=== PATIENT | male | born 1955 | race Caucasian/White ===

== ENCOUNTER 2017-08-03 08:05 | Day surgery (SDC) | payer OTHER, SELFPAY ==
[2017-08-03 08:28] VITALS: BP 101/71; PULSE 91; RESP 14; TEMP 36.2; O2SAT 99; BMI 26.4
--- NOTE | 2017-08-03 09:18 | H&P.OPEN ---
Past Medical/Surgical History - Planned Operation Planned Operative Procedure/s: COLONOSCOPY/OPEN ACCESS Date of Operative Procedure: 08/03/17 Permit Signed: No S.O.S: No Is This Patient Having a Total Joint: No - Previous Hospitalizations/Surgeries HX Hospitalizations: No HX of Surgeries: APPENDECTOMY. BACK INJECTIONS 2010. RIGHT KNEE SCOPE. 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 Any Problems With Anesthesia: No You/Your Family Experience Fever (Hyperthermia) With Anes: No Cholinesterase deficiency: No - Cardiovascular Hx Chest Pain within Last 2 months: No Hx of Irregular Heartbeat and/or Afib: No Hx Heart Attack: No Hx Congestive Heart Failure: No Hx Rheumatic Fever: No Hx Hypertension: Yes - CONTROLLED WITH MED Hx Internal Defibrillator: No Hx Pacemaker: No Hx Cardiac Catheterization: No Hx Cardiac Surgery/Stents/Etc.: No Hx Stress Test: No HX Edema: No Hx Pain in Legs when Walking/Leg Cramps: Yes - IN THE PAST - Respiratory Chronic Cough: No HX of Shortness of Breath: No Hoarseness: No Hx Chronic Obstructive Pulmonary Disease (COPD): No Hx Asthma: No Hx Emphysema: No Hx Sleep Apnea: No Hx Oxygen Use at Home: No Hx Respiratory Tract Infection/Cold (presently): No Do You Snore Loudly (louder than talking or can be heard): No Do You Often Feel Tired/ Fatigued/ Sleepy Dring Daytime?: No Has Anyone Observed You Stop Breathing During Sleep?: No Result (for STOP score): Negative Hx Smoking: Yes - QUIT 15 YRS AGO Smoking Status: Former smoker - Gastrointestinal Hx Gastroesophageal Reflux: No Hx Gastrointestinal Disorders: No Hx Gastrointestinal Bleed: No Hx Ulcer: No Hx Hiatal Hernia: No Difficulty Chewing/Swallowing: No Recent Onset of Swallowing Problems: No Special diet followed at home: No Hx Unplanned Weight Loss of 20#: No HX Unplanned Weight Gain of 20#: No - Neurological Hx Seizures: No HX Syncope/Blackout Spells/Unconsciousness: No Hx CVA/Stroke: No Hx Transient Ischemic Attacks (TIA): No Hx Multiple Sclerosis: No Hx Parkinson's Disease: No Hx Head/Neck Injury: No Hx Headaches: No Hx Back Injury/Pain: Yes - LOWER BACK PAIN AT TIMES/HERNIATED DISC Recent Onset of Speech Difficulty: No Restless Legs: No Does patient have nerve stimulator: No Patient instructed to have device shut off: No Rep notified?: No - Blood Disorder Hx Leukemia: No Bleeding Tendencies: No Hx Deep Vein Thrombosis: No Hx High Cholesterol: No Blood Transmitted Disease: No Hx Hepatitis: No Hx Cirrhosis: No Hx Anemia: No Hx Blood Disorders: No - Genitourinary Hx Renal Disease: No - Musculoskeletal Hx Arthritis: No Hx Rheumatoid Arthritis: No Hx Gout: No Recent Onset of an Orthopedic Problem: No - Endocrine Hx Diabetes: No Thyroid Disease: No Hx Steroid Therapy: No - Psycho/Social Hx Substance Use: No Hx Alcohol Use: Yes - 6 PACK PER WEEK Hx Anxiety: No Hx Depression: No Mental Illness: No Hx Dementia: No - Miscellaneous Hx Cancer: No Recent Exposure to Contagious Disease: No Active MRSA: No Hx of C-Diff: No Any Loose Teeth: No Allergies erythromycin base [Erythromycin Base] Allergy (Verified 08/01/17 09:34) Rash Home Medications Medication Instructions Recorded Lisinopril [Lisinopril] 20 mg PO DAILY 10/24/13 - Discharge Is Pt Admitted From a Half-Way, or a Fpc: No Who Could Help: FAMILY After D/C, Where Do you Plan to Go: Return Home - From the PAT History Number of Risk Factors: 2 - Physical Exam General: Alert, Oriented x3, Cooperative HEENT: Atraumatic Lungs: Normal air movement Cardiovascular: Regular rate, Regular Rhythm Abdomen: Soft, Non Tender, Non-Distended Vital Signs Temp Pulse Resp BP Pulse Ox 97.2 F L 91 14 101/71 99 08/03/17 08:28 08/03/17 08:28 08/03/17 08:28 08/03/17 08:28 08/03/17 08:28 Oxygen Delivery Method Room Air Weight: 189 lb 6.033 oz Body Mass Index (BMI) 26.4 Assessment/Plan 62-year-old male for screening colonoscopy after positive Cologuard 1. The patient had a recent Cologuard test which was positive. The patient reports no blood in his stool. He has no abdominal pain. He has no family history of colon cancer. 2. I explained endoscopy in detail to the patient. I explained the risks including but not limited to stroke or heart attack with anesthesia, perforation of the GI tract, bleeding, infection. I explained that any of these could necessitate further emergency surgery. The patient understands and all questions were answered sufficiently. The patient wishes to proceed with procedure. Riccardo Cross MD Pager: [facility] [address], [address] [place] [address] Office: Surgery Risks - Colonoscopy Risks Include but are not Limited To: Risks include but are not limited to: Bleeding, perforation requiring further surgery, inability to complete colonoscopy requiring barium enema.
--- NOTE | 2017-08-03 09:57 | COLBX_PTH ---
PATIENT: DESI FATIMA LOC: EN U#:[id number] AGE/SX: 62/M ROOM: RE08/03/[address]: Dr. Riccardo Cross MD : [id number] BED: DIS: 08/03/2017 SPEC #: [id number] RECD: 08/03/17 12:19 STATUS: MOSES AYM #: [id number] GABINO: 08/03/17 09:[address]: Riccardo Cross DEPT: SURGICAL PATHOLOGY RECD BY: Jose Guerra ENTERED: 08/03/17 12:33 SP TYPE: COLON BX OTHR DR: Dr. Alvaro Auguste MD Tissues: A - Sigmoid colon biopsy B - Sigmoid colon biopsy C - Rectum, NOS Procedures: Surgery Specimen Level IV HEADER OPERATION: Colonoscopy PRE-OP DIAGNOSIS: Screening TISSUE SUBMITTED: A. Sigmoid polyp at 30 cm, proximal, B. Distal sigmoid polyp biopsy, C. Rectal polyp MICROSCOPIC DIAGNOSIS A. Sigmoid polyp at 30 cm, proximal, biopsy: Hyperplastic polyp. B. Distal sigmoid polyp, biopsy: Hyperplastic polyp. C. Rectal polyp, biopsy: Fragments of hyperplastic polyp. LIBBY:kelly 08/06/17 MICROSCOPIC DESCRIPTION Slides are reviewed. GROSS DESCRIPTION A - Received in fixative is one container labeled with the patient's name and designated sigmoid polyp at 30 cm. The specimen consists of a pink-red polyp measuring 1 x 0.6 x 0.4 cm. The apparent base is inked. The specimen is bisected and submitted entirely in one cassette. B - Received in fixative is one container labeled with the patient's name and designated distal sigmoid polyp biopsy. The specimen consists of one irregular fragment of light pompa soft tissue that measures 0.3 x 0.1 x 0.1 cm. The specimen is totally submitted in one cassette. C - Received in fixative is one container labeled with the patient's name and designated rectal polyp. The specimen consists of multiple irregular fragments of light pompa soft tissue that in aggregate measure 0.5 x 0.1 x 0.1 cm. The specimen is totally submitted in one cassette. / LIBBY:kelly 08/03/17 TC:1 CPT: 85517 x3
[2017-08-03 10:08] VITALS: BP 101/71; BP 75/59; PULSE 71; RESP 16; TEMP 36.8; O2SAT 97
--- NOTE | 2017-08-03 10:08 | PCM.OPRPT ---
Problem List (1) Screen for colon cancer Status: Acute Report of Operation Date of Procedure: 08/03/17 Pre-Operative Diagnosis: Screening colonoscopy Post-Operative Diagnosis: 1. Diverticulosis. 2. Mid sigmoid polyp. 3. Distal sigmoid polyp. 4. Rectal polyp Surgery/Procedure Performed:: Colonoscopy with snare polypectomy Specimen's removed: 1. Mid sigmoid polyp. 2. Distal sigmoid polyp. 3. Rectal polyp Description of Procedure: The major risks and benefits associated with the procedure were explained to the patient in detail. The patient verbalized understanding and agreement with the same. The patient was brought to the endoscopy suite. After adequate sedation was achieved, the patient was placed in the left lateral decubitus position and a digital rectal exam was performed. This examination was within normal limits. A well-lubricated colonoscope was then inserted into the rectum and advanced under direct visualization to the level of the cecum. The bowel prep was good. The cecum was identified by both visual and anatomic landmarks. A photograph was taken of the end of the cecum. The scope was then fully withdrawn while examining the color, texture, anatomy and integrity of the mucosa from the cecum to the anal canal. The findings were consistent with normal colonic mucosa. The patient had a pedunculated polyp in the mid sigmoid. This was removed with cautery snare. The patient also had a small polyp in the distal sigmoid which was fully removed with cold forceps. The patient had a small polyp in the rectum which was removed with cautery snare. The patient also had diverticulosis of the sigmoid colon. Over 6 minutes were taken to examine the colonic mucosa. Upon reaching the rectum the scope was retroflexed to examine the distal rectal vault. The scope was then straightened and was completely retrieved upon exiting the anal canal and the procedure was terminated. The patient was then transferred to the recovery room in stable condition. Recommendations for follow up: Dependent on pathology
[2017-08-03 10:15] VITALS: BP 101/71; BP 90/60; PULSE 66; RESP 18; O2SAT 97
[2017-08-03 10:20] VITALS: BP 101/71; BP 88/59; PULSE 61; RESP 18; O2SAT 99
[2017-08-03 10:25] VITALS: BP 101/71; BP 95/63; PULSE 63; RESP 18; TEMP 36.7; O2SAT 100
[2017-08-03 10:50] VITALS: BP 101/71
== END 2017-08-03 10:58 | disposition home or self-care (01) ==
LOC: EN 08:10 → AC 08:11
PROVIDERS: Family Provider Family Medicine Geriatric Medicine; PCP Family Medicine Geriatric Medicine; Visit Provider Surgery
PROC: 0DJD8ZZ Inspection of Lower Intestinal Tract, Via Natural or Artificial Opening Endoscopic (ICD-10-PCS; CPT 45378; principal; 2017-08-03 08:55)
DX: Z12.11 Encounter for screening for malignant neoplasm of colon (principal); K63.5 Polyp of colon; K62.1 Rectal polyp; K57.30 Diverticulosis of large intestine without perforation or abscess without bleeding; I10 Essential (primary) hypertension; Z87.891 Personal history of nicotine dependence
CPT/HCPCS: 45380; 45385; 88305; J7120

== ENCOUNTER → 2017-09-03 13:45 | Outpatient (CLI) | payer OTHER, SELFPAY ==
[2017-09-03 18:05] LABS: Absolute Lymphocyte Count 1.84 X10^3/ul (0.83-4.51); Absolute Neutrophil Count 3.8 X10^3/uL (2.0-7.7); Basophil# 0.04 X10^3/uL; Basophil% 0.6 % (0-1); Eosinophil# 0.32 X10^3/uL; Eosinophils% 4.7 % (0-5); Hematocrit 49.9 % (40-54); Hemoglobin 17.4 g/dl (13.0-16.5); Lymphocyte # 1.84 X10^3/ul (4.0); Lymphocyte % 27.1 % (19-41); Mean Corp Hgb Conc 34.9 g/gl (32-36); Mean Corpuscular Hgb 33.1 pg (27.0-32.0); Mean Corpuscular Volume 94.9 fL (80-94); Mean Platelet Vol. 12.1 fl (6.2-12.0); Monocyte# 0.75 X10^3/uL; Monocyte% 11.1 % (0-10); Neutrophil % 56.1 % (47-70); Platelet Count 211 K/mm3 (150-450); RBC Distribution Width CV 13.7 % (11.6-14.6); Red Blood Count 5.26 M/mm3 (4.6-6.2); White Blood Count 6.8 K/mm3 (4.4-11.0)
[2017-09-03 18:07] LABS: ALB/GLOB Ratio 1.1 RATIO (0.9-2.4); AST(SGOT) 19 U/L (15-37); Alanine Aminotransfer ALT/SGPT 26 U/L (16-61); Albumin, Serum 4.1 g/dL (3.2-5.0); Alkaline Phosphatase 67 U/L (45-117); Anion Gap 8 (5-15); BUN 16 mg/dL (7-18); BUN/Creat Ratio 12.5 RATIO (10-20); Chloride 107 mmol/L (98-107); Creatinine, Serum 1.28 mg/dL (0.70-1.30); EST Glomerular Filtration Rate 60 mL/min (>60); Est Glom Filt Rate - Afr Amer 73 mL/min (>60); Globulin 3.7 g/dL (2.2-4.2); Glucose 99 mg/dL (74-106); Potassium 3.7 mmol/L (3.5-5.1); Protein, Total 7.8 g/dL (6.4-8.2); Sodium Level 140 mmol/L (136-145); Thyroid Stim Hormone (TSH) 0.74 uIU/mL (0.358-3.74)
[2017-09-03 18:17] LABS: POSITIVE COUNT NO; POSITIVE DIFFERENTIAL NO; POSITIVE MORPHOLOGY NO
== END ==
PROVIDERS: Family Provider Family Medicine Geriatric Medicine; PCP Family Medicine Geriatric Medicine; Visit Provider Obstetrics & Gynecology
DX: E55.9 Vitamin D deficiency, unspecified (principal); I10 Essential (primary) hypertension; M10.9 Gout, unspecified
CPT/HCPCS: 36415; 80053; 84443; 84550; 85025

== ENCOUNTER → 2017-10-15 16:05 | Outpatient (CLI) | payer OTHER, SELFPAY ==
--- NOTE | 2017-10-15 16:05 | DT_ITS ---
This patient was seen during an EMR downtime October 08, 2017 - October 15, 2017. This patient may have a combination of paper and electronic documentation or all paper documentation. All documentation is viewable within the e-chart portion of [employer] for each patient visit.
[2017-10-15 17:36] LABS: Absolute Lymphocyte Count 1.24 X10^3/ul (0.83-4.51); Absolute Neutrophil Count 14.5 X10^3/uL (2.0-7.7); Basophil# 0.02 X10^3/uL; Basophil% 0.1 % (0-1); Eosinophil# 0.06 X10^3/uL; Eosinophils% 0.3 % (0-5); Hematocrit 48.7 % (40-54); Hemoglobin 16.9 g/dl (13.0-16.5); Lymphocyte # 1.24 X10^3/ul (4.0); Lymphocyte % 7.2 % (19-41); Mean Corp Hgb Conc 34.7 g/gl (32-36); Mean Corpuscular Hgb 32.9 pg (27.0-32.0); Mean Corpuscular Volume 94.7 fL (80-94); Mean Platelet Vol. 11.8 fl (6.2-12.0); Monocyte# 1.31 X10^3/uL; Monocyte% 7.6 % (0-10); Neutrophil # 14.52 X10^3/uL (2.7-7.7); Neutrophil % 84.6 % (47-70); Platelet Count 189 K/mm3 (150-450); RBC Distribution Width CV 13.7 % (11.6-14.6); RBC Distribution Width SD 46.4 fl (35.1-43.9); Red Blood Count 5.14 M/mm3 (4.6-6.2); White Blood Count 17.2 K/mm3 (4.4-11.0)
[2017-10-15 17:42] LABS: POSITIVE COUNT NO; POSITIVE DIFFERENTIAL NO; POSITIVE MORPHOLOGY NO
[2017-10-15 17:46] LABS: Anion Gap 10 (5-15); BUN 23 mg/dL (7-18); BUN/Creat Ratio 17.2 RATIO (10-20); Calcium,Total 9.2 mg/dL (8.5-10.1); Chloride 103 mmol/L (98-107); Creatinine, Serum 1.34 mg/dL (0.70-1.30); EST Glomerular Filtration Rate 57 mL/min (>60); Est Glom Filt Rate - Afr Amer 69 mL/min (>60); Glucose 121 mg/dL (74-106); Potassium 4.1 mmol/L (3.5-5.1); Sodium Level 139 mmol/L (136-145); Uric Acid 8.9 mg/dL (3.5-7.2)
[2017-10-15 17:51] LABS: Erythrocyte Sedimentation Rate 10 mm/hr (0-20)
== END ==
PROVIDERS: Family Provider Family Medicine Geriatric Medicine; PCP Family Medicine Geriatric Medicine; Visit Provider Family Medicine Geriatric Medicine
DX: M10.9 Gout, unspecified (principal); M25.50 Pain in unspecified joint; R50.9 Fever, unspecified
CPT/HCPCS: 36415; 80048; 84550; 85025; 85652; 86140; 87040

== ENCOUNTER 2017-11-05 14:23 | Emergency (ER) | payer OTHER, SELFPAY ==
[2017-11-05 14:24] VITALS: BP 133/82; PULSE 78; RESP 16; TEMP 36.6; BMI 25.6
--- NOTE | 2017-11-05 15:38 | RAD_ITS ---
STUDY: X-RAY - LEFT KNEE REASON FOR EXAM: Male, 62 years old. Left knee pain and swelling TECHNIQUE: 4 view(s) of the knee. COMPARISON: None. FINDINGS: Normal visualized distal femur. Normal visualized proximal tibia and fibula. Normal proximal tibiofibular articulation. Normal medial femorotibial compartment. Normal lateral femorotibial compartment. Normal patellofemoral articulation. Prepatellar soft tissue swelling RAD/Knee 4 or More Views IMPRESSION: Prepatellar soft tissue swelling suggesting small bursitis. Electronically Signed: Raymundo Mendosa DO at 16:49 EDT Tel , Service support ,
--- NOTE | 2017-11-05 15:41 | ED.VISSUMM ---
- ER Visit Summary Date of Service: 11/05/17 Chief Complaint: Left knee redness History of Present Illness: The patient is a 62 M with left knee redness since October 13. He states he began having redness and swelling in his knee on October 13. He does not does recall a specific injury. He states he was kneeling on his knees before this started but had no direct trauma to his knee. He was seen by his primary care physician Dr. Auguste on October 15. He attempted to aspirate his knee but was unable to obtain fluid. He gave him IV antibiotics for 4 days and then put him on oral antibiotics. Patient does not recall which antibiotics he was taking. He states the redness has improved but has not completely resolved. He was advised to see Dr. Bañuelos today. The orthopedic office called and advised him to come to the ED instead. Physical Examination: Vitals are stable. Patient is afebrile. Alert no acute distress. HEENT exam is unremarkable. Neck is supple. Lungs are clear and equal bilaterally. Heart is regular rate and rhythm. Abdomen is soft nontender nondistended. Extremities erythema to anterior let knee. Full active range of motion of left knee with no pain. Neurovascularly intact distally. Normal distal pulses. Skin is warm and dry. No focal neurologic deficit. Remainder of exam is unremarkable. Emergency Department Course and Treatment: CBC, chemistries unremarkable. Sed rate is 2. Left knee x-ray shows prepatellar soft tissue swelling suggesting small bursitis. Patient has full active range of motion without any pain. I do not feel this is a septic joint. Discussed with Dr. Correa. Patient will follow-up with Dr. Bañuelos. I do not feel he needs further antibiotics at this time. He is advised to rest, ice, elevate. He is advised return to ED for any worsening complaints. Disposition: Discharge home Impression: Left knee bursitis This note was generated with bluebird bio dictation software. It may contain incorrect words, spelling, and punctuation that were not noted in review of the chart prior to signing ED Disposition - Plan for ED Patient: Chief Complaint: Wound Referrals: Alvaro Auguste Chi, MD [Primary Care Provider] -
[2017-11-05 16:12] LABS: Absolute Lymphocyte Count 2.05 X10^3/ul (0.83-4.51); Absolute Neutrophil Count 6.6 X10^3/uL (2.0-7.7); Basophil# 0.03 X10^3/uL; Basophil% 0.3 % (0-1); Eosinophil# 0.29 X10^3/uL; Hematocrit 47.4 % (40-54); Hemoglobin 16.3 g/dl (13.0-16.5); Lymphocyte # 2.05 X10^3/ul (4.0); Lymphocyte % 21.3 % (19-41); Mean Corp Hgb Conc 34.4 g/gl (32-36); Mean Corpuscular Hgb 32.6 pg (27.0-32.0); Mean Corpuscular Volume 94.8 fL (80-94); Mean Platelet Vol. 11.1 fl (6.2-12.0); Monocyte# 0.67 X10^3/uL; Neutrophil # 6.58 X10^3/uL (2.7-7.7); Neutrophil % 68.3 % (47-70); Platelet Count 206 K/mm3 (150-450); RBC Distribution Width CV 13.7 % (11.6-14.6); RBC Distribution Width SD 46.9 fl (35.1-43.9); White Blood Count 9.6 K/mm3 (4.4-11.0)
[2017-11-05 16:13] LABS: POSITIVE COUNT NO; POSITIVE DIFFERENTIAL NO; POSITIVE MORPHOLOGY NO
[2017-11-05 16:28] LABS: Anion Gap 5 (5-15); BUN 20 mg/dL (7-18); BUN/Creat Ratio 17.1 RATIO (10-20); Calcium,Total 9.3 mg/dL (8.5-10.1); Chloride 106 mmol/L (98-107); Creatinine, Serum 1.17 mg/dL (0.70-1.30); EST Glomerular Filtration Rate 67 mL/min (>60); Est Glom Filt Rate - Afr Amer 81 mL/min (>60); Estimated Creatinine Clearance 67.93 ml/min; Glucose 89 mg/dL (74-106); Potassium 4.2 mmol/L (3.5-5.1); Sodium Level 140 mmol/L (136-145)
[2017-11-05 16:41] LABS: Erythrocyte Sedimentation Rate 2 mm/hr (0-20)
[2017-11-05 17:07] VITALS: BP 132/80; PULSE 80; RESP 16; O2SAT 98
--- NOTE | 2017-11-05 17:31 | ED.DEP ---
ED Disposition - Plan for ED Patient: Chief Complaint: Wound Instructions: ED Bursitis Referrals: Alvaro Auguste Chi, MD [Primary Care Provider] - Cesario Bañuelos MD [STAFF PHYSICIAN] -
== END 2017-11-05 17:36 | disposition home or self-care (01) ==
PROVIDERS: Emergency Provider Emergency Medicine; Family Provider Family Medicine Geriatric Medicine; PCP Family Medicine Geriatric Medicine
DX: M70.52 Other bursitis of knee, left knee (principal); I10 Essential (primary) hypertension
CPT/HCPCS: 73564; 80048; 85025; 85652; 99283; A4216

== ENCOUNTER → 2018-03-27 09:12 | Outpatient (CLI) | payer MEDICARE, SELFPAY ==
[2018-03-27 13:06] LABS: Absolute Lymphocyte Count 1.39 X10^3/ul (0.83-4.51); Absolute Neutrophil Count 4.2 X10^3/uL (2.0-7.7); Basophil# 0.05 X10^3/uL; Basophil% 0.7 % (0-1); Eosinophil# 0.33 X10^3/uL; Eosinophils% 4.8 % (0-5); Hematocrit 49.7 % (40-54); Hemoglobin 16.7 g/dl (13.0-16.5); Lymphocyte # 1.39 X10^3/ul (4.0); Lymphocyte % 20.4 % (19-41); Mean Corp Hgb Conc 33.6 g/gl (32-36); Mean Corpuscular Hgb 33.3 pg (27.0-32.0); Mean Platelet Vol. 12.3 fl (6.2-12.0); Monocyte# 0.81 X10^3/uL; Monocyte% 11.9 % (0-10); Neutrophil # 4.24 X10^3/uL (2.7-7.7); Neutrophil % 62.2 % (47-70); Platelet Count 189 K/mm3 (150-450); RBC Distribution Width SD 50.1 fl (35.1-43.9); Red Blood Count 5.02 M/mm3 (4.6-6.2); White Blood Count 6.8 K/mm3 (4.4-11.0)
[2018-03-27 13:22] LABS: ALB/GLOB Ratio 1.1 RATIO (0.9-2.4); AST(SGOT) 18 U/L (15-37); Alanine Aminotransfer ALT/SGPT 26 U/L (16-61); Alkaline Phosphatase 75 U/L (45-117); Anion Gap 8 (5-15); BUN 18 mg/dL (7-18); BUN/Creat Ratio 13.8 RATIO (10-20); Chloride 107 mmol/L (98-107); EST Glomerular Filtration Rate 59 mL/min (>60); Est Glom Filt Rate - Afr Amer 71 mL/min (>60); Globulin 3.8 g/dL (2.2-4.2); Glucose 96 mg/dL (74-106); PSA,Total - Annual Screen 0.64 ng/mL (0.00-4.00); Potassium 3.6 mmol/L (3.5-5.1); Protein, Total 7.8 g/dL (6.4-8.2); Sodium Level 141 mmol/L (136-145); Thyroid Stim Hormone (TSH) 0.93 uIU/mL (0.358-3.74); Uric Acid 4.8 mg/dL (3.5-7.2)
[2018-03-27 14:09] LABS: POSITIVE COUNT NO; POSITIVE DIFFERENTIAL NO; POSITIVE MORPHOLOGY NO
== END ==
PROVIDERS: Family Provider Family Medicine Geriatric Medicine; PCP Family Medicine Geriatric Medicine; Visit Provider Family Medicine Geriatric Medicine
DX: E23.6 Other disorders of pituitary gland (principal); I10 Essential (primary) hypertension; M10.9 Gout, unspecified; Z12.5 Encounter for screening for malignant neoplasm of prostate
CPT/HCPCS: 36415; 80053; 84153; 84403; 84443; 84550; 85025; G0103

== ENCOUNTER → 2018-04-09 08:41 | Outpatient (CLI) | payer MEDICARE, OTHER, SELFPAY ==
--- NOTE | 2018-04-09 08:45 | US_ITS ---
PROCEDURES: ULTRASOUND AORTA REASON FOR EXAM: Male, 63 years old. Screening for abdominal aortic aneurysm. TECHNIQUE: Ultrasound evaluation of the aorta was performed with real-time and static beckett-scale imaging. COMPARISON: None. FINDINGS: There is atherosclerotic plaque formation of the abdominal aorta. Aorta measures: Proximal 1.9 cm. Middle 1.7 cm. Distal 1.7 cm. Aorta measure transversely: Proximal 2.5 cm. Middle 2.5 cm. Distal 1.6 cm. Right iliac artery measures: 1.1 cm. Right iliac artery measure transversely: 1.2 cm. Left iliac artery measures: 1.2 cm. Left iliac artery measure transversely: 1.2 cm. There is no demonstrated aneurysm.. US/Aorta IMPRESSION: Atherosclerotic plaque formation of the infrarenal abdominal aorta. No aneurysm is seen. Electronically Signed: Bill Collazo MD at 15:43 EST Tel [phone], Service support ,
== END ==
PROVIDERS: Family Provider Family Medicine Geriatric Medicine; PCP Family Medicine Geriatric Medicine; Referring Provider Family Medicine Geriatric Medicine; Visit Provider Family Medicine Geriatric Medicine
DX: I71.4 Abdominal aortic aneurysm, without rupture (principal)
CPT/HCPCS: 76775

== ENCOUNTER → 2018-09-26 09:27 | Outpatient (CLI) | payer MEDICARE, OTHER, SELFPAY ==
[2018-09-26 12:39] LABS: Absolute Lymphocyte Count 1.39 X10^3/ul (0.83-4.51); Absolute Neutrophil Count 4.9 X10^3/uL (2.0-7.7); Basophil# 0.04 X10^3/uL; Basophil% 0.5 % (0-1); Eosinophil# 0.28 X10^3/uL; Eosinophils% 3.8 % (0-5); Hematocrit 49.5 % (40-54); Hemoglobin 16.8 g/dl (13.0-16.5); Lymphocyte # 1.39 X10^3/ul (4.0); Lymphocyte % 18.9 % (19-41); Mean Corp Hgb Conc 33.9 g/gl (32-36); Mean Corpuscular Hgb 31.6 pg (27.0-32.0); Mean Platelet Vol. 11.7 fl (6.2-12.0); Monocyte# 0.76 X10^3/uL; Monocyte% 10.3 % (0-10); Neutrophil # 4.88 X10^3/uL (2.7-7.7); Neutrophil % 66.2 % (47-70); Platelet Count 213 K/mm3 (150-450); RBC Distribution Width CV 13.5 % (11.6-14.6); RBC Distribution Width SD 44.6 fl (35.1-43.9); Red Blood Count 5.32 M/mm3 (4.6-6.2); White Blood Count 7.4 K/mm3 (4.4-11.0)
[2018-09-26 12:44] LABS: POSITIVE COUNT NO; POSITIVE DIFFERENTIAL NO; POSITIVE MORPHOLOGY NO
[2018-09-26 13:06] LABS: Vitamin D,25 Hydroxy 21.5 ng/mL (29.95-100.01)
[2018-09-26 13:40] LABS: ALB/GLOB Ratio 1.1 RATIO (0.9-2.4); AST(SGOT) 20 U/L (15-37); Alanine Aminotransfer ALT/SGPT 25 U/L (16-61); Albumin, Serum 3.8 g/dL (3.2-5.0); Alkaline Phosphatase 87 U/L (45-117); Anion Gap 6 (5-15); BUN 15 mg/dL (7-18); BUN/Creat Ratio 11.5 RATIO (10-20); Calcium,Total 9.3 mg/dL (8.5-10.1); Chloride 109 mmol/L (98-107); Creatinine, Serum 1.31 mg/dL (0.70-1.30); EST Glomerular Filtration Rate 58 mL/min (>60); Est Glom Filt Rate - Afr Amer 71 mL/min (>60); Globulin 3.6 g/dL (2.2-4.2); Glucose 111 mg/dL (74-106); Potassium 3.8 mmol/L (3.5-5.1); Protein, Total 7.4 g/dL (6.4-8.2); Sodium Level 140 mmol/L (136-145); Thyroid Stim Hormone (TSH) 0.76 uIU/mL (0.358-3.74); Uric Acid 8.1 mg/dL (3.5-7.2)
== END ==
PROVIDERS: Family Provider Family Medicine Geriatric Medicine; PCP Family Medicine Geriatric Medicine; Visit Provider Family Medicine Geriatric Medicine
DX: E55.9 Vitamin D deficiency, unspecified (principal); I10 Essential (primary) hypertension; M10.9 Gout, unspecified
CPT/HCPCS: 36415; 80053; 82306; 84443; 84550; 85025

== ENCOUNTER → 2018-12-20 08:55 | Outpatient (CLI) | payer MEDICARE, OTHER, SELFPAY ==
[2018-12-20 08:52] VITALS: BMI 25.6
--- NOTE | 2018-12-20 08:57 | RAD_ITS ---
STUDY: X-RAY - LEFT HAND, ATTENTION FIFTH FINGER REASON FOR EXAM: Injury. TECHNIQUE: 3 view(s) of the finger were obtained. COMPARISON: None. FINDINGS: Normal metacarpal. Normal metacarpophalangeal joint. Normal proximal phalanx. There is a bone island in the base of the proximal phalanx. Normal middle phalanx. Normal distal phalanx. Normal proximal interphalangeal joint. Normal distal interphalangeal joint. There is soft tissue swelling. RAD/Finger(s) Min 2 Views IMPRESSION: Soft tissue swelling. No demonstrated fracture. Electronically Signed: Samy Warren MD at 9:29 EDT Tel , Service support ,
--- NOTE | 2018-12-20 08:57 | RAD_ITS ---
STUDY: X-RAY - RIGHT SHOULDER REASON FOR EXAM: Pain. TECHNIQUE: 3 view(s) of the shoulder. COMPARISON: None. FINDINGS: Normal glenohumeral articulation. There is mild acromioclavicular arthrosis. Normal acromion. There is mild enthesopathy of the greater tuberosity. The soft tissue structures are unremarkable. Normal visualized pulmonary apex. RAD/Shoulder min 2 Views IMPRESSION: Mild acromioclavicular arthrosis. Electronically Signed: Samy Warren MD at 9:39 EDT Tel , Service support ,
== END ==
PROVIDERS: Family Provider Family Medicine Geriatric Medicine; PCP Family Medicine Geriatric Medicine; Referring Provider Orthopaedic Surgery; Visit Provider Orthopaedic Surgery
DX: S69.92XA Unspecified injury of left wrist, hand and finger(s), initial encounter (principal); M19.011 Primary osteoarthritis, right shoulder
CPT/HCPCS: 73030; 73140

== ENCOUNTER → 2019-03-28 09:17 | Outpatient (CLI) | payer MEDICARE, OTHER, SELFPAY ==
[2019-03-10 09:21] VITALS: BMI 25.6
[2019-03-28 12:28] LABS: Absolute Lymphocyte Count 1.16 X10^3/uL (0.83-4.51); Absolute Neutrophil Count 4.8 X10^3/uL (2.0-7.7); Basophil# 0.04 X10^3/uL; Basophil% 0.6 % (0-1); Eosinophil# 0.21 X10^3/uL; Eosinophils% 3.1 % (0-5); Hematocrit 48.2 % (40-54); Hemoglobin 15.9 g/dL (13.0-16.5); Lymphocyte # 1.16 X10^3/ul (4.0); Mean Corpuscular Hgb 32.4 pg (27.0-32.0); Mean Corpuscular Volume 98.4 fL (80-94); Mean Platelet Vol. 11.8 fl (6.2-12.0); Monocyte# 0.65 X10^3/uL; Monocyte% 9.5 % (0-10); NRBC Flagged by Analyzer 0 % (0-5); Neutrophil # 4.76 X10^3/uL (2.7-7.7); Neutrophil % 69.5 % (47-70); Platelet Count 173 K/mm3 (150-450); RBC Distribution Width CV 13.7 % (11.6-14.6); RBC Distribution Width SD 50.1 fl (35.1-43.9); White Blood Count 6.8 K/mm3 (4.4-11.0)
[2019-03-28 12:53] LABS: ALB/GLOB Ratio 1.1 RATIO (0.9-2.4); AST(SGOT) 14 U/L (15-37); Alanine Aminotransfer ALT/SGPT 20 U/L (16-61); Albumin, Serum 3.8 g/dL (3.2-5.0); Alkaline Phosphatase 69 U/L (45-117); Anion Gap 8 (5-15); BUN 21 mg/dL (7-18); BUN/Creat Ratio 17.4 RATIO (10-20); Calcium,Total 9.1 mg/dL (8.5-10.1); Chloride 109 mmol/L (98-107); Creatinine, Serum 1.21 mg/dL (0.70-1.30); EST Glomerular Filtration Rate 64 mL/min (>60); Est Glom Filt Rate - Afr Amer 77 mL/min (>60); Globulin 3.4 g/dL (2.2-4.2); Glucose 100 mg/dL (74-106); Potassium 3.7 mmol/L (3.5-5.1); Protein, Total 7.2 g/dL (6.4-8.2); Sodium Level 142 mmol/L (136-145); Thyroid Stim Hormone (TSH) 0.93 uIU/mL (0.358-3.74); Uric Acid 6.5 mg/dL (3.5-7.2)
[2019-03-28 12:54] LABS: PSA,Total - Annual Screen 0.52 ng/mL (0.00-4.00)
== END ==
PROVIDERS: Family Provider Family Medicine Geriatric Medicine; PCP Family Medicine Geriatric Medicine; Visit Provider Family Medicine Geriatric Medicine
DX: E23.6 Other disorders of pituitary gland (principal); E55.9 Vitamin D deficiency, unspecified; I10 Essential (primary) hypertension; M10.9 Gout, unspecified; Z12.5 Encounter for screening for malignant neoplasm of prostate
CPT/HCPCS: 36415; 80053; 82306; 84153; 84403; 84443; 84550; 85025; G0103

== ENCOUNTER 2019-04-11 15:00 | Outpatient (RCR) | payer MEDICARE, OTHER, SELFPAY ==
[2019-03-10 09:21] VITALS: BMI 25.6
--- NOTE | 2019-03-13 10:27 | HP.PTEVAL_ITS ---
Patient's Visit Information DESI FATIMA is a 63 year old M referred to Physical Therapy by DORA Guzman with a diagnosis of R biceps tenditis. Date of Evaluation: 03/13/19 Physical Therapist: Antoine Rodriguez, ALMAT, OCS, CSCS - Visit Plan Frequency: 1x/Week Duration: 4-6 Weeks Plan: weekly to start for activitiy modification adn progression of strengthening, phase 3 next session. May increase to 3x/week for US and closer management if not helpful OR return to doctor for possible MRI. 4-6 weeks total. - Subjective Findings: R shoulder tore bicep a couple yrs ago adn it never grew back. Was told it would grow back but it did not. Adjusted activitiy as he has been weak. Working hard taking care of mom and now helping sisters adn mother in law and is very busy. In January it really started flaring up in R shoulder. Had limited activitiy since then as he feels weaker and painful. X rays and clinical shows RC is OK. Says he has good motion but weight gives him pain. Comfortable at rest. Hurts to lift. Did ot hurt to move for the last couple years. No rest, spends his days working on houses and david for family and himself. These things hurt and are limited. 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 Swinging a hammer hurts. Hurt it striking at anvil a numer of weeks ago and has been worse since. Sleep is not great, uncomfy. Tried steroids adn anti inflammatories. Helped for day and a half then may have hurt himself moving. Has wood heat and needs to move wood at home. - Pain R shoulder Pain Intensity (Out of 10): 0 Pain Intensity Range: 0, 10 - Objective Walks and transfers normal, some obvious shoulder pain with putting on adn off coat but I. Cervical and scapular ROM WNL and painfree. L UE aROM WFL and normal. R elbow and wrist noisy with crepitus bu normal ROM without pain. R shoulder AROM is full but painful arc adn at end range of flexiona dn abduction. External rotation is 45 B without pain and IR is L% B without pain. Tender to aplapation over biceps tendon in R shoulder adn supra insertion. bi and tri reflex 2/3. strength L UE 5/5. R elbow and wrist 5/5. R IR 4+, ext rot 3+ and painful. flexion 3+ with tumb down and 4 with thumb up in abd and flexion. + HK and + neer. - ext rotation lag test, + painful arc R. - Goals Goal 1:: Sleep without waking due to pain Goal Time Frame: 4-6 Weeks Goal 2:: Patient move through full ROM R shoulder without increased pain Goal Time Frame: 4-6 Weeks Goal 3:: Patient feel 75% improved without any pain greater tahn 2/10 Goal Time Frame: 4-6 Weeks Goal 4:: Pt I in appropriate ex to minimzie future problems Goal Time Frame: 4-6 Weeks - Rehabilitation Potential Physical Therapy Diagnosis: R shoulder pain, biceps tendonitis adn supra tendonitis. Rehabilitation Potential: Questionable - Anticipated Interventions Patient/Client Instruction: Educate patient on: Condition, Plan of Care For the Purpose of:: To decrease pain, To improve nutrient delivery to tissue, To improve muscle performance and motor function, To increase tolerance to activity/condition/position Therapeutic Exercise to Include: Strength training, Flexibilty training, Scapular Strength/Stabilization For the Purpose of:: To decrease pain, To improve muscle performance and motor function, To increase tolerance to activity/condition/position, To improve ability of physical actions for home/community/work/leisure Ultrasound (thermal/non thermal): Yes - non thermal R shoulder For the Purpose of:: To decrease pain, To decrease swelling/inflammation Thank you for the opportunity to evaluate your patient. For Medicare and Medicare HMO plans, please review the plan of care and approve it. It will need to be FAXED BACK to us at [phone] for Medicare purposes. For Medicare only, by signing this I certify the plan of care. Please let me know if there are questions or concerns regarding this plan of care. Physician Signature: Date:
--- NOTE | 2019-04-11 15:19 | HP.PTDCSUM ---
HP - PT D/C Summary It has been my pleasure to treat DESI FATIMA under orders from DORA Guzman, for the diagnosis of R biceps tenditis for a total of 4 visit(s). Discharge Date: Please see the following information for a summary of their discharge status. - Subjective Subjective: got Shinglesshortly after lst visit. Been slacking on workouts and got about 3x/week in. Exercises seem to make him tight. Feeling good otherwise. Fetches wood but has not split it yet. Hammered last Sunday and it went great. On the right track, feeling good and started pushups and cobras. No f/u with doctor. - Pain R shoulder Pain Intensity (Out of 10): 0 - Overall Improvement % Improvement: 80 - Objective Objective/Function: Full aROM without pain today, across body adduction feels tight but able. strength is 4+ in int rot, 4- ext rot, 4+ flexiona dn abd and 5/5 in bi and tri. Moving very well. Happy and confident he can continue on his own with HEP - Goals Goal 1:: Sleep without waking due to pain Goal Progress: Goal Met Goal 2:: Patient move through full ROM R shoulder without increased pain Goal Progress: Goal Met Goal 3:: Patient feel 75% improved without any pain greater tahn 2/10 Goal Progress: Goal Met Goal 4:: Pt I in appropriate ex to minimzie future problems Goal Progress: Goal Met - Plan Plan: d/c - D/C Information If there are questions or concerns regarding this patient's physical therapy, please feel free to call me at [phone]. Thank you for the referral of this patient. Sincerely, Antoine Rodriguez, DPT, OCS, CSCS
--- NOTE | 2019-04-11 15:20 | HP.PTDCSUM ---
HP - PT D/C Summary It has been my pleasure to treat DESI FATIMA under orders from DORA Guzman, for the diagnosis of R biceps tenditis for a total of 4 visit(s). Discharge Date: 04/11/19 Please see the following information for a summary of their discharge status. - Subjective Subjective: got Shinglesshortly after lst visit. Been slacking on workouts and got about 3x/week in. Exercises seem to make him tight. Feeling good otherwise. Fetches wood but has not split it yet. Hammered last Sunday and it went great. On the right track, feeling good and started pushups and cobras. No f/u with doctor. - Pain R shoulder Pain Intensity (Out of 10): 0 - Overall Improvement % Improvement: 80 - Objective Objective/Function: Full aROM without pain today, across body adduction feels tight but able. strength is 4+ in int rot, 4- ext rot, 4+ flexiona dn abd and 5/5 in bi and tri. Moving very well. Happy and confident he can continue on his own with HEP - Goals Goal 1:: Sleep without waking due to pain Goal Progress: Goal Met Goal 2:: Patient move through full ROM R shoulder without increased pain Goal Progress: Goal Met Goal 3:: Patient feel 75% improved without any pain greater tahn 2/10 Goal Progress: Goal Met Goal 4:: Pt I in appropriate ex to minimzie future problems Goal Progress: Goal Met - Plan Plan: d/c - D/C Information Discharge Comments: Will continue wt HEP and contact doctor if pain worsens again. If there are questions or concerns regarding this patient's physical therapy, please feel free to call me at [phone]. Thank you for the referral of this patient. Sincerely, Antoine Rodriguez, DPT, OCS, CSCS
== END 2019-04-11 19:00 | disposition home or self-care (01) ==
LOC: PT 15:00
PROVIDERS: Family Provider Family Medicine Geriatric Medicine; PCP Family Medicine Geriatric Medicine; Referring Provider Physician Assistant; Visit Provider Physician Assistant
DX: M75.21 Bicipital tendinitis, right shoulder (principal)
CPT/HCPCS: 97110; 97162; 97530

== ENCOUNTER → 2019-04-18 12:27 | Outpatient (CLI) | payer MEDICARE, OTHER, SELFPAY ==
[2019-03-10 09:21] VITALS: BMI 25.6
== END ==
PROVIDERS: Family Provider Family Medicine Geriatric Medicine; PCP Family Medicine Geriatric Medicine; Referring Provider Family Medicine Geriatric Medicine; Visit Provider Family Medicine Geriatric Medicine
DX: R68.83 Chills (without fever) (principal)
CPT/HCPCS: 87633

== ENCOUNTER → 2019-09-25 15:12 | Outpatient (CLI) | payer MEDICARE, OTHER, SELFPAY ==
[2019-03-10 09:21] VITALS: BMI 25.6
[2019-09-25 16:57] LABS: Absolute Lymphocyte Count 1.58 X10^3/uL (0.83-4.51); Absolute Neutrophil Count 5.1 X10^3/uL (2.0-7.7); Basophil# 0.05 X10^3/uL; Basophil% 0.6 % (0-1); Eosinophil# 0.17 X10^3/uL; Eosinophils% 2.2 % (0-5); Hematocrit 49.7 % (40-54); Hemoglobin 16.7 g/dL (13.0-16.5); Lymphocyte # 1.58 X10^3/ul (4.0); Lymphocyte % 20.4 % (19-41); Mean Corp Hgb Conc 33.6 g/dL (32-36); Mean Corpuscular Hgb 32.4 pg (27.0-32.0); Mean Corpuscular Volume 96.5 fL (80-94); Mean Platelet Vol. 11.7 fl (6.2-12.0); Monocyte# 0.79 X10^3/uL; Monocyte% 10.2 % (0-10); NRBC Flagged by Analyzer 0 % (0-5); Neutrophil # 5.13 X10^3/uL (2.7-7.7); Neutrophil % 66.1 % (47-70); Platelet Count 217 K/mm3 (150-450); RBC Distribution Width CV 13.3 % (11.6-14.6); RBC Distribution Width SD 47.3 fl (35.1-43.9); Red Blood Count 5.15 M/mm3 (4.6-6.2); White Blood Count 7.8 K/mm3 (4.4-11.0)
[2019-09-25 17:25] LABS: ALB/GLOB Ratio 1.1 RATIO (0.9-2.4); AST(SGOT) 25 U/L (15-37); Alanine Aminotransfer ALT/SGPT 28 U/L (16-61); Albumin, Serum 3.8 g/dL (3.2-5.0); Alkaline Phosphatase 81 U/L (45-117); Anion Gap 6 (5-15); BUN 14 mg/dL (7-18); BUN/Creat Ratio 11.8 RATIO (10-20); Calcium,Total 9.2 mg/dL (8.5-10.1); Chloride 105 mmol/L (98-107); Creatinine, Serum 1.19 mg/dL (0.70-1.30); EST Glomerular Filtration Rate 65 mL/min (>60); Est Glom Filt Rate - Afr Amer 79 mL/min (>60); Globulin 3.6 g/dL (2.2-4.2); Glucose 89 mg/dL (74-106); Potassium 3.6 mmol/L (3.5-5.1); Protein, Total 7.4 g/dL (6.4-8.2); Sodium Level 140 mmol/L (136-145); Thyroid Stim Hormone (TSH) 0.79 uIU/mL (0.358-3.74); Uric Acid 7.3 mg/dL (3.5-7.2)
== END ==
PROVIDERS: PCP Family Medicine Geriatric Medicine; Visit Provider Family Medicine Geriatric Medicine
DX: E23.6 Other disorders of pituitary gland (principal); I10 Essential (primary) hypertension; E85.9 Amyloidosis, unspecified; M10.9 Gout, unspecified; E55.9 Vitamin D deficiency, unspecified
CPT/HCPCS: 36415; 80053; 82306; 84403; 84443; 84550; 85025

== ENCOUNTER → 2020-03-29 13:36 | Outpatient (CLI) | payer MEDICARE, OTHER, SELFPAY ==
[2019-03-10 09:21] VITALS: BMI 25.6
--- NOTE | 2020-03-29 15:10 | RAD_ITS ---
STUDY: X-RAY - LEFT HAND, ATTENTION THUMB REASON FOR EXAM: Left thumb pain, deformity and limited range of motion after hyperextension injury from a fall 6 weeks ago. TECHNIQUE: 3 view(s) of the finger were obtained. COMPARISON: Radiographs of the left hand 01/02/2011. FINDINGS: Normal carpometacarpal articulation. Normal metacarpal. There is mild ulnar subluxation of the first metacarpophalangeal joint. Normal proximal phalanx. Normal distal phalanx. Normal interphalangeal joint. RAD/Finger(s) Min 2 Views IMPRESSION: Mild ulnar subluxation of the first metacarpophalangeal joint. Electronically Signed: Samy Warren MD at 10:04 EST Tel , Service support ,
[2020-03-29 15:11] LABS: Absolute Lymphocyte Count 1.58 X10^3/uL (0.83-4.51); Absolute Neutrophil Count 5.7 X10^3/uL (2.0-7.7); Basophil# 0.06 X10^3/uL; Basophil% 0.7 % (0-1); Eosinophil# 0.19 X10^3/uL; Eosinophils% 2.3 % (0-5); Hemoglobin 17.4 g/dL (13.0-16.5); Lymphocyte # 1.58 X10^3/ul (4.0); Lymphocyte % 19.2 % (19-41); Mean Corp Hgb Conc 34.1 g/dL (32-36); Mean Corpuscular Hgb 33.2 pg (27.0-32.0); Mean Corpuscular Volume 97.3 fL (80-94); Mean Platelet Vol. 11.7 fl (6.2-12.0); Monocyte# 0.69 X10^3/uL; Monocyte% 8.4 % (0-10); NRBC Flagged by Analyzer 0 % (0-5); Neutrophil # 5.67 X10^3/uL (2.7-7.7); Neutrophil % 69.2 % (47-70); Platelet Count 214 K/mm3 (150-450); RBC Distribution Width CV 13.4 % (11.6-14.6); RBC Distribution Width SD 47.9 fl (35.1-43.9); Red Blood Count 5.24 M/mm3 (4.6-6.2); White Blood Count 8.2 K/mm3 (4.4-11.0)
[2020-03-29 16:03] LABS: ALB/GLOB Ratio 1.1 RATIO (0.9-2.4); AST(SGOT) 23 U/L (15-37); Alanine Aminotransfer ALT/SGPT 30 U/L (16-61); Albumin, Serum 4.2 g/dL (3.2-5.0); Alkaline Phosphatase 74 U/L (45-117); Anion Gap 6 (5-15); BUN 21 mg/dL (7-18); BUN/Creat Ratio 16.8 RATIO (10-20); Calcium,Total 9.7 mg/dL (8.5-10.1); Chloride 105 mmol/L (98-107); Creatinine, Serum 1.25 mg/dL (0.70-1.30); EST Glomerular Filtration Rate 61 mL/min (>60); Est Glom Filt Rate - Afr Amer 74 mL/min (>60); Globulin 3.8 g/dL (2.2-4.2); Glucose 90 mg/dL (74-106); PSA,Total - Annual Screen 0.56 ng/mL (0.00-4.00); Potassium 4.1 mmol/L (3.5-5.1); Sodium Level 139 mmol/L (136-145); Thyroid Stim Hormone (TSH) 0.74 uIU/mL (0.358-3.74); Uric Acid 8.4 mg/dL (3.5-7.2)
[2020-03-29 18:36] LABS: Vitamin D,25 Hydroxy 22.2 ng/mL
== END ==
LOC: POLAB3 13:37 → RAD 15:09
PROVIDERS: PCP Family Medicine Geriatric Medicine; Referring Provider Family Medicine Geriatric Medicine; Visit Provider Family Medicine Geriatric Medicine
DX: E23.6 Other disorders of pituitary gland (principal); E55.9 Vitamin D deficiency, unspecified; I10 Essential (primary) hypertension; M10.9 Gout, unspecified; Z12.5 Encounter for screening for malignant neoplasm of prostate
CPT/HCPCS: 36415; 73140; 80053; 82306; 84153; 84403; 84443; 84550; 85025; G0103

== ENCOUNTER → 2020-09-27 14:50 | Outpatient (CLI) | payer MEDICARE, SELFPAY ==
[2019-03-10 09:21] VITALS: BMI 25.6
[2020-09-27 17:23] LABS: Absolute Lymphocyte Count 1.74 X10^3/uL (0.83-4.51); Absolute Neutrophil Count 5.7 X10^3/uL (2.0-7.7); Basophil# 0.07 X10^3/uL; Basophil% 0.8 % (0-1); Eosinophil# 0.28 X10^3/uL; Eosinophils% 3.2 % (0-5); Hematocrit 51.5 % (40-54); Hemoglobin 17.2 g/dL (13.0-16.5); Lymphocyte # 1.74 X10^3/ul (0.83-4.51); Lymphocyte % 20.1 % (19-41); Mean Corp Hgb Conc 33.4 g/dL (32-36); Mean Corpuscular Hgb 32.8 pg (27.0-32.0); Mean Corpuscular Volume 98.3 fL (80-94); Mean Platelet Vol. 11.9 fl (6.2-12.0); Monocyte# 0.79 X10^3/uL; Monocyte% 9.1 % (0-10); NRBC Flagged by Analyzer 0 % (0-5); Neutrophil # 5.74 X10^3/uL (2.7-7.7); Neutrophil % 66.6 % (47-70); Platelet Count 237 K/mm3 (150-450); RBC Distribution Width CV 13.2 % (11.6-14.6); RBC Distribution Width SD 48.5 fl (35.1-43.9); Red Blood Count 5.24 M/mm3 (4.6-6.2); White Blood Count 8.6 K/mm3 (4.4-11.0)
[2020-09-27 17:48] LABS: AST(SGOT) 24 U/L (15-37); Alanine Aminotransfer ALT/SGPT 28 U/L (16-61); Albumin, Serum 3.8 g/dL (3.2-5.0); Alkaline Phosphatase 77 U/L (45-117); Anion Gap 7 (5-15); BUN 15 mg/dL (7-18); Calcium,Total 9.2 mg/dL (8.5-10.1); Chloride 107 mmol/L (98-107); Creatinine, Serum 1.36 mg/dL (0.70-1.30); EST Glomerular Filtration Rate 56 mL/min (>60); Est Glom Filt Rate - Afr Amer 67 mL/min (>60); Globulin 3.8 g/dL (2.2-4.2); Glucose 97 mg/dL (74-106); Potassium 4.1 mmol/L (3.5-5.1); Protein, Total 7.6 g/dL (6.4-8.2); Sodium Level 138 mmol/L (136-145); Thyroid Stim Hormone (TSH) 0.53 uIU/mL (0.358-3.74)
[2020-09-30 12:53] LABS: Vitamin D,25 Hydroxy 20.3 ng/mL
== END ==
PROVIDERS: PCP Family Medicine Geriatric Medicine; Visit Provider Family Medicine Geriatric Medicine
DX: E23.6 Other disorders of pituitary gland (principal); E55.9 Vitamin D deficiency, unspecified; I10 Essential (primary) hypertension
CPT/HCPCS: 36415; 80053; 82306; 84403; 84443; 85025; 86617

== ENCOUNTER → 2020-10-01 10:36 | Outpatient (CLI) | payer MEDICARE, SELFPAY ==
[2019-03-10 09:21] VITALS: BMI 25.6
[2020-10-07 03:07] LABS: Lyme IgG P18 Ab Absent (.); Lyme IgG P23 Ab Absent (.); Lyme IgG P28 Ab Absent (.); Lyme IgG P30 Ab Absent (.); Lyme IgG P39 Ab Absent (.); Lyme IgG P41 Ab Present (.); Lyme IgG P45 Ab Absent (.); Lyme IgG P58 Ab Present (.); Lyme IgG P66 Ab Absent (.); Lyme IgG P93 Ab Absent (.); Lyme IgM P23 Ab Present (.); Lyme IgM P39 Ab Absent (.); Lyme IgM P41 Ab Absent (.)
[2020-10-07 09:06] LABS: Lyme IgG WB Interpretation Negative (.); Lyme IgM WB Interpretation Negative (.)
== END ==
PROVIDERS: PCP Family Medicine Geriatric Medicine; Visit Provider Family Medicine Geriatric Medicine
DX: T07.XXXA Unspecified multiple injuries, initial encounter (principal)
CPT/HCPCS: 86617

== ENCOUNTER → 2021-04-05 13:59 | Outpatient (CLI) | payer MEDICARE, SELFPAY ==
[2021-04-05 15:30] LABS: Absolute Lymphocyte Count 1.28 X10^3/uL (0.83-4.51); Basophil# 0.06 X10^3/uL; Basophil% 0.8 % (0-1); Eosinophil# 0.32 X10^3/uL; Eosinophils% 4.2 % (0-5); Hematocrit 51.1 % (40-54); Hemoglobin 17.5 g/dL (13.0-16.5); Lymphocyte # 1.28 X10^3/ul (0.83-4.51); Lymphocyte % 16.8 % (19-41); Mean Corp Hgb Conc 34.2 g/dL (32-36); Mean Corpuscular Hgb 33.3 pg (27.0-32.0); Mean Corpuscular Volume 97.1 fL (80-94); Mean Platelet Vol. 11.3 fl (6.2-12.0); Monocyte# 0.92 X10^3/uL; Monocyte% 12.1 % (0-10); NRBC Flagged by Analyzer 0 % (0-5); Neutrophil % 65.6 % (47-70); Platelet Count 218 K/mm3 (150-450); RBC Distribution Width CV 12.9 % (11.6-14.6); RBC Distribution Width SD 46.2 fl (35.1-43.9); Red Blood Count 5.26 M/mm3 (4.6-6.2); White Blood Count 7.6 K/mm3 (4.4-11.0)
[2021-04-05 16:08] LABS: Vitamin D,25 Hydroxy 23.6 ng/mL
[2021-04-05 16:34] LABS: AST(SGOT) 22 U/L (15-37); Alanine Aminotransfer ALT/SGPT 26 U/L (16-61); Albumin, Serum 4.1 g/dL (3.2-5.0); Alkaline Phosphatase 71 U/L (45-117); Anion Gap 7 (5-15); BUN 20 mg/dL (7-18); BUN/Creat Ratio 16.7 RATIO (10-20); Calcium,Total 9.4 mg/dL (8.5-10.1); Chloride 105 mmol/L (98-107); EST Glomerular Filtration Rate 64 mL/min (>60); Est Glom Filt Rate - Afr Amer 77 mL/min (>60); Glucose 93 mg/dL (74-106); PSA,Total - Annual Screen 0.81 ng/mL (0.00-4.00); Potassium 4.1 mmol/L (3.5-5.1); Protein, Total 8.1 g/dL (6.4-8.2); Sodium Level 141 mmol/L (136-145); Thyroid Stim Hormone (TSH) 0.75 uIU/mL (0.358-3.74)
== END ==
PROVIDERS: PCP Family Medicine Geriatric Medicine; Referring Provider Family Medicine Geriatric Medicine; Visit Provider Family Medicine Geriatric Medicine
DX: E23.6 Other disorders of pituitary gland (principal); E55.9 Vitamin D deficiency, unspecified; I10 Essential (primary) hypertension; Z12.5 Encounter for screening for malignant neoplasm of prostate
CPT/HCPCS: 36415; 80053; 82306; 84153; 84403; 84443; 85025; G0103

== ENCOUNTER → 2021-04-19 16:37 | Outpatient (CLI) | payer MEDICARE, SELFPAY ==
--- NOTE | 2021-04-19 16:41 | CT_ITS ---
STUDY: CT Abdomen And Pelvis W/O Contrast Injection 04/19/2021 5:09 PM REASON FOR EXAM: Male, 66 years old. Technologist Notes LEFT SIDED POSSIBLE HERNIA pain PAIN Individualized dose optimization techniques were used for this CT. COMPARISON: None. TECHNIQUE: CT Abdomen And Pelvis W/O Contrast Injection FINDINGS: The visualized lung bases are unremarkable. The visualized portions of the heart are within normal limits. Normal liver. Normal gallbladder and extrahepatic biliary system. Normal spleen. Normal pancreas. Normal bilateral adrenal glands. No acute findings of the right kidney. No acute findings of the left kidney. Normal visualized stomach. Normal small intestine. There are multiple colonic diverticula consistent with diverticulosis. The appendix is visualized and appears normal. There are calcifications of the abdominal aorta. This is consistent for atherosclerotic disease. There is no abdominal aortic aneurysm. Normal inferior vena cava. Subcentimeter mesenteric lymph nodes. Normal urinary bladder. There are bilateral inguinal hernias containing fat. There is no bowel involvement. There is no incarceration. There is no findings suggesting that this is causing a bowel obstruction. There is an umbilical hernia containing fat. There are diffuse degenerative changes of the visualized lumbar spine. Sacralization of L5. IMPRESSION: (NOT LISTED IN ORDER OF SIGNIFICANCE) There are bilateral inguinal hernias containing fat. There is no bowel involvement. There is no incarceration. There is no findings suggesting that this is causing a bowel obstruction. There are multiple colonic diverticula consistent with diverticulosis. Other findings as above. Electronically Signed: Chalo Gates MD at 17:12 EST , Service support , CT/Abdomen/Pelvis without Cont
== END ==
LOC: CT 16:38
PROVIDERS: PCP Family Medicine Geriatric Medicine; Visit Provider Surgery
DX: R10.32 Left lower quadrant pain (principal)
CPT/HCPCS: 74176

== ENCOUNTER 2021-05-12 09:31 | Outpatient (CLI) | payer MEDICARE, SELFPAY ==
[2021-05-12 11:40] LABS: Absolute Lymphocyte Count 2.09 X10^3/uL (0.83-4.51); Absolute Neutrophil Count 4.3 X10^3/uL (2.0-7.7); Basophil# 0.05 X10^3/uL; Basophil% 0.7 % (0-1); Eosinophil# 0.51 X10^3/uL; Eosinophils% 6.6 % (0-5); Hematocrit 48.9 % (40-54); Hemoglobin 16.6 g/dL (13.0-16.5); Lymphocyte # 2.09 X10^3/ul (0.83-4.51); Lymphocyte % 27.2 % (19-41); Mean Corp Hgb Conc 33.9 g/dL (32-36); Mean Corpuscular Hgb 32.2 pg (27.0-32.0); Mean Platelet Vol. 11.8 fl (6.2-12.0); Monocyte# 0.72 X10^3/uL; Monocyte% 9.4 % (0-10); NRBC Flagged by Analyzer 0 % (0-5); Neutrophil # 4.29 X10^3/uL (2.7-7.7); Neutrophil % 55.7 % (47-70); Platelet Count 208 K/mm3 (150-450); RBC Distribution Width CV 12.2 % (11.6-14.6); RBC Distribution Width SD 42.8 fl (35.1-43.9); Red Blood Count 5.15 M/mm3 (4.6-6.2); White Blood Count 7.7 K/mm3 (4.4-11.0)
== END 2021-05-12 23:59 | disposition short-term general hospital (02) ==
LOC: POLAB3 09:32
PROVIDERS: PCP Family Medicine Geriatric Medicine; Visit Provider Family Medicine Geriatric Medicine
DX: I10 Essential (primary) hypertension (principal); R68.89 Other general symptoms and signs
CPT/HCPCS: 36415; 85025

== ENCOUNTER 2021-06-13 10:09 | Outpatient (CLI) | payer MEDICARE, SELFPAY ==
[2021-06-13 11:07] LABS: Absolute Lymphocyte Count 1.52 X10^3/uL (0.83-4.51); Absolute Neutrophil Count 4.2 X10^3/uL (2.0-7.7); Basophil# 0.04 X10^3/uL; Basophil% 0.6 % (0-1); Eosinophil# 0.26 X10^3/uL; Eosinophils% 3.9 % (0-5); Hematocrit 45.4 % (40-54); Lymphocyte # 1.52 X10^3/ul (0.83-4.51); Lymphocyte % 22.9 % (19-41); Mean Corp Hgb Conc 35.2 g/dL (32-36); Mean Corpuscular Volume 93.6 fL (80-94); Mean Platelet Vol. 11.4 fl (6.2-12.0); Monocyte# 0.62 X10^3/uL; Monocyte% 9.3 % (0-10); NRBC Flagged by Analyzer 0 % (0-5); Neutrophil # 4.17 X10^3/uL (2.7-7.7); Neutrophil % 62.7 % (47-70); Platelet Count 211 K/mm3 (150-450); RBC Distribution Width CV 12.6 % (11.6-14.6); RBC Distribution Width SD 43.8 fl (35.1-43.9); Red Blood Count 4.85 M/mm3 (4.6-6.2); White Blood Count 6.7 K/mm3 (4.4-11.0)
== END 2021-06-13 23:59 | disposition home or self-care (01) ==
LOC: POLAB3 10:10
PROVIDERS: PCP Family Medicine Geriatric Medicine; Visit Provider Family Medicine Geriatric Medicine
DX: D45 Polycythemia vera (principal)
CPT/HCPCS: 36415; 85025

== ENCOUNTER 2021-08-11 09:12 | Outpatient (CLI) | payer MEDICARE, SELFPAY ==
[2021-08-11 11:52] LABS: Absolute Lymphocyte Count 1.53 X10^3/uL (0.83-4.51); Basophil# 0.08 X10^3/uL; Eosinophil# 0.56 X10^3/uL; Eosinophils% 7.1 % (0-5); Hematocrit 45.7 % (40-54); Hemoglobin 15.5 g/dL (13.0-16.5); Lymphocyte # 1.53 X10^3/ul (0.83-4.51); Lymphocyte % 19.5 % (19-41); Mean Corp Hgb Conc 33.9 g/dL (32-36); Mean Corpuscular Hgb 32.5 pg (27.0-32.0); Mean Corpuscular Volume 95.8 fL (80-94); Monocyte# 0.69 X10^3/uL; Monocyte% 8.8 % (0-10); NRBC Flagged by Analyzer 0 % (0-5); Neutrophil # 4.96 X10^3/uL (2.7-7.7); Neutrophil % 63.2 % (47-70); Platelet Count 199 K/mm3 (150-450); RBC Distribution Width CV 12.5 % (11.6-14.6); RBC Distribution Width SD 44.6 fl (35.1-43.9); Red Blood Count 4.77 M/mm3 (4.6-6.2); White Blood Count 7.9 K/mm3 (4.4-11.0)
== END 2021-08-11 23:59 | disposition home or self-care (01) ==
LOC: POLAB3 09:13
PROVIDERS: PCP Family Medicine Geriatric Medicine; Visit Provider Family Medicine Geriatric Medicine
DX: E29.1 Testicular hypofunction (principal)
CPT/HCPCS: 36415; 85025

== ENCOUNTER → 2021-09-29 | Outpatient (CLI) | payer MEDICARE, SELFPAY ==
[2021-09-29 12:09] LABS: Absolute Lymphocyte Count 1.23 X10^3/uL (0.83-4.51); Absolute Neutrophil Count 7.8 X10^3/uL (2.0-7.7); Basophil# 0.06 X10^3/uL; Basophil% 0.6 % (0-1); Eosinophil# 0.25 X10^3/uL; Eosinophils% 2.5 % (0-5); Hematocrit 44.3 % (40-54); Hemoglobin 15.1 g/dL (13.0-16.5); Lymphocyte # 1.23 X10^3/ul (0.83-4.51); Lymphocyte % 12.1 % (19-41); Mean Corp Hgb Conc 34.1 g/dL (32-36); Mean Corpuscular Hgb 32.9 pg (27.0-32.0); Mean Corpuscular Volume 96.5 fL (80-94); Mean Platelet Vol. 11.2 fl (6.2-12.0); Monocyte# 0.79 X10^3/uL; Monocyte% 7.8 % (0-10); NRBC Flagged by Analyzer 0 % (0-5); Neutrophil # 7.82 X10^3/uL (2.7-7.7); Neutrophil % 76.6 % (47-70); Platelet Count 242 K/mm3 (150-450); RBC Distribution Width CV 13.1 % (11.6-14.6); RBC Distribution Width SD 46.6 fl (35.1-43.9); Red Blood Count 4.59 M/mm3 (4.6-6.2); White Blood Count 10.2 K/mm3 (4.4-11.0)
[2021-09-29 12:46] LABS: ALB/GLOB Ratio 0.9 RATIO (0.9-2.4); AST(SGOT) 19 U/L (15-37); Alanine Aminotransfer ALT/SGPT 20 U/L (16-61); Albumin, Serum 3.5 g/dL (3.2-5.0); Alkaline Phosphatase 90 U/L (45-117); Anion Gap 10 (5-15); BUN 21 mg/dL (7-18); BUN/Creat Ratio 16.9 RATIO (10-20); Calcium,Total 8.9 mg/dL (8.5-10.1); Chloride 108 mmol/L (98-107); Creatinine, Serum 1.24 mg/dL (0.70-1.30); EST Glomerular Filtration Rate 62 mL/min (>60); Est Glom Filt Rate - Afr Amer 74 mL/min (>60); Glucose 143 mg/dL (74-106); Potassium 3.9 mmol/L (3.5-5.1); Protein, Total 7.5 g/dL (6.4-8.2); Sodium Level 140 mmol/L (136-145); Thyroid Stim Hormone (TSH) 0.87 uIU/mL (0.358-3.74); Uric Acid 7.7 mg/dL (3.5-7.2)
[2021-09-29 13:25] LABS: Vitamin D,25 Hydroxy 27.8 ng/mL
== END | disposition home or self-care (01) ==
LOC: POLAB3 08:43
PROVIDERS: PCP Family Medicine Geriatric Medicine; Visit Provider Family Medicine Geriatric Medicine
DX: E23.6 Other disorders of pituitary gland (principal); E55.9 Vitamin D deficiency, unspecified; I10 Essential (primary) hypertension; M10.9 Gout, unspecified
CPT/HCPCS: 36415; 80053; 82306; 84403; 84443; 84550; 85025

== ENCOUNTER → 2021-10-14 | Outpatient (CLI) | payer MEDICARE, SELFPAY ==
[2021-11-02 00:07] LABS: Lyme IgG P18 Ab Absent (.); Lyme IgG P23 Ab Absent (.); Lyme IgG P28 Ab Absent (.); Lyme IgG P30 Ab Absent (.); Lyme IgG P39 Ab Absent (.); Lyme IgG P41 Ab Present (.); Lyme IgG P45 Ab Absent (.); Lyme IgG P58 Ab Absent (.); Lyme IgG P66 Ab Absent (.); Lyme IgG P93 Ab Absent (.); Lyme IgM P23 Ab Present (.); Lyme IgM P39 Ab Absent (.); Lyme IgM P41 Ab Absent (.)
[2021-11-03 16:42] LABS: Lyme IgG WB Interpretation Negative (.); Lyme IgM WB Interpretation Negative (.)
== END | disposition home or self-care (01) ==
LOC: POLAB3 09:59
PROVIDERS: PCP Family Medicine Geriatric Medicine; Visit Provider Family Medicine Geriatric Medicine
DX: A69.20 Lyme disease, unspecified (principal)
CPT/HCPCS: 36415; 86617

== ENCOUNTER → 2021-12-21 | Outpatient (CLI) | payer MEDICARE, SELFPAY ==
--- NOTE | 2021-12-21 10:44 | RAD_ITS ---
INDICATION: PAIN EXAMINATION/TECHNIQUE: X-RAY - LEFT XR Knee 3 Views 3 VIEWS COMPARISON: 11/05/2017. FINDINGS: SOFT TISSUES: No soft tissue swelling or gas. No radiopaque foreign body. BONES/JOINTS: Moderate narrowing of the medial joint space, mild narrowing of the lateral and patellofemoral joint spaces. Degenerative bone changes are seen. No acute fracture or subluxation.. Normal alignment. Preservation of the joint space.. No sclerotic or destructive changes observed. RAD/Knee 3 Views IMPRESSION: Degenerative changes, no evidence of acute osseous abnormality is seen. Electronically Signed: Derrick Herrera MD at 15:25 EDT ,
--- NOTE | 2021-12-21 10:45 | RAD_ITS ---
INDICATION: PAIN EXAMINATION/TECHNIQUE: X-RAY - RIGHT XR Knee 3 Views 3 VIEWS COMPARISON: 11/05/2017, left knee x-ray. FINDINGS: SOFT TISSUES: No soft tissue swelling or gas. No radiopaque foreign body. BONES/JOINTS: Mild narrowing of the joint spaces. Degenerative changes with subtle osteophyte formation is seen. No acute fracture or subluxation.. Normal alignment. Preservation of the joint space.. No sclerotic or destructive changes observed. RAD/Knee 3 Views IMPRESSION: Degenerative changes, no evidence of acute osseous abnormality. Electronically Signed: Derrick Herrera MD at 15:24 EDT ,
--- NOTE | 2021-12-21 10:45 | RAD_ITS ---
INDICATION: PAIN EXAMINATION/TECHNIQUE: X-RAY - BILATERAL XR Hips Bilateral with Pelvis when performed; 2 Views COMPARISON: None. FINDINGS: PELVIC BONES: No displaced fracture, destructive or sclerotic lesions. Note that overlapping bowel shadows may however obscure fine detail. Degenerative changes. Sacroiliac joints demonstrate symmetrical degenerative changes. No widening of the pubic symphysis. HIPS: The articular structures are unremarkable. No displaced fracture seen in this frontal view. Degenerative changes. SOFT TISSUES: No soft tissue swelling or gas. RAD/Hips B/L min 2 views w/ Pelvis IMPRESSION: No evidence of displaced pelvic or hip fracture. Electronically Signed: Derrick Herrera MD at 15:22 EDT ,
== END | disposition home or self-care (01) ==
LOC: RAD 10:36
PROVIDERS: PCP Family Medicine Geriatric Medicine; Referring Provider Family Medicine Geriatric Medicine; Visit Provider Family Medicine Geriatric Medicine
DX: M25.559 Pain in unspecified hip (principal); M25.569 Pain in unspecified knee
CPT/HCPCS: 73521; 73562

== ENCOUNTER → 2022-01-16 | Outpatient (CLI) | payer MEDICARE, SELFPAY ==
--- NOTE | 2022-01-16 13:28 | VDUE_ITS ---
Reason For Study: Edema Right Proximal Left Proximal Right jugular vein is spontaneous, widely Left subclavian vein is spontaneous, widely patent, phasic, with no intraluminal patent, phasic, with no intraluminal echogenicity noted. echogenicity noted. Right subclavian vein is spontaneous, widely patent, phasic, with no intraluminal echogenicity noted. Right Lower Arm Right radial vein is compressible. Right ulnar vein is compressible. Right Arm Right axillary vein is spontaneous, patent, phasic, competent, compressible and demonstrates augmentation. Right brachial vein is compressible. Right cephalic vein is compressible. Right basilic vein is compressible. VL/Venous Duplex US, Unilateral Interpretation Summary Deep and superficial veins of the right upper extremity are patent and compress ible segmentally. There is no evidence of deep or superficial vein thrombosis. Ordering Physician: Alvaro Auguste Chi Referring Physician: Alvaro Auguste Chi Performed By: Mariela Aguilar, DADA, RVT ???
--- NOTE | 2022-01-16 13:30 | RAD_ITS ---
STUDY: XR Hand Min 3 Views REASON FOR EXAM: Male, 66 years old. HAND PAIN TECHNIQUE: XR Hand Min 3 Views RIGHT COMPARISON: None. FINDINGS: There is joint space narrowing of the radiocarpal articulation consistent with degenerative arthrosis. Normal distal radioulnar joint. Normal visualized carpal bones. Normal carpal articulations Normal carpometacarpal articulation of the thumb. Normal second through fifth carpometacarpal joints. Normal metacarpi. Normal metacarpophalangeal joint of the thumb. Normal interphalangeal joint of the thumb. Normal proximal and distal phalanges of the thumb. Normal metacarpophalangeal joints of the second through fifth fingers. Normal proximal and distal interphalangeal joints of the second through fifth fingers. Normal phalanges of the second through fifth fingers. The soft tissue structures are unremarkable. RAD/Hand Min 3 Views IMPRESSION: There is joint space narrowing of the radiocarpal articulation consistent with degenerative arthrosis. Electronically Signed: Chalo Gates MD at 18:01 EDT ,
== END | disposition home or self-care (01) ==
LOC: CVS 13:26
PROVIDERS: PCP Family Medicine Geriatric Medicine; Referring Provider Family Medicine Geriatric Medicine; Visit Provider Family Medicine Geriatric Medicine
DX: M79.641 Pain in right hand (principal); M10.9 Gout, unspecified; R60.0 Localized edema
CPT/HCPCS: 36415; 73130; 80048; 84550; 85025; 85652; 86140; 93971

== ENCOUNTER → 2022-01-16 | Outpatient (CLI) | payer MEDICARE, SELFPAY ==
[2022-01-16 12:05] LABS: Erythrocyte Sedimentation Rate 29 mm/hr (0-20)
[2022-01-16 12:07] LABS: Absolute Lymphocyte Count 1.22 X10^3/uL (0.83-4.51); Basophil# 0.06 X10^3/uL; Basophil% 0.5 % (0-1); Eosinophil# 0.17 X10^3/uL; Eosinophils% 1.5 % (0-5); Hemoglobin 16.6 g/dL (13.0-16.5); Lymphocyte # 1.22 X10^3/ul (0.83-4.51); Lymphocyte % 10.9 % (19-41); Mean Corp Hgb Conc 33.9 g/dL (32-36); Mean Corpuscular Hgb 32.6 pg (27.0-32.0); Mean Corpuscular Volume 96.3 fL (80-94); Mean Platelet Vol. 10.7 fl (6.2-12.0); Monocyte# 0.64 X10^3/uL; Monocyte% 5.7 % (0-10); NRBC Flagged by Analyzer 0 % (0-5); Neutrophil # 8.96 X10^3/uL (2.7-7.7); Neutrophil % 80.1 % (47-70); Platelet Count 261 K/mm3 (150-450); RBC Distribution Width CV 14.8 % (11.6-14.6); RBC Distribution Width SD 53.4 fl (35.1-43.9); Red Blood Count 5.09 M/mm3 (4.6-6.2); White Blood Count 11.2 K/mm3 (4.4-11.0)
[2022-01-16 12:25] LABS: Anion Gap 5 (5-15); BUN 12 mg/dL (7-18); BUN/Creat Ratio 12.6 RATIO (10-20); Calcium,Total 9.7 mg/dL (8.5-10.1); Chloride 110 mmol/L (98-107); Creatinine, Serum 0.95 mg/dL (0.70-1.30); EST Glomerular Filtration Rate 83 mL/min (>60); Est Glom Filt Rate - Afr Amer 101 mL/min (>60); Glucose 112 mg/dL (74-106); Potassium 4.3 mmol/L (3.5-5.1); Sodium Level 141 mmol/L (136-145); Uric Acid 6.4 mg/dL (3.5-7.2)
== END | disposition home or self-care (01) ==
LOC: POLAB3 10:29
PROVIDERS: PCP Family Medicine Geriatric Medicine; Visit Provider Family Medicine Geriatric Medicine
DX: M10.9 Gout, unspecified (principal)
CPT/HCPCS: 36415; 80048; 84550; 85025; 85652; 86140

== ENCOUNTER → 2022-02-01 | Outpatient (CLI) | payer MEDICARE, SELFPAY ==
[2022-02-01 17:48] LABS: ALB/GLOB Ratio 0.9 RATIO (0.9-2.4); AST(SGOT) 12 U/L (15-37); Alanine Aminotransfer ALT/SGPT 23 U/L (16-61); Albumin, Serum 3.5 g/dL (3.2-5.0); Alkaline Phosphatase 67 U/L (45-117); Anion Gap 9 (5-15); BUN 13 mg/dL (7-18); BUN/Creat Ratio 15.2 RATIO (10-20); Calcium,Total 9.1 mg/dL (8.5-10.1); Chloride 109 mmol/L (98-107); Creatinine, Serum 0.85 mg/dL (0.70-1.30); EST Glomerular Filtration Rate 95 mL/min (>60); Est Glom Filt Rate - Afr Amer 115 mL/min (>60); Globulin 3.7 g/dL (2.2-4.2); Glucose 87 mg/dL (74-106); Potassium 3.7 mmol/L (3.5-5.1); Protein, Total 7.2 g/dL (6.4-8.2); Rheumatoid Factor < 10.0 IU/mL (<15); Sodium Level 142 mmol/L (136-145)
[2022-02-01 17:50] LABS: Absolute Lymphocyte Count 0.86 X10^3/uL (0.83-4.51); Absolute Neutrophil Count 14.1 X10^3/uL (2.0-7.7); Basophil# 0.04 X10^3/uL; Basophil% 0.2 % (0-1); Eosinophil# 0.06 X10^3/uL; Eosinophils% 0.4 % (0-5); Hematocrit 50.6 % (40-54); Hemoglobin 16.6 g/dL (13.0-16.5); Lymphocyte # 0.86 X10^3/ul (0.83-4.51); Lymphocyte % 5.4 % (19-41); Mean Corp Hgb Conc 32.8 g/dL (32-36); Mean Corpuscular Hgb 32.5 pg (27.0-32.0); Mean Corpuscular Volume 99.2 fL (80-94); Mean Platelet Vol. 11.8 fl (6.2-12.0); Monocyte% 5.6 % (0-10); NRBC Flagged by Analyzer 0 % (0-5); Neutrophil # 14.08 X10^3/uL (2.7-7.7); Neutrophil % 87.8 % (47-70); Platelet Count 226 K/mm3 (150-450); RBC Distribution Width CV 15.9 % (11.6-14.6); RBC Distribution Width SD 58.6 fl (35.1-43.9)
[2022-02-02 09:36] LABS: Hepatitis B Surface Antibody Non-Reactive; Hepatitis B Surface Antigen Non-Reactive (Nonreactive); Hepatitis C Antibody Non-Reactive (Nonreactive)
[2022-02-05 09:05] LABS: ANTINUCLEAR ANTIBODIES DIRECT Negative (Negative)
[2022-02-05 09:38] LABS: CCP IgG Antibodies 3 units (0-19)
== END | disposition home or self-care (01) ==
LOC: MTLAB 14:40
PROVIDERS: PCP Family Medicine Geriatric Medicine; Referring Provider Internal Medicine Rheumatology; Visit Provider Internal Medicine Rheumatology
DX: M06.4 Inflammatory polyarthropathy (principal); I10 Essential (primary) hypertension; Z86.69 Personal history of other diseases of the nervous system and sense organs
CPT/HCPCS: 36415; 80053; 85025; 86038; 86200; 86431; 86706; 86803; 87340

== ENCOUNTER → 2022-03-20 | Outpatient (CLI) | payer MEDICARE, SELFPAY ==
[2022-03-20 18:19] LABS: Absolute Lymphocyte Count 0.69 X10^3/uL (0.83-4.51); Absolute Neutrophil Count 14.2 X10^3/uL (2.0-7.7); Basophil# 0.07 X10^3/uL; Basophil% 0.4 % (0-1); Eosinophil# 0.02 X10^3/uL; Eosinophils% 0.1 % (0-5); Hematocrit 51.5 % (40-54); Hemoglobin 16.9 g/dL (13.0-16.5); Lymphocyte # 0.69 X10^3/ul (0.83-4.51); Lymphocyte % 4.4 % (19-41); Mean Corp Hgb Conc 32.8 g/dL (32-36); Mean Corpuscular Hgb 32.6 pg (27.0-32.0); Mean Corpuscular Volume 99.4 fL (80-94); Mean Platelet Vol. 11.1 fl (6.2-12.0); Monocyte# 0.59 X10^3/uL; Monocyte% 3.8 % (0-10); NRBC Flagged by Analyzer 0 % (0-5); Neutrophil # 14.19 X10^3/uL (2.7-7.7); Neutrophil % 90.4 % (47-70); Platelet Count 247 K/mm3 (150-450); RBC Distribution Width CV 14.2 % (11.6-14.6); RBC Distribution Width SD 52.5 fl (35.1-43.9); Red Blood Count 5.18 M/mm3 (4.6-6.2); White Blood Count 15.7 K/mm3 (4.4-11.0)
[2022-03-20 18:36] LABS: ALB/GLOB Ratio 0.9 RATIO (0.9-2.4); AST(SGOT) 16 U/L (15-37); Alanine Aminotransfer ALT/SGPT 20 U/L (16-61); Albumin, Serum 3.6 g/dL (3.2-5.0); Alkaline Phosphatase 69 U/L (45-117); Anion Gap 8 (5-15); BUN 14 mg/dL (7-18); BUN/Creat Ratio 15.9 RATIO (10-20); Calcium,Total 9.3 mg/dL (8.5-10.1); Chloride 105 mmol/L (98-107); Creatinine, Serum 0.88 mg/dL (0.70-1.30); EST Glomerular Filtration Rate 91 mL/min (>60); Est Glom Filt Rate - Afr Amer 110 mL/min (>60); Globulin 3.8 g/dL (2.2-4.2); Glucose 100 mg/dL (74-106); Protein, Total 7.4 g/dL (6.4-8.2); Sodium Level 138 mmol/L (136-145)
[2022-03-27 16:09] LABS: Lyme IgG P18 Ab Absent (.); Lyme IgG P23 Ab Absent (.); Lyme IgG P28 Ab Absent (.); Lyme IgG P30 Ab Absent (.); Lyme IgG P39 Ab Absent (.); Lyme IgG P41 Ab Absent (.); Lyme IgG P45 Ab Absent (.); Lyme IgG P58 Ab Present (.); Lyme IgG P66 Ab Absent (.); Lyme IgG P93 Ab Absent (.); Lyme IgM P23 Ab Present (.); Lyme IgM P39 Ab Absent (.); Lyme IgM P41 Ab Absent (.); Red Blood Cell Count Test/G6PD 5.17 x10E6/uL (4.14-5.80)
[2022-03-27 16:30] LABS: G6PD Quant Test 342 (127-427); Lyme IgG WB Interpretation Negative (.); Lyme IgM WB Interpretation Negative (.)
== END | disposition home or self-care (01) ==
LOC: MTLAB 16:04
PROVIDERS: PCP Family Medicine Geriatric Medicine; Referring Provider Internal Medicine Rheumatology; Visit Provider Internal Medicine Rheumatology
DX: M06.4 Inflammatory polyarthropathy (principal); Z79.899 Other long term (current) drug therapy
CPT/HCPCS: 36415; 80053; 82955; 85025; 86617

== ENCOUNTER → 2022-04-06 | Outpatient (CLI) | payer MEDICARE, SELFPAY ==
[2022-04-06 12:34] LABS: Absolute Lymphocyte Count 0.93 X10^3/uL (0.83-4.51); Absolute Neutrophil Count 10.6 X10^3/uL (2.0-7.7); Basophil# 0.06 X10^3/uL; Basophil% 0.5 % (0-1); Eosinophil# 0.12 X10^3/uL; Hematocrit 49.7 % (40-54); Hemoglobin 16.2 g/dL (13.0-16.5); Lymphocyte # 0.93 X10^3/ul (0.83-4.51); Lymphocyte % 7.5 % (19-41); Mean Corp Hgb Conc 32.6 g/dL (32-36); Mean Corpuscular Hgb 32.1 pg (27.0-32.0); Mean Corpuscular Volume 98.6 fL (80-94); Mean Platelet Vol. 11.8 fl (6.2-12.0); Monocyte# 0.61 X10^3/uL; Monocyte% 4.9 % (0-10); NRBC Flagged by Analyzer 0 % (0-5); Neutrophil # 10.63 X10^3/uL (2.7-7.7); Neutrophil % 85.6 % (47-70); Platelet Count 231 K/mm3 (150-450); RBC Distribution Width CV 13.8 % (11.6-14.6); RBC Distribution Width SD 50.3 fl (35.1-43.9); Red Blood Count 5.04 M/mm3 (4.6-6.2); White Blood Count 12.4 K/mm3 (4.4-11.0)
[2022-04-06 12:53] LABS: Vitamin D,25 Hydroxy 22.3 ng/mL
[2022-04-06 13:24] LABS: AST(SGOT) 12 U/L (15-37); Alanine Aminotransfer ALT/SGPT 23 U/L (16-61); Albumin, Serum 3.4 g/dL (3.2-5.0); Alkaline Phosphatase 74 U/L (45-117); Anion Gap 11 (5-15); BUN 17 mg/dL (7-18); BUN/Creat Ratio 16.8 RATIO (10-20); Calcium,Total 8.9 mg/dL (8.5-10.1); Chloride 109 mmol/L (98-107); Creatinine, Serum 1.01 mg/dL (0.70-1.30); EST Glomerular Filtration Rate 78 mL/min (>60); Est Glom Filt Rate - Afr Amer 94 mL/min (>60); Globulin 3.5 g/dL (2.2-4.2); Glucose 93 mg/dL (74-106); PSA,Total - Annual Screen 0.74 ng/mL (0.00-4.00); Potassium 3.8 mmol/L (3.5-5.1); Protein, Total 6.9 g/dL (6.4-8.2); Sodium Level 142 mmol/L (136-145); Thyroid Stim Hormone (TSH) 0.51 uIU/mL (0.358-3.74)
== END | disposition home or self-care (01) ==
LOC: POLAB3 09:21
PROVIDERS: PCP Family Medicine Geriatric Medicine; Visit Provider Family Medicine Geriatric Medicine
DX: R53.83 Other fatigue (principal); E55.9 Vitamin D deficiency, unspecified; Z12.5 Encounter for screening for malignant neoplasm of prostate
CPT/HCPCS: 36415; 80053; 82306; 84153; 84403; 84443; 85025; G0103

== ENCOUNTER 2022-10-05 11:30 | Outpatient (RCR) | payer MEDICARE, SELFPAY ==
--- NOTE | 2022-08-04 12:10 | HP.OTEVAL_ITS ---
Patient's Visit Information DESI FATIMA is a 67 year old M, referred to Occupational Therapy by Dr. Rosamaria Sadler MD, with a diagnosis of SL advanced collapse right wrist. post traumatic arthritis of DRUJ. Date of Evaluation: 07/28/22 Occupational Therapist: Stephanie Mcgee, EMILIANO/Yoel, CHT - Subjective This 67 year old male was seen for OT eval with dx of right CTS, primary osteoarthritis right hand, Scapholunate advanced collapse right wrist. 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 pt states pain and swelling limited his work ability.pt states he uses hammer ranging in wt of of 3.5#, 2.5# and 1.5#. pt got to a point where he could not use is right hand for work task or control his hammer when working. DOS: 07/13/2022 undergoing right endoscopic Carpal tunnel release, Biopsy, Darrach with stabilization; proximal row carpectomy with interposition, Left wrist injection. pt arrives today in clamshell orthosis - slight need for adj. to increase comfort and fit. pt arrives with skin rodriguez to hand as he burnt his fingers on fireplace while loading the fire place with wood the night he came home and arm was sill numb. rodriguez are healing pt denies pain. pt states he and his are changing dressing on his wrist- daily. pt is anxious to initiate use of his right hand to return back to work. - Pain right wrist 0 Pain Intensity Range: 1, 4 - ROM Forearm: right left supination/pronation WNL Wrist: right left 65/55 ROM Comments: wrist ROM will be checked at weeks 4 s/p - Strength Thermometer Production Worker: right NT left 43# Lateral Pinch: right NT left 10# Tripod Pinch: right NT left 8# Strength Comments: will test right at later date - Sensation Sensation Comments: denies - Quick DASH-Disab of Arm,Shoulder& Hand Quick DASH Score: 81.6650 - Goals Goal:100% adherence to protocol: Yes Comment: proximal row carpectomy and Darrach procedure guidelines Goal:Daily scar massage when approriate: Yes Goal:Thermometer Production Worker/Pinch strength at least 75% of unaffected hand: Yes Goal:No pain with affected hand use: Yes Goal:Full use of affected hand in daily activities including: Yes Other Goal: pt will demo IND with orthosis donning and doffing along with orthosis precautions by end of 2nd visit. - Rehabilitation General Assessment: 2 weeks and one day s/p from [place] with stabilization; proximal row carpectomy with interposition and endoscopic CTR. pt demo with newly healing structures and would benefit from skilled OT services 1-2x week for 12 weeks to assist pt in returning to performing ADLs and IADLs at [facility]. Today therapist ed. pt on his surgical procedure an necessity of a NWB at this time and need of using his orthosis. therapist ed. pt on edema control and AROM of shoulder and elbow along with fingers- pt demo understanding- therapist ed. pt on not allowing incision to get to moist - pt demo understanding- therapist ed. pt that recovery with this should not be pushed or painful and if he becomes painful he is doing to much. pt demo understanding but this therapist feels pt will need continuously reinforced precautions. Today pt demo understanding and agree to POC. Rehabilitation Potential: Good - Anticipated Interventions A/AAROM/PROM, Strengthening, Edema Control, Scar Care, Triggerpoint Release, Modalities, Orthoses, Joint Protection/Energy Conservation, Ergonomic Education, Fine Motor Coord/Levy, Education re assistive Equipment, Education re Diagnosis, Home Program Other Interventions: Ed. pt that sx is a salvage procedure and goal of achieving a functional Pain free motion - Visit Plan Frequency: 1-2x /Week Duration: 3 Months General Plan: Guidelines subject to change based on Dr. vera or if pt has increase in pain/swelling. ed, on edema control and ROM of shoulder, elbow and fingers and thumb-. ed. on need of orthosis. week 3 s/p initiate ROM of forearm (short arc forearm transitioning as tolerated to full ROM) supination with elbow fully flexed is encouraged. pronation work with elbow extended. Week 4 s/p initiate ROM for the wrist with forearm in Neutral ( short arc, mid arc and full arc ). NOTE: to achieve 50% of normal wrist ROM would be a quality outcome. may take 4-6 weeks to achieve the ROM . ed. pt on NEVER FORCE Motion . ed. pt ex and therapy is performed within pts comfort level and residual pain following exercise AROM/PROM/PRE should be avoided. week 5-6 wrist orthosis may be left off for light ADLS and sedentary activities. Week 8 light hand endurance building- putty. week 10-12 s/p light hand held wts. for elbow as tolerated. Guidelines are subject to change based on Dr. valero TEXT: Thank you for the opportunity to evaluate your patient. For Medicare and Medicare HMO plans, please review the plan of care and approve it. It will need to be FAXED BACK to us at [phone] for Medicare purposes. Please let me know if there are questions or concerns regarding this plan of care. Physician Signature: Date:
--- NOTE | 2022-08-30 10:55 | OTREVAL_ITS ---
Dr. Rosamaria Sadler MD, It has been my pleasure to treat DESI FATIMA over the last 6 visits for SL advanced collapse right wrist. post traumatic arthritis of DRUJ. Please see the progress note below for an update on the occupational therapy plan of care! Subjective: pt arrives 6 weeks s.p proximal row carpectomy with Darrchen ulnar resection. pt states he is doing good-. would like the clam shell to roll back, pt states he has had issues with increase pain with putting sock on- twisted wrist wrong and painful for a while- pt attempting to use hand with brace. Objective/Function: pt arrives 6 weeks s/p with orthosis on-. pt using k-tape on ulnar resection region to provide support (this has decreased pts pain) Due to pts pain AAROM was delayed. pt demo right wrist 25/15*. right forearm supination at 40* (pain on radial side with transition to pronation to N). pt demo full digit ROM. pt demo full finger opposition. pt continues to demo pain with ROM. ( pt tends to push ROM even when instructed not to) pt advised he should not be painful. therapist ed. pt that when performing wrist ROM supported on table to keep fingers relaxed-( when he does ex correctly pt does not feel pain at right CMC region). therapist has ed. pt on restorative process and pain is not something we want with his procedure. pt verbalizes understanding. pt would benefit from cont. therapy services Plan Frequency: 1-2x /Week Duration: 3 Months Visits in this POC: 12 Plan: pt to see Dr. hall wed. and will have further instruction on progression of POC. Goals - Goals Patient Goals: Improve Fine Motor Skills, Use Hand/Wrist/Arm Normally Again, Be More Independent in ADLS Goal:100% adherence to protocol: Yes Goal:Daily scar massage when approriate: Yes Goal:Command And Control Specialist/Pinch strength at least 75% of unaffected hand: Yes Goal:No pain with affected hand use: Yes Goal:Full use of affected hand in daily activities including: Yes Other Goal: pt will demo IND with orthosis donning and doffing along with orthosis precautions by end of 2nd visit. Anticipated Interventions Anticipated Interventions: A/AAROM/PROM, Strengthening, Edema Control, Scar Care, Triggerpoint Release, Modalities, Orthoses, Joint Protection/Energy Conservation, Ergonomic Education, Fine Motor Coord/Levy, Education re assistive Equipment, Education re Diagnosis, Home Program Other Interventions: Ed. pt that sx is a salvage procedure and goal of achieving a functional Pain free motion Please do not hesitate to contact me at [phone] by phone or Fax: if you have questions or concerns regarding this new plan of care! Sincerely, Stephanie Mcgee, OTR/L, CHT
--- NOTE | 2022-12-06 15:31 | HP.OT.NRP ---
Patient Information Patient Information: DESI FATIMA was seen in my office for initial evaluation on 07/28/22. The following Plan of Care was established for this patient: POC Established Initial Frequency: 1-2x /Week Initial Duration: 3 Months Plan: will continue to progress pt as tolerated with strength- Anticipated Interventions Anticipated Interventions: A/AAROM/PROM, Strengthening, Edema Control, Scar Care, Triggerpoint Release, Modalities, Orthoses, Joint Protection/Energy Conservation, Ergonomic Education, Fine Motor Coord/Levy, Education re assistive Equipment, Education re Diagnosis and Home Program Other Interventions: Ed. pt that sx is a salvage procedure and goal of achieving a functional Pain free motion Last Seen Last Seen: This patient was last seen in our office 10/05/21. Pertinent comments regarding their Occupational therapy will appear below: pt was seen for 12 OT session following a proximal row carpectomy with with Darrchen ulnar resection. pt states he is doing his firewood- splitting and using chainsaw- gardening /mowing - figuring out what he can do. at this time pt has not scheduled further apts and is d/c due to time lapse in services. At this point I will be discontinuing this patient from occupational therapy. I would be happy to see this patient again in the future if found appropriate by the physician. Thank you! Stephanie Mcgee, OTR/L, CHT
== END 2022-10-05 19:00 | disposition home or self-care (01) ==
LOC: OT 11:30
PROVIDERS: PCP Family Medicine Geriatric Medicine; Referring Provider Orthopaedic Surgery Hand Surgery; Visit Provider Orthopaedic Surgery Hand Surgery
DX: G56.01 Carpal tunnel syndrome, right upper limb (principal); M19.041 Primary osteoarthritis, right hand; M19.131 Post-traumatic osteoarthritis, right wrist
CPT/HCPCS: 97110; 97166; 97167; 97530

== ENCOUNTER → 2022-10-05 | Outpatient (CLI) | payer MEDICARE, SELFPAY ==
[2022-10-05 10:24] LABS: Absolute Neutrophil Count 6.2 X10^3/uL (2.0-7.7); Basophil# 0.07 X10^3/uL; Basophil% 0.8 % (0-1); Eosinophil# 0.26 X10^3/uL; Eosinophils% 3.1 % (0-5); Hematocrit 49.8 % (40-54); Hemoglobin 16.9 g/dL (13.0-16.5); Lymphocyte % 15.3 % (19-41); Mean Corp Hgb Conc 33.9 g/dL (32-36); Mean Corpuscular Hgb 31.5 pg (27.0-32.0); Mean Corpuscular Volume 92.7 fL (80-94); Mean Platelet Vol. 11.1 fl (6.2-12.0); Monocyte# 0.65 X10^3/uL; Monocyte% 7.7 % (0-10); NRBC Flagged by Analyzer 0 % (0-5); Neutrophil # 6.19 X10^3/uL (2.7-7.7); Platelet Count 226 K/mm3 (150-450); Red Blood Count 5.37 M/mm3 (4.6-6.2); White Blood Count 8.5 K/mm3 (4.4-11.0)
[2022-10-05 11:05] LABS: Vitamin D,25 Hydroxy 38.5 ng/mL
[2022-10-05 11:31] LABS: AST(SGOT) 18 U/L (15-37); Alanine Aminotransfer ALT/SGPT 17 U/L (16-61); Albumin, Serum 3.8 g/dL (3.2-5.0); Alkaline Phosphatase 86 U/L (45-117); Anion Gap 8 (5-15); BUN 13 mg/dL (7-18); BUN/Creat Ratio 12.5 RATIO (10-20); Calcium,Total 9.5 mg/dL (8.5-10.1); Chloride 110 mmol/L (98-107); Creatinine, Serum 1.04 mg/dL (0.70-1.30); EST Glomerular Filtration Rate 75 mL/min (>60); Est Glom Filt Rate - Afr Amer 91 mL/min (>60); Glucose 97 mg/dL (74-106); Potassium 4.2 mmol/L (3.5-5.1); Protein, Total 7.8 g/dL (6.4-8.2); Sodium Level 142 mmol/L (136-145); Thyroid Stim Hormone (TSH) 1.01 uIU/mL (0.358-3.74); Uric Acid 6.3 mg/dL (3.5-7.2)
== END | disposition home or self-care (01) ==
LOC: LAB 10:05
PROVIDERS: PCP Family Medicine Geriatric Medicine; Referring Provider Family Medicine Geriatric Medicine; Visit Provider Family Medicine Geriatric Medicine
DX: I10 Essential (primary) hypertension (principal); M10.9 Gout, unspecified; E55.9 Vitamin D deficiency, unspecified
CPT/HCPCS: 36415; 80053; 82306; 84403; 84443; 84550; 85025

== ENCOUNTER → 2023-04-10 | Outpatient (CLI) | payer MEDICARE, SELFPAY ==
[2023-04-10 11:11] LABS: Absolute Lymphocyte Count 1.51 X10^3/uL (0.83-4.51); Absolute Neutrophil Count 4.7 X10^3/uL (2.0-7.7); Basophil# 0.08 X10^3/uL; Basophil% 1.1 % (0-1); Eosinophil# 0.47 X10^3/uL; Eosinophils% 6.3 % (0-5); Hematocrit 52.8 % (40-54); Hemoglobin 17.4 g/dL (13.0-16.5); Lymphocyte # 1.51 X10^3/ul (0.83-4.51); Lymphocyte % 20.1 % (19-41); Mean Corpuscular Hgb 31.4 pg (27.0-32.0); Mean Corpuscular Volume 95.3 fL (80-94); Mean Platelet Vol. 11.3 fl (6.2-12.0); Monocyte% 9.3 % (0-10); NRBC Flagged by Analyzer 0 % (0-5); Neutrophil # 4.73 X10^3/uL (2.7-7.7); Neutrophil % 62.9 % (47-70); Platelet Count 214 K/mm3 (150-450); RBC Distribution Width CV 13.9 % (11.6-14.6); RBC Distribution Width SD 49.1 fl (35.1-43.9); Red Blood Count 5.54 M/mm3 (4.6-6.2); White Blood Count 7.5 K/mm3 (4.4-11.0)
[2023-04-10 11:23] LABS: Vitamin D,25 Hydroxy 25.9 ng/mL
[2023-04-10 11:31] LABS: ALB/GLOB Ratio 1.1 RATIO (0.9-2.4); AST(SGOT) 18 U/L (15-37); Alanine Aminotransfer ALT/SGPT 23 U/L (16-61); Alkaline Phosphatase 76 U/L (45-117); Anion Gap 8 (5-15); BUN 11 mg/dL (7-18); BUN/Creat Ratio 9.2 RATIO (10-20); Calcium,Total 9.1 mg/dL (8.5-10.1); Chloride 107 mmol/L (98-107); EST Glomerular Filtration Rate 64 mL/min (>60); Est Glom Filt Rate - Afr Amer 77 mL/min (>60); Globulin 3.6 g/dL (2.2-4.2); Glucose 97 mg/dL (74-106); PSA,Total - Annual Screen 0.93 ng/mL (0.00-4.00); Potassium 3.9 mmol/L (3.5-5.1); Protein, Total 7.6 g/dL (6.4-8.2); Sodium Level 141 mmol/L (136-145); Thyroid Stim Hormone (TSH) 0.94 uIU/mL (0.358-3.74); Uric Acid 6.2 mg/dL (3.5-7.2)
== END | disposition home or self-care (01) ==
LOC: POLAB3 09:56
PROVIDERS: PCP Family Medicine Geriatric Medicine; Visit Provider Family Medicine Geriatric Medicine
DX: I10 Essential (primary) hypertension (principal); M10.9 Gout, unspecified; E55.9 Vitamin D deficiency, unspecified; Z12.5 Encounter for screening for malignant neoplasm of prostate
CPT/HCPCS: 36415; 80053; 82306; 84153; 84443; 84550; 85025; G0103

== ENCOUNTER 2023-04-19 11:00 | Outpatient (RCR) | payer MEDICARE, SELFPAY ==
--- NOTE | 2023-03-15 07:36 | HP.OTEVAL ---
Patient's Visit Information Visit Information Visit Information: DESI FATIMA is a 67 year old M, referred to Occupational Therapy by Dr. Rosamaria Sadler MD, with a diagnosis of CTS SLAC Arthritis of DRUJ tramatic. Date of Evaluation: 03/14/23 Occupational Therapist: Stephanie Mcgee, EMILIANO/Yoel, CHT Subjective Subjective: This 67 year old male was seen for OT eval with dx of right advanced collapse,, CTS L, primary osteoarthritis right hand Left, Scapholunate advanced collapse right wrist. 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 pt states pain and swelling limited his work ability.pt states he uses hammer ranging in wt of of 3.5#, 2.5# and 1.5#. pt got to a point where he could not use is right hand for work task or control his hammer when working. DOS: 07/13/2022 undergoing right endoscopic Carpal tunnel release, Biopsy, Darrach with stabilization; proximal row carpectomy with interposition, Left wrist injection last in July. 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 pt is scheduled for left CTR on 2022. 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 with ADls by dc Goal:: pt will report a reduction in pain by 50% with use of bilateral hands with ADLs by d/c Goal:: Pt will demo understanding of joint protection and ergonomics when performing BADLs and IADLs by d/c Pt will demo understanding of adaptive Equipment use to decrease stress on joints to allow pt to perform BADSL and IADLS at GREGORY level. Goal:: Pt will demo understanding of work/lifting and carry ergonomics to decrease stress on tendons to increase pts independent with ADLs, IADLS and work tasks by d/c. Pt will demo understanding of using supportive bracing 80% of workday/ADLS to decrease stress on tendon origin to allow healing and decrease pain by end of 2nd session. Rehabilitation General Assessment: pt arrives with concerns of pain and lack of strength to perform his daily occupations- pt demo need for skilled OT services 1-2x week for 4-6 weeks to ed,. pt on dx, utilization of ad. eq./bracing as well as median nerve glides to decrease pts symptoms and increase pts ind. with ADLS. pt demo understanding and agrees to POC. Rehabilitation Potential: Good Anticipated Interventions Anticipated Interventions: A/AAROM/PROM, Strengthening, Triggerpoint Release, Modalities, Orthoses, Joint Protection/Energy Conservation, Ergonomic Education, Education re assistive Equipment, Education re Diagnosis and Home Program Visit Plan Frequency: 1-2x /Week Duration: 4-6 Weeks TEXT: Thank you for the opportunity to evaluate your patient. For Medicare and Medicare HMO plans, please review the plan of care and approve it. It will need to be FAXED BACK to us at [phone] for Medicare purposes. Please let me know if there are questions or concerns regarding this plan of care. Physician Signature: Date:
--- NOTE | 2023-04-19 11:54 | HP.OTDCSUM ---
Discharge Summary D/C Summary: It has been my pleasure to treat DESI FATIMA under orders from Dr. Rosamaria Sadler MD, for the diagnosis of CTS SLAC Arthritis of DRUJ tramatic for a total of 5 visit(s). Please see the following information for a summary of their discharge status. Overall Improvement % Improvement: 80 Objective Objective/Function: pt demo understanding of joint protection CTR procedure scar mtg and ROM to comfort due to his SLAC and Arthritis of DRUJ pt ROM is functional pt very happy with his progress following CTR. Goals Patient Goals: Regain Strength, Decrease Tingling/Numbness, Be More Independent in ADLS and Resume Former Household Responsibilities (Cooking,Cleaning,Yard, etc.) Goal:: pt will demo a increase in bilateral chemical lab supervisor strength by 5# to increase pt ind. with ADls by dc goal met Goal:: pt will report a reduction in pain by 50% with use of bilateral hands with ADLs by d/c goal met Goal:: Pt will demo understanding of joint protection and ergonomics when performing BADLs and IADLs by d/c goal met Pt will demo understanding of adaptive Equipment use to decrease stress on joints to allow pt to perform BADSL and IADLS at RGEGORY level. goal met Goal:: Pt will demo understanding of work/lifting and carry ergonomics to decrease stress on tendons to increase pts independent with ADLs, IADLS and work tasks by d/c. goal met Pt will demo understanding of using supportive bracing 80% of workday/ADLS to decrease stress on tendon origin to allow healing and decrease pain by end of 2nd session. 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 pts left CTR progressed well. pt has no concerns at this time and agrees to d/c d/c sentence: If there are questions or concerns regarding this patient's occupational therapy, please fell free to call me at [phone]. Thank you for the referral of this patient. Sincerely, Stephanie Mcgee, OTR/L, CHT
== END 2023-04-23 12:40 | disposition home or self-care (01) ==
LOC: OT 11:00
PROVIDERS: PCP Family Medicine Geriatric Medicine; Referring Provider Orthopaedic Surgery Hand Surgery; Visit Provider Orthopaedic Surgery Hand Surgery
DX: G56.03 Carpal tunnel syndrome, bilateral upper limbs (principal); M19.041 Primary osteoarthritis, right hand; M19.042 Primary osteoarthritis, left hand; M19.131 Post-traumatic osteoarthritis, right wrist; M19.132 Post-traumatic osteoarthritis, left wrist
CPT/HCPCS: 97110; 97166; 97530

== ENCOUNTER 2023-05-15 08:20 | Day surgery (SDC) | payer MEDICARE, SELFPAY ==
[2023-05-15] MEDS: Lactated Ringers 1,000 ML 15 ML IV (08:44)
[2023-05-15 08:45] VITALS: BP 119/90; PULSE 70; RESP 18; TEMP 36.3; O2SAT 100; BMI 23.3
--- OUTSIDE RECORDS SUMMARY | 2023-05-15 08:47 | XMS RPT_ITS | CCD ---
Author Name Unknown Address [address] [place] [address] Organization [facility] Care Team Providers Care Dining Room Helper Name Role Phone Sylvia BASHIR, Olivier Levine Unavailable Medications Completed/Discontinued Medications Medication Drug Class(es) Dates Sig (Normalized) Sig (Original) lisinopril 2.5 mg oral tablet (1 source) Angiotensin Converting Enzyme Inhibitor Start: 04-15-2020 LISINOPRIL 2.5 MG TABS 1/2 tablet daily LISINOPRIL [id number] Olivier Ward MD Problems Active Problems Problem Classification Problem Date Documented Date Episodic/Chronic Other non-traumatic joint disorders (1 source) 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; Translations: [Other instability, left hand] Onset: 0 04-17-2020 Episodic Past or Other Problems Problem Classification Problem Date Documented Da te Episodic/Chronic Unclassified (1 source) Problem Results Test Name Value Interpretation Reference Range Facil ity Vital Signs Date Time Vital Sign Value Performing Clinician Facility NEGATED: Highlighted [id number] 13:03-0500 BMI (Body Mass Index) 27.12 kg/m2 Violette Hurst LPN [facility] Work Phone: NEGATED: Highlighted [id number] 13:03-0500 Body weight 84.82 kg Violette Hurst LPN [facility] Work Phone: NEGATED: Highlighted [id number] 13:03-0500 Body weight 85 kg Violette Hurst LPN [facility] Work Phone: NEGATED: Highlighted [id number] 13:03-0500 Height 177.16 cm Violette Hurst LPN [facility] Work Phone: NEGATED: Highlighted [id number] 13:03-0500 Height 177 cm Violette Hurst LPN [facility] Work Phone: Encounters Encounter Date Encounter Type Care Provider Facility Start: 04-15-2020 End: 04-17-2020 Patient encounter procedure Olivier Ward MD Work Phone: [facility] Work Phone: Procedures Date Procedure Procedure Detail Performing Clinician Start: 04-15-2020 End: 04-17-2020 Blood pressure screening not performed - reason not given Olivier Ward MD Work Phone: Start: 04-15-2020 End: 04-17-2020 BMI documented as above normal parameters - follow-up documented Olivier Ward MD Work Phone: Start: 04-15-2020 End: 04-17-2020 Documentation of current medications Olivier Ward MD Work Phone: Start: 04-15-2020 End: 04-17-2020 Falls plan of care not done for unspecified reasons Olivier Ward MD Work Phone: Start: 04-15-2020 End: 04-17-2020 Falls risk not documented - reason not given Olivier Ward MD Work Phone: Start: 04-15-2020 End: 04-17-2020 Pain assessment documented as negative - follow-up not required Olivier Ward MD Work Phone: Start: 04-15-2020 End: 04-17-2020 Ptfalls assess-docd ge2>/yr Olivier Ward MD Work Phone: Start: 04-15-2020 End: 04-15-2020 Radex hand minimum 3 views Olivier Ward MD Work Phone: NEGATED: Highlighted rowStart: 04-15-2020 End: 04-15-2020 Documentation of current medications Violette Hurst LPN NEGATED: Highlighted rowStart: 04-15-2020 End: 04-15-2020 Smoking cessation education Violette Aris COLON Plan of Treatment Date Care Activity Detail Author Patient Education \[email or web address]\CPS_ PtEducation\susie [id number] [facility] Work Phone: Social History Date Type Detail Facility NEGATED: Highlighted rowStart: 04-15-2020 End: 04-15-2020 Alcohol use Alcohol use [facility] Work Phone: NEGATED: Highlighted rowStart: 04-15-2020 End: 04-15-2020 Details of drug misuse behavior Details of drug misuse behavior [facility] Work Phone: NEGATED: Highlighted rowStart: 04-15-2020 End: 04-15-2020 Assertion Former smoker [facility] Work Phone: NEGATED: Highlighted rowStart: 04-15-2020 End: 04-15-2020 How many days of moderate to strenuous exercise, like a brisk walk, did you do in the last 7 days? How many days of moderate to strenuous exercise, like a brisk walk, did you do in the last 7 days? [facility] Work Phone: NEGATED: Highlighted rowStart: 04-15-2020 End: 04-15-2020 Tobacco use and exposure Tobacco use and exposure [facility] Work Phone: Chief Complaint Chief Complaint Description Start Date left thumb finger pain Preliminary chief co mplaint data, not yet signed by the author as of Instructions Instruction Description Start Date Patient advised to follow-up with Primary Care Physician for BMI management. Advance Directives There may be information available, but it has not been provided by the sender. Assessments There may be information available, but it has not been provided by the sender. Review of System There may be information available, but it has not been provided by the sender. Family History There may be information available, but it has not been provided by the sender. History of Present Illness There may be information available, but it has not been provided by the sender. Additional Source Comments Reason for Visit (unrecogniz ed section and content) FOR RECORDS PERTAINING TO PATIENTS WHO ARE OR HAVE BEEN ENROLLED IN A CHEMICAL DEPENDENCY/SUBSTANCEABUSE PROGRAM, SOME INFORMATION MAY BE OMITTED. This clinical summary was aggregated from multiple sources. Caution should be exercised in using it in the provision of clinical care. This summary normalizes information from multiple sources, and as a consequence, information in this document may materially change the coding, format and clinical context of patient data. In addition, data may be omitted in some cases. CLINICAL DECISIONS SHOULD BE BASED ON THE PRIMARY CLINICAL RECORDS. [email or web address] provides no warranty or guarantee of the accuracy or completeness of information in this document.
--- NOTE | 2023-05-15 09:30 | COLBX_PTH ---
PATHOLOGY RESULTS PATIENT: DESI FATIMA LOC: EN U#:[id number] AGE/SX: 68/M ROOM: RE05/15/[address]: Dr. Riccardo Cross MD : 1955 BED: DIS: 05/15/2023 SPEC #: [id number] RECD: 05/15/23 11:45 STATUS: MOSES AMY #: [id number] GABINO: 05/15/23 09:[address]: Riccardo Cross DEPT: SURGICAL PATHOLOGY RECD BY: Giovanna Cota ENTERED: 05/15/23 11:45 SP TYPE: COLON BX OTHR DR: Dr. Alvaro Auguste MD Tissues: Rectum, NOS Procedures: Surgery Specimen Level IV HEADER OPERATION: Colonoscopy - open access with polypectomy PRE-OP DIAGNOSIS: History of colon polyps TISSUE SUBMITTED: Rectal polyp MICROSCOPIC DIAGNOSIS Rectal polyp, polypectomy: Hyperplastic polyp. SJ:kelly 05/16/2023 MICROSCOPIC DESCRIPTION Slides are reviewed. GROSS DESCRIPTION Received in fixative is one container labeled with the patient's name and designated rectal polyp. The specimen consists of one pompa-pink polyp measuring 0.5 x 0.4 x 0.2 cm. The specimen is totally submitted in one cassette. / SJ:kelly 05/15/2023 TC:1 CPT: 76895
--- NOTE | 2023-05-15 09:33 | H&P.OPEN ---
HPI - General HPI Narrative DESI FATIMA, is a 68 M who presents for surveillance colonoscopy. Patient had a colonoscopy 5 years ago and had 3 polyps removed. He denies any abdominal pain or blood in the stool. He is not on any blood thinners. [facility] Medical History (Updated 05/15/23 @ 09:[address] Riccardo Cross MD) Anxiety Arthritis Chewing tobacco dependence Depression History of colon polyps HTN (hypertension) Injury of back Leg cramps Migraine headache Wears dentures Wears glasses Home Medications lisinopril 20 mg tablet 20 mg PO QHS 10/24/13 [History Last Taken 05/14/23 22:00] tizanidine 4 mg tablet (Zanaflex) 4 mg PO QHS PRN muscle spasticity 04/16/23 [History Last Taken 05/14/23 22:00] ascorbic acid (vitamin C) 500 mg tablet (C-500) 1 g PO DAILY 05/10/23 [History Last Taken Unknown] testosterone 100 mg/mL intramuscular suspension 100 mg IM .[id number] 05/10/23 [History Last Taken Unknown] zinc gluconate 50 mg tablet 50 mg PO DAILY 05/10/23 [History Last Taken Unknown] Allergy/AdvReac Type Severity Reaction Status Date / Time erythromycin base Allergy Rash Verified 05/10/23 13:33 [Erythromycin Base] Family History Mother CVA (cerebral vascular accident) Surgical History (Updated 05/10/23 @ 13:44 by Catherine Lua) History of carpal tunnel surgery of left wrist History of carpal tunnel surgery of right wrist History of surgery on wrist Hx of colonoscopy S/P appendectomy S/P right knee surgery Social History (Updated 04/16/23 @ 15:30 by Sarah Fatima) household members: spouse current occupational status: retired Smoking Status: Current some day smoker tobacco type: smokeless tobacco alcohol intake: current alcohol intake frequency: holidays/special occasions only details: 1-beer per month substance use type: marijuana Past Medical/Surgical History Planned Operation Planned Operative Procedure/s: CSCOPE OA S.O.S: No Previous Hospitalizations/Surgeries HX Hospitalizations: No HX of Surgeries: APPENDECTOMY BACK INJECTIONS 2011 RIGHT KNEE SCOPE 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 Any Problems With Anesthesia: No You/Your Family Experience Fever (Hyperthermia) With Anes: No Cholinesterase deficiency: No Cardiovascular Hx Chest Pain within Last 2 months: No Hx of Irregular Heartbeat and/or Afib: No Hx Heart Attack: No Hx Congestive Heart Failure: No Hx Rheumatic Fever: No Hx Hypertension: Yes (CONTROLLED WITH MED) Hx Internal Defibrillator: No Hx Pacemaker: No Hx Cardiac Catheterization: No Hx Cardiac Surgery/Stents/Etc.: No Hx Stress Test: No Hx Pain in Legs when Walking/Leg Cramps: Yes (IN THE PAST) Respiratory Chronic Cough: No HX of Shortness of Breath: No Hoarseness: No Hx Chronic Obstructive Pulmonary Disease (COPD): No Hx Asthma: No Hx Emphysema: No Hx Sleep Apnea: No Hx Respiratory Tract Infection/Cold (presently): No Do You Snore Loudly (louder than talking or can be heard): Yes Do You Often Feel Tired/ Fatigued/ Sleepy Dring Daytime?: Yes Has Anyone Observed You Stop Breathing During Sleep?: No Result (for STOP score): Positive Hx Smoking: Yes (QUIT 15 YRS AGO) Smoking Status: Current some day smoker Gastrointestinal Hx Gastrointestinal Disorders: No Hx Gastrointestinal Bleed: No Hx Ulcer: No Hx Hiatal Hernia: No Difficulty Chewing/Swallowing: No Special diet followed at home: No Hx Unplanned Weight Loss of 20#: No HX Unplanned Weight Gain of 20#: No Neurological Hx Seizures: No HX Syncope/Blackout Spells/Unconsciousness: No Hx Transient Ischemic Attacks (TIA): No Hx Multiple Sclerosis: No Hx Parkinson's Disease: No Hx Head/Neck Injury: No Hx Headaches: No Hx Back Injury/Pain: Yes (LOWER BACK PAIN AT TIMES/HERNIATED DISC) Recent Onset of Speech Difficulty: No Restless Legs: No Does patient have nerve stimulator: No Blood Disorder Hx Leukemia: No Bleeding Tendencies: No Hx Deep Vein Thrombosis: No Hx High Cholesterol: No Blood Transmitted Disease: No Hx Hepatitis: No Hx Cirrhosis: No Hx Anemia: No Hx Blood Disorders: No Reproduction : No Genitourinary Hx Renal Disease: No Musculoskeletal Hx Arthritis: No Hx Rheumatoid Arthritis: No Hx Gout: No Recent Onset of an Orthopedic Problem: No Endocrine Hx Diabetes: No Thyroid Disease: No Hx Steroid Therapy: No Psycho/Social Hx Substance Use: No Hx Alcohol Use: Yes (6 PACK PER WEEK) Hx Anxiety: No Hx Depression: No Mental Illness: No Hx Dementia: No Miscellaneous Hx Cancer: No Recent Exposure to Contagious Disease: No Hx of C-Diff: No Any Loose Teeth: No Allergies erythromycin base [Erythromycin Base] Allergy (Verified 05/10/23 13:33) Rash Discharge Is Pt Admitted From a Jail, or a Fci: No After D/C, Where Do you Plan to Go: Return Home From the PAT History Number of Risk Factors: 2 Vital Signs Vital Signs Vital Signs: 05/15/23 08:45 05/15/23 08:45 Temperature 97.3 F L Temperature Source Temporal Pulse Rate 70 Respiratory Rate 18 Respiratory Pattern Normal Blood Pressure 119/90 H Blood Pressure Mean 99 Blood Pressure Source Monitor Blood Pressure Position Semi-Fowlers Blood Pressure Location Right Arm Pulse Ox 100 Oxygen Delivery Method Room Air Weight Weight: 167 lb 6.4 oz Body Mass Index (BMI) 23.3 Physical Exam Const alert and oriented x3 HEENT normocephalic Eyes PERRL Resp normal respiratory effort and normal air movement Cardio regular rate and regular rhythm GI soft to palpation, non-tender and non-distended Extremity normal to inspection Assessment & Plan Assessment/Plan (1) History of colon polyps: PLAN: I explained endoscopy in detail to the patient. I explained the risks including but not limited to stroke or heart attack with anesthesia, perforation of the GI tract, bleeding, infection. I explained that any of these could necessitate further emergency surgery. The patient understands and all questions were answered sufficiently. The patient wishes to proceed with procedure. Riccardo Cross MD Pager: [facility] [address] [place] [address], [address] [place] [address] Office: Surgery Risks - Colonoscopy Risks Include but are not Limited To: Risks include but are not limited to: Bleeding, perforation requiring further surgery, inability to complete colonoscopy requiring barium enema.
[2023-05-15 10:06] VITALS: BP 119/90; BP 75/57; PULSE 74; RESP 16; TEMP 36.2; O2SAT 96
--- NOTE | 2023-05-15 10:06 | OP.CCLET_ITS ---
05/15/2023 Alvaro Auguste MD [address] [place] [address] Re : Colonoscopy procedure for Ezra Pandey Dear Dr. Auguste This procedure was performed on Monday, May 15, 2023. My impressions and recommendations are as follows: Impressions : - One polyp at the recto-sigmoid colon, removed with a hot snare. Resected and retrieved. - The examination was otherwise normal on direct and retroflexion views. Recommendations : - Discharge patient to home. - Resume previous diet. - Continue present medications. - Await pathology results. - Repeat colonoscopy in 5 years for surveillance. My findings are described in the full procedure note, which is enclosed. If I can be of further assistance, please feel free to contact me at Doctor phone number(s): , Work: . Sincerely, Riccardo Cross MD 05/15/2023 10:05:55 AM This report has been signed electronically.
--- NOTE | 2023-05-15 10:06 | OP.COLON_ITS ---
Patient Name: Ezra Pandey Procedure Date: 05/15/2023 9:37 AM Date of : 1955 Age: 68 Procedure: Colonoscopy Indications: High risk colon cancer surveillance: Personal history of colonic polyps Providers: Riccardo Cross MD Medicines: Monitored Anesthesia Care Patient Profile: This is a 68 year old male. Refer to note in patient chart for documentation of history and physical. Last Colonoscopy: 5 years ago. Complications: No immediate complications. Procedure: Pre-Anesthesia Assessment: - Prior to the procedure, a History and Physical was performed, and patient medications and allergies were reviewed. The patient's tolerance of previous anesthesia was also reviewed. The risks and benefits of the procedure and the sedation options and risks were discussed with the patient. All questions were answered, and informed consent was obtained. Prior Anticoagulants: The patient has taken no anticoagulant or antiplatelet agents. After reviewing the risks and benefits, the patient was deemed in satisfactory condition to undergo the procedure. After I obtained informed consent, the scope was passed under direct vision. Throughout the procedure, the patient's blood pressure, pulse, and oxygen saturations were monitored continuously. The Colonoscope was introduced through the anus and advanced to the cecum, identified by appendiceal orifice and ileocecal valve. The colonoscopy was performed without difficulty. The patient tolerated the procedure well. The quality of the bowel preparation was good. The ileocecal valve, appendiceal orifice, and rectum were photographed. Scope In: 9:47:32 AM Scope Out: 9:58:46 AM Total Procedure Duration Time 0 hours 11 minutes 14 seconds Findings: A polyp was found in the recto-sigmoid colon. The polyp was removed with a hot snare. Resection and retrieval were complete. The exam was otherwise without abnormality on direct and retroflexion views. Impression: - One polyp at the recto-sigmoid colon, removed with a hot snare. Resected and retrieved. - The examination was otherwise normal on direct and retroflexion views. Recommendation: - Discharge patient to home. - Resume previous diet. - Continue present medications. - Await pathology results. - Repeat colonoscopy in 5 years for surveillance. Procedure Code(s): --- Professional --- 34465, Colonoscopy, flexible; with removal of tumor(s), polyp(s), or other lesion(s) by snare technique Diagnosis Code(s): --- Professional --- Z86.010, Personal history of colonic polyps D12.7, Benign neoplasm of rectosigmoid junction CPT copyright 2021 [employer]. All rights reserved. The codes documented in this report are preliminary and upon solar energy specialist review may be revised to meet current compliance requirements. Riccardo Cross MD 05/15/2023 10:05:55 AM This report has been signed electronically. Number of Addenda: 0 Note Initiated On: 05/15/2023 9:37 AM
[2023-05-15 10:10] VITALS: BP 119/90; BP 78/57; PULSE 66; RESP 16; O2SAT 96
[2023-05-15 10:15] VITALS: BP 119/90; BP 83/63; PULSE 71; RESP 16; O2SAT 98
[2023-05-15 10:23] VITALS: BP 106/72; BP 119/90; PULSE 69; RESP 16; TEMP 36.6; O2SAT 97
[2023-05-15 10:41] VITALS: BP 119/90
== END 2023-05-15 11:01 | disposition home or self-care (01) ==
LOC: EN 08:22 → AC 08:24
PROVIDERS: PCP Family Medicine Geriatric Medicine; Referring Provider Family Medicine Geriatric Medicine; Visit Provider Surgery
PROC: 0DJD8ZZ Inspection of Lower Intestinal Tract, Via Natural or Artificial Opening Endoscopic (ICD-10-PCS; CPT 45378; principal; 2023-05-15 09:25)
DX: Z12.11 Encounter for screening for malignant neoplasm of colon (principal); K63.5 Polyp of colon; I10 Essential (primary) hypertension; F17.290 Nicotine dependence, other tobacco product, uncomplicated; F12.90 Cannabis use, unspecified, uncomplicated; Z79.899 Other long term (current) drug therapy; Z86.010 Personal history of colon polyps
CPT/HCPCS: 45385; 88305; J7120; J2405

== ENCOUNTER → 2023-09-26 | Outpatient (CLI) | payer MEDICARE, SELFPAY ==
--- NOTE | 2023-09-26 12:07 | RAD_ITS ---
STUDY: X-RAY - LUMBAR SPINE REASON FOR EXAM: Male, 68 years old. Radiculopathy. TECHNIQUE: 2 view(s) of the lumbar spine were obtained. COMPARISON: None FINDINGS: Osteopenia. Normal lumbar lordosis. Mild levoscoliosis, likely positional. Normal vertebral alignment. Diffuse moderate to marked lower thoracic and lumbosacral facet sclerosis. Diffuse intervertebral disc space narrowing with osteophytes most marked at T11-T12, T12-L1, L3-L4 and L4-L5. Normal soft tissues. RAD/Lumbar Spine 2 or 3 Views IMPRESSION: Osteopenia with moderate diffuse lower thoracic and lumbosacral spondylosis most marked at L3-4 and L4-5. Electronically Signed: Beau Benz MD at 12:42 EDT ,
== END | disposition home or self-care (01) ==
LOC: RAD 11:58
PROVIDERS: PCP Family Medicine Geriatric Medicine; Referring Provider Anesthesiology Pain Medicine; Visit Provider Anesthesiology Pain Medicine
DX: M54.16 Radiculopathy, lumbar region (principal)
CPT/HCPCS: 72100

== ENCOUNTER → 2023-10-08 | Outpatient (CLI) | payer MEDICARE, SELFPAY ==
--- NOTE | 2023-10-08 07:32 | MRI_ITS ---
STUDY: MRI LUMBAR SPINE WITHOUT CONTRAST REASON FOR EXAM: Male, 68 years old. RADICULOPATHY TECHNIQUE: Standardized fat and water weighted pulse sequences were obtained in the sagittal and axial planes. COMPARISON: Lumbar spine x-ray September 26, 2023 FINDINGS: T12-L1: Mild anterior endplate spurring. Normal disc height, hydration and minimal annular bulge.. Normal bilateral facet joints. Normal central canal and bilateral lateral recesses. Normal bilateral intervertebral neural foramina. Normal lumbar lordosis. There is no substantial scoliosis. Normal conus medullaris that terminates at T12 L1-2: Anterior endplate spurring. Narrowed disc space and desiccation of the disc and mild annular bulge with small left foraminal disc protrusion. Normal bilateral facet joints. Moderate central canal stenosis. Normal bilateral lateral recesses. Mild right neural foraminal stenosis and moderate left neural foraminal stenosis L2-3: Normal endplates. Normal disc height, desiccation and mild annular bulge. Facet arthropathy and thickening of ligamenta flava.. Mild narrowing of the central canal. Normal bilateral lateral recesses. Moderate bilateral neural foraminal stenosis L3-4: Grade 1 retrolisthesis Normal endplates. Normal disc height, desiccation and moderate bulging disc osteophyte complex facet arthropathy and thickening of ligamenta flava slightly worse on the left. Narrowed central canal, bilateral lateral recess and severe neural foraminal stenosis slightly worse on the left exaggerated by shortened pedicles L4-5: Degenerative endplate changes. Narrowed disc space desiccation and mild annular bulge. Facet arthropathy and mild thickening of ligamenta flava. Normal central canal and bilateral lateral recesses. Severe bilateral neural foraminal stenosis exaggerated by shortened pedicles L5-S1: Normal endplates. Normal disc height, hydration and morphology. Normal bilateral facet joints. Normal central canal and bilateral lateral recesses. Normal bilateral intervertebral neural foramina. Normal visualized sacral ala. Normal visualized paraspinous soft tissue structures. No significant change since prior exam given inherent differences in imaging modalities MRI/Spine Lumbar (Routine) IMPRESSION: No evidence for acute fracture or other significant bony pathology. Spondylosis with multilevel disc degeneration creating spinal stenosis with facet arthropathy and exaggerated by shortened pedicles most severe at L3-4 and L4-5. Findings as above Electronically Signed: Tan Arriola MD at 19:39 EDT ,
== END | disposition home or self-care (01) ==
LOC: MRI 13:17
PROVIDERS: PCP Family Medicine Geriatric Medicine; Referring Provider Anesthesiology Pain Medicine; Visit Provider Anesthesiology Pain Medicine
DX: M54.16 Radiculopathy, lumbar region (principal)
CPT/HCPCS: 72148

== ENCOUNTER 2023-10-10 11:30 | Outpatient (RCR) | payer MEDICARE, SELFPAY ==
--- NOTE | 2023-10-04 11:55 | HP.PTEVAL_ITS ---
Patient's Visit Information Visit Information Visit Information: DESI FATIMA is a 68 year old M referred to Physical Therapy by Dr. Juliana Corea MD with a diagnosis of Back and leg pain. Date of Evaluation: 10/04/23 Physical Therapist: Dilan Salas Visit Plan Frequency: 2x /Week Duration: 6 Weeks Plan: Continue with trial of lumbar extension based exercises, core, and back strengthening. Educate on lifting mechanics. Use manual therapy and modalities as needed. Subjective Subjective: Pt. is a 68 y.o. 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 He currently now just has pain in his left leg which goes down to his ankle and comes and goes. His PLOF includes history of back and leg pain off and on in the past and had an ablation of his lumbar spine in 2007. He had recent x-ray of his lumbar spine which he does not know the results but is also scheduled for an MRI on Sunday. Pt. denies any change in bowel or bladder function or unexplained weight loss. He has difficulty with standing/walking longer than 30 minutes, sitting for longer than 1 hour, bending forward, lifting things, housework, and yard work. 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 His goal with physical therapy is to have less pain and more flexibility. He has had previous physical therapy for his back. Pt. denies any pain currently, at worst 7/10 and describes the pain as sharp, achy, and dull. Pt. is currently on Meloxicam which has really helped. His PMH includes proximal carpectomy, lumbar ablation, appendectomy, and dental surgery. Pt. lives with his . His hobbies include knife making and riding motorcycles. Objective Objective: Palpation- No tenderness to palpation Lumbar flexion x 10- increased pain in left leg to his calf, extension x 10- min restriction and centralized symptoms from left leg to buttock; SB to left x 10- WNL and no pain; SB to right x 10- WNL and no pain. Core strength 4/5 Left LE strength- grossly 5/5 for all motions Right LE strength grossly 5/5 for all motions Special tests- Straight leg raise [-], Well's leg raise [-] Balance/Special Test Scores Oswestry Low Back Score: 14 Goals Goal 1:: Pt. will centralize symptoms from left leg to low back. Goal Time Frame: 4-6 Weeks Goal 2:: Pt. will be able to stand/walk for at least 30 minutes with no pain. Goal Time Frame: 4-6 Weeks Goal 3:: Pt. will be able to sit for at least 1 hour with no pain. Goal Time Frame: 4-6 Weeks Goal 4:: Pt. will be able to lift at least 30# with proper body mechanics with no pain. Goal Time Frame: 4-6 Weeks Goal 5:: Pt. will rate pain at worst at 3/10 with ADL's. Goal Time Frame: 4-6 Weeks Goal 6:: Pt. will improve modified Oswestry < 20% disability in order to improve ADL's. Goal Time Frame: 4-6 Weeks Rehabilitation Potential Physical Therapy Diagnosis: Decreased core/back strength and pain Rehabilitation Potential: Good Anticipated Interventions Patient/Client Instruction: Educate patient on: Condition and Plan of Care For the Purpose of:: To improve ability to perform ADL's, To improve performance and independence with ADL's, To assume or resume ADL's and To improve tolerance to ADL's Therapeutic Exercise to Include: Strength training, Postural training, Dynamic Lumbar Stabilization and Cullne Exercises Comment: Continue with trial of lumbar extension based exercises, core, and back strengthening. Educate on lifting mechanics as well. For the Purpose of:: To decrease pain, To improve ability to perform ADL's, To improve performance and independence with ADL's, To assume or resume ADL's and To improve tolerance to ADL's Functional Training to Include: ADL Training For the Purpose of:: To decrease pain, To improve ability to perform ADL's, To improve performance and independence with ADL's, To assume or resume ADL's and To improve tolerance to ADL's Manual Therapy Techniques to Include: Mobilization and Soft tissue mobilization For the Purpose of:: To decrease pain, To improve ability to perform ADL's, To improve performance and independence with ADL's, To assume or resume ADL's and To improve tolerance to ADL's TENS: Yes IF ES: Yes Cryotherapy (ice pack, ice massage): Yes Thermo therapy (hot pack): Yes For the Purpose of:: To decrease pain, To improve ability to perform ADL's, To improve performance and independence with ADL's, To assume or resume ADL's and To improve tolerance to ADL's Text: Thank you for the opportunity to evaluate your patient. For Medicare and Medicare HMO plans, please review the plan of care and approve it. It will need to be FAXED BACK to us at [phone] for Medicare purposes. For Medicare only, by signing this I certify the plan of care. Please let me know if there are questions or concerns regarding this plan of care. Physician Signatur e: Date:
== END 2023-10-10 19:00 | disposition home or self-care (01) ==
LOC: PT 11:30
PROVIDERS: PCP Family Medicine Geriatric Medicine; Referring Provider Anesthesiology Pain Medicine; Visit Provider Anesthesiology Pain Medicine
DX: M54.9 Dorsalgia, unspecified (principal); M79.606 Pain in leg, unspecified
CPT/HCPCS: 97110; 97161

== ENCOUNTER → 2023-11-21 | Outpatient (CLI) | payer MEDICARE, SELFPAY ==
--- NOTE | 2023-11-21 12:35 | RAD_ITS ---
STUDY: X-RAY - RIGHT SHOULDER REASON FOR EXAM: Male, 68 years old. SHOULDER PAIN TECHNIQUE: 4 view(s) of the shoulder. COMPARISON: 12/20/2018 FINDINGS: There is mild degenerative arthrosis of the glenohumeral articulation. There is hypertrophic osteoarthrosis of the acromioclavicular joint with inferior osseous spur formation. Normal acromion. Normal humeral head and visualized proximal humerus. The soft tissue structures are unremarkable. Normal visualized pulmonary apex. RAD/Shoulder min 2 Views IMPRESSION: Mild glenohumeral joint arthrosis. Moderate acromioclavicular joint arthrosis with inferior osteophyte formation produce a medial outlet stenosis and probable rotator cuff impingement. MRI may be useful. Electronically Signed: Jose Shepherd MD at 8:37 EDT ,
--- NOTE | 2023-11-21 12:35 | RAD_ITS ---
STUDY: X-RAY - LEFT SHOULDER REASON FOR EXAM: Male, 68 years old. SHOULDER PAIN TECHNIQUE: 4 view(s) of the shoulder. COMPARISON: None. FINDINGS: There is mild degenerative arthrosis of the glenohumeral articulation. There is hypertrophic osteoarthrosis of the acromioclavicular joint with inferior osseous spur formation. Normal acromion. Normal humeral head and visualized proximal humerus. The soft tissue structures are unremarkable. Normal visualized pulmonary apex. RAD/Shoulder min 2 Views IMPRESSION: Mild glenohumeral joint arthrosis. Moderate acromioclavicular joint arthrosis with inferior osteophyte formation producing medial outlet stenosis. MRI may be useful. Electronically Signed: Jose Shepherd MD at 8:35 EDT ,
== END | disposition home or self-care (01) ==
PROVIDERS: PCP Family Medicine Geriatric Medicine; Referring Provider Anesthesiology Pain Medicine; Visit Provider Anesthesiology Pain Medicine
DX: M25.511 Pain in right shoulder (principal); M25.512 Pain in left shoulder
CPT/HCPCS: 73030

== ENCOUNTER → 2024-04-16 | Outpatient (CLI) | payer MEDICARE, SELFPAY ==
[2024-04-16 09:23] LABS: Absolute Lymphocyte Count 1.42 X10^3/uL (0.83-4.51); Absolute Neutrophil Count 5.5 X10^3/uL (2.0-7.7); Basophil# 0.07 X10^3/uL; Basophil% 0.9 % (0-1); Hematocrit 49.2 % (40-54); Hemoglobin 17.1 g/dL (13.0-16.5); Lymphocyte # 1.42 X10^3/ul (0.83-4.51); Lymphocyte % 17.8 % (19-41); Mean Corp Hgb Conc 34.8 g/dL (32-36); Mean Corpuscular Hgb 33.3 pg (27.0-32.0); Mean Corpuscular Volume 95.7 fL (80-94); Mean Platelet Vol. 11.3 fl (6.2-12.0); Monocyte% 7.5 % (0-10); NRBC Flagged by Analyzer 0 % (0-5); Neutrophil # 5.45 X10^3/uL (2.7-7.7); Neutrophil % 68.5 % (47-70); Platelet Count 182 K/mm3 (150-450); RBC Distribution Width CV 13.6 % (11.6-14.6); RBC Distribution Width SD 48.8 fl (35.1-43.9); Red Blood Count 5.14 M/mm3 (4.6-6.2)
[2024-04-16 10:00] LABS: ALB/GLOB Ratio 1.1 RATIO (0.9-2.4); AST(SGOT) 17 U/L (15-37); Alanine Aminotransfer ALT/SGPT 20 U/L (16-61); Albumin, Serum 3.6 g/dL (3.2-5.0); Alkaline Phosphatase 84 U/L (45-117); Anion Gap 5 (5-15); BUN 16 mg/dL (7-18); BUN/Creat Ratio 15.4 RATIO (10-20); Calcium,Total 9.1 mg/dL (8.5-10.1); Chloride 111 mmol/L (98-107); Creatinine, Serum 1.04 mg/dL (0.70-1.30); EST Glomerular Filtration Rate 75 mL/min (>60); Est Glom Filt Rate - Afr Amer 91 mL/min (>60); Globulin 3.2 g/dL (2.2-4.2); Glucose 137 mg/dL (74-106); Potassium 4.1 mmol/L (3.5-5.1); Protein, Total 6.8 g/dL (6.4-8.2); Sodium Level 142 mmol/L (136-145); Thyroid Stim Hormone (TSH) 0.659 uIU/mL (0.358-3.740); Uric Acid 5.3 mg/dL (3.5-7.2)
[2024-04-16 12:48] LABS: Vitamin D,25 Hydroxy 28.1 ng/mL
== END | disposition home or self-care (01) ==
PROVIDERS: PCP Family Medicine Geriatric Medicine; Visit Provider Family Medicine Geriatric Medicine
DX: I10 Essential (primary) hypertension (principal); M10.9 Gout, unspecified; E55.9 Vitamin D deficiency, unspecified; E29.1 Testicular hypofunction
CPT/HCPCS: 36415; 80053; 82306; 84403; 84443; 84550; 85025

== ENCOUNTER → 2024-06-02 | Outpatient (CLI) | payer MEDICARE, SELFPAY ==
--- NOTE | 2024-06-02 10:10 | RAD_ITS ---
INDICATION: RIGHT HIP PAIN EXAMINATION/TECHNIQUE: X-RAY - XR Hips Bilateral with Pelvis when performed; Min 5 Views COMPARISON: Pelvis and right hip radiographs dated 12/21/2021. FINDINGS: PELVIC BONES: No displaced fracture, destructive or sclerotic lesions. Note that overlapping bowel shadows may however obscure fine detail. Sacroiliac joints are unremarkable. No widening of the pubic symphysis. HIPS: There is minimal degenerative arthrosis of the hip joints bilaterally with tiny marginal osteophytes. No displaced fracture. SOFT TISSUES: No soft tissue swelling or gas. RAD/Hips B/L min 2 views w/ Pelvis IMPRESSION: Minimal degenerative arthrosis of the joints bilaterally. No evidence of displaced pelvic or hip fracture. Electronically Signed: Brayan Enciso MD at 14:04 EST ,
--- NOTE | 2024-06-02 10:10 | RAD_ITS ---
STUDY: X-RAY - LUMBAR SPINE REASON FOR EXAM: Male, 69 years old. Muscle spasms. TECHNIQUE: 5 view(s) of the lumbar spine were obtained. COMPARISON: Lumbar spine x-rays dated September 2023 FINDINGS: Osteopenia. Normal lordosis. No scoliosis. Normal vertebral alignment. Diffuse moderate to marked lower thoracic and lumbosacral facet sclerosis. Diffuse intervertebral disc space narrowing with osteophytes. Endplate concavities compatible with osteoporosis. Vascular calcification. RAD/L/S Spine Min 4 Views IMPRESSION: Stable osteopenia with moderate to marked diffuse lower thoracic and lumbosacral spondylosis. Electronically Signed: Beau Benz MD at 14:33 EST ,
== END | disposition home or self-care (01) ==
LOC: RAD 10:03
PROVIDERS: PCP Family Medicine Geriatric Medicine; Referring Provider Family Medicine Geriatric Medicine; Visit Provider Family Medicine Geriatric Medicine
DX: M62.830 Muscle spasm of back (principal); M25.551 Pain in right hip
CPT/HCPCS: 72110; 73521

== ENCOUNTER → 2024-06-06 | Outpatient (CLI) | payer MEDICARE, SELFPAY ==
--- NOTE | 2024-06-06 15:52 | CT_ITS ---
EXAM: PELVIS WITHOUT IV CONTRAST CLINICAL HISTORY: Pain COMPARISON: None. TECHNIQUE: Axial CT images of the pelvis was performed utilizing routine protocol without intravenous contrast material. Multiplanar reformations were obtained. Dose reduction techniques were used including intermediate exposure control (AEC),iterative reconstruction technique, and/or mA and/or KV dose adjustments based on patient's size. FINDINGS: No distended bowel loops are seen. Moderate amounts of fecal retention. Diverticulosis involving the sigmoid colon without gross surrounding inflammatory changes. Urinary bladder is partially decompressed. Prostate gland measures 4.3 x 5.6 x 4.8 cm. No pelvic lymphadenopathy. No free fluid is seen. Spondylotic changes seen at the L4-5 level, eccentric towards the left. Pseudoarthrosis involving the L5 level on the right. Anatomic alignment of the bilateral SI joints and pubic symphysis. No acute fractures or dislocations are identified. Minimal degenerative changes involving the bilateral hips. No bony destructive lesions are seen. CT/Pelvis without IV Contrast IMPRESSION: 1. Diverticulosis involving the sigmoid colon, without gross surrounding inflam matory changes. 2. Prostate gland is mildly enlarged measuring 4.3 x 5.6 x 4.8 cm. Correlate w ith PSA levels. 3. Degenerative changes involving the lower lumbar spine and bilateral hips, as described. No acute osseous abnormalities identified. Reading [facility]
--- NOTE | 2024-06-06 15:52 | CT_ITS ---
EXAM: Right hip without IV contrast enhancement CLINICAL HISTORY: Pain COMPARISON: None. TECHNIQUE: On a Multirow-detector CT scanner, a volumetric scan is reconstructed to 5 mm images through the right hip without the administration of intravenous contrast. Dose reduction techniques were used including automated exposure control (AEC), iterative reconstruction technique, and/or mA and/or kV dose adjustment based on patient size. FINDINGS: Anatomic alignment of the right hip. There is mild joint space loss and minimal spurring involving the acetabulum and greater trochanter. Trabecular markings are preserved. No acute fractures or dislocations are identified of the right hip. Remaining visualized osseous structures appear intact. Suspect pseudoarthrosis involving the L5 level on the right. [id number] amounts of fecal retention. Vascular calcifications within the right iliac artery. Overlying soft tissues appear intact. No drainable fluid collections are identified. CT/Extremity Lower without Contra IMPRESSION: 1. Mild degenerative changes involving the right hip, as described 2. No acute fractures or dislocations are identified. 3. Additional findings, as detailed above Reading [facility]
== END | disposition home or self-care (01) ==
LOC: CT 15:49
PROVIDERS: PCP Family Medicine Geriatric Medicine; Referring Provider Family Medicine Geriatric Medicine; Visit Provider Family Medicine Geriatric Medicine
DX: M25.551 Pain in right hip (principal)
CPT/HCPCS: 72192; 73700

== ENCOUNTER → 2024-06-11 | Outpatient (CLI) | payer MEDICARE, SELFPAY ==
[2024-06-11 13:52] LABS: PSA,Total- Diagnostic 1.32 ng/mL (0.0-4.0)
== END | disposition home or self-care (01) ==
LOC: POLAB3 12:35
PROVIDERS: PCP Family Medicine Geriatric Medicine; Visit Provider Family Medicine Geriatric Medicine
DX: N40.0 Benign prostatic hyperplasia without lower urinary tract symptoms (principal)
CPT/HCPCS: 36415; 84153

== ENCOUNTER → 2024-07-02 | Outpatient (CLI) | payer MEDICARE, SELFPAY ==
--- NOTE | 2024-07-02 12:54 | RAD_ITS ---
PROCEDURE: Abdominal radiographs, three views REASON FOR EXAM: Diverticulitis TECHNIQUE: Three views of the abdomen were obtained. COMPARISON: CT abdomen/pelvis 07/02/2024 FINDINGS: Three views of the abdomen were obtained. Bones are osteopenic with degenerative changes in the spine. Lower lungs are clear. No abnormally dilated bowel segments or free intraperitoneal air. No pathologic air-fluid levels on the upright view. Mild stool in the colon. RAD/Abd Inc Decub and/or Erect IMPRESSION: Unremarkable abdominal radiographs. No free intraperitoneal air. Reading Location: [facility]
--- NOTE | 2024-07-02 13:05 | CT_ITS ---
EXAM: ABDOMEN/PELVIS WITHOUT CONT CLINICAL HISTORY: Right flank pain for 3 weeks after fall. COMPARISON: 04/19/2021. TECHNIQUE: Helical CT images of the abdomen and pelvis were performed utilizing routine protocol without intravenous contrast material. Multiplanar reformations were obtained. Dose reduction techniques were used including intermediate exposure control (AEC),iterative reconstruction technique, and/or mA and/or KV dose adjustments based on patient's size. FINDINGS: The lung bases are clear. No obvious acute abnormality of the liver, spleen, pancreas, or adrenal glands. No acute obstructive urinary collecting system calculus. No urinary bladder wall thickening. No hydronephrosis. Nonspecific bilateral perinephric stranding noted similar to the prior study. No acute bowel obstruction. No pneumoperitoneum. Colonic diverticulosis is noted without evidence of acute diverticulitis. No CT evidence of acute appendicitis. No lymphadenopathy. No significant free fluid in the abdomen and pelvis. Enlarged prostate. The visualized osseous structures demonstrate degenerative changes. CT/Abdomen/Pelvis without Cont IMPRESSION: No hydronephrosis or renal calculi noted. Colonic diverticulosis is noted without evidence of acute diverticulitis. Enlarged prostate. Reading Location: [id number]
[2024-07-02 13:44] LABS: Absolute Lymphocyte Count 0.91 X10^3/uL (0.83-4.51); Absolute Neutrophil Count 8.4 X10^3/uL (2.0-7.7); Basophil% 0.9 % (0-1); Eosinophil# 0.08 X10^3/uL; Eosinophils% 0.8 % (0-5); Hemoglobin 19.2 g/dL (13.0-16.5); Lymphocyte # 0.91 X10^3/ul (0.83-4.51); Lymphocyte % 8.6 % (19-41); Mean Corp Hgb Conc 33.9 g/dL (32-36); Mean Corpuscular Hgb 33.6 pg (27.0-32.0); Mean Corpuscular Volume 99.3 fL (80-94); Mean Platelet Vol. 11.2 fl (6.2-12.0); Monocyte# 0.87 X10^3/uL; Monocyte% 8.3 % (0-10); NRBC Flagged by Analyzer 0 % (0-5); Neutrophil # 8.44 X10^3/uL (2.7-7.7); Neutrophil % 80.2 % (47-70); Platelet Count 178 K/mm3 (150-450); RBC Distribution Width CV 14.9 % (11.6-14.6); Red Blood Count 5.71 M/mm3 (4.6-6.2); White Blood Count 10.5 K/mm3 (4.4-11.0)
[2024-07-02 13:50] LABS: Hematocrit 56.7 % (40-54)
[2024-07-02 14:59] LABS: ALB/GLOB Ratio 1.6 RATIO (0.9-2.4); AST(SGOT) 25 U/L (<=37); Alanine Aminotransfer ALT/SGPT 20 U/L (<=46); Albumin, Serum 4.6 g/dL (3.4-4.8); Alkaline Phosphatase 87 U/L (40-129); Anion Gap 12 (5-15); BUN 18 mg/dL (4-19); BUN/Creat Ratio 16.6 RATIO (10-20); Calcium 9.8 mg/dL (7.6-11.0); Carbon Dioxide 25.5 mmol/L (22.0-29.0); Chloride 104 mmol/L (96-108); Creatinine, Serum 1.1 mg/dL (0.8-1.3); EST Glomerular Filtration Rate 74 (>60); Globulin 2.8 g/dL (2.2-4.2); Glucose 100 mg/dL (70-99); Potassium 3.9 mmol/L (3.3-5.1); Protein, Total 7.3 g/dL (5.9-8.4); Sodium Level 141 mmol/L (133-145); Total Bilirubin 0.53 mg/dL (0.00-1.30)
[2024-07-04 09:24] LABS: Pathologist Review Reviewed
== END | disposition home or self-care (01) ==
LOC: CT 12:52
PROVIDERS: PCP Family Medicine Geriatric Medicine; Referring Provider Family Medicine Geriatric Medicine; Visit Provider Family Medicine Geriatric Medicine
DX: K57.92 Diverticulitis of intestine, part unspecified, without perforation or abscess without bleeding (principal); N20.0 Calculus of kidney
CPT/HCPCS: 36415; 74019; 74176; 80053; 85025

== ENCOUNTER → 2024-10-02 | Outpatient (CLI) | payer MEDICARE, SELFPAY ==
--- NOTE | 2024-10-02 10:52 | RAD_ITS ---
PROCEDURE: L/S SPINE MIN 4 VIEWS 10/02/2024 REASON FOR EXAM: LDD TECHNIQUE: Five views; AP, bilateral oblique, lateral and coned-down L5-S1 view COMPARISON: 06/02/2024 FINDINGS: For nomenclature purposes L5 is partially sacralized especially towards the right. No fracture or malalignment. No evidence of spondylolysis. Similar appearance of multilevel spondylosis/discogenic change. L1-2 and L2-3 mild disc space narrowing and degenerative endplate changes again seen. L4-5 moderate disc space narrowing with degenerative endplate changes again noted. L5-S1 spondylosis/discogenic change. Bilateral facet degenerative changes RAD/L/S Spine Min 4 Views IMPRESSION: Similar appearance of multilevel spondylosis/discogenic change. Reading Location: [id number]
== END | disposition home or self-care (01) ==
PROVIDERS: PCP Family Medicine Geriatric Medicine; Referring Provider Family Medicine Geriatric Medicine; Visit Provider Family Medicine Geriatric Medicine
DX: R80.9 Proteinuria, unspecified (principal)
CPT/HCPCS: 72110

== ENCOUNTER → 2024-10-04 | Outpatient (CLI) | payer MEDICARE, SELFPAY ==
[2024-10-04 13:12] LABS: 24HR. UA Prot. Total Volume 3000 mL; Urine Protein (24 Hour) 8.2 mg/dL (<11.9)
== END | disposition home or self-care (01) ==
LOC: LABSPEC 10:09
PROVIDERS: PCP Family Medicine Geriatric Medicine; Referring Provider Family Medicine Geriatric Medicine; Visit Provider Family Medicine Geriatric Medicine
DX: R80.9 Proteinuria, unspecified (principal)
CPT/HCPCS: 81050; 82570; 84156

== ENCOUNTER → 2024-10-17 | Outpatient (CLI) | payer MEDICARE, SELFPAY ==
[2024-10-17 10:25] LABS: Absolute Lymphocyte Count 1.45 X10^3/uL (0.83-4.51); Basophil# 0.05 X10^3/uL; Basophil% 0.5 % (0-1); Eosinophil# 0.25 X10^3/uL; Eosinophils% 2.6 % (0-5); Hematocrit 43.2 % (40-54); Lymphocyte # 1.45 X10^3/ul (0.83-4.51); Lymphocyte % 14.9 % (19-41); Mean Corp Hgb Conc 34.7 g/dL (32-36); Mean Corpuscular Hgb 32.9 pg (27.0-32.0); Mean Corpuscular Volume 94.7 fL (80-94); Mean Platelet Vol. 10.5 fl (6.2-12.0); Monocyte# 0.97 X10^3/uL; NRBC Flagged by Analyzer 0 % (0-5); Neutrophil # 6.95 X10^3/uL (2.7-7.7); Neutrophil % 71.3 % (47-70); Platelet Count 177 K/mm3 (150-450); RBC Distribution Width CV 13.4 % (11.6-14.6); RBC Distribution Width SD 47.1 fl (35.1-43.9); Red Blood Count 4.56 M/mm3 (4.6-6.2); White Blood Count 9.7 K/mm3 (4.4-11.0)
[2024-10-17 14:43] LABS: Thyroid Stim Hormone (TSH) 0.651 uIU/mL (0.300-4.200); Uric Acid 6.7 mg/dL (3.5-7.2); Vitamin D,25 Hydroxy 24.9 ng/mL (30-100)
[2024-10-17 14:55] LABS: ALB/GLOB Ratio 1.6 RATIO (0.9-2.4); AST(SGOT) 28 U/L (<=37); Alanine Aminotransfer ALT/SGPT 27 U/L (<=46); Albumin, Serum 4.4 g/dL (3.4-4.8); Alkaline Phosphatase 88 U/L (40-129); Anion Gap 12 (5-15); BUN 21 mg/dL (4-19); Calcium,Total 9.6 mg/dL (7.6-11.0); Chloride 106 mmol/L (98-108); Creatinine, Serum 0.98 mg/dL (0.70-1.20); EST Glomerular Filtration Rate 83 (>60); Globulin 2.8 g/dL (2.2-4.2); Glucose 107 mg/dL (70-99); Potassium 4.4 mmol/L (3.3-5.1); Protein, Total 7.2 g/dL (5.9-8.4); Sodium Level 140 mmol/L (133-145); Total Bilirubin 0.61 mg/dL (0.00-1.30)
== END | disposition home or self-care (01) ==
LOC: LAB 10:04
PROVIDERS: PCP Family Medicine Geriatric Medicine; Referring Provider Family Medicine Geriatric Medicine; Visit Provider Family Medicine Geriatric Medicine
DX: I10 Essential (primary) hypertension (principal); M10.9 Gout, unspecified; E55.9 Vitamin D deficiency, unspecified
CPT/HCPCS: 36415; 80053; 82306; 84443; 84550; 85025

== ENCOUNTER → 2024-12-15 | Outpatient (CLI) | payer MEDICARE, SELFPAY ==
--- NOTE | 2024-12-15 14:10 | RAD_ITS ---
PROCEDURE: CERV SPINE 2 OR 3 VIEWS 12/15/2024 REASON FOR EXAM: NECK PAIN,CERVICAL DISC DISEASE TECHNIQUE: CERV SPINE 2 OR 3 VIEWS FINDINGS: No evidence of acute fracture or dislocation. Vertebral body heights are maintained. Moderate degenerative changes of the visualized spine. Grade 1 anterolisthesis of C7 on T1. RAD/Cerv Spine 2 or 3 Views IMPRESSION: Spondylosis. Spondylolisthesis. Reading Location: [id number]
--- NOTE | 2024-12-15 14:10 | RAD_ITS ---
PROCEDURE: CERV SPINE 2 OR 3 VIEWS 12/15/2024 REASON FOR EXAM: NECK PAIN,CERVICAL DISC DISEASE TECHNIQUE: CERV SPINE 2 OR 3 VIEWS FINDINGS: No evidence of acute fracture or dislocation. Vertebral body heights are maintained. Moderate degenerative changes of the visualized spine. Grade 1 anterolisthesis of C7 on T1. RAD/Cerv Spine 2 or 3 Views IMPRESSION: Spondylosis. Spondylolisthesis. Reading Location: [id number]
[2024-12-15 15:43] LABS: Hematocrit 41.3 % (40-54); Hemoglobin 14.0 g/dL (13.0-16.5); Immature Granulocytes Count 0.110 X10^3/uL (0.0-0.0); Mean Corp Hgb Conc 33.9 g/dL (32-36); Mean Corpuscular Volume 99.0 fL (80-94); Mean Platelet Vol. 10.7 fl (6.2-12.0); NRBC Flagged by Analyzer 0 % (0-5); Platelet Count 310 K/mm3 (150-450); RBC Distribution Width CV 13.4 % (11.6-14.6); RBC Distribution Width SD 49.4 fl (35.1-43.9); Red Blood Count 4.17 M/mm3 (4.6-6.2); White Blood Count 10.6 K/mm3 (4.4-11.0)
[2024-12-15 17:01] LABS: AST(SGOT) 25 U/L (<=37); Alanine Aminotransfer ALT/SGPT 15 U/L (<=46); Albumin, Serum 3.8 g/dL (3.4-4.8); Alkaline Phosphatase 92 U/L (40-129); Anion Gap 12 (5-15); BUN 10 mg/dL (4-19); BUN/Creat Ratio 10.2 RATIO (10-20); Calcium,Total 9.5 mg/dL (7.6-11.0); Carbon Dioxide 23.0 mmol/L (21.0-32.0); Chloride 106 mmol/L (98-108); Globulin 3.0 g/dL (2.2-4.2); Glucose 92 mg/dL (70-99); Potassium 4.1 mmol/L (3.3-5.1); Pro- Brain NATRIURETIC PEPTIDE 1515 pg/mL (<=900)
== END | disposition home or self-care (01) ==
LOC: RAD 14:03
PROVIDERS: PCP Family Medicine Geriatric Medicine; Referring Provider Family Medicine Geriatric Medicine; Visit Provider Family Medicine Geriatric Medicine
DX: M50.90 Cervical disc disorder, unspecified, unspecified cervical region (principal); E87.6 Hypokalemia; I10 Essential (primary) hypertension
CPT/HCPCS: 36415; 72040; 80053; 83880; 84443; 85025

== ENCOUNTER → 2024-12-19 | Outpatient (CLI) | payer MEDICARE, SELFPAY ==
--- NOTE | 2024-12-19 13:51 | ECHOD_ITS ---
Reason For Study Reason For Study: SOB Procedure This was a 2D Doppler, Color Flow transthoracic echocardiogram. Exam performed in department. Left Ventricle Normal LV size. Left ventricular systolic function is lower limits of normal. The left ventricular ejection fraction is 50 %. Stage 1 diastolic dysfunction. No regional wall motion abnormalities noted. Right Ventricle Normal RV size. Normal systolic function. Atria Normal left atrium. Normal right atrium. Mitral Valve Normal mitral valve. Tricuspid Valve Normal tricuspid valve. Mild tricuspid valve insufficiency. Pulmonary artery systolic pressure is 18 mmHg. Aortic Valve Trisinus/trileaflet aortic valve. Mild focal aortic valve thickening. Pulmonic Valve Normal pulmonic valve. Great Vessels Normal aortic root. The pulmonary artery is normal size. Inferior vena cava collapse with respiration. Pericardium/Pleural No pericardial effusion. MMode/2D Measurements & Calculations LVIDd: 5.5 cm IVSd: 1.1 cm LVOT diam: 2.3 cm LVIDs: 4.2 cm LVPWd: 1.1 cm LVOT area: 4.0 cm2 RVDd: 3.6 cm FS: 24.0 % Ao root diam: 3.5 cm LAV(MOD-bp): 46.5 ml LVAd ap4: 37.4 cm2 LAV(MOD-bp) Indexed: 24.1 ml/m2 LVLd ap4: 9.1 cm LAV(MOD-sp2): 48.9 ml EDV(MOD-sp4): 126.1 ml LAV(MOD-sp4): 43.1 ml EDV(sp4-el): 129.8 ml LVAs ap4: 24.8 cm2 LVLs ap4: 8.1 cm ESV(MOD-sp4): 64.6 ml ESV(sp4-el): 64.7 ml EF(MOD-sp4): 48.8 % EF(sp4-el): 50.1 % LVAd ap2: 31.9 cm2 SV(MOD-sp4): 61.5 ml SV(MOD-sp2): 51.8 ml LVLd ap2: 8.6 cm SI(MOD-sp4): 31.8 ml/m2 SI(MOD-sp2): 26.8 ml/m2 EDV(MOD-sp2): 101.4 ml EDV(sp2-el): 100.2 ml LVAs ap2: 21.5 cm2 LVLs ap2: 8.1 cm ESV(MOD-sp2): 49.6 ml ESV(sp2-el): 48.4 ml EF(MOD-sp2): 51.1 % SV(sp4-el): 65.1 ml LA dimension(2D): 4.1 cm LA A4 area: 17.0 cm2 RA A4 area: 14.7 cm2 TAPSE: 2.1 cm Time Measurements MV dec time: 0.22 sec Doppler Measurements & Calculations MV E max romeo: 59.9 cm/sec Lat Peak E' Romeo: 7.0 cm/sec Med Peak E' Romeo: 5.5 cm/sec MV A max romeo: 85.6 cm/sec E/E' lat: 8.5 E/E' med: 10.8 MV E/A: 0.70 Ao V2 max: 190.1 cm/sec LV V1 max: 115.8 cm/sec MV dec slope: 272.4 cm/sec2 Ao max P.5 mmHg LV V1 max P.4 mmHg Ao V2 mean: 123.0 cm/sec LV V1 mean P.7 mmHg Ao mean P.1 mmHg LV V1 mean: 76.0 cm/sec Ao V2 VTI: 34.4 cm LV V1 VTI: 24.3 cm AV (velocity ratio): 0.71 JELENA(I,D): 2.8 cm2 JELENA(V,D): 2.4 cm2 SV(LVOT): 97.0 ml PA V2 max: 109.4 cm/sec TR max romeo: 197.6 cm/sec TR max P.6 mmHg ECHO/Echo Complete Interpretation Summary Normal LV size. Left ventricular systolic function is lower limits of normal. The left ventricular ejection fraction is 50 %. Stage 1 diastolic dysfunction. The global longitudinal strain = -14.6% (abnormal). The global longitudinal str ain is mildly abnormal. Ordering Physician: Alvaro Auguste Chi Referring Physician: Alvaro Auguste Chi Performed By: Tami Thomason RDCS
== END | disposition home or self-care (01) ==
LOC: CVS 13:45
PROVIDERS: PCP Family Medicine Geriatric Medicine; Referring Provider Family Medicine Geriatric Medicine; Visit Provider Family Medicine Geriatric Medicine
DX: R06.02 Shortness of breath (principal)
CPT/HCPCS: 93306

== ENCOUNTER → 2025-01-19 | Outpatient (CLI) | payer MEDICARE, SELFPAY ==
[2025-01-19 13:58] LABS: Hematocrit 45.4 % (40-54); Hemoglobin 15.5 g/dL (13.0-16.5); Immature Granulocytes Count 0.110 X10^3/uL (0.0-0.0); Mean Corp Hgb Conc 34.1 g/dL (32-36); Mean Corpuscular Volume 96.0 fL (80-94); Mean Platelet Vol. 11.1 fl (6.2-12.0); NRBC Flagged by Analyzer 0 % (0-5); Platelet Count 261 K/mm3 (150-450); RBC Distribution Width CV 13.3 % (11.6-14.6); RBC Distribution Width SD 48.1 fl (35.1-43.9); Red Blood Count 4.73 M/mm3 (4.6-6.2); White Blood Count 10.9 K/mm3 (4.4-11.0)
[2025-01-19 21:45] LABS: Xtra Tube Kwok EXTRA TUBE
== END | disposition home or self-care (01) ==
LOC: POLAB3 13:37
PROVIDERS: PCP Family Medicine Geriatric Medicine; Visit Provider Family Medicine Geriatric Medicine
DX: I10 Essential (primary) hypertension (principal); R53.83 Other fatigue
CPT/HCPCS: 36415; 85025

== ENCOUNTER → 2025-02-04 | Outpatient (CLI) | payer MEDICARE, SELFPAY ==
[2025-02-04 10:44] LABS: Cholesterol 135 mg/dL (<=200); Low Density Lipoprotein Calc. 60 mg/dL; Pro- Brain NATRIURETIC PEPTIDE 469 pg/mL (<=900); Triglycerides 114 mg/dL; Very Low Density Lipoprotein 23 mg/dL (5-40); cholesterol:hdl ratio screen 2.60
[2025-02-04 10:45] LABS: AST(SGOT) 27 U/L (<=37); Alanine Aminotransfer ALT/SGPT 19 U/L (<=46); Albumin, Serum 4.1 g/dL (3.4-4.8); Alkaline Phosphatase 81 U/L (40-129); Anion Gap 11 (5-15); BUN 15 mg/dL (4-19); BUN/Creat Ratio 15.4 RATIO (10-20); Calcium,Total 9.7 mg/dL (7.6-11.0); Carbon Dioxide 22.9 mmol/L (21.0-32.0); Chloride 109 mmol/L (98-108); Globulin 3.3 g/dL (2.2-4.2); Glucose 102 mg/dL (70-99); Potassium 4.5 mmol/L (3.3-5.1)
== END | disposition home or self-care (01) ==
LOC: LAB 08:53
PROVIDERS: PCP Family Medicine Geriatric Medicine; Referring Provider Internal Medicine Cardiovascular Disease; Visit Provider Internal Medicine Cardiovascular Disease
DX: I11.0 Hypertensive heart disease with heart failure (principal); I50.30 Unspecified diastolic (congestive) heart failure; R06.02 Shortness of breath; Z86.39 Personal history of other endocrine, nutritional and metabolic disease
CPT/HCPCS: 36415; 80053; 80061; 83880

== ENCOUNTER → 2025-02-23 | Outpatient (CLI) | payer MEDICARE, SELFPAY ==
--- OUTSIDE RECORDS SUMMARY | 2025-02-23 06:09 | XMS RPT_ITS | CCD ---
Author Organization [facility] Care Team Providers Care Integrity Consultant Name Role Phone Sylvia BASHIR, Olivier Levine Unavailable Molina, Dr. Alvaro Ramos Primary Care Provider Dr. Grace Rosas Attending Provider Dr. Grace Rosas Referring Provider Molina, Dr. Alvaro Ramos Primary Care Provider Dr. Antoine Francois Attending Provider [phone]([facility])[phone] Molina, Dr. Alvaro Ramos Primary Care Provider Molina, Dr. Alvaro Ramos Referring Provider Dr. Antoine Francois Attending Provider [phone]([facility])[phone] Molina, Dr. Alvaro Ramos Primary Care Provider Sarah Pandey Attending Provider Unavailable Molina, Dr. Alvaro Ramos Referring Provider Dr. Riccardo Cross Attending Provider [phone] Dr. Riccardo Cross Other Provider Molina BASHIR, Dr. Alvaro Ramos Primary Care Provider Molina BASHIR, Dr. Alvaro Ramos Attending Provider Molina BASHIR, Dr. Alvaro Ramos Referring Provider Molina BASHIR, Dr. Alvaro Ramos Primary Care Provider Molina BASHIR, Dr. Alvaro Ramos Attending Provider Molina BASHIR, Dr. Alvaro Ramos Referring Provider Molina BASHIR, Dr. Alvaro Chi Primary Care Provider Molina BASHIR, Dr. Alvaro Ramos Attending Provider Molina BASHIR, Dr. Alvaro Ramos Primary Care Provider [phone] Molina BASHIR, Dr. Alvaro Ramos Attending Provider Molina BASHIR, Dr. Alvaro Ramos Referring Provider [phone] Day BASHIR, Dr. Hilton Attending Provider Molina BASHIR, Dr. Alvaro Ramos Primary Care Physician [phone] Molina BASHIR, Dr. Alvaro Ramos Attending Physician [phone] Molina BASHIR, Dr. Alvaro Ramos Referring Provider [phone] Day BASHIR, Dr. Hilton Attending Physician Marcus BASHIR, Dr. Gallegos Attending Physician Marcus BASHIR, Dr. Gallegos Referring Provider Molina, Alvaro Chi Attending Unavailable Molina, Alvaro Chi Referring Unavailable Molina, Alvaro Chi Primary Care Unavailable Molina, Alvaro Chi Referring Unavailable Molina, Alvaro Chi Primary Care Unavailable Molina, Alvaro Chi Attending Unavailable Molina, Alvaro Chi Primary Care Unavailable Yobani Bernstein Attending Unavailable MarcusRosy Attending Unavailable Molina, Alvaro Chi Primary Care Unavailable Molina, Alvaro Chi Referring Unavailable Molina, Alvaro Chi Attending Unavailable Molina, Alvaro Chi Referring Unavailable Molina, Alvaro Chi Primary Care Unavailable Molina, Alvaro Chi Attending Unavailable Molina, Alvaro Chi Referring Unavailable Molina, Alvaro Chi Primary Care Unavailable Molina, Alvaro Chi Attending Unavailable Molina, Alvaro Chi Primary Care Unavailable Molina, Alvaro Chi Attending Unavailable Molina, Alvaro Chi Primary Care Unavailable Molina, Alvaro Chi Referring Unavailable Molina, Alvaro Chi Attending Unavailable Molina, Alvaro Chi Primary Care Unavailable Molina, Alvaro Chi Referring Unavailable Molina, Alvaro Chi Primary Care Unavailable Molina, Alvaro Chi Attending Unavailable Marcus, Rosy Referring Unavailable Marcus, Rosy Attending Unavailable Molina, Alvaro Chi Primary Care Unavailable Molina, Alvaro Chi Primary Care Unavailable Molina, Alvaro Chi Attending Unavailable Marcus, Rosy Referring Unavailable Marcus, Rosy Attending Unavailable Mloina, Alvaro Chi Primary Care Unavailable Molina, Alvaro Chi Primary Care Unavailable Molina, Alvaro Chi Attending Unavailable Molina, Alvaro Chi Referring Unavailable Molina, Alvaro Chi Primary Care Unavailable Molina, Alvaro Chi Attending Unavailable Molina, Alvaro Chi Referring Unavailable Molina, Alvaro Chi Primary Care Unavailable Molina, Alvaro Chi Attending Unavailable Molina, Alvaro Chi Primary Care Unavailable Molina, Alvaro Chi Referring Unavailable Molina, Alvaro Chi Attending Unavailable Allergies Allergy Classification Reported Allergen(s) Allergy Type Date of Onset Reaction(s) Facility (19 sources) Erythromycin Drug Allergy 04-25-2021 Rash [facility] (1 source) Erythromycin Drug Allergy 02-03-2025 [facility] Repository Medications Current Medications Medication Drug Class(es) Dates Sig (Normalized) Sig (Original) meloxicam 7.5 mg oral tablet (20 sources) Nonsteroidal Anti-inflammatory Drug Start: 01-09-2025 End: 01-09-2025 take 1 tablet by mouth once daily as needed Start: 01-09-2025 End: 01-09-2025 Meloxicam 15 mg tablet Disco ntinued mg PO January 09, 2025 12:00am January 09, 2025 3:26pm Start: 03-10-2019 End: 04-12-2021 take 1 tablet by mouth once daily Meloxicam 15 mg tablet Discontinued 15 mg PO DAILY 27 05March 10, 2019 1:00am April 12, 2021 10:23am tamsulosin hydrochloride 0.4 mg oral capsule (2 sources) alpha-Adrenergic Keisha Start: 01-09-2025 take 1 capsule by mouth once daily Testosterone (1 source) Androgen Start: 05-10-2023 Testosterone Active 100 MG IM .[id number] May 10, 2023 12:00am tiZANidine 4 mg oral tablet (12 sources) Central alpha-2 Adrenergic Agonist Start: 02-03-2025 take 1 tablet by mouth at bedtime as needed Start: 02-03-2025 take 1 tablet by abeba th at bedtime as needed Tizanidine (Zanaflex) 4 mg tablet Active 4 mg PO AT BEDTIME as needed for muscle spasticity February 03, 2025 8:32am Complies with drug therapy Start: 04-16-2023 End: 02-03-2025 take 1 tablet by mouth at bedtime as needed Tizanidine (Zanaflex) 4 mg tablet Discontinued 4 mg PO AT BEDTIME as needed for muscle spasticity April 16, 2023 1:00am February 03, 2025 8:34am tumeric capsule (2 sources) Start: 02-03-2025 take 1 capsule by mouth once d aily Completed/Discontinued Medications Medication Drug Class(es) Dates Sig (Normalized) Sig (Original) ascorbic acid 500 mg oral tablet (9 sources) Vitamin C Start: 05-10-2023 End: 02-03-2025 take 1 tablet by mouth once daily Ascorbic Acid (Vitamin C) (C-500) 500 mg tablet Discontinued 1 g PO DAILY May 10, 2023 1:00am February 03, 2025 8:33am doxycycline hyclate 100 mg oral capsule (13 sources) Tetracycline-class Drug Start: 04-24-2022 End: 06-09-2022 take 1 capsule by mouth twice daily Doxycycline Hyclate 100 mg capsule Discontinued 100 mg PO TWICE A DAY 56 0 April 24, 2022 1:00am June 09, 2022 9:44am lisinopril 2.5 mg oral tablet (20 sources) Angiotensin Converting Enzyme Inhibitor Start: 04-15-2020 LISINOPRIL 2.5 MG TABS 1/2 tablet daily LISINOPRIL [id number] Olivier Ward MD Start: 10-24-2013 take 1 tablet by mouth at bedt alec Testosterone 100 mg/mL suspension (8 sources) Start: 05-10-2023 End: 01-09-2025 Testosterone 100 mg/mL suspension Discontinued 100 mg IM .[id number] May 10, 2023 1:00am January 09, 2025 3:34pm Start: 05-10-2023 Testosterone 1 00 mg/mL suspension Active 100 mg IM .[id number] May 10, 2023 1:00am triamcinolone acetonide 40 mg/ml injectable suspension (3 sources) Corticosteroid Start: 12-20-2018 End: 12-20-2018 Kenalog (triamcinolone acetonide) 40 mg/mL suspension for injection Discontinued 80 MG INTRAARTIC ONCE 2 December 20, 2018 8:34am December 20, 2018 9:31am zinc gluconate 50 mg oral tablet (9 sources) Start: 05-10-2023 End: 02-03-2025 take 1 tablet by mouth once daily Zinc Gluconate 50 mg tablet Discontinued 50 mg PO DAILY May 10, 2023 1:00am February 03, 2025 8:33am Problems Active Problems Problem Classification Problem Date Documented Date Episodic/Chronic Abdominal pain (20 sources) Left lower quadrant pain; Translations: [Left lower quadrant pain] Episodic Congestive heart failure; nonhypertensive (5 sources) Heart failure with normal ejection fraction; Translations: [Unspecified diastolic (congestive) heart failure] Onset: 5 02-03-2025 Chronic Deficiency and other anemia (1 source) Other hemoglobinopathies; Translations: [Other hemoglobinopathies] Onset: 5 Chronic Diverticulosis and diverticulitis (1 source) Diverticulitis of intestine, part unspecified, without perforation or abscess without bleeding; Translations: [Diverticulitis of intestine, part unspecified, without perforation or abscess without bleeding] Onset: 5 Chronic Essential hypertension (20 sources) Hypertensive disorder; Translations: [Essential (primary) hypertension] Onset: 5 04-12-2021 Chronic Comment on above: CONTROLLED WITH MED Hyperplasia of prostate (2 sources) Benign prostatic hyperplasia without lower urinary tract symptoms; Translations: [Benign prostatic hyperplasia without lower urinary tract symptoms] Onset: 5 Chronic Other and unspecified benign neoplasm (9 sources) History of polyp of colon; Translations: [Personal history of colonic polyps] 05-15-2023 Episodic Other and unspecified benign neoplasm (1 source) Personal history of colonic polyps; Translations: [Personal history of colonic polyps] 05-15-2023 Episodic Other lower respiratory disease (2 sources) Shortness of breath; Translations: [Shortness of breath] Onset: 5 Episodic Other nervous system disorders (11 sources) Carpal tunnel syndrome; Translations: [Carpal tunnel syndrome, bilateral upper limbs] 06-09-2022 Chronic Other nervous system disorders (2 sources) Bilateral carpal tunnel syndrome; Translations: [Carpal tunnel syndrome, bilateral upper limbs] 01-09-2025 Chronic Other non-traumatic joint disorders (1 source) 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; Translations: [Other instability, left hand] Onset: 0 04-17-2020 Episodic Other nutritional; endocrine; and metabolic disorders (4 sources) H/O: endocrine disorder; Translations: [Personal history of other endocrine, nutritional and metabolic disease] 02-03-2025 Episodic Other nutritional; endocrine; and metabolic disorders (1 source) Personal history of other endocrine, nutritional and metabolic disease; Translations: [Personal history of other endocrine, nutritional and metabolic disease] Onset: 5 Episodic Other screening for suspected conditions (not mental disorders or infectious disease) (20 sources) Patient encounter status; Translations: [Encounter for screening for malignant neoplasm of colon] 08-03-2017 Episodic Spondylosis; intervertebral disc disorders; other back problems (1 source) Cervical disc disorder, unspecified, unspecified cervical region; Translations: [Cervical disc disorder, unspecified, unspecified cervical region] Onset: 5 Chronic Past or Other Problems Problem Classification Problem Date Documented Da te Episodic/Chronic Genitourinary symptoms and ill-defined conditions (2 sources) Proteinuria, unspecified; Translations: [Proteinuria, unspecified] Onset: 10-02-2024 Episodic Other non-traumatic joint disorders (1 source) Pain in right hip; Translations: [Pain in right hip] Onset: 06-23-2024 Episodic Spondylosis; intervertebral disc disorders; other back problems (1 source) Muscle spasm of back; Translations: [Muscle spasm of back] Onset: 06-17-2024 Episodic Unclassified (1 source) Problem Results Test Name Value Interpretation Reference Range Facility Anion gap in Serum or Plasma Ordered By: Rosy Velazquez on 02-04-2025 Anion gap [Moles/Vol] 11 mmol/L 09-18 [facility] BUN/creatinine ratioOrdered By: Rosy Velazquez on 02-04-2025 Urea nitrogen/Creatinine [Mass ratio] 15.4 mg/mg 02-23 [facility] Bilirubin, totalOrdered By: Rosy Velazquez on 02-04-2025 Bilirubin [Mass/Vol] 0.45 mg/dL 0.00-1.30 [facility] Calculated very low density lipoprotein (VLDL) cholesterol measurementOrdered By: Rosy Velazquez on 02-04-2025 Calculated very low density lipoprotein (VLDL) cholesterol measurement 23 mg/dL [facility] Carbon dioxide, total [Moles /volume] in Central venous bloodOrdered By: Rosy Velazquez on 02-04-2025 CO2 [Moles/Vol] 22.9 mmol/L 21.0-32.0 [facility] Chloride assayOrdered By: Michael Velazquez on 02-04-2025 Chloride [Moles/Vol] 109 mmol/L High 98-108 [facility] Comprehensive Metabolic Prof ilon 02-04-2025 Albumin [Mass/Vol] 4.1 g/dL Normal 3.4-4.8 [facility] Comment on above: Performed By: #### L 500.4050, L500.4100, L503.7505 ####[facility] [address] [place], [address] Albumin/Globulin [Mass ratio] 1.2 {ratio} Normal 0.9-2.4 [facility] Comment on above: Performed By: #### L 500.4050, L500.4100, L503.7505 ####[facility] [address] [place], [address] ALK PHOS 81 U/L Normal 40-129 [facility] Comment on above: Performed By: #### L 500.4050, L500.4100, L503.7505 ####[facility] [address] [place], [address] ALT [Catalytic activity/Vol] 19 U/L Normal <=46 [facility] Comment on above: Performed By: #### L 500.4050, L500.4100, L503.7505 ####[facility] [address] [place], [address] AST [Catalytic activity/Vol] 27 U/L Normal <=37 [facility] Comment on above: Result Comment: Hemo lysis present, Results??could be affected. ?? Performed By: #### L 500.4050, L500.4100, L503.7505 ####[facility] [address] [place], [address] Bilirubin [Mass/Vol] 0.45 mg/dL Normal 0.00-1.30 [facility] Comment on above: Performed By: #### L 500.4050, L500.4100, L503.7505 ####[facility] [address] [place], [address] BUN/CRE 15.4 RATIO Normal 10-20 [facility] Comment on above: Performed By: #### L 500.4050, L500.4100, L503.7505 ####[facility] [address] [place], [address] Calcium [Mass/Vol] 9.7 mg/dL Normal 7.6-11.0 [facility] Comment on above: Performed By: #### L 500.4050, L500.4100, L503.7505 ####[facility] [address] [place], [address] Chloride [Moles/Vol] 109 mmol/L High 98-108 [facility] Comment on above: Performed By: #### L 500.4050, L500.4100, L503.7505 ####[facility] [address] [place], [address] CO2 [Moles/Vol] 22.9 mmol/L Normal 21.0-32.0 [facility] Comment on above: Performed By: #### L 500.4050, L500.4100, L503.7505 ####[facility] [address] [place], [address] Creatinine [Mass/Vol] 0.99 mg/dL Normal 0.70-1.20 [facility] Comment on above: Performed By: #### L 500.4050, L500.4100, L503.7505 ####[facility] [address] [place], [address] GAP 11 Normal 5-15 [facility] Comment on above: Performed By: #### L 500.4050, L500.4100, L503.7505 ####[facility] [address] [place], [address] GFR/1.73 sq M.predicted among non-blacks MDRD (S/P/Bld) [Vol rate/Area] 82 mL/min/{1.73_m2} Normal >60 [facility] Comment on above: Result Comment: mL/m in/1.73m2 CKD-EPI Creatinine Equation (2020) Performed By: #### L 500.4050, L500.4100, L503.7505 ####[facility] [address] [place], [address] Globulin (S) [Mass/Vol] 3.3 g/dL Normal 2.2-4.2 [facility] Comment on above: Performed By: #### L 500.4050, L500.4100, L503.7505 ####[facility] [address] [place], [address] Glucose [Mass/Vol] 102 mg/dL High 70-99 [facility] Comment on above: Performed By: #### L 500.4050, L500.4100, L503.7505 ####[facility] [address] [place], [address] Potassium [Moles/Vol] 4.5 mmol/L Normal 3.3-5.1 [facility] Comment on above: Result Comment: Hemo lysis present, Results??could be affected. ?? Performed By: #### L 500.4050, L500.4100, L503.7505 ####[facility] [address] [place], [address] Sodium [Moles/Vol] 143 mmol/L Normal 133-145 [facility] Comment on above: Performed By: #### L 500.4050, L500.4100, L503.7505 ####[facility] [address] [place], [address] T PROT 7.4 g/dL Normal 5.9-8.4 [facility] Comment on above: Performed By: #### L 500.4050, L500.4100, L503.7505 ####[facility] [address] [place], [address] Urea nitrogen [Mass/Vol] 15 mg/dL Normal 4-19 [facility] Comment on above: Performed By: #### L 500.4050, L500.4100, L503.7505 ####[facility] [address] [place], [address] Glomerular filtration rate ( GFR) estimation/1.73 sq m using serum, plasma, or whole bOrdered By: Rosy Velazquez on 02-04-2025 GFR/1.73 sq M.predicted among non-blacks MDRD (S/P/Bld) [Vol rate/Area] 82 mL/min/{1.73_m2} >60 [facility] Comment on above: mL/min/1.73m2 CKD-EP I Creatinine Equation (2020) LDL calc ser/plasOrdered By: Rosy Velazquez on 02-04-2025 Cholesterol in LDL [Mass/Vol] 60 mg/dL [facility] Comment on above: Ospwvxitjo=294-029 m g/dL & Higher Wjve=944 mg/dL or greaterFriedwald Equation for LDL-C Laboratory - Chemistry and C hemistry - challengeOrdered By: Rosy Velazquez on 02-04-2025 AST [Catalytic activity/Vol] 27 U/L <38 [facility] Comment on above: Hemolysis present, R esults could be affected. Lipid Profileon 02-04-2025 CHOL:HDL 2.60 Normal [facility] Comment on above: Performed By: #### L 500.4050, L500.4100, L503.7505 ####[facility] [address] [place], [address] Cholesterol [Mass/Vol] 135 mg/dL Normal <=200 [facility] Comment on above: Result Comment: Chol esterol level, Desirable <200 mg/dL Borderline high cholesterol 200-239 mg/dL High cholesterol >=240 mg/dL Recommendations of the NCEP Adult Treatment Panel for the following risk-cutoff thresholds for the [place] population. Performed By: #### L 500.4050, L500.4100, L503.7505 ####[facility] [address] [place], [address] Cholesterol in HDL [Mass/Vol] 52 mg/dL Normal [facility] Comment on above: Result Comment: Leatha onal Cholesterol Education Program (NCEP) guidelines: <40 mg/dL: Low HDL-cholesterol (major risk factor for CHD) >= 60 mg/dL: High HDL-cholesterol (negative risk factor for CHD) HDL-cholesterol is affected by a number of factors, e.g. smoking, exercise, hormones, sex and age. Performed By: #### L 500.4050, L500.4100, L503.7505 ####[facility] [address] [place], [address] Cholesterol in LDL [Mass/Vol] 60 mg/dL Normal [facility] Comment on above: Result Comment: Bord yjsbwb=942-245 mg/dL Higher Yxxf=824 mg/dL or greater Friedwald Equation for LDL-C Performed By: #### L 500.4050, L500.4100, L503.7505 ####[facility] [address] [place], [address] Cholesterol in VLDL [Mass/Vol] 23 mg/dL Normal 5-40 [facility] Comment on above: Performed By: #### L 500.4050, L500.4100, L503.7505 ####[facility] [address] [place], [address] Triglyceride [Mass/Vol] 114 mg/dL Normal [facility] Comment on above: Result Comment: The drugs N-Acetylcysteine and Metamizole may falsely depress this assay. Normal range: <150 mg/dL Borderline High: 150-199 mg/dL High: 200-499 mg/dL Very High: >500 mg/dL Performed By: #### L 500.4050, L500.4100, L503.7505 ####[facility] [address] [place], [address] Natriuretic peptide.B prohor eloina N-Terminal [Mass/volume] in Serum or PlasmaOrdered By: Rosy Velazquez on 02-04-2025 Natriuretic peptide.B prohormone N-Terminal [Mass/Vol] 469 pg/mL <900 [facility] Comment on above: Heart Failure Unlike ly: < 300 pg/mLHeart Failure Likely< 50 Years: > 450 pg/mL50-75 Years: > 900 pg/mL>75 Years: > 1800 pg/mL Potassium measurement (mass/ volume)Ordered By: Rosy Velazquez on 02-04-2025 Potassium (Unsp spec) [Mass/Vol] 4.5 mmol/L 3.3-5.1 [facility] Comment on above: Hemolysis present, R esults could be affected. Pro- Brain NATRIURETIC PEPTI Sakshi 02-04-2025 Natriuretic peptide B (Bld) [Mass/Vol] 469 pg/mL Normal <=900 [facility] Comment on above: Result Comment: Hear t Failure Unlikely: < 300 pg/mL Heart Failure Likely < 50 Years: > 450 pg/mL 50-75 Years: > 900 pg/mL >75 Years: > 1800 pg/mL Performed By: #### L 500.4050, L500.4100, L503.7505 ####[facility] [address] [place], [address] Screening total cholesterol/ high density lipoprotein (HDL) cholesterol ratioOrdered By: Rosy Velazquez on 02-04-2025 Cholesterol.total/Chol esterol in HDL [Mass ratio] 2.60 {ratio} [facility] Serum creatinine measurement (mass/volume)Ordered By: Rosy Velazquez on 02-04-2025 Creatinine [Mass/Vol] 0.99 mg/dL 0.70-1.20 [facility] Serum globulin measurementOr dered By: Rosy Velazquez on 02-04-2025 Globulin (S) [Mass/Vol] 3.3 g/dL 2.2-4.2 [facility] Serum glucose measurement (m ass/volume)Ordered By: Rosy Velazquez on 02-04-2025 Glucose [Mass/Vol] 102 mg/dL High 70-99 [facility] Serum or plasma alanine dominguez otransferase (ALT) measurementOrdered By: Royskirsty Velazquez on 02-04-2025 ALT [Catalytic activity/Vol] 19 U/L <47 [facility] Serum or plasma albumin jean urement (mass/volume)Ordered By: Rosy Velazquez on 02-04-2025 Albumin [Mass/Vol] 4.1 g/dL 3.4-4.8 [facility] Serum or plasma albumin/glob ulin mass ratioOrdered By: Rosy Marcus on 02-04-2025 Albumin/Globulin [Mass ratio] 1.2 {ratio} 0.9-2.4 [facility] Serum or plasma alkaline denzel sphatase measurementOrdered By: Rosy Velazquez on 02-04-2025 ALP [Catalytic activity/Vol] 81 U/L 40-129 [facility] Serum or plasma calcium jean urement (mass/volume)Ordered By: Rosykirsty Velazquez on 02-04-2025 Calcium [Mass/Vol] 9.7 mg/dL 7.6-11.0 [facility] Serum or plasma cholesterol in HDL measurement (mass/volume)Ordered By: Rosy Velazquez on 02-04-2025 Cholesterol in HDL [Mass/Vol] 52 mg/dL >40 [facility] Comment on above: National Cholesterol Education Program (NCEP) guidelines:<40 mg/dL: Low HDL-cholesterol (major risk factor for CHD)>= 60 mg/dL: High HDL-cholesterol (negative risk factor for CHD)HDL-cholesterol is affected by a number of factors, e.g. smoking, exercise, hormones, sex and age. Serum or plasma cholesterol measurement (mass/volume)Ordered By: Rosy Velazquez on 02-04-2025 Cholesterol [Mass/Vol] 135 mg/dL <201 [facility] Comment on above: Cholesterol level, D esirable <200 mg/dLBorderline high cholesterol 200-239 mg/dLHigh cholesterol >=240 mg/dLRecommendations of the NCEP Adult Treatment Panel for the following risk-cutoff thresholds for the [place] population. Serum or plasma urea nitroge n measurement (mass/volume)Ordered By: Rosy Velazquez on 02-04-2025 Urea nitrogen [Mass/Vol] 15 mg/dL 4-19 [facility] Sodium levelOrdered By: Igor Velazquez on 02-04-2025 Sodium [Moles/Vol] 143 mmol/L 133-145 [facility] Total proteinOrdered By: Ashish Velazquez on 02-04-2025 Protein [Mass/Vol] 7.4 g/dL 5.9-8.4 [facility] Triglycerides measurementOrd ered By: Rosy Velazquez on 02-04-2025 Triglyceride [Mass/Vol] 114 mg/dL <199 [facility] Comment on above: The drugs N-Acetylcy steine and Metamizole may falsely depress this assay. Normal range: <150 mg/dLBorderline High: 150-199 mg/dLHigh: 200-499 mg/dLVery High: >500 mg/dL Cardiology Visit Reporton Cardiology Visit Report [facility] [address] [place], [place] [address] OFFICE VISIT Date of Service: 02/03/25 MR#: [id number] Acct: [id number] Name: DESI PANDEY Rep #: [id number] : 1955 Provider: Dr. Rosy Velazquez MD Age/Sex: 69/M Location: [facility] [place] Status: Signed HPI HPI History of Present Illness Details: This very pleasant gentleman has history of hypertension. Last month, he was engaged in physical labor at his home. According to the patient, it was very hot. Per him, over the weekend he drank a lot of "energy drinks". He noticed that his ankles had swelled up. Also noticed "swelling of the neck". No dysphagia. No shortness of breath. No chest pain. The patient went and saw his primary care physician the next day. He was prescribed furosemide 40 mg once daily for 7 days. Also ordered an echocardiogram. Blood workup was also ordered. It showed elevated proBNP. Echocardiogram showed LVEF 50%. Stage I diastolic dysfunction was noted. Since that time, patient's ankle edema has completely resolved. Denies any chest pains or shortness of breath either at rest or with exertion. According to him, he is physically very active. Denies any orthopnea. No PND. Per patient, he has quit drinking energy drinks. Intake Vital Signs 05/15/23 08:45 02/03/25 08:30 Height 5 ft 11 in 5 ft 11 in Weight: 153 lb BMI 21.3 BP 122/73 H Blood Pressure Location Rt brachial Position Sitting Respiration 18 Pulse 75 Pulse Source Monitor Intake Visit Reasons: ANKLE SWELLING/LEAKING, FATIGUE, ABNORMAL ECHO Program Manager Slp Required: No Accompanied by: Is patient in pain?: No Allergies erythromycin base (Erythromycin Base) Allergy (Verified 02/03/25 08:30) Rash Medications ???Medication ???Instructions ???Recorded ???Confirmed ???Type lisinopril 20 mg tablet 20 mg PO QHS 10/24/13 02/03/25 His tory meloxicam 7.5 mg tablet 7.5 mg PO QDAY PRN 01/09/25 History tamsulosin 0.4 mg capsule 0.4 mg PO QDAY 01/09/25 02/03/25 H istory tizanidine 4 mg tablet (Zanaflex) 4 mg PO QHS PRN muscle spasticity 02/03/25 02/03/25 History tumeric PO DAILY 02/03/25 History Ejection fraction %: 50 Have you fallen in the past year?: No PFSH Medical History Lyme disease Bilateral carpal tunnel syndrome Localized swelling of both lower extremities GERD without esophagitis Hypokalemia Shortness of breath Wears glasses Wears dentures Anxiety Depression Arthritis Injury of back Migraine headache Chewing tobacco dependence Leg cramps History of colon polyps HTN (hypertension) Surgical History History of surgery on wrist Hx of colonoscopy History of carpal tunnel surgery of right wrist History of carpal tunnel surgery of left wrist S/P right knee surgery S/P appendectomy Family History Mother CVA (cerebral vascular accident) Social History household members: spouse current occupational status: retired Smoking Status: Current some day smoker tobacco type: smokeless tobacco alcohol intake: current alcohol intake frequency: holidays/special occasions only details: 1-beer per month substance use type: marijuana ROS Const Const: Positive for fatigue (improved some); Negative for weakness Eyes Eyes: Negative for change in vision ENT ENT: Positive for dizziness and balance problems Cardio Chest Pain: No Palpitations: No Edema: Bilateral (In Dec-improved. mild swelling recently after alot of walking-worse on left) Resp Respiratory: Positive for SOB with activity and SOB at rest; Negative for SOB orthopnea SOB lying down GI GI: Negative nausea or heartburn Musc Musc: Positive for balance problems Neuro Neuro: Positive for dizziness; Negative for lightheadedness, near syncope, syncope or weakness Endo Endo: Positive for fatigue (improved some) Cardiology Exam Const Appearance: comfortable and no acute distress Nutritional Appearance: well nourished Neck Neck: no JVD Carotids: Negative bruit Chest Auscultation: Bilateral: Clear to Auscultation Cardio Rate: regular rate Rhythm: regular rhythm Heart sounds: S1 normal and S2 normal Neuro General: patient alert, patient awake and patient oriented x3 Extremities Lower Extremity Edema: None: Bilateral Supplemental Info Supplemental Information Diagnostics: Echocardiogram Abdomen/Pelvis CT Venous Doppler Study Past Visits: Cardiology Visit Today Assessment and Plan Assessment and Plan (1) (HFpEF) heart failure with preserved ejection fraction: Status (more content not included)... Normal [facility] Absolute lymphocyte countOrd ered By: Alvaro Auguste on 01-19-2025 Lymphocytes Auto (Unsp spec) [#/Vol] 1.39 10*3/uL 0.83-4.51 [facility] Absolute neutrophil countOrd ered By: Alvaro Auguste on 01-19-2025 Neutrophils (Bld) [#/Vol] 8.3 10*3/uL High 2.0-7.7 [facility] Automated lymphocyte count a s percentage of total leukocytesOrdered By: Alvaro Auguste on 01-19-2025 Lymphocytes/100 WBC Auto (Unsp spec) 12.8 % Low 19-41 [facility] Basophil percentageOrdered B y: Alvaro Auguste on 01-19-2025 Basophils/100 WBC (Bld) 0.8 % 0-1 [facility] CBC W/Diff, Automatedon 09-05 11-2024 Absolute Lymph 1.39 X10 3/uL Normal 0.83-4.51 [facility] Comment on above: Performed By: #### L 100.0100 ####[facility] [address] [place], [address] Absolute Neut 8.3 X10 3/uL High 2.0-7.7 [facility] Comment on above: Performed By: #### L 100.0100 ####[facility] [address] [place], [address] Basophils/100 WBC (Bld) 0.8 % Normal 0-1 [facility] Comment on above: Performed By: #### L 100.0100 ####[facility] [address] [place], [address] Eosinophils/100 WBC (Bld) 1.7 % Normal 0-5 [facility] Comment on above: Performed By: #### L 100.0100 ####[facility] [address] [place], [address] Erythrocyte distribution width (RBC) [Ratio] 13.3 % Normal 11.6-14.6 [facility] Comment on above: Performed By: #### L 100.0100 ####[facility] [address] [place], [address] Hematocrit (Bld) [Volume fraction] 45.4 % Normal 40-54 [facility] Comment on above: Performed By: #### L 100.0100 ####[facility] [address] [place], [address] Hemoglobin (Bld) [Mass/Vol] 15.5 g/dL Normal 13.0-16.5 [facility] Comment on above: Performed By: #### L 100.0100 ####[facility] [address] [place], [address] IG% 1.000 High 0.0-0.9 [facility] Comment on above: Result Comment: IG% - Immature Granulocytes (promyelocytes, myelocytes and metamyelocytes) > 1% indicates that a LEFT SHIFT is Present. Performed By: #### L 100.0100 ####[facility] [address] [place], [address] Lymphocytes/100 WBC (Bld) 12.8 % Low 19-41 [facility] Comment on above: Performed By: #### L 100.0100 ####[facility] [address] [place], [address] MCH (RBC) [Entitic mass] 32.8 pg High 27.0-32.0 [facility] Comment on above: Performed By: #### L 100.0100 ####[facility] [address] [place], [address] MCHC (RBC) [Mass/Vol] 34.1 g/dL Normal 32-36 [facility] Comment on above: Performed By: #### L 100.0100 ####[facility] [address] [place], [address] MCV (RBC) [Entitic vol] 96.0 fL High 80-94 [facility] Comment on above: Performed By: #### L 100.0100 ####[facility] [address] [place], [address] Monocytes/100 WBC (Bld) 7.4 % Normal 0-10 [facility] Comment on above: Performed By: #### L 100.0100 ####[facility] [address] [place], [address] Neutrophils/100 WBC (Bld) 76.3 % High 47-70 [facility] Comment on above: Performed By: #### L 100.0100 ####[facility] [address] [place], [address] Nucleated RBC (Bld) [#/Vol] 0 10*3/uL Normal 0-5 [facility] Comment on above: Performed By: #### L 100.0100 ####[facility] [address] [place], [address] Platelet mean volume (Bld) [Entitic vol] 11.1 fL Normal 6.2-12.0 [facility] Comment on above: Performed By: #### L 100.0100 ####[facility] [address] [place], [address] Platelets (Bld) [#/Vol] 261 10*3/uL Normal 150-450 [facility] Comment on above: Performed By: #### L 100.0100 ####[facility] [address] [place], [address] RBC (Bld) [#/Vol] 4.73 10*6/uL Normal 4.6-6.2 [facility] Comment on above: Performed By: #### L 100.0100 ####[facility] [address] [place], [address] RDW SD 48.1 fl High 35.1-43.9 [facility] Comment on above: Performed By: #### L 100.0100 ####[facility] [address] [place], [address] WBC (Bld) [#/Vol] 10.9 10*3/uL Normal 4.4-11.0 [facility] Comment on above: Performed By: #### L 100.0100 ####[facility] [address] [place], [address] Eosinophil percentageOrdered By: Alvaro Auguste on 01-19-2025 Eosinophils/100 WBC (Bld) 1.7 % 0-5 [facility] Erythrocyte distribution wid th ratioOrdered By: 01-19-2025 Erythrocyte distribution width (RBC) [Ratio] 13.3 % 11.6-14.6 [facility] Erythrocyte distribution wid th standard deviationOrdered By: on 01-19-2025 Erythrocyte distribution width (RBC) [Ratio] 48.1 fl High 35.1-43.9 [facility] Hematocrit Auto (Bld) [Volum e fraction]Ordered By: 01-19-2025 Hematocrit (Bld) [Volume fraction] 45.4 % 40-54 [facility] Hemoglobin measurementOrdere d By: [facility]01-19-2025 Hemoglobin (Bld) [Mass/Vol] 15.5 g/dL 13.0-16.5 [facility] Immature granulocytes/100 WB C Auto (Bld)Ordered By: Alvrao Auguste 01-19-2025 Immature granulocytes/100 WBC (Bld) 1.000 % High 0.0-0.9 [facility] Comment on above: IG% - Immature Granu locytes (promyelocytes, myelocytes and metamyelocytes) > 1% indicates that a LEFT SHIFT is Present. MCV (mean corpuscular volume ) determinationOrdered By: Alvaro King01-19-2025 MCV (RBC) [Entitic vol] 96.0 fL High 80-94 [facility] Mean corpuscular hemoglobin (MCH) determinationOrdered By: Alvaro 01-19-2025 MCH (RBC) [Entitic mass] 32.8 pg High 27.0-32.0 [facility] Mean corpuscular hemoglobin concentration (MCHC) determinationOrdered By: Alvaro King01-19-2025 MCHC (RBC) [Mass/Vol] 34.1 g/dL 32-36 [facility] Mean platelet volume determi nationOrdered By: Alvaro King01-19-2025 Platelet mean volume (Bld) [Entitic vol] 11.1 fL 6.2-12.0 [facility] Monocyte percentageOrdered B y: Alvaro King01-19-2025 Monocytes/100 WBC (Bld) 7.4 % 0-10 [facility] Neutrophil percentageOrdered By: Alvaro Molina5 Neutrophils/100 WBC (Bld) 76.3 % High 47-70 [facility] Nucleated red blood cell per centageOrdered By: Alvaro Auguste on 01-19-2025 Nucleated RBC/100 WBC (Bld) [Ratio] 0 % 0-5 [facility] Platelet countOrdered By: Rubens Auguste on 01-19-2025 Platelets (Bld) [#/Vol] 261 10*3/uL 150-450 [facility] RBC Auto (Bld) [#/Vol]Ordere d By: Alvaro Auguste on 01-19-2025 RBC (Bld) [#/Vol] 4.73 10*6/uL 4.6-6.2 [facility] White blood cell (WBC) count Ordered By: Alvaro Auguste on 01-19-2025 WBC (Bld) [#/Vol] 10.9 10*3/uL 4.4-11.0 [facility] Echo Completeon 12-19-2024 Echo Complete [facility] [address] [place] [address] Echo Complete 12/19/24 1353 MR#: [id number] Acct: [id number] Name: DESI PANDEY Rep #: [id number] : 1955 69 From: Yobani Bernstein MD Attending Dr: Dr. Alvaro Auguste MD Status: REG CLI Ordering Dr: Alvaro Auguste MD Date: 12/19/24 Location: [facility] Sex: M C Admitted: Reason For Study Reason For Study: SOB Procedure This was a 2D Doppler, Color Flow transthoracic echocardiogram. Exam performed in department. Left Ventricle Normal LV size. Left ventricular systolic function is lower limits of normal. The left ventricular ejection fraction is 50 %. Stage 1 diastolic dysfunction. No regional wall motion abnormalities noted. Right Ventricle Normal RV size. Normal systolic function. Atria Normal left atrium. Normal right atrium. Mitral Valve Normal mitral valve. Tricuspid Valve Normal tricuspid valve. Mild tricuspid valve insufficiency. Pulmonary artery systolic pressure is 18 mmHg. Aortic Valve Trisinus/trileaflet aortic valve. Mild focal aortic valve thickening. Pulmonic Valve Normal pulmonic valve. Great Vessels Normal aortic root. The pulmonary artery is normal size. Inferior vena cava collapse with respiration. Pericardium/Pleural No pericardial effusion. MMode/2D Measurements Calculations LVIDd: 5.5 cm IVSd: 1.1 cm LVOT diam: 2.3 cm LVIDs: 4.2 cm LVPWd: 1.1 cm LVOT area: 4.0 cm2 RVDd: 3.6 cm FS: 24.0 % Ao root diam: 3.5 cm LAV(MOD-bp): 46.5 ml LVAd ap4: 37.4 cm2 LAV(MOD-bp) Indexed: 24.1 ml/m2 LVLd ap4: 9.1 cm LAV(MOD-sp2): 48.9 ml EDV(MOD-sp4): 126.1 ml LAV(MOD-sp4): 43.1 ml EDV(sp4-el): 129.8 ml LVAs ap4: 24.8 cm2 LVLs ap4: 8.1 cm ESV(MOD-sp4): 64.6 ml ESV(sp4-el): 64.7 ml EF(MOD-sp4): 48.8 % EF(sp4-el): 50.1 % LVAd ap2: 31.9 cm2 SV(MOD-sp4): 61.5 ml SV(MOD-sp2): 51.8 ml LVLd ap2: 8.6 cm SI(MOD-sp4): 31.8 ml/m2 SI(MOD-sp2): 26.8 ml/m2 EDV(MOD-sp2): 101.4 ml EDV(sp2-el): 100.2 ml LVAs ap2: 21.5 cm2 LVLs ap2: 8.1 cm ESV(MOD-sp2): 49.6 ml ESV(sp2-el): 48.4 ml EF(MOD-sp2): 51.1 % SV(sp4-el): 65.1 ml LA dimension(2D): 4.1 cm LA A4 area: 17.0 cm2 RA A4 area: 14.7 cm2 TAPSE: 2.1 cm Time Measurements MV dec time: 0.22 sec Doppler Measurements Calculations MV E max светлана: 59.9 cm/sec Lat Peak E' Светлана: 7.0 cm/sec Med Peak E' Светлана: 5.5 cm/sec MV A max светлана: 85.6 cm/sec E/E' lat: 8.5 E/E' med: 10.8 MV E/A: 0.70 Ao V2 max: 190.1 cm/sec LV V1 max: 115.8 cm/sec MV dec slope: 272.4 cm/sec2 Ao max P.5 mmHg LV V1 max P.4 mmHg Ao V2 mean: 123.0 cm/sec LV V1 mean P.7 mmHg Ao mean P.1 mmHg LV V1 mean: 76.0 cm/sec Ao V2 VTI: 34.4 cm LV V1 VTI: 24.3 cm AV (velocity ratio): 0.71 JELENA(I,D): 2.8 cm2 JELENA(V,D): 2.4 cm2 SV(LVOT): 97.0 ml PA V2 max: 109.4 cm/sec TR max светлана: 197.6 cm/sec TR max P.6 mmHg ECHO/Echo Complete Interpretation Summary Normal LV size. Left ventricular systolic function is lower limits of normal. The left ventricular ejection fraction is 50 %. Stage 1 diastolic dysfunction. The global longitudinal strain = -14.6% (abnormal). The global longitudinal strain is mildly abnormal. Ordering Physician: Alvaro Auguste Chi Referring Physician: Alvaro Auguste Chi Performed By: Tami Thomason RDCS 12/19/24 2029 Date Yobani Bernstein MD CC: Dr. Alvaro Auguste MD Date Dictated: 12/19/241352 Date Transcribed: 12/19/24 710 Bander: Signed Normal [facility] Echocardiogram study reportO rdered By: Yobani Bernstein on 12-19-2024 Study report [facility] [address] [place] [address] Echo Complete 12/19/24 135 MR#: [id number] Acct: [id number] Name: DESI PANDEY Rep #:[id number] : 1955 69 From: Yobani Florez Attending Dr: Dr. Alvaro Auguste MD Status: REG CLI Ordering Dr: Alvaro Auguste MD Date: Location: [facility] Sex: M C Admitted: Reason For Study Reason For Study: SOB Procedure This was a 2D Doppler, Color Flow transthoracic echocardiogram. Exam performed in department. Left Ventricle Normal LV size. Left ventricular systolic function is lower limits of normal. The left ventricular ejection fraction is 50 %. Stage 1 diastolic dysfunction. No regional wall motion abnormalities noted. Right Ventricle Normal RV size. Normal systolic function. Atria Normal left atrium. Normal right atrium. Mitral Valve Normal mitral valve. Tricuspid Valve Normal tricuspid valve. Mild tricuspid valve insufficiency. Pulmonary artery systolic pressure is 18 mmHg. Aortic Valve Trisinus/trileaflet aortic valve. Mild focal aortic valve thickening. Pulmonic Valve Normal pulmonic valve. Great Vessels Normal aortic root. The pulmonary artery is normal size. Inferior vena cava collapse with respiration. Pericardium/Pleural No pericardial effusion. MMode/2D Measurements & Calculations LVIDd: 5.5 cm IVSd: 1.1 cm LVOT diam: 2.3 cm LVIDs: 4.2 cm LVPWd: 1.1 cm LVOT area: 4.0 cm2 RVDd: 3.6 cm FS: 24.0 % Ao root diam: 3.5 cm LAV(MOD-bp): 46.5 ml LVAd ap4: 37.4 cm2 LAV(MOD-bp) Indexed: 24.1 ml/m2 LVLd ap4: 9.1 cm LAV(MOD-sp2): 48.9 ml EDV(MOD-sp4): 126.1 ml LAV(MOD-sp4): 43.1 ml EDV(sp4-el): 129.8 ml LVAs ap4: 24.8 cm2 LVLs ap4: 8.1 cm ESV(MOD-sp4): 64.6 ml ESV(sp4-el): 64.7 ml EF(MOD-sp4): 48.8 % EF(sp4-el): 50.1 % LVAd ap2: 31.9 cm2 SV(MOD-sp4): 61.5 ml SV(MOD-sp2): 51.8 ml LVLd ap2: 8.6 cm SI(MOD-sp4): 31.8 ml/m2 SI(MOD-sp2): 26.8 ml/m2 EDV(MOD-sp2): 101.4 ml EDV(sp2-el): 100.2 ml LVAs ap2: 21.5 cm2 LVLs ap2: 8.1 cm ESV(MOD-sp2): 49.6 ml ESV(sp2-el): 48.4 ml EF(MOD-sp2): 51.1 % SV(sp4-el): 65.1 ml LA dimension(2D): 4.1 cm LA A4 area: 17.0 cm2 RA A4 area: 14.7 cm2 TAPSE: 2.1 cm Time Measurements MV dec time: 0.22 sec Doppler Measurements & Calculations MV E max светлана: 59.9 cm/sec Lat Peak E' Светлана: 7.0 cm/sec Med Peak E' Светлана: 5.5 cm/sec MV A max светлана: 85.6 cm/sec E/E' lat: 8.5 E/E' med: 10.8 MV E/A: 0.70 Ao V2 max: 190.1 cm/sec LV V1 max: 115.8 cm/sec MV dec slope: 272.4 cm/sec2 Ao max P.5 mmHg LV V1 max P.4 mmHg Ao V2 mean: 123.0 cm/sec LV V1 mean P.7 mmHg Ao mean P.1 mmHg LV V1 mean: 76.0 cm/sec Ao V2 VTI: 34.4 cm LV V1 VTI: 24.3 cm AV (velocity ratio): 0.71 JELENA(I,D): 2.8 cm2 JELENA(V,D): 2.4 cm2 SV(LVOT): 97.0 ml PA V2 max: 109.4 cm/sec TR max светлана: 197.6 cm/sec TR max P.6 mmHg ECHO/Echo Complete Interpretation Summary Normal LV size. Left ventricular systolic function is lower limits of normal. The left ventricular ejection fraction is 50 %. Stage 1 diastolic dysfunction. The global longitudinal strain = -14.6% (abnormal). The global longitudinal strain is mildly abnormal. Ordering Physician: Alvaro Auguste Chi Referring Physician: Alvaro Auguste Chi Performed By: Tami Thomason RDCS 12/19/241758 Date _ Yobani Bernstein MD CC: Dr. Alvaro Auguste MD ~ Date Dictated: 12/19/24 1353 Date Transcribed: 12/19/241758 Bander: Signed [facility] Work Phone: Absolute lymphocyte countOrd ered By: Alvaro Auguste on 12-15-2024 Lymphocytes Auto (Unsp spec) [#/Vol] 1.50 10*3/uL 0.83-4.51 [facility] Absolute neutrophil countOrd ered By: Alvaro Auguste on 12-15-2024 Neutrophils (Bld) [#/Vol] 7.8 10*3/uL High 2.0-7.7 [facility] Anion gap in Serum or Plasma Ordered By: Alvaro Auguste on 12-15-2024 Anion gap [Moles/Vol] 12 mmol/L 5-15 [facility] Automated lymphocyte count a s percentage of total leukocytesOrdered By: Alvaro Auguste on 12-15-2024 Lymphocytes/100 WBC Auto (Unsp spec) 14.2 % Low 19-41 [facility] BUN/creatinine ratioOrdered By: Alvaro Auguste on 12-15-2024 Urea nitrogen/Creatinine [Mass ratio] 10.2 mg/mg 10- [facility] Basophil percentageOrdered B y: Alvaro Auguste on 12-15-2024 Basophils/100 WBC (Bld) 0.6 % 0- [facility] Bilirubin, totalOrdered By: Alvaro Auguste on 12-15-2024 Bilirubin [Mass/Vol] 0.27 mg/dL 0.00-1.30 [facility] CBC W/Diff, Automatedon 12-05 Absolute Lymph 1.50 X10 3/uL Normal 0.83-4.51 [facility] Comment on above: Performed By: #### L 503.7505, L501.9520, L100.0100, L500.4050 ####[facility] [address] [place], [address] Absolute Neut 7.8 X10 3/uL High 2.0-7.7 [facility] Comment on above: Performed By: #### L 503.7505, L501.9520, L100.0100, L500.4050 ####[facility] [address] [place], [address] Basophils/100 WBC (Bld) 0.6 % Normal 0-1 [facility] Comment on above: Performed By: #### L 503.7505, L501.9520, L100.0100, L500.4050 ####[facility] [address] [place], [address] Eosinophils/100 WBC (Bld) 1.3 % Normal 0-5 [facility] Comment on above: Performed By: #### L 503.7505, L501.9520, L100.0100, L500.4050 ####[facility] [address] [place], [address] Erythrocyte distribution width (RBC) [Ratio] 13.4 % Normal 11.6-14.6 [facility] Comment on above: Performed By: #### L 503.7505, L501.9520, L100.0100, L500.4050 ####[facility] [address] [place], [address] Hematocrit (Bld) [Volume fraction] 41.3 % Normal 40-54 [facility] Comment on above: Performed By: #### L 503.7505, L501.9520, L100.0100, L500.4050 ####[facility] [address] [place], [address] Hemoglobin (Bld) [Mass/Vol] 14.0 g/dL Normal 13.0-16.5 [facility] Comment on above: Performed By: #### L 503.7505, L501.9520, L100.0100, L500.4050 ####[facility] [address] [place], [address] IG% 1.000 High 0.0-0.9 [facility] Comment on above: Result Comment: IG% - Immature Granulocytes (promyelocytes, myelocytes and metamyelocytes) > 1% indicates that a LEFT SHIFT is Present. Performed By: #### L 503.7505, L501.9520, L100.0100, L500.4050 ####[facility] [address] [place], [address] Lymphocytes/100 WBC (Bld) 14.2 % Low 19-41 [facility] Comment on above: Performed By: #### L 503.7505, L501.9520, L100.0100, L500.4050 ####[facility] [address] [place], [address] MCH (RBC) [Entitic mass] 33.6 pg High 27.0-32.0 [facility] Comment on above: Performed By: #### L 503.7505, L501.9520, L100.0100, L500.4050 ####[facility] [address] [place], [address] MCHC (RBC) [Mass/Vol] 33.9 g/dL Normal 32-36 [facility] Comment on above: Performed By: #### L 503.7505, L501.9520, L100.0100, L500.4050 ####[facility] [address] [place], [address] MCV (RBC) [Entitic vol] 99.0 fL High 80-94 [facility] Comment on above: Performed By: #### L 503.7505, L501.9520, L100.0100, L500.4050 ####[facility] [address] [place], [address] Monocytes/100 WBC (Bld) 9.6 % Normal 0-10 [facility] Comment on above: Performed By: #### L 503.7505, L501.9520, L100.0100, L500.4050 ####[facility] [address] [place], [address] Neutrophils/100 WBC (Bld) 73.3 % High 47-70 [facility] Comment on above: Performed By: #### L 503.7505, L501.9520, L100.0100, L500.4050 ####[facility] [address] [place], [address] Nucleated RBC (Bld) [#/Vol] 0 10*3/uL Normal 0-5 [facility] Comment on above: Performed By: #### L 503.7505, L501.9520, L100.0100, L500.4050 ####[facility] [address] [place], [address] Platelet mean volume (Bld) [Entitic vol] 10.7 fL Normal 6.2-12.0 [facility] Comment on above: Performed By: #### L 503.7505, L501.9520, L100.0100, L500.4050 ####[facility] [address] [place], [address] Platelets (Bld) [#/Vol] 310 10*3/uL Normal 150-450 [facility] Comment on above: Performed By: #### L 503.7505, L501.9520, L100.0100, L500.4050 ####[facility] [address] [place], [address] RBC (Bld) [#/Vol] 4.17 10*6/uL Low 4.6-6.2 [facility] Comment on above: Performed By: #### L 503.7505, L501.9520, L100.0100, L500.4050 ####[facility] [address] [place], [address] RDW SD 49.4 fl High 35.1-43.9 [facility] Comment on above: Performed By: #### L 503.7505, L501.9520, L100.0100, L500.4050 ####[facility] [address] [place], [address] WBC (Bld) [#/Vol] 10.6 10*3/uL Normal 4.4-11.0 [facility] Comment on above: Performed By: #### L 503.7505, L501.9520, L100.0100, L500.4050 ####[facility] [address] [place], [place], [address] Carbon dioxide, total [Moles /volume] in Central venous bloodOrdered By: Alvaro Auguste on 12-15-2024 CO2 [Moles/Vol] 23.0 mmol/L 21.0-32.0 [facility] Cerv Spine 2 or 3 Viewson Cerv Spine 2 or 3 Views [facility] [address] [place] [address] Cerv Spine 2 or 3 Views MR#: [id number] Acct: [id number] Name: DESI PANDEY Rep #: [id number] : 1955 M 69 From: Kenneth Chow MD PCP: Dr. Alvaro Auguste MD Status: REG CLI Study: Cerv Spine 2 or 3 Views Date of Exam: 12/15/24 Exam# [id number] Ordering Dr: Alvaro Auguste MD PROCEDURE: CERV SPINE 2 OR 3 VIEWS 12/15/2024 REASON FOR EXAM: NECK PAIN,CERVICAL DISC DISEASE TECHNIQUE: CERV SPINE 2 OR 3 VIEWS FINDINGS: No evidence of acute fracture or dislocation. Vertebral body heights are maintained. Moderate degenerative changes of the visualized spine. Grade 1 anterolisthesis of C7 on T1. RAD/Cerv Spine 2 or 3 Views IMPRESSION: Spondylosis. Spondylolisthesis. Reading Location: [id number] CC: Dr. Alvaro Auguste MD Bander: Signed Normal [facility] Chloride assayOrdered By: Rubens Auguste on 12-15-2024 Chloride [Moles/Vol] 106 mmol/L 98-108 [facility] Comprehensive Metabolic Prof ilon 12-15-2024 Albumin [Mass/Vol] 3.8 g/dL Normal 3.4-4.8 [facility] Comment on above: Performed By: #### L 503.7505, L501.9520, L100.0100, L500.4050 ####[facility] [id number] [place], [address] Albumin/Globulin [Mass ratio] 1.3 {ratio} Normal 0.9-2.4 [facility] Comment on above: Performed By: #### L 503.7505, L501.9520, L100.0100, L500.4050 ####[facility] [address] [place], [address] ALK PHOS 92 U/L Normal 40-129 [facility] Comment on above: Performed By: #### L 503.7505, L501.9520, L100.0100, L500.4050 ####[facility] [address] [place], [address] ALT [Catalytic activity/Vol] 15 U/L Normal <=46 [facility] Comment on above: Performed By: #### L 503.7505, L501.9520, L100.0100, L500.4050 ####[facility] [address] [place], [address] AST [Catalytic activity/Vol] 25 U/L Normal <=37 [facility] Comment on above: Performed By: #### L 503.7505, L501.9520, L100.0100, L500.4050 ####[facility] [address] [place], [address] Bilirubin [Mass/Vol] 0.27 mg/dL Normal 0.00-1.30 [facility] Comment on above: Performed By: #### L 503.7505, L501.9520, L100.0100, L500.4050 ####[facility] [address] [place], [address] BUN/CRE 10.2 RATIO Normal 10-20 [facility] Comment on above: Performed By: #### L 503.7505, L501.9520, L100.0100, L500.4050 ####[facility] [address] [place], [address] Calcium [Mass/Vol] 9.5 mg/dL Normal 7.6-11.0 [facility] Comment on above: Performed By: #### L 503.7505, L501.9520, L100.0100, L500.4050 ####[facility] [address] [place], [address] Chloride [Moles/Vol] 106 mmol/L Normal 98-108 [facility] Comment on above: Performed By: #### L 503.7505, L501.9520, L100.0100, L500.4050 ####[facility] [address] [place], [address] CO2 [Moles/Vol] 23.0 mmol/L Normal 21.0-32.0 [facility] Comment on above: Performed By: #### L 503.7505, L501.9520, L100.0100, L500.4050 ####[facility] [address] [place], [address] Creatinine [Mass/Vol] 0.94 mg/dL Normal 0.70-1.20 [facility] Comment on above: Performed By: #### L 503.7505, L501.9520, L100.0100, L500.4050 ####[facility] [address] [place], [address] GAP 12 Normal 5-15 [facility] Comment on above: Performed By: #### L 503.7505, L501.9520, L100.0100, L500.4050 ####[facility] [address] [place], [address] GFR/1.73 sq M.predicted among non-blacks MDRD (S/P/Bld) [Vol rate/Area] 87 mL/min/{1.73_m2} Normal >60 [facility] Comment on above: Result Comment: mL/m in/1.73m2 CKD-EPI Creatinine Equation (2020) Performed By: #### L 503.7505, L501.9520, L100.0100, L500.4050 ####[facility] [address] [place], [address] Globulin (S) [Mass/Vol] 3.0 g/dL Normal 2.2-4.2 [facility] Comment on above: Performed By: #### L 503.7505, L501.9520, L100.0100, L500.4050 ####[facility] [address] [place], [address] Glucose [Mass/Vol] 92 mg/dL Normal 70-99 [facility] Comment on above: Performed By: #### L 503.7505, L501.9520, L100.0100, L500.4050 ####[facility] [address] [place], [address] Potassium [Moles/Vol] 4.1 mmol/L Normal 3.3-5.1 [facility] Comment on above: Performed By: #### L 503.7505, L501.9520, L100.0100, L500.4050 ####[facility] [address] [place], [address] Sodium [Moles/Vol] 141 mmol/L Normal 133-145 [facility] Comment on above: Performed By: #### L 503.7505, L501.9520, L100.0100, L500.4050 ####[facility] [address] [place], [address] T PROT 6.7 g/dL Normal 5.9-8.4 [facility] Comment on above: Performed By: #### L 503.7505, L501.9520, L100.0100, L500.4050 ####[facility] [address] [place], [address] Urea nitrogen [Mass/Vol] 10 mg/dL Normal 4-19 [facility] Comment on above: Performed By: #### L 503.7505, L501.9520, L100.0100, L500.4050 ####[facility] [address] [place], [address] Eosinophil percentageOrdered By: Alvaro Auguste on 12-15-2024 Eosinophils/100 WBC (Bld) 1.3 % 0-5 [facility] Erythrocyte distribution wid th ratioOrdered By: [facility] Erythrocyte distribution width (RBC) [Ratio] 13.4 % 11.6-14.6 [facility] Erythrocyte distribution wid th standard deviationOrdered By: Alvaro Molina 12-15-2024 Erythrocyte distribution width (RBC) [Ratio] 49.4 fl High 35.1-43.9 [facility] Glomerular filtration rate ( GFR) estimation/1.73 sq m using serum, plasma, or whole bOrdered By: Alvaro Kingok on 12-15-2024 GFR/1.73 sq M.predicted among non-blacks MDRD (S/P/Bld) [Vol rate/Area] 87 mL/min/{1.73_m2} >60 [facility] Comment on above: mL/min/1.73m2 CKD-EP I Creatinine Equation (2020) Hematocrit Auto (Bld) [Volum e fraction]Ordered By: Alvaro Auguste 12-15-2024 Hematocrit (Bld) [Volume fraction] 41.3 % 40-54 [facility] Hemoglobin measurementOrdere d By: Alvaro Auguste 12-15-2024 Hemoglobin (Bld) [Mass/Vol] 14.0 g/dL 13.0-16.5 [facility] Immature granulocytes/100 WB C Auto (Bld)Ordered By: Alvaro Auguste 12-15-2024 Immature granulocytes/100 WBC (Bld) 1.000 % High 0.0-0.9 [facility] Comment on above: IG% - Immature Granu locytes (promyelocytes, myelocytes and metamyelocytes) > 1% indicates that a LEFT SHIFT is Present. Laboratory - Chemistry and C hemistry - challengeOrdered By: Alvaro Auguste on 12-15-2024 AST [Catalytic activity/Vol] 25 U/L <38 [facility] MCV (mean corpuscular volume ) determinationOrdered By: Alvaro Auguste on 12-15-2024 MCV (RBC) [Entitic vol] 99.0 fL High 80-94 [facility] Mean corpuscular hemoglobin (MCH) determinationOrdered By: Alvaro Auguste on 12-15-2024 MCH (RBC) [Entitic mass] 33.6 pg High 27.0-32.0 [facility] Mean corpuscular hemoglobin concentration (MCHC) determinationOrdered By: Alvaro Auguste 12-15-2024 MCHC (RBC) [Mass/Vol] 33.9 g/dL 32-36 [facility] Mean platelet volume determi nationOrdered By: Alvaro Auguste on 12-15-2024 Platelet mean volume (Bld) [Entitic vol] 10.7 fL 6.2-12.0 [facility] Monocyte percentageOrdered B y: Alvaro Auguste on 12-15-2024 Monocytes/100 WBC (Bld) 9.6 % 0-10 [facility] Natriuretic peptide.B prohor eloina N-Terminal [Mass/volume] in Serum or PlasmaOrdered By: Alvaro Auguste on 12-15-2024 Natriuretic peptide.B prohormone N-Terminal [Mass/Vol] 1515 pg/mL High <900 [facility] Comment on above: Heart Failure Unlike ly: < 300 pg/mLHeart Failure Likely< 50 Years: > 450 pg/mL50-75 Years: > 900 pg/mL>75 Years: > 1800 pg/mL Neutrophil percentageOrdered By: Alvaro Auguste on 12-15-2024 Neutrophils/100 WBC (Bld) 73.3 % High 47-70 [facility] Nucleated red blood cell per centageOrdered By: Alvaro Auguste on 12-15-2024 Nucleated RBC/100 WBC (Bld) [Ratio] 0 % 0-5 [facility] Platelet countOrdered By: Rubens Auguste on 12-15-2024 Platelets (Bld) [#/Vol] 310 10*3/uL 150-450 [facility] Potassium measurement (mass/ volume)Ordered By: Alvaro Auguste on 12-15-2024 Potassium (Unsp spec) [Mass/Vol] 4.1 mmol/L 3.3-5.1 [facility] Pro- Brain NATRIURETIC PEPTI Sakshi 12-15-2024 Natriuretic peptide B (Bld) [Mass/Vol] 1515 pg/mL High <=900 [facility] Comment on above: Result Comment: Hear t Failure Unlikely: < 300 pg/mL Heart Failure Likely < 50 Years: > 450 pg/mL 50-75 Years: > 900 pg/mL >75 Years: > 1800 pg/mL Performed By: #### L 503.7505, L501.9520, L100.0100, L500.4050 ####[facility] [address] [place], [address] RBC Auto (Bld) [#/Vol]Ordere d By: Alvaro Auguste on 12-15-2024 RBC (Bld) [#/Vol] 4.17 10*6/uL Low 4.6-6.2 [facility] Serum creatinine measurement (mass/volume)Ordered By: Alvaro Auguste 12-15-2024 Creatinine [Mass/Vol] 0.94 mg/dL 0.70-1.20 [facility] Serum globulin measurementOr dered By: Alvaro Auguste 12-15-2024 Globulin (S) [Mass/Vol] 3.0 g/dL 2.2-4.2 [facility] Serum glucose measurement (m ass/volume)Ordered By: Alvaro Auguste 12-15-2024 Glucose [Mass/Vol] 92 mg/dL 70-99 [facility] Serum or plasma alanine dominguez otransferase (ALT) measurementOrdered By: Alvaro Auguste 12-15-2024 ALT [Catalytic activity/Vol] 15 U/L <47 [facility] Serum or plasma albumin jean urement (mass/volume)Ordered By: Alvaro Auguste 12-15-2024 Albumin [Mass/Vol] 3.8 g/dL 3.4-4.8 [facility] Serum or plasma albumin/glob ulin mass ratioOrdered By: Alvaro Auguste 12-15-2024 Albumin/Globulin [Mass ratio] 1.3 {ratio} 0.9-2.4 [facility] Serum or plasma alkaline denzel sphatase measurementOrdered By: Alvaro Auguste on 12-15-2024 ALP [Catalytic activity/Vol] 92 U/L 40-129 [facility] Serum or plasma calcium jean urement (mass/volume)Ordered By: Alvaro Auguste on 12-15-2024 Calcium [Mass/Vol] 9.5 mg/dL 7.6-11.0 [facility] Serum or plasma urea nitroge n measurement (mass/volume)Ordered By: Alvaro Auguste on 12-15-2024 Urea nitrogen [Mass/Vol] 10 mg/dL 4-19 [facility] Sodium levelOrdered By: Alvaro Auguste on 12-15-2024 Sodium [Moles/Vol] 141 mmol/L 133-145 [facility] TSH DL <= 0.005 mIU/L QnOrde red By: Alvaro Auguste on 12-15-2024 TSH Qn 0.979 uIU/mL 0.300-4.200 [facility] Thyroid Stim Hormone (TSH)on 12-15-2024 TSH 0.979 uIU/mL Normal 0.300-4.200 [facility] Comment on above: Performed By: #### L 503.7505, L501.9520, L100.0100, L500.4050 ####[facility] [address] [place], [place], [id number] Total proteinOrdered By: Alvaro Auguste on 12-15-2024 Protein [Mass/Vol] 6.7 g/dL 5.9-8.4 [facility] White blood cell (WBC) count Ordered By: Alvaro Auguste on 12-15-2024 WBC (Bld) [#/Vol] 10.6 10*3/uL 4.4-11.0 [facility] Absolute lymphocyte countOrd ered By: Alvaro Auguste on 10-17-2024 Lymphocytes Auto (Unsp spec) [#/Vol] 1.45 10*3/uL 0.83-4.51 [facility] Absolute neutrophil countOrd ered By: Alvaro Auguste on 10-17-2024 Neutrophils (Bld) [#/Vol] 7.0 10*3/uL 2.0-7.7 [facility] Anion gap in Serum or Plasma Ordered By: Alvaro Auguste on 10-17-2024 Anion gap [Moles/Vol] 12 mmol/L 5-15 [facility] Automated lymphocyte count a s percentage of total leukocytesOrdered By: Alvaro Auguste on 10-17-2024 Lymphocytes/100 WBC Auto (Unsp spec) 14.9 % Low 19-41 [facility] BUN/creatinine ratioOrdered By: Alvaro Auguste on 10-17-2024 Urea nitrogen/Creatinine [Mass ratio] 21.0 mg/mg High 10-20 [facility] Basophil percentageOrdered B y: Alvaro Auguste on 10-17-2024 Basophils/100 WBC (Bld) 0.5 % 0- [facility] Bilirubin, totalOrdered By: Alvaro Auguste on 10-17-2024 Bilirubin [Mass/Vol] 0.61 mg/dL 0.00-1.30 [facility] CBC W/Diff, Automatedon 10-05 Absolute Lymph 1.45 X10 3/uL Normal 0.83-4.51 [facility] Comment on above: Performed By: #### L 501.1400, L100.0100, L501.9520, L500.4050, L506.1001 #### [facility] [address] [place], [address] Absolute Neut 7.0 X10 3/uL Normal 2.0-7.7 [facility] Comment on above: Performed By: #### L 501.1400, L100.0100, L501.9520, L500.4050, L506.1001 #### [facility] [address] [place], [address] Basophils/100 WBC (Bld) 0.5 % Normal 0-1 [facility] Comment on above: Performed By: #### L 501.1400, L100.0100, L501.9520, L500.4050, L506.1001 #### [facility] [address] [place], [address] Eosinophils/100 WBC (Bld) 2.6 % Normal 0-5 [facility] Comment on above: Performed By: #### L 501.1400, L100.0100, L501.9520, L500.4050, L506.1001 #### [facility] [address] [place], [address] Erythrocyte distribution width (RBC) [Ratio] 13.4 % Normal 11.6-14.6 [facility] Comment on above: Performed By: #### L 501.1400, L100.0100, L501.9520, L500.4050, L506.1001 #### [facility] [address] [place], [address] Hematocrit (Bld) [Volume fraction] 43.2 % Normal 40-54 [facility] Comment on above: Performed By: #### L 501.1400, L100.0100, L501.9520, L500.4050, L506.1001 #### [facility] [address] [place], [address] Hemoglobin (Bld) [Mass/Vol] 15.0 g/dL Normal 13.0-16.5 [facility] Comment on above: Performed By: #### L 501.1400, L100.0100, L501.9520, L500.4050, L506.1001 #### [facility] [address] [place], [address] IG% 0.700 Normal 0.0-0.9 [facility] Comment on above: Result Comment: IG% - Immature Granulocytes (promyelocytes, myelocytes and metamyelocytes) > 1% indicates that a LEFT SHIFT is Present. Performed By: #### L 501.1400, L100.0100, L501.9520, L500.4050, L506.1001 #### [facility] [address] [place], [address] Lymphocytes/100 WBC (Bld) 14.9 % Low 19-41 [facility] Comment on above: Performed By: #### L 501.1400, L100.0100, L501.9520, L500.4050, L506.1001 #### [facility] [address] [place], [address] MCH (RBC) [Entitic mass] 32.9 pg High 27.0-32.0 [facility] Comment on above: Performed By: #### L 501.1400, L100.0100, L501.9520, L500.4050, L506.1001 #### [facility] [address] [place], [address] MCHC (RBC) [Mass/Vol] 34.7 g/dL Normal 32-36 [facility] Comment on above: Performed By: #### L 501.1400, L100.0100, L501.9520, L500.4050, L506.1001 #### [facility] [address] [place], [address] MCV (RBC) [Entitic vol] 94.7 fL High 80-94 [facility] Comment on above: Performed By: #### L 501.1400, L100.0100, L501.9520, L500.4050, L506.1001 #### [facility] [address] [place], [address] Monocytes/100 WBC (Bld) 10.0 % Normal 0-10 [facility] Comment on above: Performed By: #### L 501.1400, L100.0100, L501.9520, L500.4050, L506.1001 #### [facility] [address] [place], [address] Neutrophils/100 WBC (Bld) 71.3 % High 47-70 [facility] Comment on above: Performed By: #### L 501.1400, L100.0100, L501.9520, L500.4050, L506.1001 #### [facility] [address] [place], [address] Nucleated RBC (Bld) [#/Vol] 0 10*3/uL Normal 0-5 [facility] Comment on above: Performed By: #### L 501.1400, L100.0100, L501.9520, L500.4050, L506.1001 #### [facility] [address] [place], [address] Platelet mean volume (Bld) [Entitic vol] 10.5 fL Normal 6.2-12.0 [facility] Comment on above: Performed By: #### L 501.1400, L100.0100, L501.9520, L500.4050, L506.1001 #### [facility] [address] [place], [address] Platelets (Bld) [#/Vol] 177 10*3/uL Normal 150-450 [facility] Comment on above: Performed By: #### L 501.1400, L100.0100, L501.9520, L500.4050, L506.1001 #### [facility] [address] [place], [address] RBC (Bld) [#/Vol] 4.56 10*6/uL Low 4.6-6.2 [facility] Comment on above: Performed By: #### L 501.1400, L100.0100, L501.9520, L500.4050, L506.1001 #### [facility] [address] [place], [address] RDW SD 47.1 fl High 35.1-43.9 [facility] Comment on above: Performed By: #### L 501.1400, L100.0100, L501.9520, L500.4050, L506.1001 #### [facility] [address] [place], [address] WBC (Bld) [#/Vol] 9.7 10*3/uL Normal 4.4-11.0 [facility] Comment on above: Performed By: #### L 501.1400, L100.0100, L501.9520, L500.4050, L506.1001 #### [facility] [address] [place], [address] Carbon dioxide, total [Moles /volume] in Central venous bloodOrdered By: Alvaro Auguste on 10-17-2024 CO2 [Moles/Vol] 22.0 mmol/L 21.0-32.0 [facility] Chloride assayOrdered By: Rubens Auguste on 10-17-2024 Chloride [Moles/Vol] 106 mmol/L 98-108 [facility] Comprehensive Metabolic Prof ilon 10-17-2024 Albumin [Mass/Vol] 4.4 g/dL Normal 3.4-4.8 [facility] Comment on above: Performed By: #### L 501.1400, L100.0100, L501.9520, L500.4050, L506.1001 ####[facility] [address] [place], [address] Albumin/Globulin [Mass ratio] 1.6 {ratio} Normal 0.9-2.4 [facility] Comment on above: Performed By: #### L 501.1400, L100.0100, L501.9520, L500.4050, L506.1001 ####[facility] [address] [place], [address] ALK PHOS 88 U/L Normal 40-129 [facility] Comment on above: Performed By: #### L 501.1400, L100.0100, L501.9520, L500.4050, L506.1001 ####[facility] [address] [place], [address] ALT [Catalytic activity/Vol] 27 U/L Normal <=46 [facility] Comment on above: Performed By: #### L 501.1400, L100.0100, L501.9520, L500.4050, L506.1001 ####[facility] [address] [place], [address] AST [Catalytic activity/Vol] 28 U/L Normal <=37 [facility] Comment on above: Performed By: #### L 501.1400, L100.0100, L501.9520, L500.4050, L506.1001 ####[facility] [address] [place], [address] Bilirubin [Mass/Vol] 0.61 mg/dL Normal 0.00-1.30 [facility] Comment on above: Performed By: #### L 501.1400, L100.0100, L501.9520, L500.4050, L506.1001 ####[facility] [address] [place], [address] BUN/CRE 21.0 RATIO High 10-20 [facility] Comment on above: Performed By: #### L 501.1400, L100.0100, L501.9520, L500.4050, L506.1001 ####[facility] [address] [place], [address] Calcium [Mass/Vol] 9.6 mg/dL Normal 7.6-11.0 [facility] Comment on above: Performed By: #### L 501.1400, L100.0100, L501.9520, L500.4050, L506.1001 ####[facility] [address] [place], [address] Chloride [Moles/Vol] 106 mmol/L Normal 98-108 [facility] Comment on above: Performed By: #### L 501.1400, L100.0100, L501.9520, L500.4050, L506.1001 ####[facility] [address] [place], [address] CO2 [Moles/Vol] 22.0 mmol/L Normal 21.0-32.0 [facility] Comment on above: Performed By: #### L 501.1400, L100.0100, L501.9520, L500.4050, L506.1001 ####[facility] [address] [place], [address] Creatinine [Mass/Vol] 0.98 mg/dL Normal 0.70-1.20 [facility] Comment on above: Performed By: #### L 501.1400, L100.0100, L501.9520, L500.4050, L506.1001 ####[facility] [address] [place], [address] GAP 12 Normal 5-15 [facility] Comment on above: Performed By: #### L 501.1400, L100.0100, L501.9520, L500.4050, L506.1001 ####[facility] [address] [place], [address] GFR/1.73 sq M.predicted among non-blacks MDRD (S/P/Bld) [Vol rate/Area] 83 mL/min/{1.73_m2} Normal >60 [facility] Comment on above: Result Comment: mL/m in/1.73m2 CKD-EPI Creatinine Equation (2020) Performed By: #### L 501.1400, L100.0100, L501.9520, L500.4050, L506.1001 ####[facility] [address] [place], [address] Globulin (S) [Mass/Vol] 2.8 g/dL Normal 2.2-4.2 [facility] Comment on above: Performed By: #### L 501.1400, L100.0100, L501.9520, L500.4050, L506.1001 ####[facility] [address] [place], [address] Glucose [Mass/Vol] 107 mg/dL High 70-99 [facility] Comment on above: Performed By: #### L 501.1400, L100.0100, L501.9520, L500.4050, L506.1001 ####[facility] [address] [place], [address] Potassium [Moles/Vol] 4.4 mmol/L Normal 3.3-5.1 [facility] Comment on above: Performed By: #### L 501.1400, L100.0100, L501.9520, L500.4050, L506.1001 ####[facility] [address] [place], [address] Sodium [Moles/Vol] 140 mmol/L Normal 133-145 [facility] Comment on above: Performed By: #### L 501.1400, L100.0100, L501.9520, L500.4050, L506.1001 ####[facility] [address] [place], [address] T PROT 7.2 g/dL Normal 5.9-8.4 [facility] Comment on above: Performed By: #### L 501.1400, L100.0100, L501.9520, L500.4050, L506.1001 ####[facility] [address] [place], [address] Urea nitrogen [Mass/Vol] 21 mg/dL High 4-19 [facility] Comment on above: Performed By: #### L 501.1400, L100.0100, L501.9520, L500.4050, L506.1001 ####[facility] [address] [place], [address] Eosinophil percentageOrdered By: [facility] Eosinophils/100 WBC (Bld) 2.6 % 0-5 [facility] Erythrocyte distribution wid th ratioOrdered By: [facility] on 10-17-2024 Erythrocyte distribution width (RBC) [Ratio] 13.4 % 11.6-14.6 [facility] Erythrocyte distribution wid th standard deviationOrdered By: [facility] 10-17-2024 Erythrocyte distribution width (RBC) [Ratio] 47.1 fl High 35.1-43.9 [facility] Glomerular filtration rate ( GFR) estimation/1.73 sq m using serum, plasma, or whole bOrdered By: [facility] 10-17-2024 GFR/1.73 sq M.predicted among non-blacks MDRD (S/P/Bld) [Vol rate/Area] 83 mL/min/{1.73_m2} >60 [facility] Comment on above: mL/min/1.73m2 CKD-EP I Creatinine Equation (2020) Hematocrit Auto (Bld) [Volum e fraction]Ordered By: [facility] 10-17-2024 Hematocrit (Bld) [Volume fraction] 43.2 % 40-54 [facility] Hemoglobin measurementOrdere d By: Alvaro Molina 10-17-2024 Hemoglobin (Bld) [Mass/Vol] 15.0 g/dL 13.0-16.5 [facility] Immature granulocytes/100 WB C Auto (Bld)Ordered By: Alvaro Molina 10-17-2024 Immature granulocytes/100 WBC (Bld) 0.700 % 0.0-0.9 [facility] Comment on above: IG% - Immature Granu locytes (promyelocytes, myelocytes and metamyelocytes) > 1% indicates that a LEFT SHIFT is Present. Laboratory - Chemistry and C hemistry - challengeOrdered By: Alvaro Molina 10-17-2024 AST [Catalytic activity/Vol] 28 U/L <38 [facility] MCV (mean corpuscular volume ) determinationOrdered By: Alvaro Molina 10-17-2024 MCV (RBC) [Entitic vol] 94.7 fL High 80-94 [facility] Mean corpuscular hemoglobin (MCH) determinationOrdered By: Alvaro Auugste on 10-17-2024 MCH (RBC) [Entitic mass] 32.9 pg High 27.0-32.0 [facility] Mean corpuscular hemoglobin concentration (MCHC) determinationOrdered By: Alvaro Auguste on 10-17-2024 MCHC (RBC) [Mass/Vol] 34.7 g/dL 32-36 [facility] Mean platelet volume determi nationOrdered By: Alvaro Auguste on 10-17-2024 Platelet mean volume (Bld) [Entitic vol] 10.5 fL 6.2-12.0 [facility] Monocyte percentageOrdered B y: Alvaro Auguste on 10-17-2024 Monocytes/100 WBC (Bld) 10.0 % 0-10 [facility] Neutrophil percentageOrdered By: Alvaro Auguste on 10-17-2024 Neutrophils/100 WBC (Bld) 71.3 % High 47-70 [facility] Nucleated red blood cell per centageOrdered By: Alvaro Auguste on 10-17-2024 Nucleated RBC/100 WBC (Bld) [Ratio] 0 % 0-5 [facility] Platelet countOrdered By: Rubens Auguste on 10-17-2024 Platelets (Bld) [#/Vol] 177 10*3/uL 150-450 [facility] Potassium measurement (mass/ volume)Ordered By: Alvaro Auguste 10-17-2024 Potassium (Unsp spec) [Mass/Vol] 4.4 mmol/L 3.3-5.1 [facility] RBC Auto (Bld) [#/Vol]Ordere d By: Alvaro Auguste on 10-17-2024 RBC (Bld) [#/Vol] 4.56 10*6/uL Low 4.6-6.2 [facility] Serum creatinine measurement (mass/volume)Ordered By: Alvaro Auguste on 10-17-2024 Creatinine [Mass/Vol] 0.98 mg/dL 0.70-1.20 [facility] Serum globulin measurementOr dered By: Alvaro Auguste 10-17-2024 Globulin (S) [Mass/Vol] 2.8 g/dL 2.2-4.2 [facility] Serum glucose measurement (m ass/volume)Ordered By: Alvaro Auguste on 10-17-2024 Glucose [Mass/Vol] 107 mg/dL High 70-99 [facility] Serum or plasma alanine dominguez otransferase (ALT) measurementOrdered By: Alvaro Auguste on 10-17-2024 ALT [Catalytic activity/Vol] 27 U/L <47 [facility] Serum or plasma albumin jean urement (mass/volume)Ordered By: Alvaro Auguste on 10-17-2024 Albumin [Mass/Vol] 4.4 g/dL 3.4-4.8 [facility] Serum or plasma albumin/glob ulin mass ratioOrdered By: Alvaro Auguste on 10-17-2024 Albumin/Globulin [Mass ratio] 1.6 {ratio} 0.9-2.4 [facility] Serum or plasma alkaline denzel sphatase measurementOrdered By: Alvaro Auguste 10-17-2024 ALP [Catalytic activity/Vol] 88 U/L 40-129 [facility] Serum or plasma calcium jean urement (mass/volume)Ordered By: Alvaro Auguste 10-17-2024 Calcium [Mass/Vol] 9.6 mg/dL 7.6-11.0 [facility] Serum or plasma urea nitroge n measurement (mass/volume)Ordered By: Alvaro Auguste 10-17-2024 Urea nitrogen [Mass/Vol] 21 mg/dL High 4-19 [facility] Serum or plasma uric acid me asurement (mass/volume)Ordered By: Alvaro Auguste 10-17-2024 Urate [Mass/Vol] 6.7 mg/dL 3.5-7.2 [facility] Comment on above: The drugs N-Acetylcy steine and Metamizole may falsely depress this assay. Sodium levelOrdered By: Alvaro Auguste on 10-17-2024 Sodium [Moles/Vol] 140 mmol/L 133-145 [facility] TSH DL <= 0.005 mIU/L QnOrde red By: Alvaro Auguste on 10-17-2024 TSH Qn 0.651 uIU/mL 0.300-4.200 [facility] Thyroid Stim Hormone (TSH)on 10-17-2024 TSH 0.651 uIU/mL Normal 0.300-4.200 [facility] Comment on above: Performed By: #### L 501.1400, L100.0100, L501.9520, L500.4050, L506.1001 #### [facility] [address] [place], [address] Total proteinOrdered By: Alvaro Auguste on 10-17-2024 Protein [Mass/Vol] 7.2 g/dL 5.9-8.4 [facility] Uric Acidon 10-17-2024 URIC 6.7 mg/dL Normal 3.5-7.2 [facility] Comment on above: Result Comment: The drugs N-Acetylcysteine and Metamizole may falsely depress this assay. Performed By: #### L 501.1400, L100.0100, L501.9520, L500.4050, L506.1001 #### [facility] [address] [place], [address] Vitamin D,25 Hydroxyon 10-17 Vitamin D 25-OH 24.9 ng/mL Low 30-100 [facility] Comment on above: Result Comment: Nita min D Status Deficiency: <20 ng/mL (50nmol/L) Insufficiency: 20-30 ng/mL (50-75 nmol/L) Sufficiency: 30-100 ng/mL (75-250 nmol/L) Toxicity: >100 ng/mL (>250 nmol/L) Performed By: #### L 501.1400, L100.0100, L501.9520, L500.4050, L506.1001 #### [facility] [address] [place], [address] White blood cell (WBC) count Ordered By: Alvaro Auguste on 10-17-2024 WBC (Bld) [#/Vol] 9.7 10*3/uL 4.4-11.0 [facility] 24 HR Urine Creatinineon UR.CREAT/24hr 1272.0 mg/24 hr Normal 1040.0-2350.0 [facility] Comment on above: Result Comment: AMENDED REPORT 10/04/24 1337 UR.CREAT/24hr previously reported as: 42.4 L mg/24 hr Performed By: #### L 500.9000, L502.000 #### [facility] [address] [place], [address] 24 hour urine protein measur ementOrdered By: Alvaro Auguste on 10-04-2024 24 hour urine protein measurement 3000 mL [facility] 24 hour urine protein measur ement (mass/volume)Ordered By: Alvaro Molina on 10-04-2024 Protein (24H U) [Mass/Vol] 8.2 mg/dL 0.0-11.8 [facility] 24 hour urine total protein measurement (mass/time)Ordered By: Alvaro Auguste on 10-04-2024 Protein (24H U) [Mass/Time] 246.0 mg/24HR High 0-151 [facility] - Specimen inform ationOrdered By: Alvaro Auguste on 10-04-2024 Collection duration (U) 24.0 HOURS 24.0-24.0 [facility] Protein, Urine 24HRon 2024 24hr UR PROTEIN 246.0 mg/24HR High <150 MG/24HR [facility] Comment on above: Performed By: #### L 500.9000, L502.000 #### [facility] [address] [place], [address] Protein Ql (U) 8.2 mg/dL Normal <11.9 [facility] Comment on above: Performed By: #### L 500.9000, L502.000 #### [facility] [address] [place], [address] UR COLLECT TIME 24.0 HOURS Normal 24.0 [facility] Comment on above: Performed By: #### L 500.9000, L502.000 #### [facility] [address] [place], [address] UR TOTAL VOLUME 3000 mL Normal [facility] Comment on above: Performed By: #### L 500.9000, L502.000 #### [facility] [address] [place], [address] Total urine volume measureme ntOrdered By: Alvaro Auguste on 10-04-2024 Specimen volume (U) 3000.0 ML [facility] Urine creatinine measurement (mass/volume)Ordered By: Alvaro Auguste on 10-04-2024 Creatinine (U) [Mass/Vol] 42.40 mg/dL 39.00-259.00 [facility] L/S Spine Min 4 Viewson 09-05 L/S Spine Min 4 Views [facility] [address] [place], [place] [address] L/S Spine Min 4 Views MR#: [id number] Acct: [id number] Name: DESI PANDEY Rep #: [id number] : 1955 M 69 From: Víctor Moe MD PCP: Dr. Alvaro Auguste MD Status: REG CLI Study: L/S Spine Min 4 Views Date of Exam: 10/02/24 Exam# [id number] Ordering Dr: Alvaro Auguste MD PROCEDURE: L/S SPINE MIN 4 VIEWS 10/02/2024 REASON FOR EXAM: LDD TECHNIQUE: Five views; AP, bilateral oblique, lateral and coned-down L5-S1 view COMPARISON: 06/02/2024 FINDINGS: For nomenclature purposes L5 is partially sacralized especially towards the right. No fracture or malalignment. No evidence of spondylolysis. Similar appearance of multilevel spondylosis/discogenic change. L1-2 and L2-3 mild disc space narrowing and degenerative endplate changes again seen. L4-5 moderate disc space narrowing with degenerative endplate changes again noted. L5-S1 spondylosis/discogenic change. Bilateral facet degenerative changes RAD/L/S Spine Min 4 Views IMPRESSION: Similar appearance of multilevel spondylosis/discogenic change. Reading Location: [id number] CC: Dr. Alvaro Auguste MD Bander: Signed Normal [facility] CBC W/Diff, Automatedon 02- PATH REV Reviewed Normal [facility] Comment on above: Order Comment: CRITI SYLVIE VALUE CALLED TO CATHY NATHANIEL07/02/24 1416 Carie Ilya.RESULTS READ BACK BY SAME. Result Comment: Poly cythemia Clinical correlation necessary. Garrett Jaimes M.D. 07/04/24 Performed By: #### L 500.4050, L100.0100 ####[facility] [address] [place], [address] [employer] Inc Decub and/or Erecton 07-02-2024 Abd Inc Decub and/or Erect [facility] [address] [place] [address] [employer] Decub and/or Erect MR#: [id number] Acct: [id number] Name: DESI PANDEY Rep #: [id number] : 1955 M 69 From: Raymond Ta i DO PCP: Dr. Alvaro Auguste MD Status: REG CLI Study: Abd Inc Decub and/or Erect Date of Exam: 07/02 Exam# [id number] Ordering Dr: Alvaro Auguste MD PROCEDURE: Abdominal radiographs, three views REASON FOR EXAM: Diverticulitis TECHNIQUE: Three views of the abdomen were obtained. COMPARISON: CT abdomen/pelvis 07/02/2024 FINDINGS: Three views of the abdomen were obtained. Bones are osteopenic with degenerative changes in the spine. Lower lungs are clear. No abnormally dilated bowel segments or free intraperitoneal air. No pathologic air-fluid levels on the upright view. Mild stool in the colon. RAD/Abd Inc Decub and/or Erect IMPRESSION: Unremarkable abdominal radiographs. No free intraperitoneal air. Reading Location: [facility] CC: Dr. Alvaro Auguste MD Bander: Signed Normal [facility] Abdomen/Pelvis without Conto n 07-02-2024 Abdomen/Pelvis without Cont [facility] [address] [place] [address] Abdomen/Pelvis without Cont MR#: [id number] Acct: [id number] Name: DESI PANDEY Rep #: [id number] : 1955 M 69 From: Kevan montero MD PCP: Dr. Alvaro Auguste MD Status: REG CLI Study: Abdomen/Pelvis without Cont Date of Exam: 06/08 10/29 Exam# [id number] Ordering Dr: Alvaro Auguste MD EXAM: ABDOMEN/PELVIS WITHOUT CONT CLINICAL HISTORY: Right flank pain for 3 weeks after fall. COMPARISON: 04/19/2021. TECHNIQUE: Helical CT images of the abdomen and pelvis were performed utilizing routine protocol without intravenous contrast material. Multiplanar reformations were obtained. Dose reduction techniques were used including intermediate exposure control (AEC),iterative reconstruction technique, and/or mA and/or KV dose adjustments based on patient's size. FINDINGS: The lung bases are clear. No obvious acute abnormality of the liver, spleen, pancreas, or adrenal glands. No acute obstructive urinary collecting system calculus. No urinary bladder wall thickening. No hydronephrosis. Nonspecific bilateral perinephric stranding noted similar to the prior study. No acute bowel obstruction. No pneumoperitoneum. Colonic diverticulosis is noted without evidence of acute diverticulitis. No CT evidence of acute appendicitis. No lymphadenopathy. No significant free fluid in the abdomen and pelvis. Enlarged prostate. The visualized osseous structures demonstrate degenerative changes. CT/Abdomen/Pelvis without Cont IMPRESSION: No hydronephrosis or renal calculi noted. Colonic diverticulosis is noted without evidence of acute diverticulitis. Enlarged prostate. Reading Location: [facility] CC: Dr. Alvaro Auguste MD Bander: Signed Normal [facility] Absolute lymphocyte countOrd ered By: Alvaro Auguste on 07-02-2024 Lymphocytes Auto (Unsp spec) [#/Vol] 0.91 10*3/uL 0.83-4.51 [facility] Absolute neutrophil countOrd ered By: Alvaro Auguste on 07-02-2024 Neutrophils (Bld) [#/Vol] 8.4 10*3/uL High 2.0-7.7 [facility] Automated lymphocyte count a s percentage of total leukocytesOrdered By: Alvaro Auguste on 07-02-2024 Lymphocytes/100 WBC Auto (Unsp spec) 8.6 % Low 19-41 [facility] BUN/creatinine ratioOrdered By: Alvaro Molina on 07-02-2024 Urea nitrogen/Creatinine [Mass ratio] 16.6 mg/mg 10-20 [facility] Basophil percentageOrdered B y: Alvaro Molina on 07-02-2024 Basophils/100 WBC (Bld) 0.9 % 0-1 [facility] Bilirubin, totalOrdered By: Alvaro Auguste on 07-02-2024 Bilirubin [Mass/Vol] 0.53 mg/dL 0.00-1.30 [facility] Carbon dioxide measurementOr dered By: Alvaro Molina on 07-02-2024 CO2 [Moles/Vol] 25.5 mmol/L 22.0-29.0 [facility] Chloride measurementOrdered By: Alvaro Auguste on 07-02-2024 Chloride [Moles/Vol] 104 mmol/L 96-108 [facility] Comprehensive Metabolic Prof ilon 07-02-2024 Albumin [Mass/Vol] 4.6 g/dL Normal 3.4-4.8 [facility] Comment on above: Performed By: #### L 500.4050, L100.0100 ####[facility] [address] [place], [address] Albumin/Globulin [Mass ratio] 1.6 {ratio} Normal 0.9-2.4 [facility] Comment on above: Performed By: #### L 500.4050, L100.0100 ####[facility] [address] [place], [address] ALK PHOS 87 U/L Normal 40-129 [facility] Comment on above: Performed By: #### L 500.4050, L100.0100 ####[facility] [address] [place], [address] ALT [Catalytic activity/Vol] 20 U/L Normal <=46 [facility] Comment on above: Performed By: #### L 500.4050, L100.0100 ####[facility] [address] [place], [address] Anion gap [Moles/Vol] 12 mmol/L Normal 5-15 [facility] Comment on above: Performed By: #### L 500.4050, L100.0100 ####[facility] [address] [place], [address] AST [Catalytic activity/Vol] 25 U/L Normal <=37 [facility] Comment on above: Performed By: #### L 500.4050, L100.0100 ####[facility] [address] [place], [address] Bilirubin [Mass/Vol] 0.53 mg/dL Normal 0.00-1.30 [facility] Comment on above: Performed By: #### L 500.4050, L100.0100 ####[facility] [address] [place], [address] BUN/CRE 16.6 RATIO Normal 10-20 [facility] Comment on above: Performed By: #### L 500.4050, L100.0100 ####[facility] [address] [place], [address] Calcium [Mass/Vol] 9.8 mg/dL Normal 7.6-11.0 [facility] Comment on above: Performed By: #### L 500.4050, L100.0100 ####[facility] [address] [place], [address] Chloride [Moles/Vol] 104 mmol/L Normal 96-108 [facility] Comment on above: Performed By: #### L 500.4050, L100.0100 ####[facility] [address] [place], [address] CO2 [Moles/Vol] 25.5 mmol/L Normal 22.0-29.0 [facility] Comment on above: Performed By: #### L 500.4050, L100.0100 ####[facility] [address] [place], [address] Creatinine [Mass/Vol] 1.1 mg/dL Normal 0.8-1.3 [facility] Comment on above: Performed By: #### L 500.4050, L100.0100 ####[facility] [address] [place], [address] GFR/1.73 sq M.predicted among non-blacks MDRD (S/P/Bld) [Vol rate/Area] 74 mL/min/{1.73_m2} Normal >60 [facility] Comment on above: Result Comment: mL/m in/1.73m2 CKD-EPI Creatinine Equation (2020) Performed By: #### L 500.4050, L100.0100 ####[facility] [address] [place], [address] Globulin (S) [Mass/Vol] 2.8 g/dL Normal 2.2-4.2 [facility] Comment on above: Performed By: #### L 500.4050, L100.0100 ####[facility] [address] [place], [address] Glucose [Mass/Vol] 100 mg/dL High 70-99 [facility] Comment on above: Performed By: #### L 500.4050, L100.0100 ####[facility] [address] [place], [address] Potassium [Moles/Vol] 3.9 mmol/L Normal 3.3-5.1 [facility] Comment on above: Result Comment: Hemo lysis present, Results??could be affected. ?? Performed By: #### L 500.4050, L100.0100 ####[facility] [address] [place], [address] Sodium [Moles/Vol] 141 mmol/L Normal 133-145 [facility] Comment on above: Performed By: #### L 500.4050, L100.0100 ####[facility] [address] [place], [address] T PROT 7.3 g/dL Normal 5.9-8.4 [facility] Comment on above: Performed By: #### L 500.4050, L100.0100 ####[facility] [address] [place], [address] Urea nitrogen [Mass/Vol] 18 mg/dL Normal 4-19 [facility] Comment on above: Performed By: #### L 500.4050, L100.0100 ####[facility] [address] [place], [address] Creatinine [Moles/Vol]Ordere d By: Alvaro Auguste on 07-02-2024 Creatinine [Mass/Vol] 1.1 mg/dL 0.8-1.3 [facility] Eosinophil percentageOrdered By: Alvaro Auguste 07-02-2024 Eosinophils/100 WBC (Bld) 0.8 % 0-5 [facility] Erythrocyte distribution wid th ratioOrdered By: Alvaro Auguste 07-02-2024 Erythrocyte distribution width (RBC) [Ratio] 14.9 % High 11.6-14.6 [facility] Erythrocyte distribution wid th standard deviationOrdered By: [facility] on 07-02-2024 Erythrocyte distribution width (RBC) [Entitic vol] 55.0 fL High 35.1-43.9 [facility] Erythrocyte distribution width (RBC) [Ratio] 55.0 fl High 35.1-43.9 [facility] GFR/1.73 sq M.predicted desiree g non-blacks MDRD (S/P/Bld) [Vol rate/Area]Ordered By: Alvaro Auguste on 07-02-2024 Estimated GFR (MDRD) Non-Af Amer 74 >60 [facility] Comment on above: mL/min/1.73m2 CKD-EP I Creatinine Equation (2020) Glomerular filtration rate ( GFR) estimation/1.73 sq m using serum, plasma, or whole bOrdered By: Alvaro Auguste on 07-02-2024 GFR/1.73 sq M.predicted among non-blacks MDRD (S/P/Bld) [Vol rate/Area] 74 mL/min/{1.73_m2} >60 [facility] Comment on above: mL/min/1.73m2 CKD-EP I Creatinine Equation (2020) Hematocrit Auto (Bld) [Volum e fraction]Ordered By: Alvaro Auguste on 07-02-2024 Hematocrit (Bld) [Volume fraction] 56.7 % High 40-54 [facility] Hemoglobin measurementOrdere d By: Alvaro Auguste on 07-02-2024 Hemoglobin (Bld) [Mass/Vol] 19.2 g/dL High 13.0-16.5 [facility] Immature granulocytes/100 WB C Auto (Bld)Ordered By: Alvaro Auguste 07-02-2024 Immature granulocytes/100 WBC (Bld) 1.200 % High 0.0-0.9 [facility] Comment on above: IG% - Immature Granu locytes (promyelocytes, myelocytes and metamyelocytes) > 1% indicates that a LEFT SHIFT is Present. Laboratory - Chemistry and C hemistry - challengeOrdered By: Alvaro Auguste 07-02-2024 AST [Catalytic activity/Vol] 25 U/L <38 [facility] Lymphocytes Auto (Unsp spec) [#/Vol]Ordered By: Alvaro Auguste 07-02-2024 Lymphocytes (Bld) [#/Vol] 0.91 10*3/uL 0.83-4.51 [facility] Lymphocytes/100 WBC Auto (Un sp spec)Ordered By: Alvaro Auguste 07-02-2024 Lymphocytes/100 WBC (Bld) 8.6 % Low 19-41 [facility] MCV (mean corpuscular volume ) determinationOrdered By: Alvaro Auguste 07-02-2024 MCV (RBC) [Entitic vol] 99.3 fL High 80-94 [facility] Mean corpuscular hemoglobin (MCH) determinationOrdered By: Alvaro Auguste 07-02-2024 MCH (RBC) [Entitic mass] 33.6 pg High 27.0-32.0 [facility] Mean corpuscular hemoglobin concentration (MCHC) determinationOrdered By: Alvaro Auguste on 07-02-2024 MCHC (RBC) [Mass/Vol] 33.9 g/dL 32-36 [facility] Mean platelet volume determi nationOrdered By: Alvaro Auguste on 07-02-2024 Platelet mean volume (Bld) [Entitic vol] 11.2 fL 6.2-12.0 [facility] Monocyte percentageOrdered B y: Alvaro Auguste on 07-02-2024 Monocytes/100 WBC (Bld) 8.3 % 0-10 [facility] Neutrophil percentageOrdered By: Alvaro Auguste on 07-02-2024 Neutrophils/100 WBC (Bld) 80.2 % High 47-70 [facility] Nucleated red blood cell per centageOrdered By: Alvaro Auguste on 07-02-2024 Nucleated RBC/100 WBC (Bld) [Ratio] 0 % 0-5 [facility] Pathologist review Jakub (Unsp spec) [Interp]Ordered By: Alvaro Auguste on 07-02-2024 Differential Pathologist's Review Reviewed [facility] Comment on above: PolycythemiaClinical correlation necessary.Garrett Jaimes M.D. 07/04/24 Platelet countOrdered By: Rubens Auguste on 07-02-2024 Platelets (Bld) [#/Vol] 178 10*3/uL 150-450 [facility] RBC Auto (Bld) [#/Vol]Ordere d By: Alvaro Auguste on 07-02-2024 RBC (Bld) [#/Vol] 5.71 10*6/uL 4.6-6.2 [facility] Review by pathologistOrdered By: Alvaro Auguste on 07-02-2024 Pathologist review Jakub (Unsp spec) [Interp] Reviewed [facility] Comment on above: PolycythemiaClinical correlation necessary.Garrett Jaimes M.D. 07/04/24 Serum globulin measurementOr dered By: Alvaro Auguste on 07-02-2024 Globulin (S) [Mass/Vol] 2.8 g/dL 2.2-4.2 [facility] Serum glucose measurement (m ass/volume)Ordered By: Alvaro Auguste on 07-02-2024 Glucose [Mass/Vol] 100 mg/dL High 70-99 [facility] Serum or plasma alanine dominguez otransferase (ALT) measurementOrdered By: Alvaro Auguste on 07-02-2024 ALT [Catalytic activity/Vol] 20 U/L <47 [facility] Serum or plasma albumin jean urement (mass/volume)Ordered By: Alvaro Auguste 07-02-2024 Albumin [Mass/Vol] 4.6 g/dL 3.4-4.8 [facility] Serum or plasma albumin/glob ulin mass ratioOrdered By: Alvaro Auguste 07-02-2024 Albumin/Globulin [Mass ratio] 1.6 {ratio} 0.9-2.4 [facility] Serum or plasma alkaline denzel sphatase measurementOrdered By: Alvaro Auguste 07-02-2024 ALP [Catalytic activity/Vol] 87 U/L 40-129 [facility] Serum or plasma anion gap de termination (moles/volume)Ordered By: Alvaro Auguste 07-02-2024 Anion gap [Moles/Vol] 12 mmol/L 5-15 [facility] Serum or plasma calcium jean urement (mass/volume)Ordered By: Alvaro Auguste 07-02-2024 Calcium [Mass/Vol] 9.8 mg/dL 7.6-11.0 [facility] Serum or plasma creatinine m easurement (moles/volume)Ordered By: Alvaro Auguste 07-02-2024 Creatinine [Moles/Vol] 1.1 mg/dL 0.8-1.3 [facility] Serum or plasma potassium me asurementOrdered By: Alvaro Auguste 07-02-2024 Potassium [Moles/Vol] 3.9 mmol/L 3.3-5.1 [facility] Comment on above: Hemolysis present, R esults could be affected. Serum or plasma sodium measu rement (moles/volume)Ordered By: Alvaro Auguste 07-02-2024 Sodium [Moles/Vol] 141 mmol/L 133-145 [facility] Serum or plasma urea nitroge n measurement (mass/volume)Ordered By: Alvaro Auguste 07-02-2024 Urea nitrogen [Mass/Vol] 18 mg/dL 4-19 [facility] Total proteinOrdered By: Alvaro Auguste on 07-02-2024 Protein [Mass/Vol] 7.3 g/dL 5.9-8.4 [facility] White blood cell (WBC) count Ordered By: Alvaro Auguste on 07-02-2024 WBC (Bld) [#/Vol] 10.5 10*3/uL 4.4-11.0 [facility] Diagnostic total prostate sp ecific antigen (PSA) measurementOrdered By: Alvaro Auguste on 06-11-2024 Prostate Specific Antigen Total 1.32 ng/mL 0.0-4.0 [facility] Comment on above: This test was perfor med using the TPSA assay method for the[employer] chemistry system. Values obtained with differentassay methods cannot be used interchangably.When changing PSA assays in the course of monitoring apatient, additional sequential testing should be carriedout to confirm baseline values. PSA,Total- [employer] PSA, DIAGNOSTIC 1.32 ng/mL Normal 0.0-4.0 [facility] Comment on above: Result Comment: This test was performed using the TPSA assay method for the [employer] chemistry system. Values obtained with different assay methods cannot be used interchangably. When changing PSA assays in the course of monitoring a patient, additional sequential testing should be carried out to confirm baseline values. Performed By: #### L 501.9940 ####[facility] [address] [facility] [address] [place], [place], [address] Extremity Lower without Cont raon 06-06-2024 Extremity Lower without Contra [facility] [address] [place], [place] [address] Extremity Lower without Contra MR#: [id number] Acct: [id number] Name: DESI PANDEY Rep #: [id number] : 1955 M 69 From: Tan Jc DO PCP: Dr. Alvaro Auguste MD Status: REG CLI Study: Extremity Lower without Contra Date of Exam: 0 06/06/24 Exam# [id number] Ordering Dr: Alvaro Auguste MD EXAM: Right hip without IV contrast enhancement CLINICAL HISTORY: Pain COMPARISON: None. TECHNIQUE: On a Multirow-detector CT scanner, a volumetric scan is reconstructed to 5 mm images through the right hip without the administration of intravenous contrast. Dose reduction techniques were used including automated exposure control (AEC), iterative reconstruction technique, and/or mA and/or kV dose adjustment based on patient size. FINDINGS: Anatomic alignment of the right hip. There is mild joint space loss and minimal spurring involving the acetabulum and greater trochanter. Trabecular markings are preserved. No acute fractures or dislocations are identified of the right hip. Remaining visualized osseous structures appear intact. Suspect pseudoarthrosis involving the L5 level on the right. Zowd-tv-wcsyeqpr amounts of fecal retention. Vascular calcifications within the right iliac artery. Overlying soft tissues appear intact. No drainable fluid collections are identified. CT/Extremity Lower without Contra IMPRESSION: 1. Mild degenerative changes involving the right hip, as described 2. No acute fractures or dislocations are identified. 3. Additional findings, as detailed above Reading Location: [facility] CC: Dr. Alvaro Auguste MD Bander: Signed Normal [facility] Pelvis without IV Contraston 06-06-2024 Pelvis without IV Contrast [facility] [address] [place] [id number] Pelvis without IV Contrast MR#: [id number] Acct: [id number] Name: DESI PANDEY Rep #: [id number] : 1955 69 From: Tan Jc DO PCP: Dr. Alvaro Auguste MD Status: REG CLI Study: Pelvis without IV Contrast Date of Exam: 06/06 Exam# [id number] Ordering Dr: Alvaro Auguste MD EXAM: PELVIS WITHOUT IV CONTRAST CLINICAL HISTORY: Pain COMPARISON: None. TECHNIQUE: Axial CT images of the pelvis was performed utilizing routine protocol without intravenous contrast material. Multiplanar reformations were obtained. Dose reduction techniques were used including intermediate exposure control (AEC),iterative reconstruction technique, and/or mA and/or KV dose adjustments based on patient's size. FINDINGS: No distended bowel loops are seen. Moderate amounts of fecal retention. Diverticulosis involving the sigmoid colon without gross surrounding inflammatory changes. Urinary bladder is partially decompressed. Prostate gland measures 4.3 x 5.6 x 4.8 cm. No pelvic lymphadenopathy. No free fluid is seen. Spondylotic changes seen at the L4-5 level, eccentric towards the left. Pseudoarthrosis involving the L5 level on the right. Anatomic alignment of the bilateral SI joints and pubic symphysis. No acute fractures or dislocations are identified. Minimal degenerative changes involving the bilateral hips. No bony destructive lesions are seen. CT/Pelvis without IV Contrast IMPRESSION: 1. Diverticulosis involving the sigmoid colon, without gross surrounding inflammatory changes. 2. Prostate gland is mildly enlarged measuring 4.3 x 5.6 x 4.8 cm. Correlate with PSA levels. 3. Degenerative changes involving the lower lumbar spine and bilateral hips, as described. No acute osseous abnormalities identified. Reading Location: [facility] CC: Dr. Alvaro Auguste MD Bander: Signed Normal [facility] Hips B/L min 2 views w/ Pelv bozena 06-02-2024 Hips B/L min 2 views w/ Pelvis [facility] [address] [place] [address] Hips B/L min 2 views w/ Pelvis MR#: [id number] Acct: [id number] Name: DESI PANDEY Rep #: [id number] : 1955 69 From: Brayan Enciso MD PCP: Dr. Alvaro Auguste MD Status: REG CLI Study: Hips B/L min 2 views w/ Pelvis Date of Exam: 0 06/02/24 Exam# [id number] Ordering Dr: Alvaro Auguste MD [id number] INDICATION: RIGHT HIP PAIN EXAMINATION/TECHNIQUE: X-RAY - XR Hips Bilateral with Pelvis when performed; Min 5 Views COMPARISON: Pelvis and right hip radiographs dated 12/21/2021. FINDINGS: PELVIC BONES: No displaced fracture, destructive or sclerotic lesions. Note that overlapping bowel shadows may however obscure fine detail. Sacroiliac joints are unremarkable. No widening of the pubic symphysis. HIPS: There is minimal degenerative arthrosis of the hip joints bilaterally with tiny marginal osteophytes. No displaced fracture. SOFT TISSUES: No soft tissue swelling or gas. RAD/Hips B/L min 2 views w/ Pelvis IMPRESSION: Minimal degenerative arthrosis of the joints bilaterally. No evidence of displaced pelvic or hip fracture. Electronically Signed: Brayan Enciso MD at 14:04 EST Reading Location ID and State: [facility] / [place] , Service support , CC: Dr. Alvaro Auguste MD Bander: Signed Normal [facility] L/S Spine Min 4 Viewson 05-08 L/S Spine Min 4 Views [facility] [address] [place] [address] L/S Spine Min 4 Views MR#: [id number] Acct: [id number] Name: DESI PANDEY Rep #: [id number] : 1955 M 69 From: Beau Benz MD PCP: Dr. Alvaro Auguste MD Status: REG CLI Study: L/S Spine Min 4 Views Date of Exam: 06/02/24 Exam# [id number] Ordering Dr: Alvaro Auguste MD [id number] STUDY: X-RAY - LUMBAR SPINE REASON FOR EXAM: Male, 69 years old. Muscle spasms. TECHNIQUE: 5 view(s) of the lumbar spine were obtained. COMPARISON: Lumbar spine x-rays dated September 2023 FINDINGS: Osteopenia. Normal lordosis. No scoliosis. Normal vertebral alignment. Diffuse moderate to marked lower thoracic and lumbosacral facet sclerosis. Diffuse intervertebral disc space narrowing with osteophytes. Endplate concavities compatible with osteoporosis. Vascular calcification. RAD/L/S Spine Min 4 Views IMPRESSION: Stable osteopenia with moderate to marked diffuse lower thoracic and lumbosacral spondylosis. Electronically Signed: Beau Benz MD at 14:33 EST , CC: Dr. Alvaro Auguste MD Bander: Signed Normal [facility] 16-HB-Xccrrlv DOrdered By: Nini Auguste on 04-16-2024 Vitamin D 25-Hydroxy 28.1 ng/mL [facility] Comment on above: Vitamin D 25(OH) Sta tus Range Deficiency <20 ng/mL (50nmol/L) Insufficiency 20 - 30 ng/mL (50 - 75 nmol/L) Sufficiency 30 - 100 ng/mL (75 - 250 nmol/L) Toxicity >100 ng/mL (>250 nmol/L) Absolute neutrophil countOrd ered By: Alvaro Auguste on 04-16-2024 Neutrophils (Bld) [#/Vol] 5.5 10*3/uL 2.0-7.7 [facility] Albumin to globulin ratioOrd ered By: Alvaro Auguste on 04-16-2024 Albumin/Globulin [Mass ratio] 1.1 {ratio} Normal 0.9-2.4 [facility] Comment on above: Performed By: #### L 100.0100, L500.4050, L506.1000, L501.1400, L509.3000, L501.9520 ####[facility] [address] [place], [address] Basophil percentageOrdered B y: Alvaro Auguste on 04-16-2024 Basophils/100 WBC (Bld) 0.9 % 0-1 [facility] Bilirubin, totalOrdered By: Alvaro Auguste on 04-16-2024 Bilirubin [Mass/Vol] 0.50 mg/dL Normal 0.20-1.00 [facility] Comment on above: For patients on eltr ombopag therapy, use of Dimension [place] TBIL is not recommended. Result Comment: For patients on eltrombopag therapy, use of Dimension [place] TBIL is not recommended. Performed By: #### L 100.0100, L500.4050, L506.1000, L501.1400, L509.3000, L501.9520 ####[facility] [address] [place], [address] Blood urea nitrogen (BUN)/cr eatinine ratioOrdered By: Alvaro Auguste on 04-16-2024 Urea nitrogen/Creatinine [Mass ratio] 15.4 mg/mg 10- [facility] CBC W/Diff, Automatedon 04-06 Absolute Lymph 1.42 X10 3/uL Normal 0.83-4.51 [facility] Comment on above: Performed By: #### L 100.0100, L500.4050, L506.1000, L501.1400, L509.3000, L501.9520 ####[facility] [address] [place], [address] Absolute Neut 5.5 X10 3/uL Normal 2.0-7.7 [facility] Comment on above: Performed By: #### L 100.0100, L500.4050, L506.1000, L501.1400, L509.3000, L501.9520 ####[facility] [address] [place], [address] Basophils/100 WBC (Bld) 0.9 % Normal 0-1 [facility] Comment on above: Performed By: #### L 100.0100, L500.4050, L506.1000, L501.1400, L509.3000, L501.9520 ####[facility] [address] [place], [address] Eosinophils/100 WBC (Bld) 5.0 % Normal 0-5 [facility] Comment on above: Performed By: #### L 100.0100, L500.4050, L506.1000, L501.1400, L509.3000, L501.9520 ####[facility] [address] [place], [address] Erythrocyte distribution width (RBC) [Ratio] 13.6 % Normal 11.6-14.6 [facility] Comment on above: Performed By: #### L 100.0100, L500.4050, L506.1000, L501.1400, L509.3000, L501.9520 ####[facility] [address] [place], [address] Hematocrit (Bld) [Volume fraction] 49.2 % Normal 40-54 [facility] Comment on above: Performed By: #### L 100.0100, L500.4050, L506.1000, L501.1400, L509.3000, L501.9520 ####[facility] [address] [place], [address] Hemoglobin (Bld) [Mass/Vol] 17.1 g/dL High 13.0-16.5 [facility] Comment on above: Performed By: #### L 100.0100, L500.4050, L506.1000, L501.1400, L509.3000, L501.9520 ####[facility] [address] [place], [address] IG% 0.300 Normal 0.0-0.9 [facility] Comment on above: Result Comment: IG% - Immature Granulocytes (promyelocytes, myelocytes and metamyelocytes) > 1% indicates that a LEFT SHIFT is Present. Performed By: #### L 100.0100, L500.4050, L506.1000, L501.1400, L509.3000, L501.9520 ####[facility] [address] [place], [address] Lymphocytes/100 WBC (Bld) 17.8 % Low 19-41 [facility] Comment on above: Performed By: #### L 100.0100, L500.4050, L506.1000, L501.1400, L509.3000, L501.9520 ####[facility] [address] [place], [address] MCH (RBC) [Entitic mass] 33.3 pg High 27.0-32.0 [facility] Comment on above: Performed By: #### L 100.0100, L500.4050, L506.1000, L501.1400, L509.3000, L501.9520 ####[facility] [address] [place], [address] MCHC (RBC) [Mass/Vol] 34.8 g/dL Normal 32-36 [facility] Comment on above: Performed By: #### L 100.0100, L500.4050, L506.1000, L501.1400, L509.3000, L501.9520 ####[facility] [address] [place], [address] MCV (RBC) [Entitic vol] 95.7 fL High 80-94 [facility] Comment on above: Performed By: #### L 100.0100, L500.4050, L506.1000, L501.1400, L509.3000, L501.9520 ####[facility] [address] [place], [address] Monocytes/100 WBC (Bld) 7.5 % Normal 0-10 [facility] Comment on above: Performed By: #### L 100.0100, L500.4050, L506.1000, L501.1400, L509.3000, L501.9520 ####[facility] [address] [place], [address] Neutrophils/100 WBC (Bld) 68.5 % Normal 47-70 [facility] Comment on above: Performed By: #### L 100.0100, L500.4050, L506.1000, L501.1400, L509.3000, L501.9520 ####[facility] [address] [place], [address] Nucleated RBC (Bld) [#/Vol] 0 10*3/uL Normal 0-5 [facility] Comment on above: Performed By: #### L 100.0100, L500.4050, L506.1000, L501.1400, L509.3000, L501.9520 ####[facility] [address] [place], [address] Platelet mean volume (Bld) [Entitic vol] 11.3 fL Normal 6.2-12.0 [facility] Comment on above: Performed By: #### L 100.0100, L500.4050, L506.1000, L501.1400, L509.3000, L501.9520 ####[facility] [address] [place], [address] Platelets (Bld) [#/Vol] 182 10*3/uL Normal 150-450 [facility] Comment on above: Performed By: #### L 100.0100, L500.4050, L506.1000, L501.1400, L509.3000, L501.9520 ####[facility] [address] [place], [address] RBC (Bld) [#/Vol] 5.14 10*6/uL Normal 4.6-6.2 [facility] Comment on above: Performed By: #### L 100.0100, L500.4050, L506.1000, L501.1400, L509.3000, L501.9520 ####[facility] [address] [place], [address] RDW SD 48.8 fl High 35.1-43.9 [facility] Comment on above: Performed By: #### L 100.0100, L500.4050, L506.1000, L501.1400, L509.3000, L501.9520 ####[facility] [address] [place], [address] WBC (Bld) [#/Vol] 8.0 10*3/uL Normal 4.4-11.0 [facility] Comment on above: Performed By: #### L 100.0100, L500.4050, L506.1000, L501.1400, L509.3000, L501.9520 ####[facility] [address] [place], [address] Carbon dioxide measurementOr dered By: Alvaro Auguste on 04-16-2024 CO2 [Moles/Vol] 26.0 mmol/L Normal 21.0-32.0 [facility] Comment on above: Performed By: #### L 100.0100, L500.4050, L506.1000, L501.1400, L509.3000, L501.9520 ####[facility] [address] [place], [address] Chloride measurementOrdered By: Alvaro Auguste on 04-16-2024 Chloride [Moles/Vol] 111 mmol/L High 98-107 [facility] Comment on above: Performed By: #### L 100.0100, L500.4050, L506.1000, L501.1400, L509.3000, L501.9520 ####[facility] [address] [place], [address] Comprehensive Metabolic Prof ilon 04-16-2024 ALK P 84 U/L Normal 45-117 [facility] Comment on above: Performed By: #### L 100.0100, L500.4050, L506.1000, L501.1400, L509.3000, L501.9520 ####[facility] [address] [place], [address] BUN/CRE 15.4 RATIO Normal 10-20 [facility] Comment on above: Performed By: #### L 100.0100, L500.4050, L506.1000, L501.1400, L509.3000, L501.9520 ####[facility] [address] [place], [address] CA,Total 9.1 mg/dL Normal 8.5-10.1 [facility] Comment on above: Performed By: #### L 100.0100, L500.4050, L506.1000, L501.1400, L509.3000, L501.9520 ####[facility] [address] [place], [address] EST GFR - AA 91 mL/min Normal >60 [facility] Comment on above: Result Comment: Afri can [place] GFR Calc Performed By: #### L 100.0100, L500.4050, L506.1000, L501.1400, L509.3000, L501.9520 ####[facility] [address] [place], [address] GAP 5 Normal 5-15 [facility] Comment on above: Performed By: #### L 100.0100, L500.4050, L506.1000, L501.1400, L509.3000, L501.9520 ####[facility] [address] [place], [address] GFR/1.73 sq M.predicted among non-blacks MDRD (S/P/Bld) [Vol rate/Area] 75 mL/min/{1.73_m2} Normal >60 [facility] Comment on above: Result Comment: Non- GFR Calc Performed By: #### L 100.0100, L500.4050, L506.1000, L501.1400, L509.3000, L501.9520 ####[facility] [address] [place], [place], [address] T PROT 6.8 g/dL Normal 6.4-8.2 [facility] Comment on above: Performed By: #### L 100.0100, L500.4050, L506.1000, L501.1400, L509.3000, L501.9520 ####[facility] [address] [place], [address] Comprehensive Metabolic Prof ilOrdered By: Alvaro Auguste on 04-16-2024 AST [Catalytic activity/Vol] 17 U/L Normal 15-37 [facility] Comment on above: Slight Hemolysis, Re sult may be falsely increased. Result Comment: Slig ht Hemolysis, Result may be falsely increased. Performed By: #### L 100.0100, L500.4050, L506.1000, L501.1400, L509.3000, L501.9520 ####[facility] [address] [place], [place], [address] Eosinophil percentageOrdered By: Alvaro Auguste on 04-16-2024 Eosinophils/100 WBC (Bld) 5.0 % 0-5 [facility] Erythrocyte distribution wid th ratioOrdered By: Alvaro Auguste on 04-16-2024 Erythrocyte distribution width (RBC) [Ratio] 13.6 % 11.6-14.6 [facility] Erythrocyte distribution wid th standard deviationOrdered By: Alvaro Auguste on 04-16-2024 Erythrocyte distribution width (RBC) [Entitic vol] 48.8 fL High 35.1-43.9 [facility] Estimated glomerular filtrat ion rate (GFR) AmericanOrdered By: Alvaro Auguste on 04-16-2024 Estimated GFR (MDRD) Amer 91 mL/min >60 [facility] Comment on above: GFR Calc Glomerular filtration rate ( GFR) estimationOrdered By: Alvaro Auguste on 04-16-2024 Estimated GFR (MDRD) Non-Af Amer 75 mL/min >60 [facility] Comment on above: Non- GFR Calc Glucose measurementOrdered B y: Alvaro Auguste on 04-16-2024 Glucose [Mass/Vol] 137 mg/dL High 74-106 [facility] Comment on above: Fasting Glucose resu lt greater than or equal to 126 mg/dL suggests DIABETES MELLITUS per A.D.A. criteria. Result Comment: Fast ing Glucose result greater than or equal to 126 mg/dL suggests DIABETES MELLITUS per A.D.A. criteria. Performed By: #### L 100.0100, L500.4050, L506.1000, L501.1400, L509.3000, L501.9520 ####[facility] [address] [place], [address] Hematocrit Auto (Bld) [Volum e fraction]Ordered By: Alvaro Auguste on 04-16-2024 Hematocrit (Bld) [Volume fraction] 49.2 % 40-54 [facility] Hemoglobin measurementOrdere d By: Alvaro Auguste on 04-16-2024 Hemoglobin (Bld) [Mass/Vol] 17.1 g/dL High 13.0-16.5 [facility] Immature granulocytes/100 WB C Auto (Bld)Ordered By: Alvaro Auguste on 04-16-2024 Immature granulocytes/100 WBC (Bld) 0.300 % 0.0-0.9 [facility] Comment on above: IG% - Immature Granu locytes (promyelocytes, myelocytes and metamyelocytes) > 1% indicates that a LEFT SHIFT is Present. Lymphocytes Auto (Unsp spec) [#/Vol]Ordered By: Alvaro Auguste on 04-16-2024 Lymphocytes (Bld) [#/Vol] 1.42 10*3/uL 0.83-4.51 [facility] Lymphocytes/100 WBC Auto (Un sp spec)Ordered By: Alvaro Auguste on 04-16-2024 Lymphocytes/100 WBC (Bld) 17.8 % Low 19-41 [facility] MCV (mean corpuscular volume ) determinationOrdered By: Alvaro Auguste on 04-16-2024 MCV (RBC) [Entitic vol] 95.7 fL High 80-94 [facility] Mean corpuscular hemoglobin (MCH) determinationOrdered By: Alvaro Auguste on 04-16-2024 MCH (RBC) [Entitic mass] 33.3 pg High 27.0-32.0 [facility] Mean corpuscular hemoglobin concentration (MCHC) determinationOrdered By: Alvaro Auguste on 04-16-2024 MCHC (RBC) [Mass/Vol] 34.8 g/dL 32-36 [facility] Mean platelet volume determi nationOrdered By: Alvaro Auguste on 04-16-2024 Platelet mean volume (Bld) [Entitic vol] 11.3 fL 6.2-12.0 [facility] Monocyte percentageOrdered B y: Alvaro Auguste on 04-16-2024 Monocytes/100 WBC (Bld) 7.5 % 0-10 [facility] Neutrophil percentageOrdered By: Alvaro Auguste on 04-16-2024 Neutrophils/100 WBC (Bld) 68.5 % 47-70 [facility] Nucleated red blood cell per centageOrdered By: Alvaro Auguste on 04-16-2024 Nucleated RBC/100 WBC (Bld) [Ratio] 0 % 0-5 [facility] Platelet countOrdered By: Rubens Auguste on 04-16-2024 Platelets (Bld) [#/Vol] 182 10*3/uL 150-450 [facility] Potassium measurementOrdered By: Alvaro Auguste on 04-16-2024 Potassium [Moles/Vol] 4.1 mmol/L Normal 3.5-5.1 [facility] Comment on above: Slight Hemolysis, Re sult may be falsely increased. Result Comment: Slig ht Hemolysis, Result may be falsely increased. Performed By: #### L 100.0100, L500.4050, L506.1000, L501.1400, L509.3000, L501.9520 ####[facility] [address] [place], [address] RBC Auto (Bld) [#/Vol]Ordere d By: Alvaro Auguste on 04-16-2024 RBC (Bld) [#/Vol] 5.14 10*6/uL 4.6-6.2 [facility] Serum anion gap measurementO rdered By: Alvaro Auguste on 04-16-2024 Anion gap [Moles/Vol] 5 mmol/L 5-15 [facility] Serum globulin measurementOr dered By: Alvaro Auguste on 04-16-2024 Globulin (S) [Mass/Vol] 3.2 g/dL Normal 2.2-4.2 [facility] Comment on above: Performed By: #### L 100.0100, L500.4050, L506.1000, L501.1400, L509.3000, L501.9520 ####[facility] [address] [place], [place], [id number] Serum or plasma alanine dominguez otransferase (ALT) measurementOrdered By: Alvaro Auguste on 04-16-2024 ALT [Catalytic activity/Vol] 20 U/L Normal 16-61 [facility] Comment on above: Performed By: #### L 100.0100, L500.4050, L506.1000, L501.1400, L509.3000, L501.9520 ####[facility] [address] [place], [place], [address] Serum or plasma albumin jean urement (mass/volume)Ordered By: Alvaro Auguste on 04-16-2024 Albumin [Mass/Vol] 3.6 g/dL Normal 3.2-5.0 [facility] Comment on above: Performed By: #### L 100.0100, L500.4050, L506.1000, L501.1400, L509.3000, L501.9520 ####[facility] [address] [place], [place], [address] Serum or plasma alkaline denzel sphatase measurementOrdered By: lAvaro Auguste on 04-16-2024 ALP [Catalytic activity/Vol] 84 U/L 45-117 [facility] Serum or plasma calcium jean urement (mass/volume)Ordered By: Alvaro Auguste on 04-16-2024 Calcium [Mass/Vol] 9.1 mg/dL 8.5-10.1 [facility] Serum or plasma creatinine m easurement (mass/volume)Ordered By: Alvaro Auguste on 04-16-2024 Creatinine [Mass/Vol] 1.04 mg/dL Normal 0.70-1.30 [facility] Comment on above: The validity of the calculated GFR & GFRAA in patients over 70 years has not been determined. Clinical correlation is essential. Result Comment: The validity of the calculated GFR GFRAA in patients over 70 years has not been determined. Clinical correlation is essential. Performed By: #### L 100.0100, L500.4050, L506.1000, L501.1400, L509.3000, L501.9520 ####[facility] [address] [place], [address] Serum or plasma urea nitroge n measurement (mass/volume)Ordered By: Alvaro Auguste on 04-16-2024 Urea nitrogen [Mass/Vol] 16 mg/dL Normal 7-18 [facility] Comment on above: Performed By: #### L 100.0100, L500.4050, L506.1000, L501.1400, L509.3000, L501.9520 ####[facility] [address] [place], [place], [id number] Serum or plasma uric acid me asurement (mass/volume)Ordered By: Alvaro Auguste on 04-16-2024 Urate [Mass/Vol] 5.3 mg/dL 3.5-7.2 [facility] Comment on above: The drugs N-Acetylcy steine and Metamizole may falsely depress this assay. Sodium levelOrdered By: Alvaro Auguste on 04-16-2024 Sodium [Moles/Vol] 142 mmol/L Normal 136-145 [facility] Comment on above: Performed By: #### L 100.0100, L500.4050, L506.1000, L501.1400, L509.3000, L501.9520 ####[facility] [address] [place], [place], [id number] TSH QnOrdered By: Alvaro dobbs 04-16-2024 Thyroid Stimulating Hormone (TSH) 0.659 uIU/mL 0.358-3.740 [facility] Testosterone, Serum Totalon 04-16-2024 Testosterone [Mass/Vol] ng/dL Normal [facility] Comment on above: Result Comment: CENT RAL 90% REFERENCE RANGES MALE AGE <50 197.44 - 669.58 ng/dL MALE AGE > or = 50 187.72 - 684.19 ng/dL FEMALE AGE <50 8.38 - 35.01 ng/dL FEMALE AGE > or = 50 <7.00 - 35.92 ng/dL Effective as of 11/30/20 Performed By: #### L 100.0100, L500.4050, L506.1000, L501.1400, L509.3000, L501.9520 ####[facility] [address] [facility] [address] [place], [place], [address] Testosterone, totalOrdered B y: Alvaro Auguste on 04-16-2024 Testosterone [Mass/Vol] ng/dL [facility] Comment on above: CENTRAL 90% REFERENC E RANGES MALE AGE <50 197.44 - 669.58 ng/dL MALE AGE > or = 50 187.72 - 684.19 ng/dL FEMALE AGE <50 8.38 - 35.01 ng/dL FEMALE AGE > or = 50 <7.00 - 35.92 ng/dL Effective as of 11/30/20 Thyroid Stim Hormone (TSH)on 04-16-2024 TSH 0.659 uIU/mL Normal 0.358-3.740 [facility] Comment on above: Performed By: #### L 100.0100, L500.4050, L506.1000, L501.1400, L509.3000, L501.9520 ####[facility] [address] [facility] [place], [address] Total proteinOrdered By: Alvaro Auguste on 04-16-2024 Protein [Mass/Vol] 6.8 g/dL 6.4-8.2 [facility] Uric Acidon 04-16-2024 URIC 5.3 mg/dL Normal 3.5-7.2 [facility] Comment on above: Result Comment: The drugs N-Acetylcysteine and Metamizole may falsely depress this assay. Performed By: #### L 100.0100, L500.4050, L506.1000, L501.1400, L509.3000, L501.9520 ####[facility] [address] [place], [address] Vitamin D,25 Hydroxyon 04-16 Vitamin D 25-OH 28.1 ng/mL Normal [facility] Comment on above: Result Comment: Nita min D 25(OH) Status Range Deficiency <20 ng/mL (50nmol/L) Insufficiency 20 - 30 ng/mL (50 - 75 nmol/L) Sufficiency 30 - 100 ng/mL (75 - 250 nmol/L) Toxicity >100 ng/mL (>250 nmol/L) Performed By: #### L 100.0100, L500.4050, L506.1000, L501.1400, L509.3000, L501.9520 ####[facility] [address] [place], [address] White blood cell (WBC) count Ordered By: Alvaro Auguste on 04-16-2024 WBC (Bld) [#/Vol] 8.0 10*3/uL 4.4-11.0 [facility] Absolute lymphocyte countOrd ered By: Alvaro Auguste on 04-10-2023 Lymphocytes Auto (Unsp spec) [#/Vol] 1.51 10*3/uL 0.83-4.51 [facility] Basophil percentageOrdered B y: Alvaro Auguste on 04-10-2023 Basophils/100 WBC (Bld) 1.1 % 0-1 [facility] Bilirubin [Mass/Vol] 0.80 mg/dL 0.20-1.00 [facility] Comment on above: For patients on eltr ombopag therapy, use of Dimension [place] TBIL is not recommended. Chloride [Moles/Vol] 107 mmol/L 98-107 [facility] Eosinophils/100 WBC (Bld) 6.3 % 0-5 [facility] Glucose [Mass/Vol] 97 mg/dL 74-106 [facility] Neutrophils (Bld) [#/Vol] 4.7 10*3/uL 2.0-7.7 [facility] Neutrophils/100 WBC (Bld) 62.9 % 47-70 [facility] Potassium [Moles/Vol] 3.9 mmol/L 3.5-5.1 [facility] Protein [Mass/Vol] 7.6 g/dL 6.4-8.2 [facility] Sodium [Moles/Vol] 141 mmol/L 136-145 [facility] WBC (Bld) [#/Vol] 7.5 10*3/uL 4.4-11.0 [facility] Blood erythrocytes count (nu mber/volume)Ordered By: Alvaro Auguste on 04-10-2023 RBC (Bld) [#/Vol] 5.54 10*6/uL 4.6-6.2 [facility] Blood hemoglobin measurement (mass/volume)Ordered By: Alvaro Auguste on 04-10-2023 Hemoglobin (Bld) [Mass/Vol] 17.4 g/dL 13.0-16.5 [facility] Blood lymphocytes/100 leukoc ytesOrdered By: Alvaro Auguste on 04-10-2023 Lymphocytes/100 WBC (Bld) 20.1 % 19-41 [facility] Blood monocytes/100 leukocyt esOrdered By: Alvaro Auguste on 04-10-2023 Monocytes/100 WBC (Bld) 9.3 % 0-10 [facility] Blood platelet mean volumeOr dered By: Alvaro Auguste on 04-10-2023 Platelet mean volume (Bld) [Entitic vol] 11.3 fL 6.2-12.0 [facility] [facility] Determination of erythrocyte mean corpuscular volume (MCV)Ordered By: Alvaro Auguste 04-10-2023 MCV (RBC) [Entitic vol] 95.3 fL 80-94 [facility] Hematocrit Auto (Bld) [Volum e fraction]Ordered By: Alvaro Auguste on 04-10-2023 Hematocrit (Bld) [Volume fraction] 52.8 % 40-54 [facility] - Chemistry and C hemistry - challengeOrdered By: Alvaro Auguste on 04-10-2023 ALP [Catalytic activity/Vol] 76 U/L 45-117 [facility] ALT [Catalytic activity/Vol] 23 U/L 16-61 [facility] CO2 [Moles/Vol] 26.0 mmol/L 21.0-32.0 [facility] Globulin (S) [Mass/Vol] 3.6 g/dL 2.2-4.2 [facility] Urea nitrogen/Creatinine [Mass ratio] 9.2 mg/mg 10-20 [facility] - Hematology and Cell countsOrdered By: Alvaro Auguste on 04-10-2023 Erythrocyte distribution width (RBC) [Entitic vol] 49.1 fL 35.1-43.9 [facility] Erythrocyte distribution width (RBC) [Ratio] 13.9 % 11.6-14.6 [facility] Immature granulocytes/100 WBC (Bld) 0.300 % 0.0-0.9 [facility] Comment on above: IG% - Immature Granu locytes (promyelocytes, myelocytes and metamyelocytes) > 1% indicates that a LEFT SHIFT is Present. MCH (RBC) [Entitic mass] 31.4 pg 27.0-32.0 [facility] Nucleated RBC/100 WBC (Bld) [Ratio] 0 % 0-5 [facility] MCHC Auto (RBC) [Mass/Vol]Or dered By: Alvaro Auguste on 04-10-2023 MCHC (RBC) [Mass/Vol] 33.0 g/dL 32-36 [facility] No Panel InformationOrdered By: Alvaro Auguste on 04-10-2023 Estimated GFR (MDRD) Amer 77 mL/min >60 [facility] Comment on above: GFR Calc Estimated GFR (MDRD) Non-Af Amer 64 mL/min >60 [facility] Comment on above: Non- GFR Calc Prostate Specific Antigen Screen 0.93 ng/mL 0.00-4.00 [facility] Comment on above: This test was perfor med using the TPSA assay method for the[employer] chemistry system. Values obtained with differentassay methods cannot be used interchangably.When changing PSA assays in the course of monitoring apatient, additional sequential testing should be carriedout to confirm baseline values. Thyroid Stimulating Hormone (TSH) 0.94 uIU/mL 0.358-3.74 [facility] Vitamin D 25-Hydroxy 25.9 ng/mL [facility] Comment on above: Vitamin D 25(OH) Sta tus Range Deficiency <20 ng/mL (50nmol/L) Insufficiency 20 - 30 ng/mL (50 - 75 nmol/L) Sufficiency 30 - 100 ng/mL (75 - 250 nmol/L) Toxicity >100 ng/mL (>250 nmol/L) Platelets bldOrdered By: Alvaro Auguste on 04-10-2023 Platelets (Bld) [#/Vol] 214 10*3/uL 150-450 [facility] Serum or plasma albumin jean urement (mass/volume)Ordered By: Alvaro Auguste on 04-10-2023 Albumin [Mass/Vol] 4.0 g/dL 3.2-5.0 [facility] Serum or plasma albumin/glob ulin mass ratioOrdered By: Alvaro Auguste on 04-10-2023 Albumin/Globulin [Mass ratio] 1.1 {ratio} 0.9-2.4 [facility] Serum or plasma calcium jean urement (mass/volume)Ordered By: Alvaro Auguste on 04-10-2023 Calcium [Mass/Vol] 9.1 mg/dL 8.5-10.1 [facility] Serum or plasma creatinine m easurement (mass/volume)Ordered By: Alvaro Auguste on 04-10-2023 Creatinine [Mass/Vol] 1.20 mg/dL 0.70-1.30 [facility] Comment on above: The validity of the calculated GFR & GFRAA in patients over 70 years has not been determined. Clinical correlation is essential. Serum or plasma urea nitroge n measurement (mass/volume)Ordered By: Alvaro Auguste on 04-10-2023 Urea nitrogen [Mass/Vol] 11 mg/dL 7-18 [facility] Serum or plasma uric acid me asurement (mass/volume)Ordered By: Alvaro Auguste on 04-10-2023 Urate [Mass/Vol] 6.2 mg/dL 3.5-7.2 [facility] Comment on above: The drugs N-Acetylcy steine and Metamizole may falsely depress this assay. Thin prep Papanicolaou smear with manual screeningOrdered By: Alvaro Auguste on 04-10-2023 Thin prep Papanicolaou smear with manual screening 18 U/L 15-37 [facility] Thin prep Papanicolaou smear with manual screening 8 5-15 [facility] Absolute lymphocyte countOrd ered By: Dr. Auguste on 10-05-2022 Lymphocytes Auto (Unsp spec) [#/Vol] 1.30 10*3/uL 0.83-4.51 [facility] Basophil percentageOrdered B y: Dr. Auguste on 10-05-2022 Basophils/100 WBC (Bld) 0.8 % 0-1 [facility] Bilirubin [Mass/Vol] 0.50 mg/dL 0.20-1.00 [facility] Comment on above: For patients on eltr ombopag therapy, use of Dimension [place] TBIL is not recommended. Chloride [Moles/Vol] 110 mmol/L 98-107 [facility] Eosinophils/100 WBC (Bld) 3.1 % 0-5 [facility] Glucose [Mass/Vol] 97 mg/dL 74-106 [facility] Neutrophils (Bld) [#/Vol] 6.2 10*3/uL 2.0-7.7 [facility] Neutrophils/100 WBC (Bld) 73.0 % 47-70 [facility] Potassium [Moles/Vol] 4.2 mmol/L 3.5-5.1 [facility] Comment on above: Slight Hemolysis, Re sult may be falsely increased. Protein [Mass/Vol] 7.8 g/dL 6.4-8.2 [facility] Sodium [Moles/Vol] 142 mmol/L 136-145 [facility] Testosterone [Mass/Vol] 595.13 ng/dL [facility] Comment on above: CENTRAL 90% REFERENC E RANGES MALE AGE <50 197.44 - 669.58 ng/dL MALE AGE > or = 50 187.72 - 684.19 ng/dL FEMALE AGE <50 8.38 - 35.01 ng/dL FEMALE AGE > or = 50 <7.00 - 35.92 ng/dL Effective as of 11/30/20 WBC (Bld) [#/Vol] 8.5 10*3/uL 4.4-11.0 [facility] Blood erythrocytes count (nu mber/volume)Ordered By: Dr. Auguste on 10-05-2022 RBC (Bld) [#/Vol] 5.37 10*6/uL 4.6-6.2 [facility] Blood hemoglobin measurement (mass/volume)Ordered By: Dr. Auguste on 10-05-2022 Hemoglobin (Bld) [Mass/Vol] 16.9 g/dL 13.0-16.5 [facility] Blood lymphocytes/100 leukoc ytesOrdered By: Dr. Auguste on 10-05-2022 Lymphocytes/100 WBC (Bld) 15.3 % 19-41 [facility] Blood monocytes/100 leukocyt esOrdered By: Dr. Auguste on 10-05-2022 Monocytes/100 WBC (Bld) 7.7 % 0-10 [facility] Blood platelet mean volumeOr dered By: Dr. Auguste on 10-05-2022 Platelet mean volume (Bld) [Entitic vol] 11.1 fL 6.2-12.0 [facility] Determination of erythrocyte mean corpuscular volume (MCV)Ordered By: Dr. Auguste on 10-05-2022 MCV (RBC) [Entitic vol] 92.7 fL 80-94 [facility] Hematocrit Auto (Bld) [Volum e fraction]Ordered By: Dr. Auguste on 10-05-2022 Hematocrit (Bld) [Volume fraction] 49.8 % 40-54 [facility] - Chemistry and C hemistry - challengeOrdered By: Dr. Auguste on 10-05-2022 ALP [Catalytic activity/Vol] 86 U/L 45-117 [facility] ALT [Catalytic activity/Vol] 17 U/L 16-61 [facility] CO2 [Moles/Vol] 24.0 mmol/L 21.0-32.0 [facility] Globulin (S) [Mass/Vol] 4.0 g/dL 2.2-4.2 [facility] Urea nitrogen/Creatinine [Mass ratio] 12.5 mg/mg 10-20 [facility] - Hematology and Cell countsOrdered By: Dr. Auguste on 10-05-2022 Erythrocyte distribution width (RBC) [Entitic vol] 48.0 fL 35.1-43.9 [facility] Erythrocyte distribution width (RBC) [Ratio] 14.0 % 11.6-14.6 [facility] Immature granulocytes/100 WBC (Bld) 0.100 % 0.0-0.9 [facility] Comment on above: IG% - Immature Granu locytes (promyelocytes, myelocytes and metamyelocytes) > 1% indicates that a LEFT SHIFT is Present. MCH (RBC) [Entitic mass] 31.5 pg 27.0-32.0 [facility] Nucleated RBC/100 WBC (Bld) [Ratio] 0 % 0-5 [facility] MCHC Auto (RBC) [Mass/Vol]Or dered By: Dr. Auguste on 10-05-2022 MCHC (RBC) [Mass/Vol] 33.9 g/dL 32-36 [facility] No Panel InformationOrdered By: Dr. Auguste on 10-05-2022 Estimated GFR (MDRD) Amer 91 mL/min >60 [facility] Comment on above: GFR Calc Estimated GFR (MDRD) Non-Af Amer 75 mL/min >60 [facility] Comment on above: Non- GFR Calc Thyroid Stimulating Hormone (TSH) 1.01 uIU/mL 0.358-3.74 [facility] Vitamin D 25-Hydroxy 38.5 ng/mL [facility] Comment on above: Vitamin D 25(OH) Sta tus Range Deficiency <20 ng/mL (50nmol/L) Insufficiency 20 - 30 ng/mL (50 - 75 nmol/L) Sufficiency 30 - 100 ng/mL (75 - 250 nmol/L) Toxicity >100 ng/mL (>250 nmol/L) Platelets bldOrdered By: Dr. Auguste on 10-05-2022 Platelets (Bld) [#/Vol] 226 10*3/uL 150-450 [facility] Serum or plasma albumin jean urement (mass/volume)Ordered By: Dr. Auguste on 10-05-2022 Albumin [Mass/Vol] 3.8 g/dL 3.2-5.0 [facility] Serum or plasma albumin/glob ulin mass ratioOrdered By: Dr. Auguste on 10-05-2022 Albumin/Globulin [Mass ratio] 1.0 {ratio} 0.9-2.4 [facility] Serum or plasma calcium jean urement (mass/volume)Ordered By: Dr. Auguste on 10-05-2022 Calcium [Mass/Vol] 9.5 mg/dL 8.5-10.1 [facility] Serum or plasma creatinine m easurement (mass/volume)Ordered By: Dr. Auguste on 10-05-2022 Creatinine [Mass/Vol] 1.04 mg/dL 0.70-1.30 [facility] Comment on above: The validity of the calculated GFR & GFRAA in patients over 70 years has not been determined. Clinical correlation is essential. Serum or plasma urea nitroge n measurement (mass/volume)Ordered By: Dr. Auguste on 10-05-2022 Urea nitrogen [Mass/Vol] 13 mg/dL 7-18 [facility] Serum or plasma uric acid me asurement (mass/volume)Ordered By: Dr. Auguste on 10-05-2022 Urate [Mass/Vol] 6.3 mg/dL 3.5-7.2 [facility] Comment on above: The drugs N-Acetylcy steine and Metamizole may falsely depress this assay. Thin prep Papanicolaou smear with manual screeningOrdered By: Dr. Auguste on 10-05-2022 Thin prep Papanicolaou smear with manual screening 18 U/L 15-37 [facility] Comment on above: Slight Hemolysis, Re sult may be falsely increased. Thin prep Papanicolaou smear with manual screening 8 5-15 [facility] Absolute lymphocyte counton 04-06-2022 Lymphocytes Auto (Unsp spec) [#/Vol] 0.93 10*3/uL 0.83-4.51 [facility] Work Phone: Basophil percentageon 2021 Basophils/100 WBC (Bld) 0.5 % 0-1 [facility] Work Phone: Bilirubin [Mass/Vol] 0.50 mg/dL 0.20-1.00 [facility] Work Phone: Comment on above: For patients on eltr ombopag therapy, use of Dimension [place] TBIL is not recommended. Chloride [Moles/Vol] 109 mmol/L 98-107 [facility] Work Phone: Eosinophils/100 WBC (Bld) 1.0 % 0-5 [facility] Work Phone: Glucose [Mass/Vol] 93 mg/dL 74-106 [facility] Work Phone: [phone] Neutrophils (Bld) [#/Vol] 10.6 10*3/uL 2.0-7.7 [facility] Work Phone: [phone] Neutrophils/100 WBC (Bld) 85.6 % 47-70 [facility] Work Phone: [phone] Potassium [Moles/Vol] 3.8 mmol/L 3.5-5.[address] [facility] Work Phone: [phone] Protein [Mass/Vol] 6.9 g/dL 6.4-8.2 [facility] Work Phone: [phone] Sodium [Moles/Vol] 142 mmol/L 136-145 [facility] Work Phone: Testosterone [Mass/Vol] 169.54 ng/dL [facility] Work Phone: Comment on above: CENTRAL 90% REFERENC E RANGES MALE AGE <50 197.44 - 669.58 ng/dL MALE AGE > or = 50 187.72 - 684.19 ng/dL FEMALE AGE <50 8.38 - 35.01 ng/dL FEMALE AGE > or = 50 <7.00 - 35.92 ng/dL Effective as of 11/30/20 WBC (Bld) [#/Vol] 12.4 10*3/uL 4.4-11.0 [facility] Work Phone: Blood erythrocytes count (nu mber/volume)on 04-06-2022 RBC (Bld) [#/Vol] 5.04 10*6/uL 4.6-6.2 [facility] Work Phone: Blood hemoglobin measurement (mass/volume)on 04-06-2022 Hemoglobin (Bld) [Mass/Vol] 16.2 g/dL 13.0-16.5 [facility] Work Phone: Blood lymphocytes/100 leukoc yteson 04-06-2022 Lymphocytes/100 WBC (Bld) 7.5 % 19-41 [facility] Work Phone: Blood monocytes/100 leukocyt eson 04-06-2022 Monocytes/100 WBC (Bld) 4.9 % 0-10 [facility] Work Phone: Blood platelet mean volumeon 04-06-2022 Platelet mean volume (Bld) [Entitic vol] 11.8 fL 6.2-12.0 [facility] Work Phone: Determination of erythrocyte mean corpuscular volume (MCV)on 04-06-2022 MCV (RBC) [Entitic vol] 98.6 fL 80-94 [facility] Work Phone: Hematocrit Auto (Bld) [Volum e fraction]on 04-06-2022 Hematocrit (Bld) [Volume fraction] 49.7 % 40-54 [facility] Work Phone: Laboratory - Chemistry and C hemistry - challengeon 04-06-2022 ALP [Catalytic activity/Vol] 74 U/L 45-117 [facility] Work Phone: ALT [Catalytic activity/Vol] 23 U/L 16-61 [facility] Work Phone: CO2 [Moles/Vol] 22.0 mmol/L 21.0-32.0 [facility] Work Phone: Globulin (S) [Mass/Vol] 3.5 g/dL 2.2-4.2 [facility] Work Phone: Urea nitrogen/Creatinine [Mass ratio] 16.8 mg/mg 10-20 [facility] Work Phone: Laboratory - Hematology and Cell countson 04-06-2022 Erythrocyte distribution width (RBC) [Entitic vol] 50.3 fL 35.1-43.9 [facility] Work Phone: Erythrocyte distribution width (RBC) [Ratio] 13.8 % 11.6-14.6 [facility] Work Phone: Immature granulocytes/100 WBC (Bld) 0.500 % 0.0-0.9 [facility] Work Phone: Comment on above: IG% - Immature Granu locytes (promyelocytes, myelocytes and metamyelocytes) > 1% indicates that a LEFT SHIFT is Present. MCH (RBC) [Entitic mass] 32.1 pg 27.0-32.0 [facility] Work Phone: Nucleated RBC/100 WBC (Bld) [Ratio] 0 % 0-5 [facility] Work Phone: MCHC Auto (RBC) [Mass/Vol]on 04-06-2022 MCHC (RBC) [Mass/Vol] 32.6 g/dL 32-36 [facility] Work Phone: No Panel Informationon 04-06 Estimated GFR (MDRD) Amer 94 mL/min >60 [facility] Work Phone: Comment on above: GFR Calc Estimated GFR (MDRD) Non-Af Amer 78 mL/min >60 [facility] Work Phone: Comment on above: Non- GFR Calc Prostate Specific Antigen Screen 0.74 ng/mL 0.00-4.00 [facility] Work Phone: Comment on above: This test was perfor med using the TPSA assay method for [facility] system. Values obtained with differentassay methods cannot be used interchangably.When changing PSA assays in the course of monitoring apatient, additional sequential testing should be carriedout to confirm baseline values. Thyroid Stimulating Hormone (TSH) 0.51 uIU/mL 0.358-3.74 [facility] Work Phone: Vitamin D 25-Hydroxy 22.3 ng/mL [facility] Work Phone: Comment on above: Vitamin D 25(OH) Sta tus Range Deficiency <20 ng/mL (50nmol/L) Insufficiency 20 - 30 ng/mL (50 - 75 nmol/L) Sufficiency 30 - 100 ng/mL (75 - 250 nmol/L) Toxicity >100 ng/mL (>250 nmol/L) Platelets bldon 04-06-2022 Platelets (Bld) [#/Vol] 231 10*3/uL 150-450 [facility] Work Phone: Serum or plasma albumin jean urement (mass/volume)on 04-06-2022 Albumin [Mass/Vol] 3.4 g/dL 3.2-5.0 [facility] Work Phone: Serum or plasma albumin/glob ulin mass ratioon 04-06-2022 Albumin/Globulin [Mass ratio] 1.0 {ratio} 0.9-2.4 [facility] Work Phone: Serum or plasma calcium jean urement (mass/volume)on 04-06-2022 Calcium [Mass/Vol] 8.9 mg/dL 8.5-10.1 [facility] Work Phone: Serum or plasma creatinine m easurement (mass/volume)on 04-06-2022 Creatinine [Mass/Vol] 1.01 mg/dL 0.70-1.30 [facility] Work Phone: Comment on above: The validity of the calculated GFR & GFRAA in patients over 70 years has not been determined. Clinical correlation is essential. Serum or plasma urea nitroge n measurement (mass/volume)on 04-06-2022 Urea nitrogen [Mass/Vol] 17 mg/dL 7-18 [facility] Work Phone: Thin prep Papanicolaou smear with manual screeningon 04-06-2022 Thin prep Papanicolaou smear with manual screening 12 U/L 15-37 [facility] Work Phone: Thin prep Papanicolaou smear with manual screening 11 5-15 [facility] Work Phone: Absolute lymphocyte counton 03-20-2022 Lymphocytes Auto (Unsp spec) [#/Vol] 0.69 10*3/uL 0.83-4.51 [facility] Work Phone: Basophil percentageon 2021 Basophils/100 WBC (Bld) 0.4 % 0-1 [facility] Work Phone: [phone] Bilirubin [Mass/Vol] 0.40 mg/dL 0.20-1.00 [facility] Work Phone: Comment on above: For patients on eltr ombopag therapy, use of Dim[place] TBIL is not recommended. Chloride [Moles/Vol] 105 mmol/L 98-107 [facility] Work Phone: [phone] Eosinophils/100 WBC (Bld) 0.1 % 0-5 [facility] Work Phone: [phone] Glucose [Mass/Vol] 100 mg/dL 74-106 [facility] Work Phone: Comment on above: Fasting Glucose resu lt from 100 to 125 mg/dL suggests IMPAIRED HOMEOSTASIS per A.D.A. criteria. Neutrophils (Bld) [#/Vol] 14.2 10*3/uL 2.0-7.7 [facility] Work Phone: [phone] Neutrophils/100 WBC (Bld) 90.4 % 47-70 [facility] Work Phone: [phone] Potassium [Moles/Vol] 4.0 mmol/L 3.5-5.1 [facility] Work Phone: [phone] Protein [Mass/Vol] 7.4 g/dL 6.4-8.2 [facility] Work Phone: [phone] Sodium [Moles/Vol] 138 mmol/L 136-145 [facility] Work Phone: [phone] WBC (Bld) [#/Vol] 15.7 10*3/uL 4.4-11.0 [facility] Work Phone: [phone] Blood erythrocytes count (nu mber/volume)on 03-20-2022 RBC (Bld) [#/Vol] 5.18 10*6/uL 4.6-6.2 [facility] Work Phone: RBC (Bld) [#/Vol] 5.17 10*6/uL 4.14-5.80 [facility] Work Phone: Blood hemoglobin measurement (mass/volume)on 03-20-2022 Hemoglobin (Bld) [Mass/Vol] 16.9 g/dL 13.0-16.5 [facility] Work Phone: Blood lymphocytes/100 leukoc yteson 03-20-2022 Lymphocytes/100 WBC (Bld) 4.4 % 19-41 [facility] Work Phone: Blood monocytes/100 leukocyt eson 03-20-2022 Monocytes/100 WBC (Bld) 3.8 % 0-10 [facility] Work Phone: Blood platelet mean volumeon 03-20-2022 Platelet mean volume (Bld) [Entitic vol] 11.1 fL 6.2-12.0 [facility] Work Phone: Cerebrospinal fluid Borrelia burgdorferi 18kd IgG antibody detection by immunobloton 03-20-2022 B. burgdorferi 18kD IgG IB Ql (CSF) Absent . [facility] Work Phone: Cerebrospinal fluid Borrelia burgdorferi 23kD IgG antibody detection by immunobloton 03-20-2022 B. burgdorferi 23kD IgG IB Ql (CSF) Absent . [facility] Work Phone: Cerebrospinal fluid Borrelia burgdorferi 23kD IgM antibody detection by immunobloton 03-20-2022 B. burgdorferi 23kD IgM IB Ql (CSF) Present . [facility] Work Phone: Cerebrospinal fluid Borrelia burgdorferi 28kD IgG antibody detection by immunobloton 03-20-2022 B. burgdorferi 28kD IgG IB Ql (CSF) Absent . [facility] Work Phone: Cerebrospinal fluid Borrelia burgdorferi 39kD IgG antibody detection by immunobloton 03-20-2022 B. burgdorferi 39kD IgG IB Ql (CSF) Absent . [facility] Work Phone: Cerebrospinal fluid Borrelia burgdorferi 39kD IgM antibody detection by immunobloton 03-20-2022 B. burgdorferi 39kD IgM IB Ql (CSF) Absent . [facility] Work Phone: Cerebrospinal fluid Borrelia burgdorferi 41kD IgM antibody detection by immunobloton 03-20-2022 B. burgdorferi 41kD IgM IB Ql (CSF) Absent . [facility] Work Phone: Determination of erythrocyte mean corpuscular volume (MCV)on 03-20-2022 MCV (RBC) [Entitic vol] 99.4 fL 80-94 [facility] Work Phone: Erythrocyte [id number]-[id number] ate dehydrogenase (enzymatic activity/mass)on 03-20-2022 G6PD (RBC) [Catalytic activity/Mass] 342 127-427 [facility] Work Phone: Comment on above: Result Units: U/10E1 2 RBCWhen decreased, G-6-PD, Quant. values are associated withacute hemolytic anemia when deficient individuals areexposed to oxidative stress, such as with certainmedications (e.g., primaquine), infection, or ingestion offava beans. Caution: In patients with acute hemolysis(e.g., abnormally low RBC values), testing for G-6-PD maybe falsely normal because older erythrocytes with a higherenzyme deficiency have been hemolyzed. Young erythrocytesand reticulocytes have normal or near-normal enzymeactivity. Normal values of G-6-PD may be measured forseveral weeks following a hemolytic event.Performed at: [facility] [address] [id number] Director: Uziel Rees MD, Phone: [phone] at: [facility] [address] [id number] Director: Kulwant Thomas PhD, Phone: [phone] Hematocrit Auto (Bld) [Volum e fraction]on 03-20-2022 Hematocrit (Bld) [Volume fraction] 51.5 % 40-54 [facility] Work Phone: Laboratory - Chemistry and C hemistry - challengeon 03-20-2022 ALP [Catalytic activity/Vol] 69 U/L 45-117 [facility] Work Phone: ALT [Catalytic activity/Vol] 20 U/L 16-61 [facility] Work Phone: CO2 [Moles/Vol] 25.0 mmol/L 21.0-32.0 [facility] Work Phone: Globulin (S) [Mass/Vol] 3.8 g/dL 2.2-4.2 [facility] Work Phone: Urea nitrogen/Creatinine [Mass ratio] 15.9 mg/mg 10-20 [facility] Work Phone: Laboratory - Hematology and Cell countson 03-20-2022 Erythrocyte distribution width (RBC) [Entitic vol] 52.5 fL 35.1-43.9 [facility] Work Phone: Erythrocyte distribution width (RBC) [Ratio] 14.2 % 11.6-14.6 [facility] Work Phone: Immature granulocytes/100 WBC (Bld) 0.900 % 0.0-0.9 [facility] Work Phone: Comment on above: IG% - Immature Granu locytes (promyelocytes, myelocytes and metamyelocytes) > 1% indicates that a LEFT SHIFT is Present. MCH (RBC) [Entitic mass] 32.6 pg 27.0-32.0 [facility] Work Phone: Nucleated RBC/100 WBC (Bld) [Ratio] 0 % 0-5 [facility] Work Phone: MCHC Auto (RBC) [Mass/Vol]on 03-20-2022 MCHC (RBC) [Mass/Vol] 32.8 g/dL 32-36 [facility] Work Phone: No Panel Informationon 03-20 Estimated GFR (MDRD) Amer 110 mL/min >60 [facility] Work Phone: Comment on above: GFR Calc Estimated GFR (MDRD) Non-Af Amer 91 mL/min >60 [facility] Work Phone: Comment on above: Non- GFR Calc Lyme Disease IgG Ab 30 kDa Band Absent . [facility] Work Phone: Lyme Disease IgG Ab 93 kDa Band Absent . [facility] Work Phone: Lyme Disease IgG West Blot Interp Negative . [facility] Work Phone: Comment on above: Positive: 5 of the f ollowing Borrelia-specific bands: 18,23,28,30,39,41,45,58, 66, and 93. Negative: No bands or banding patterns which do not meet positive criteria. Lyme Disease IgM Ab ([place] Blot) Negative . [facility] Work Phone: Comment on above: Note: An equivocal o r positive EIA result followed by anegative Line Blot result is considered NEGATIVE. Anequivocal or positive EIA result followed by a positiveLine Blot is considered POSITIVE by the CDC.Positive: 2 of the following bands: 23,39 or 41Negative: No bands or banding patterns which do not meetpositive criteria.Criteria for positivity are those recommended byCDC/ASTPHLD. p23=Osp C, o34=[id number]:Sera from individuals with the following may cross reactin the Lyme Line Blot assays: other spirochetal diseases(periodontal disease, leptospirosis, relapsing fever, yaws,and pinta); connective autoimmune (Rheumatoid Arthritis andSystemic Lupus Erythematosus and also individuals withAntinuclear Antibody); other infections (Alfie MountainSpotted Fever; Adriano-Gonzalez Virus, and Cytomegalovirus).Please Note: Lyme immunoblot alone is not recommended forthe diagnosis of Lyme disease. Current guidelines recommendthe use of a two-tiered approach to Lyme serology testingto improve the sensitivity and specificity of testing.[employer] offers test code 525655 Lyme Disease Serology withReflex to aid in the diagnosis of Lyme Disease. Platelets bldon 03-20-2022 Platelets (Bld) [#/Vol] 247 10*3/uL 150-450 [facility] Work Phone: Serum Borrelia burgdorferi 4 1kD IgG antibody detection by immunobloton 03-20-2022 B. burgdorferi 41kD IgG IB Ql (S) Absent . [facility] Work Phone: Serum Borrelia burgdorferi 6 6kD IgG antibody detection by immunobloton 03-20-2022 B. burgdorferi 66kD IgG IB Ql (S) Absent . [facility] Work Phone: Serum or plasma albumin jean urement (mass/volume)on 03-20-2022 Albumin [Mass/Vol] 3.6 g/dL 3.2-5.0 [facility] Work Phone: Serum or plasma albumin/glob ulin mass ratioon 03-20-2022 Albumin/Globulin [Mass ratio] 0.9 {ratio} 0.9-2.4 [facility] Work Phone: Serum or plasma calcium jean urement (mass/volume)on 03-20-2022 Calcium [Mass/Vol] 9.3 mg/dL 8.5-10.1 [facility] Work Phone: Serum or plasma creatinine m easurement (mass/volume)on 03-20-2022 Creatinine [Mass/Vol] 0.88 mg/dL 0.70-1.30 [facility] Work Phone: Comment on above: The validity of the calculated GFR & GFRAA in patients over 70 years has not been determined. Clinical correlation is essential. Serum or plasma urea nitroge n measurement (mass/volume)on 03-20-2022 Urea nitrogen [Mass/Vol] 14 mg/dL 7-18 [facility] Work Phone: Synovial fluid Borrelia jarrod dorferi 45kD IgG antibody detection by immunobloton 03-20-2022 B. burgdorferi 45kD IgG IB Ql (Syn fld) Absent . [facility] Work Phone: Synovial fluid Borrelia jarrod dorferi 58kD IgG antibody detection by immunobloton 03-20-2022 B. burgdorferi 58kD IgG IB Ql (Syn fld) Present . [facility] Work Phone: Thin prep Papanicolaou smear with manual screeningon 03-20-2022 Thin prep Papanicolaou smear with manual screening 16 U/L 15-37 [facility] Work Phone: Thin prep Papanicolaou smear with manual screening 8 5-15 [facility] Work Phone: Absolute lymphocyte counton 02-01-2022 Lymphocytes Auto (Unsp spec) [#/Vol] 0.86 10*3/uL 0.83-4.51 [facility] Work Phone: [phone] Basophil percentageon 2021 Basophils/100 WBC (Bld) 0.2 % 0-1 [facility] Work Phone: [phone] Bilirubin [Mass/Vol] 0.70 mg/dL 0.20-1.00 [facility] Work Phone: Comment on above: For patients on eltr ombopag therapy, use of Dimension [place] TBIL is not recommended. Chloride [Moles/Vol] 109 mmol/L 98-107 [facility] Work Phone: [phone] Eosinophils/100 WBC (Bld) 0.4 % 0-5 [facility] Work Phone: [phone] Glucose [Mass/Vol] 87 mg/dL 74-106 [facility] Work Phone: [phone] Neutrophils (Bld) [#/Vol] 14.1 10*3/uL 2.0-7.7 [facility] Work Phone: [phone] Neutrophils/100 WBC (Bld) 87.8 % 47-70 [facility] Work Phone: [phone] Potassium [Moles/Vol] 3.7 mmol/L 3.5-5.1 [facility] Work Phone: [phone] Protein [Mass/Vol] 7.2 g/dL 6.4-8.2 [facility] Work Phone: Sodium [Moles/Vol] 142 mmol/L 136-145 [facility] Work Phone: [phone] WBC (Bld) [#/Vol] 16.0 10*3/uL 4.4-11.0 [facility] Work Phone: [phone] Blood erythrocytes count (nu mber/volume)on 02-01-2022 RBC (Bld) [#/Vol] 5.10 10*6/uL 4.6-6.2 [facility] Work Phone: Blood hemoglobin measurement (mass/volume)on 02-01-2022 Hemoglobin (Bld) [Mass/Vol] 16.6 g/dL 13.0-16.5 [facility] Work Phone: Blood lymphocytes/100 leukoc yteson 02-01-2022 Lymphocytes/100 WBC (Bld) 5.4 % 19-41 [facility] Work Phone: Blood monocytes/100 leukocyt eson 02-01-2022 Monocytes/100 WBC (Bld) 5.6 % 0-10 [facility] Work Phone: Blood platelet mean volumeon 02-01-2022 Platelet mean volume (Bld) [Entitic vol] 11.8 fL 6.2-12.0 [facility] Work Phone: Determination of erythrocyte mean corpuscular volume (MCV)on 02-01-2022 MCV (RBC) [Entitic vol] 99.2 fL 80-94 [facility] Work Phone: Hematocrit Auto (Bld) [Volum e fraction]on 02-01-2022 Hematocrit (Bld) [Volume fraction] 50.6 % 40-54 [facility] Work Phone: Laboratory - Chemistry and C hemistry - challengeon 02-01-2022 ALP [Catalytic activity/Vol] 67 U/L 45-117 [facility] Work Phone: ALT [Catalytic activity/Vol] 23 U/L 16-61 [facility] Work Phone: CO2 [Moles/Vol] 24.0 mmol/L 21.0-32.0 [facility] Work Phone: Globulin (S) [Mass/Vol] 3.7 g/dL 2.2-4.2 [facility] Work Phone: Urea nitrogen/Creatinine [Mass ratio] 15.2 mg/mg 10-20 [facility] Work Phone: Laboratory - Hematology and Cell countson 02-01-2022 Erythrocyte distribution width (RBC) [Entitic vol] 58.6 fL 35.1-43.9 [facility] Work Phone: Erythrocyte distribution width (RBC) [Ratio] 15.9 % 11.6-14.6 [facility] Work Phone: Immature granulocytes/100 WBC (Bld) 0.600 % 0.0-0.9 [facility] Work Phone: Comment on above: IG% - Immature Granu locytes (promyelocytes, myelocytes and metamyelocytes) > 1% indicates that a LEFT SHIFT is Present. MCH (RBC) [Entitic mass] 32.5 pg 27.0-32.0 [facility] Work Phone: Nucleated RBC/100 WBC (Bld) [Ratio] 0 % 0-5 [facility] Work Phone: MCHC Auto (RBC) [Mass/Vol]on 02-01-2022 MCHC (RBC) [Mass/Vol] 32.8 g/dL 32-36 [facility] Work Phone: No Panel Informationon 02-01 Anti-Nuclear Antibody Screen Negative Negative [facility] Work Phone: Comment on above: Performed at: [address] [id number] Director: Kulwant Thomas PhD, Phone: [phone] Estimated GFR (MDRD) Amer 115 mL/min >60 [facility] Work Phone: Comment on above: GFR Calc Estimated GFR (MDRD) Non-Af Amer 95 mL/min >60 [facility] Work Phone: Comment on above: Non- GFR Calc Hepatitis B Surface Antigen Non-Reactive Nonreactive [facility] Work Phone: Hepatitis C Antibody Non-Reactive Nonreactive [facility] Work Phone: Comment on above: Non Reactive: < 0.8 Equivocal: >/= 0.8 to < 1.0 Reactive: >/= 1.0The CDC recommends that a reactive/equivocal HCV antibody result be followed up by the HCV Nucleic Acid Amplificationtest (349225) Platelets bldon 02-01-2022 Platelets (Bld) [#/Vol] 226 10*3/uL 150-450 [facility] Work Phone: Serum cyclic citrullinated p eptide IgG antibody assay (units/volume)on 02-01-2022 Cyclic citrullinated peptide IgG Qn 3 units 0-19 [facility] Work Phone: Comment on above: Negative <20 Weak po sitive 20 - 39 Moderate positive 40 - 59 Strong positive >59Performed at: - [facility] [address] [id number] Director: Uziel Rees MD, Phone: [phone] Serum hepatitis B virus [place] antibody IgG detectionon 02-01-2022 HBV surface IgG Ql (S) Non-Reactive [facility] Work Phone: Comment on above: Non Reactive: Incons istent with immunity less than <10 mIU/mL Reactive: Consistent with immunity greater than or equal to 10 mIU/mL Serum or plasma albumin jean urement (mass/volume)on 02-01-2022 Albumin [Mass/Vol] 3.5 g/dL 3.2-5.0 [facility] Work Phone: Serum or plasma albumin/glob ulin mass ratioon 02-01-2022 Albumin/Globulin [Mass ratio] 0.9 {ratio} 0.9-2.4 [facility] Work Phone: Serum or plasma calcium jean urement (mass/volume)on 02-01-2022 Calcium [Mass/Vol] 9.1 mg/dL 8.5-10.1 [facility] Work Phone: Serum or plasma creatinine m easurement (mass/volume)on 02-01-2022 Creatinine [Mass/Vol] 0.85 mg/dL 0.70-1.30 [facility] Work Phone: Comment on above: The validity of the calculated GFR & GFRAA in patients over 70 years has not been determined. Clinical correlation is essential. Serum or plasma urea nitroge n measurement (mass/volume)on 02-01-2022 Urea nitrogen [Mass/Vol] 13 mg/dL 7-18 [facility] Work Phone: Serum rheumatoid factor dete ctionon 02-01-2022 Rheumatoid factor Ql (S) < 10.0 IU/mL <15 [facility] Work Phone: Thin prep Papanicolaou smear with manual screeningon 02-01-2022 Thin prep Papanicolaou smear with manual screening 12 U/L 15-37 [facility] Work Phone: Thin prep Papanicolaou smear with manual screening 9 5-15 [facility] Work Phone: Absolute lymphocyte counton 01-16-2022 Lymphocytes Auto (Unsp spec) [#/Vol] 1.22 10*3/uL 0.83-4.51 [facility] Work Phone: Basophil percentageon 2021 Basophils/100 WBC (Bld) 0.5 % 0-1 [facility] Work Phone: Chloride [Moles/Vol] 110 mmol/L 98-107 [facility] Work Phone: Eosinophils/100 WBC (Bld) 1.5 % 0-5 [facility] Work Phone: Glucose [Mass/Vol] 112 mg/dL 74-106 [facility] Work Phone: Comment on above: Fasting Glucose resu lt from 100 to 125 mg/dL suggests IMPAIRED HOMEOSTASIS per A.D.A. criteria. Neutrophils (Bld) [#/Vol] 9.0 10*3/uL 2.0-7.7 [facility] Work Phone: Neutrophils/100 WBC (Bld) 80.1 % 47-70 [facility] Work Phone: Potassium [Moles/Vol] 4.3 mmol/L 3.5-5.1 [facility] Work Phone: Sodium [Moles/Vol] 141 mmol/L 136-145 [facility] Work Phone: WBC (Bld) [#/Vol] 11.2 10*3/uL 4.4-11.0 [facility] Work Phone: Blood erythrocytes count (nu mber/volume)on 01-16-2022 RBC (Bld) [#/Vol] 5.09 10*6/uL 4.6-6.2 [facility]: Blood hemoglobin measurement (mass/volume)on 01-16-2022 Hemoglobin (Bld) [Mass/Vol] 16.6 g/dL 13.0-16.5 [facility] Work Phone: Blood lymphocytes/100 leukoc yteson 01-16-2022 Lymphocytes/100 WBC (Bld) 10.9 % 19-41 [facility] Work Phone: Blood monocytes/100 leukocyt eson 01-16-2022 Monocytes/100 WBC (Bld) 5.7 % 0-10 [facility] Work Phone: Blood platelet mean volumeon 01-16-2022 Platelet mean volume (Bld) [Entitic vol] 10.7 fL 6.2-12.0 [facility] Work Phone: Determination of erythrocyte mean corpuscular volume (MCV)on 01-16-2022 MCV (RBC) [Entitic vol] 96.3 fL 80-94 [facility] Work Phone: Erythrocyte sedimentation ra brenda 01-16-2022 ESR (Bld) [Velocity] 29 mm/h 0-20 [facility] Work [facility]: [phone] Hematocrit Auto (Bld) [Volum e fraction]on 01-16-2022 Hematocrit (Bld) [Volume fraction] 49.0 % 40-54 [facility] Work Phone: Laboratory - Chemistry and C hemistry - challengeon 01-16-2022 CO2 [Moles/Vol] 26.0 mmol/L 21.0-32.0 [facility] Work Phone: Urea nitrogen/Creatinine [Mass ratio] 12.6 mg/mg 10-20 [facility] Work Phone: Laboratory - Hematology and Cell countson 01-16-2022 Erythrocyte distribution width (RBC) [Entitic vol] 53.4 fL 35.1-43.9 [facility] Work Phone: Erythrocyte distribution width (RBC) [Ratio] 14.8 % 11.6-14.6 [facility] Work Phone: Immature granulocytes/100 WBC (Bld) 1.300 % 0.0-0.9 [facility] Work Phone: Comment on above: IG% - Immature Granu locytes (promyelocytes, myelocytes and metamyelocytes) > 1% indicates that a LEFT SHIFT is Present. MCH (RBC) [Entitic mass] 32.6 pg 27.0-32.0 [facility] Work Phone: Nucleated RBC/100 WBC (Bld) [Ratio] 0 % 0-5 [facility] Work Phone: MCHC Auto (RBC) [Mass/Vol]on 01-16-2022 MCHC (RBC) [Mass/Vol] 33.9 g/dL 32-36 [facility] Work Phone: No Panel Informationon 01-16 Estimated GFR (MDRD) Amer 101 mL/min >60 [facility] Work Phone: Comment on above: GFR Calc Estimated GFR (MDRD) Non-Af Amer 83 mL/min >60 [facility] Work Phone: Comment on above: Non- GFR Calc Platelets bldon 01-16-2022 Platelets (Bld) [#/Vol] 261 10*3/uL 150-450 [facility] Work Phone: Serum or plasma C reactive p rotein measurement (mass/volume)on 01-16-2022 CRP [Mass/Vol] 14.30 mg/L 0.0-3.0 [facility] Work Phone: Comment on above: C-Reactive Protein ( CRP) provides useful information for thediagnosis, therapy and monitoring of inflammatory processesand associated diseases. For the evaluation of Relative Riskfor Cardiovascular Disease, a High Sensitivity CRP (HSCRP)should be ordered. Serum or plasma calcium jean urement (mass/volume)on 01-16-2022 Calcium [Mass/Vol] 9.7 mg/dL 8.5-10.1 [facility] Work Phone: Serum or plasma creatinine m easurement (mass/volume)on 01-16-2022 Creatinine [Mass/Vol] 0.95 mg/dL 0.70-1.30 [facility] Work Phone: Comment on above: The validity of the calculated GFR & GFRAA in patients over 70 years has not been determined. Clinical correlation is essential. Serum or plasma urea nitroge n measurement (mass/volume)on 01-16-2022 Urea nitrogen [Mass/Vol] 12 mg/dL 7-18 [facility] Work Phone: Serum or plasma uric acid me asurement (mass/volume)on 01-16-2022 Urate [Mass/Vol] 6.4 mg/dL 3.5-7.2 [facility] Work Phone: Comment on above: The drugs N-Acetylcy steine and Metamizole may falsely depress this assay. Thin prep Papanicolaou smear with manual screeningon 01-16-2022 Thin prep Papanicolaou smear with manual screening 5 5-15 [facility] Work Phone: Cerebrospinal fluid Borrelia burgdorferi 18kd IgG antibody detection by immunobloton 10-14-2021 B. burgdorferi 18kD IgG IB Ql (CSF) Absent . [facility] Work Phone: Cerebrospinal fluid Borrelia burgdorferi 23kD IgG antibody detection by immunobloton 10-14-2021 B. burgdorferi 23kD IgG IB Ql (CSF) Absent . [facility] Work Phone: Cerebrospinal fluid Borrelia burgdorferi 23kD IgM antibody detection by immunobloton 10-14-2021 B. burgdorferi 23kD IgM IB Ql (CSF) Present . [facility] Work Phone: Cerebrospinal fluid Borrelia burgdorferi 28kD IgG antibody detection by immunobloton 10-14-2021 B. burgdorferi 28kD IgG IB Ql (CSF) Absent . [facility] Work Phone: Cerebrospinal fluid Borrelia burgdorferi 39kD IgG antibody detection by immunobloton 10-14-2021 B. burgdorferi 39kD IgG IB Ql (CSF) Absent . [facility] Work Phone: Cerebrospinal fluid Borrelia burgdorferi 39kD IgM antibody detection by immunobloton 10-14-2021 B. burgdorferi 39kD IgM IB Ql (CSF) Absent . [facility] Work Phone: Cerebrospinal fluid Borrelia burgdorferi 41kD IgM antibody detection by immunobloton 10-14-2021 B. burgdorferi 41kD IgM IB Ql (CSF) Absent . [facility] Work Phone: No Panel Informationon 10-14 Lyme Disease IgG Ab 30 kDa Band Absent . [facility] Work Phone: Lyme Disease IgG Ab 93 kDa Band Absent . [facility] Work Phone: Lyme Disease IgG [place] Interp Negative . [facility] Work Phone: Comment on above: Positive: 5 of the f ollowing Borrelia-specific bands: 18,23,28,30,39,41,45,58, 66, and 93. Negative: No bands or banding patterns which do not meet positive criteria.Specimen age exceeds our routine clinical stabilityparameters. Results should be correlated with clinicalpresentation. Lyme Disease IgM Ab ([place]ot) Negative . [facility] Work Phone: Comment on above: Note: An equivocal o r positive EIA result followed by anegative Line Blot result is considered NEGATIVE. Anequivocal or positive EIA result followed by a positiveLine Blot is considered POSITIVE by the CDC.Positive: 2 of the following bands: 23,39 or 41Negative: No bands or banding patterns which do not meetpositive criteria.Criteria for positivity are those recommended byCDC/ASTPHLD. p23=Osp C, l36=ffmejfewiArey:Sera from individuals with the following may cross reactin the Lyme Line Blot assays: other spirochetal diseases(periodontal disease, leptospirosis, relapsing fever, yaws,and pinta); connective autoimmune (Rheumatoid Arthritis andSystemic Lupus Erythematosus and also individuals withAntinuclear Antibody); other infections (Alfie MountainSpotted Fever; Adriano-Gonzalez Virus, and Cytomegalovirus).Specimen age exceeds our routine clinical stabilityparameters. Results should be correlated with clinicalpresentation.Please Note: Lyme immunoblot alone is not recommended forthe diagnosis of Lyme disease. Current guidelines recommendthe use of a two-tiered approach to Lyme serology testingto improve the sensitivity and specificity of testing.[employer] offers test code 601883 Lyme Disease Serology withReflex to aid in the diagnosis of Lyme Disease.Performed at: [address] [id number] Director: Uziel Rees MD, Phone: [phone] Serum Borrelia burgdorferi 4 1kD IgG antibody detection by immunobloton 10-14-2021 B. burgdorferi 41kD IgG IB Ql (S) Present . [facility] Work Phone: Serum Borrelia burgdorferi 6 6kD IgG antibody detection by immunobloton 10-14-2021 B. burgdorferi 66kD IgG IB Ql (S) Absent . [facility] Work Phone: Synovial fluid Borrelia jarrod dorferi 45kD IgG antibody detection by immunobloton 10-14-2021 B. burgdorferi 45kD IgG IB Ql (Syn fld) Absent . [facility] Work Phone: Synovial fluid Borrelia jarrod dorferi 58kD IgG antibody detection by immunobloton 10-14-2021 B. burgdorferi 58kD IgG IB Ql (Syn fld) Absent . [facility] Work Phone: Absolute lymphocyte counton 09-29-2021 Lymphocytes Auto (Unsp spec) [#/Vol] 1.23 10*3/uL 0.83-4.51 [facility] Work Phone: Basophil percentageon 2021 Basophils/100 WBC (Bld) 0.6 % 0-1 [facility] Work Phone: Bilirubin [Mass/Vol] 0.40 mg/dL 0.20-1.00 [facility] Work Phone: [phone] Comment on above: For patients on eltr ombopag therapy, use of Dimension [place] TBIL is not recommended. Chloride [Moles/Vol] 108 mmol/L 98-107 [facility] Work Phone: [phone] Eosinophils/100 WBC (Bld) 2.5 % 0-5 [facility] Work Phone: Glucose [Mass/Vol] 143 mg/dL 74-106 [facility] Work Phone: Comment on above: Fasting Glucose resu lt greater than or equal to 126 mg/dL suggests DIABETES MELLITUS per A.D.A. criteria. Neutrophils (Bld) [#/Vol] 7.8 10*3/uL 2.0-7.7 [facility] Work Phone: Neutrophils/100 WBC (Bld) 76.6 % 47-70 [facility] Work Phone: Potassium [Moles/Vol] 3.9 mmol/L 3.5-5.1 [facility] Work Phone: Protein [Mass/Vol] 7.5 g/dL 6.4-8.2 [facility] Work Phone: Sodium [Moles/Vol] 140 mmol/L 136-145 [facility] Work Phone: Testosterone [Mass/Vol] ng/dL [facility] Work Phone: [phone] Comment on above: CENTRAL 90% REFERENC E RANGES MALE AGE <50 197.44 - 669.58 ng/dL MALE AGE > or = 50 187.72 - 684.19 ng/dL FEMALE AGE <50 8.38 - 35.01 ng/dL FEMALE AGE > or = 50 <7.00 - 35.92 ng/dL Effective as of 11/30/20 WBC (Bld) [#/Vol] 10.2 10*3/uL 4.4-11.0 [facility] Work Phone: Blood erythrocytes count (nu mber/volume)on 09-29-2021 RBC (Bld) [#/Vol] 4.59 10*6/uL 4.6-6.2 [facility] Work Phone: Blood hemoglobin measurement (mass/volume)on 09-29-2021 Hemoglobin (Bld) [Mass/Vol] 15.1 g/dL 13.0-16.5 [facility] Work Phone: Blood lymphocytes/100 leukoc yteson 09-29-2021 Lymphocytes/100 WBC (Bld) 12.1 % 19-41 [facility] Work Phone: Blood monocytes/100 leukocyt eson 09-29-2021 Monocytes/100 WBC (Bld) 7.8 % 0-10 [facility] Work Phone: Blood platelet mean volumeon 09-29-2021 Platelet mean volume (Bld) [Entitic vol] 11.2 fL 6.2-12.0 [facility] Work Phone: Determination of erythrocyte mean corpuscular volume (MCV)on 09-29-2021 MCV (RBC) [Entitic vol] 96.5 fL 80-94 [facility] Work Phone: Hematocrit Auto (Bld) [Volum e fraction]on 09-29-2021 Hematocrit (Bld) [Volume fraction] 44.3 % 40-54 [facility] Work Phone: Laboratory - Chemistry and C hemistry - challengeon 09-29-2021 ALP [Catalytic activity/Vol] 90 U/L 45-117 [facility] Work Phone: ALT [Catalytic activity/Vol] 20 U/L 16-61 [facility] Work Phone: CO2 [Moles/Vol] 22.0 mmol/L 21.0-32.0 [facility] Work Phone: Globulin (S) [Mass/Vol] 4.0 g/dL 2.2-4.2 [facility] Work Phone: Urea nitrogen/Creatinine [Mass ratio] 16.9 mg/mg 10-20 [facility] Work Phone: Laboratory - Hematology and Cell countson 09-29-2021 Erythrocyte distribution width (RBC) [Entitic vol] 46.6 fL 35.1-43.9 [facility] Work Phone: Erythrocyte distribution width (RBC) [Ratio] 13.1 % 11.6-14.6 [facility] Work Phone: Immature granulocytes/100 WBC (Bld) 0.400 % 0.0-0.9 [facility] Work Phone: Comment on above: IG% - Immature Granu locytes (promyelocytes, myelocytes and metamyelocytes) > 1% indicates that a LEFT SHIFT is Present. MCH (RBC) [Entitic mass] 32.9 pg 27.0-32.0 [facility] Work Phone: Nucleated RBC/100 WBC (Bld) [Ratio] 0 % 0-5 [facility] Work Phone: MCHC Auto (RBC) [Mass/Vol]on 09-29-2021 MCHC (RBC) [Mass/Vol] 34.1 g/dL 32-[address] [facility] Work Phone: No Panel Informationon 09-29 Estimated GFR (MDRD) Amer 74 mL/min >60 [facility] Work Phone: Comment on above: GFR Calc Estimated GFR (MDRD) Non-Af Amer 62 mL/min >60 [facility] Work Phone: Comment on above: Non- GFR Calc Thyroid Stimulating Hormone (TSH) 0.87 uIU/mL 0.358-3.74 [facility] Work Phone: Vitamin D 25-Hydroxy 27.8 ng/mL [facility] Work Phone: Comment on above: Vitamin D 25(OH) Sta tus Range Deficiency <20 ng/mL (50nmol/L) Insufficiency 20 - 30 ng/mL (50 - 75 nmol/L) Sufficiency 30 - 100 ng/mL (75 - 250 nmol/L) Toxicity >100 ng/mL (>250 nmol/L) Platelets bldon 09-29-2021 Platelets (Bld) [#/Vol] 242 10*3/uL 150-450 [facility] Work Phone: Serum or plasma albumin jean urement (mass/volume)on 09-29-2021 Albumin [Mass/Vol] 3.5 g/dL 3.2-5.0 [facility] Work Phone: Serum or plasma albumin/glob ulin mass ratioon 09-29-2021 Albumin/Globulin [Mass ratio] 0.9 {ratio} 0.9-2.4 [facility] Work Phone: Serum or plasma calcium jean urement (mass/volume)on 09-29-2021 Calcium [Mass/Vol] 8.9 mg/dL 8.5-10.1 [facility] Work Phone: Serum or plasma creatinine m easurement (mass/volume)on 09-29-2021 Creatinine [Mass/Vol] 1.24 mg/dL 0.70-1.30 [facility] Work Phone: Comment on above: The validity of the calculated GFR & GFRAA in patients over 70 years has not been determined. Clinical correlation is essential. Serum or plasma urea nitroge n measurement (mass/volume)on 09-29-2021 Urea nitrogen [Mass/Vol] 21 mg/dL 7-18 [facility] Work Phone: Serum or plasma uric acid me asurement (mass/volume)on 09-29-2021 Urate [Mass/Vol] 7.7 mg/dL 3.5-7.2 [facility] Work Phone: Comment on above: The drugs N-Acetylcy steine and Metamizole may falsely depress this assay. Thin prep Papanicolaou smear with manual screeningon 09-29-2021 Thin prep Papanicolaou smear with manual screening 19 U/L 15-37 [facility] Work Phone: Thin prep Papanicolaou smear with manual screening 10 5-15 [facility] Work Phone: Absolute lymphocyte counton 08-11-2021 Lymphocytes Auto (Unsp spec) [#/Vol] 1.53 10*3/uL 0.83-4.51 [facility] Work Phone: Basophil percentageon 2021 Basophils/100 WBC (Bld) 1.0 % 0-1 [facility] Work Phone: Eosinophils/100 WBC (Bld) 7.1 % 0-5 [facility] Work Phone: Neutrophils (Bld) [#/Vol] 5.0 10*3/uL 2.0-7.7 [facility] Work Phone: Neutrophils/100 WBC (Bld) 63.2 % 47-70 [facility] Work Phone: WBC (Bld) [#/Vol] 7.9 10*3/uL 4.4-11.0 [facility] Work Phone: Blood erythrocytes count (nu mber/volume)on 08-11-2021 RBC (Bld) [#/Vol] 4.77 10*6/uL 4.6-6.2 [facility] Work Phone: Blood hemoglobin measurement (mass/volume)on 08-11-2021 Hemoglobin (Bld) [Mass/Vol] 15.5 g/dL 13.0-16.5 [facility] Work Phone: Blood lymphocytes/100 leukoc yteson 08-11-2021 Lymphocytes/100 WBC (Bld) 19.5 % 19-41 [facility] Work Phone: Blood monocytes/100 leukocyt eson 08-11-2021 Monocytes/100 WBC (Bld) 8.8 % 0-10 [facility] Work Phone: Blood platelet mean volumeon 08-11-2021 Platelet mean volume (Bld) [Entitic vol] 12.0 fL 6.2-12.0 [facility] Work Phone: Determination of erythrocyte mean corpuscular volume (MCV)on 08-11-2021 MCV (RBC) [Entitic vol] 95.8 fL 80-94 [facility] Work Phone: Hematocrit Auto (Bld) [Volum e fraction]on 08-11-2021 Hematocrit (Bld) [Volume fraction] 45.7 % 40-54 [facility] Work Phone: Laboratory - Hematology and Cell countson 08-11-2021 Erythrocyte distribution width (RBC) [Entitic vol] 44.6 fL 35.1-43.9 [facility] Work Phone: Erythrocyte distribution width (RBC) [Ratio] 12.5 % 11.6-14.6 [facility] Work Phone: Immature granulocytes/100 WBC (Bld) 0.400 % 0.0-0.9 [facility] Work Phone: Comment on above: IG% - Immature Granu locytes (promyelocytes, myelocytes and metamyelocytes) > 1% indicates that a LEFT SHIFT is Present. MCH (RBC) [Entitic mass] 32.5 pg 27.0-32.0 [facility] Work Phone: Nucleated RBC/100 WBC (Bld) [Ratio] 0 % 0-5 [facility] Work Phone: MCHC Auto (RBC) [Mass/Vol]on 08-11-2021 MCHC (RBC) [Mass/Vol] 33.9 g/dL 32-[address] [facility] Work Phone: Platelets bldon 08-11-2021 Platelets (Bld) [#/Vol] 199 10*3/uL 150-450 [facility] Work Phone: Absolute lymphocyte counton 06-13-2021 Lymphocytes Auto (Unsp spec) [#/Vol] 1.52 10*3/uL 0.83-4.51 [facility] Work Phone: [phone] Basophil percentageon 2021 Basophils/100 WBC (Bld) 0.6 % 0-1 [facility] Work Phone: [phone] Eosinophils/100 WBC (Bld) 3.9 % 0-5 [facility] Work Phone: [phone] Neutrophils (Bld) [#/Vol] 4.2 10*3/uL 2.0-7.7 [facility] Work Phone: [phone] Neutrophils/100 WBC (Bld) 62.7 % 47-70 [facility] Work Phone: [phone] WBC (Bld) [#/Vol] 6.7 10*3/uL 4.4-11.0 [facility] Work Phone: Blood erythrocytes count (nu mber/volume)on 06-13-2021 RBC (Bld) [#/Vol] 4.85 10*6/uL 4.6-6.2 [facility] Work Phone: Blood hemoglobin measurement (mass/volume)on 06-13-2021 Hemoglobin (Bld) [Mass/Vol] 16.0 g/dL 13.0-16.5 [facility] Work Phone: [phone] Blood lymphocytes/100 leukoc yteson 06-13-2021 Lymphocytes/100 WBC (Bld) 22.9 % 19-41 [facility] Work Phone: [phone] Blood monocytes/100 leukocyt eson 06-13-2021 Monocytes/100 WBC (Bld) 9.3 % 0-10 [facility] Work Phone: Blood platelet mean volumeon 06-13-2021 Platelet mean volume (Bld) [Entitic vol] 11.4 fL 6.2-12.0 [facility] Work Phone: Determination of erythrocyte mean corpuscular volume (MCV)on 06-13-2021 MCV (RBC) [Entitic vol] 93.6 fL 80-94 [facility] Work Phone: Hematocrit Auto (Bld) [Volum e fraction]on 06-13-2021 Hematocrit (Bld) [Volume fraction] 45.4 % 40-54 [facility] Work Phone: Laboratory - Hematology and Cell countson 06-13-2021 Erythrocyte distribution width (RBC) [Entitic vol] 43.8 fL 35.1-43.9 [facility] Work Phone: Erythrocyte distribution width (RBC) [Ratio] 12.6 % 11.6-14.6 [facility] Work Phone: Immature granulocytes/100 WBC (Bld) 0.600 % 0.0-0.9 [facility] Work Phone: Comment on above: IG% - Immature Granu locytes (promyelocytes, myelocytes and metamyelocytes) > 1% indicates that a LEFT SHIFT is Present. MCH (RBC) [Entitic mass] 33.0 pg 27.0-32.0 [facility] Work Phone: Nucleated RBC/100 WBC (Bld) [Ratio] 0 % 0-5 [facility] Work Phone: MCHC Auto (RBC) [Mass/Vol]on 06-13-2021 MCHC (RBC) [Mass/Vol] 35.2 g/dL 32-[address] [facility] Work Phone: Platelets bldon 06-13-2021 Platelets (Bld) [#/Vol] 211 10*3/uL 150-450 [facility] Work Phone: Absolute lymphocyte counton 05-12-2021 Lymphocytes Auto (Unsp spec) [#/Vol] 2.09 10*3/uL 0.83-4.51 [facility] Work Phone: Basophil percentageon 2021 Basophils/100 WBC (Bld) 0.7 % 0-1 [facility] Work Phone: Eosinophils/100 WBC (Bld) 6.6 % 0-5 [facility] Work Phone: Neutrophils (Bld) [#/Vol] 4.3 10*3/uL 2.0-7.7 [facility] Work Phone: Neutrophils/100 WBC (Bld) 55.7 % 47-70 [facility] Work Phone: WBC (Bld) [#/Vol] 7.7 10*3/uL 4.4-11.0 [facility] Work Phone: Blood erythrocytes count (nu mber/volume)on 05-12-2021 RBC (Bld) [#/Vol] 5.15 10*6/uL 4.6-6.2 [facility]: Blood hemoglobin measurement (mass/volume)on 05-12-2021 Hemoglobin (Bld) [Mass/Vol] 16.6 g/dL 13.0-16.5 [facility] Work Phone: Blood lymphocytes/100 leukoc yteson 05-12-2021 Lymphocytes/100 WBC (Bld) 27.2 % 19-41 [facility] Work Phone: Blood monocytes/100 leukocyt eson 05-12-2021 Monocytes/100 WBC (Bld) 9.4 % 0-10 [facility] Work Phone: Blood platelet mean volumeon 05-12-2021 Platelet mean volume (Bld) [Entitic vol] 11.8 fL 6.2-12.0 [facility] Work Phone: Determination of erythrocyte mean corpuscular volume (MCV)on 05-12-2021 MCV (RBC) [Entitic vol] 95.0 fL 80-94 [facility] Work Phone: Hematocrit Auto (Bld) [Volum e fraction]on 05-12-2021 Hematocrit (Bld) [Volume fraction] 48.9 % 40-54 [facility] Work Phone: Laboratory - Hematology and Cell countson 05-12-2021 Erythrocyte distribution width (RBC) [Entitic vol] 42.8 fL 35.1-43.9 [facility] Work Phone: Erythrocyte distribution width (RBC) [Ratio] 12.2 % 11.6-14.6 [facility] Work Phone: Immature granulocytes/100 WBC (Bld) 0.400 % 0.0-0.9 [facility] Work Phone: Comment on above: IG% - Immature Granu locytes (promyelocytes, myelocytes and metamyelocytes) > 1% indicates that a LEFT SHIFT is Present. MCH (RBC) [Entitic mass] 32.2 pg 27.0-32.0 [facility] Work Phone: Nucleated RBC/100 WBC (Bld) [Ratio] 0 % 0-5 [facility] Work Phone: MCHC Auto (RBC) [Mass/Vol]on 05-12-2021 MCHC (RBC) [Mass/Vol] 33.9 g/dL 32-36 [facility] Work Phone: Platelets bldon 05-12-2021 Platelets (Bld) [#/Vol] 208 10*3/uL 150-450 [facility] Work Phone: Clinical Summary: HMSPatient IDon 04-15-2020 SOP [facility] Work Phone: Office Visit: New - 1st visi t with practice, Rm: 9on 04-15-2020 NEGATED: Highlighted rowTobacco smoking status NHIS Tobacco smoking status [facility] Work Phone: NEGATED: Highlighted rowxray history of the left hand on 03/13/2020 at [facility] Work Phone: Vital Signs Date Time Vital Sign Value Performing Clinician Facility 02-03-2025 08:30-0400 Body height 180.[address] Alvaro Auguste MD Work Phone: [phone] [place] [address] 02-03-2025 08:30-0400 Body mass index (BMI) [Ratio] 21.3 kg/m2 Dr. Alvaro Auguste MD Work Phone: [phone] [place] [address] 02-03-2025 08:30-0400 Body weight 69.[address] Alvaro Auguste MD Work Phone: [phone] [place] [address] 02-03-2025 08:30-0400 Diastolic blood pressure 73 mm[Hg] Dr. Alvaro Auguste MD Work Phone: [phone] [place] [address] 02-03-2025 08:30-0400 Heart rate 75 /min Dr. Alvaro Auguste MD Work Phone: [phone] [place] [address] 02-03-2025 08:30-0400 Respiratory rate 18 /min Dr. Alvaro Auguste MD Work Phone: [phone] [place] [address] 02-03-2025 08:30-0400 Systolic blood pressure 122 mm[Hg] Dr. Alvaro Auguste MD Work Phone: [phone] [place] [address] 05-15-2023 10:23-0500 Body temperature 97.9 [degF] Dr. Alvaro Auguste Work Phone: 1([phone] [place] [address] 05-15-2023 10:23-0500 Diastolic blood pressure 72 mm[Hg] Dr. Alvaro Auguste Work Phone: 3(325)[phone] [place] [address] 05-15-2023 10:23-0500 Heart rate 69 /min Dr. Alvaro Auguste Work Phone: [phone])458-868488 [place] [address] 05-15-2023 10:23-0500 Respiratory rate 16 /min Dr. Alvaro Auguste Work Phone: [phone])[phone] [place] [address] 05-15-2023 10:23-0500 SaO2% (BldA) [Mass fraction] 97 % Dr. Alvaro Auguste Work Phone: [phone])410-914588 [place] [address] 05-15-2023 10:23-0500 Systolic blood pressure 106 mm[Hg] Dr. Alvaro Auguste Work Phone: [facility] 05-15-2023 08:45-0500 Body height 180.[address] Alvaro Auguste Work Phone: [facility] 05-15-2023 08:45-0500 Body mass index (BMI) [Ratio] 23.3 kg/m2 Dr. Alvaro Auguste Work Phone: [facility] 05-15-2023 08:45-0500 Body weight 75.[address] Alvaro Auguste Work Phone: [facility] 04-16-2023 15:29-0500 Body height 180.[address] Alvaro Auguste Work Phone: [facility] 04-16-2023 15:29-0500 Body mass index (BMI) [Ratio] 23.8 kg/m2 Dr. Alvaro Auguste Work Phone: [facility] 04-16-2023 15:29-0500 Body weight 77.[address] Alvaro Auguste Work Phone: [facility] NEGATED: Highlighted [id number] 13:03-0500 BMI (Body Mass Index) 27.12 kg/m2 Violette Hurst LPN [facility] Work Phone: NEGATED: Highlighted [id number] 13:03-0500 Body weight 84.82 kg Violette Hurst LPN [facility] Work Phone: NEGATED: Highlighted [id number] 13:03-0500 Body weight 85 kg Violette Hurst LPN [facility] Work Phone: NEGATED: Highlighted [id number] 13:03-0500 Height 177.16 cm Violette Hurst LPN [facility] Work Phone: NEGATED: Highlighted [id number] 13:03-0500 Height 177 cm Violette Hurst LPN [facility] Work Phone: Encounters Encounter Date Encounter Type Care Provider Facility Start: 02-23-2025 ambulatory [facility] Facility:[facility] Start: 02-04-[address] Rosy Velazquez MD -Laboratory Work Phone: Start: 02-04-2025 ambulatory [facility] Facility:[facility] Start: 02-03-2025 End: 02-03-[address] Rosy Velazquez MD -[facility] Work Phone: Start: 02-03-2025 End: 02-03-[address] Alvaro Auguste MD Work Phone: -[facility] Start: 01-19-2025 End: 01-19-[address] Alvaro Auguste MD Work Phone: -Laboratory Phy Office 3rd Flr Start: 01-19-2025 End: 01-19-[address] Alvaro Auguste MD -Laboratory Phy Office 3rd Flr Start: 01-19-2025 End: 01-19-2025 ambulatory Alvaro Auguste Facility:[facility] Start: 12-19-2024 Non-patient / Non-visit Dr. Kobe BASHIR -[facility] Start: 12-19-2024 End: 12-19-[address] Alvaro Auguste MD Work Phone: -Cardiovascular Services Start: 12-19-2024 End: 12-19-[address] Alvaro Auguste MD -Cardiovascular Services Work Phone: Start: 12-19-2024 End: 12-19-2024 ambulatory Alvaro Auguste Facility:[facility] Start: 12-15-2024 End: 12-15-[address] Alvaro Auguste MD Work Phone: -Radiology [facility] Start: 12-15-2024 End: 12-15-[address] Alvaro Auguste MD -Radiology [facility] Work Phone: Start: 12-15-2024 End: 12-15-2024 ambulatory Alvaro Auguste Facility:[facility] Start: 10-17-2024 End: 10-17-[address] Alvaro Auguste MD Work Phone: [facility] Work Phone: Start: 10-17-2024 End: 10-17-[address] Alvaro Auguste MD -Laboratory Work Phone: Start: 10-17-2024 End: 10-17-2024 ambulatory Alvaro Kingok Facility:[facility] Start: 10-04-2024 End: 10-04-[address] Alvaro Auguste MD Work Phone: [facility] Work Phone: Start: 10-04-2024 End: 10-04-[address] Alvaro Auguste MD -Laboratory Specimen Work Phone: Start: 10-04-2024 End: 10-04-2024 ambulatory Alvaro Auguste Facility:[facility] Start: 10-02-2024 End: 10-02-[address] Alvaro Auguste MD Work Phone: [facility] Work Phone: Start: 10-02-2024 End: 10-02-[address] Alvaro Auguste MD -Radiology [facility] Work Phone: Start: 10-02-2024 End: 10-02-2024 ambulatory Alvaro Kingok Facility:[facility] Start: 07-02-2024 End: 07-02-[address] Alvaro Auguste MD Work Phone: [facility] Work Phone: Start: 07-02-2024 End: 07-02-[address] Alvaro Auguste MD -Cat Scan, [facility] Work Phone: Start: 07-02-2024 End: 07-02-2024 ambulatory Alvaro Richard Auguste Facility:[facility] Start: 06-11-2024 End: 06-11-[address] Alvaro Auguste MD -Laboratory, Phy Office 3rd Flr Start: 06-11-2024 End: 06-11-2024 ambulatory [facility] Facility:[facility] Start: 06-06-2024 End: 06-06-[address] Alvaro Auguste MD -Cat Scan, [facility] Work Phone: Start: 06-06-2024 End: 06-06-2024 ambulatory [facility] Facility:[facility] Start: 06-02-2024 End: 06-02-[address] Alvaro Auguste MD -Radiology, [facility] Work Phone: Start: 06-02-2024 End: 06-02-2024 ambulatory [facility] Facility:[facility] Start: 04-16-2024 End: 04-16-[address] Alvaro Auguste MD -Laboratory, Phy Office 3rd Flr Start: 04-16-2024 End: 04-16-2024 ambulatory [facility] Richard Auguste Facility:[facility] Start: 05-15-2023 Non-patient / Non-visit Dr. Rubens Auguste Work Phone: [facility] Start: 05-15-2023 End: 05-15-2023 Admission to same day surgery center Dr. Alvaro Auguste Work Phone: [facility]End[facility] Work Phone: Start: 05-15-2023 End: 05-15-[address] Alvaro Auguste Work Phone: [facility] Work Phone: Start: 04-19-2023 End: 04-23-[address] Alvaro Auguste Work Phone: [facility] Work Phone: Start: 04-19-2023 End: 04-23-[address] [facility] Start: 04-16-2023 Non-patient / Non-visit Dr. Rubens Auguste Work Phone: [facility] Work Phone: Start: 04-12-2023 Registered Recurring [facility] Work Phone: Start: 04-10-2023 End: 04-10-2023 ambulatory [facility] Work Phone: Start: 04-10-2023 End: 04-10-2023 Patient encounter procedure [facility] Office 3rd Flr Start: 10-05-2022 End: 10-05-2022 ambulatory [facility] Work Phone: Start: 10-05-2022 End: 10-05-2022 [facility] Start: 10-05-2022 Registered Recurring [facility] Start: 10-05-2022 End: 10-05-2022 ambulatory [facility] Work Phone: Start: 10-05-2022 End: 10-05-2022 Patient encounter procedure [facility] Start: 04-06-2022 End: 04-06-[address] Alvaro Auguste Work Phone: [facility] Work Phone: Start: 04-06-2022 End: 04-06-[address] Alvaro Auguste Work Phone: [facility], [facility] Office 3rd Flr Start: 03-20-2022 End: 03-20-[address] Alvaro Auguste Work Phone: [facility] Work Phone: Start: 03-20-2022 End: 03-20-[address] Alvaro Auguste Work Phone: [facility] Start: 02-01-2022 End: 02-01-[address] Alvaro Auguste Work Phone: [facility]-Laboratory, [place] Start: 01-16-2022 Non-patient / Non-visit Dr. Rubens Auguste Work Phone: [facility] Start: 01-16-2022 End: 01-16-[address] Alvaro Auguste Work Phone: [facility]Cardi[facility] Start: 01-16-2022 End: 01-16-[address] Alvaro Auguste Work Phone: [facility] Work Phone: Start: 01-16-2022 End: 01-16-[address] [facility] Start: 12-21-2021 End: 12-21-[address] [facility] Start: 10-14-2021 End: 10-14-2021 [facility] Start: 09-29-2021 End: 09-29-2021 [facility] Start: 08-11-2021 End: 08-11-[address] [facility] Start: 06-13-2021 End: 06-13-[address] [facility] Start: 05-12-2021 End: 05-12-[address] [facility] Start: 04-25-2021 End: 04-25-[address] Alvaro Auguste Work Phone: [facility] Start: 04-15-2020 End: 04-17-2020 Patient encounter procedure Olivier Ward MD Work Phone: [facility] Work Phone: Procedures Date Procedure Procedure Detail Performing Clinician Start: 12-15-2024 X-ray of cervical spine Dr. Alvaro Auguste MD Work Phone: Start: 10-17-2024 Vitamin D, 25-hydrox y measurement Dr. Alvaro Auguste MD Work Phone: Comment on above: Vitamin D StatusDefi ciency: <20 ng/mL (50nmol/L)Insufficiency: 20-30 ng/mL (50-75 nmol/L)Sufficiency: 30-100 ng/mL (75-250 nmol/L)Toxicity: >100 ng/mL (>250 nmol/L) Start: 10-04-2024 Creatinine measureme nt, [address] Alvaro Auguste MD Work Phone: Comment on above: Previous reported re sult: 42.4 mg/24 hrEdited by: AVILA on 10/04/24:1337 AMENDED REPORT 10/04/24 1337 UR.CREAT/24hr previously reported as: 42.4 L mg/24 hr Start: 10-02-2024 X-ray of lumbosacral spine Dr. Alvaro Auguste MD Work Phone: Start: 07-02-2024 CT of abdomen and pe lvis without contrast Dr. Alvaro Auguste MD Work Phone: Start: 07-02-2024 Plain X-ray abdomen Dr. Alvaro Auguste MD Work Phone: Start: 06-11-2024 Assay of prostate specific antigen total Dr. Alvaro Auguste MD Work Phone: Comment on above: This test was perfor med using the TPSA assay method for theCallmyNameHYLA Mobile chemistry system. Values obtained with differentassay methods cannot be used interchangably.When changing PSA assays in the course of monitoring apatient, additional sequential testing should be carriedout to confirm baseline values. Start: 06-06-2024 CT of pelvis without contrast Dr. Alvaro Auguste MD Work Phone: Start: 06-06-2024 MRI of lower extremity Dr. Alvaro Auguste MD Work Phone: Start: 06-02-2024 Plain x-ray of pelvi s and lower extremity Dr. Alvaro Auguste MD Work Phone: Start: 06-02-2024 X-ray of lumbosacral spine Dr. Alvaro Auguste MD Work Phone: Start: 05-15-[address] Alvaro monroy Work Phone: Start: 01-16-2022 Plain x-ray of hand Dr. Alvaro Auguste Work Phone: Start: 12-21-2021 Plain x-ray of pelvi s and lower extremity Dr. Alvaro Auguste Work Phone: Start: 12-21-2021 End: 12-21-2021 Radiologic examination of knee Dr. Alvaro Auguste Work Phone: Start: 04-15-2020 End: 04-17-2020 Blood pressure screening [...] 3 views Olivier Ward MD Work Phone: History of operative procedure on knee S/P right knee surgery Dr. Alvaro Auguste Work Phone: NEGATED: Highlighted rowStart: 04-15-2020 End: 04-15-2020 Documentation of current medications Violette Hurst LPN NEGATED: Highlighted rowStart: 04-15-2020 End: 04-15-2020 Smoking cessation education Violette Hurst LPN Plan of Treatment Date Care Activity Detail Author Start: 02-03-2025 Radionuclide imaging of perfusion of myocardium under exercise stress [facility] Start: 02-03-2025 End: 02-03-2025 Patient encounter procedure (HFpEF) heart failure with preserved ejection fraction -[facility] Work Phone: Start: 02-03-2025 End: 02-03-2025 Evaluation of diagnostic study results [facility] Start: 05-15-2023 Patient discharge [facility] Start: 03-20-2022 Borrelia burgdorferi blot test [facility] Work Phone: Colonoscopy [facility] Comprehensive metabo lic 2000 panel - Serum or Plasma [facility] Xrcmoiu-1-Omnungpjw dehydrogenase [Enzymatic activity/volume] in Red Blood Cells [facility] Work Phone: Nwrdcxp-7-etdscrgjh dehydrogenase measurement, screen [facility] Work Phone: Laboratory data interpretation [facility] Work Phone: Lipid 1996 panel - S lily or Plasma [facility] Natriuretic peptide. B prohormone N-Terminal [Mass/volume] in Serum or Plasma [facility] Patient Education \\cps-sql1\\CPS_ PtEduca tion\\quitting_smoking _[id number].pdf [facility] Work Phone: Patient referral [facility] Work Phone: Payers Date Payer Category Payer Self-pay [id number] 2023 Unknown [id number] 2016 Unknown [id number] Medicare [id number] Unknown [id number] Unknown [facility] PACKAGE PLAN [id number] Unknown [id number] 2.16.8 [id number] Unknown [id number] 2.16.8 [id number] Unknown [id number] 2.16.8 [id number] Unknown [id number] 2.16.8 40.1.152260.3.579.2.462 Unknown [id number] 2.16.8 40.1.588510.3.579.2.462 Unknown [id number] 2.16.8 40.1.346137.3.579.2.462 Unknown [id number] 2.16.8 40.1.527376.3.579.2.462 Unknown [id number] 2.16.8 40.1.134956.3.579.2.462 Unknown [id number] 2.16.8 40.1.907043.3.579.2.462 Unknown [id number] 2.16.8 40.1.575622.3.579.2.462 Unknown [id number] 2.16.8 40.1.465010.3.579.2.462 Unknown [id number] 2.16.8 40.1.584125.3.579.2.462 Unknown [id number] 2.16.8 40.1.357838.3.579.2.462 Unknown [id number] 2.16.8 40.1.774821.3.579.2.462 Unknown [id number] 2.16.8 40.1.648834.3.579.2.462 Unknown [id number] 2.16.8 [id number] Unknown [id number] 2.16.8 [id number] Social History Date Type Detail Facility Start: 04-25-2021 End: 05-15-2023 Tobacco smoking status MNIS Unknown if ever smoked [facility] Start: 1955 Sex Assigned At Male [facility] Start: 05-15-2023 Tobacco smoking status MNIS Current some day smoker [facility] Start: 07-16-2024 Sex Male (finding) [facility] Sex Male [facility] NEGATED: Highlighted rowStart: 04-15-2020 End: 04-15-2020 Alcohol use Alcohol use [facility] Work Phone: NEGATED: Highlighted rowStart: 04-15-2020 End: 04-15-2020 Details of drug misuse behavior Details of drug misuse behavior [facility] Work Phone: NEGATED: Highlighted rowStart: 04-15-2020 End: 04-15-2020 Assertion Former smoker [facility] Work Phone: NEGATED: Highlighted rowStart: 04-15-2020 End: 04-15-2020 How many days of moderate to strenuous exercise, like a brisk walk, did you do in the last 7 days? How many days of moderate to strenuous exercise, like a brisk walk, did you do in the last 7 days? [facility] Work Phone: NEGATED: Highlighted rowStart: 04-15-2020 End: 04-15-2020 Tobacco use and exposure Tobacco use and exposure [facility] Work Phone: Goals Date Patient Goal Desired Activity /State Mental Status Date Assessment Result Facility 05-15-2023 Cognitive function Level Of Consciousness Sedated [facility] Work Phone: 05-15-2023 Cognitive function Voice/Name;Touch/Shaki ng [facility] Work Phone: Clinical Notes 04-19-2023 to 02-03-2025 Note Date & Type Note Facility 02-03-2025 Progress note [facility] 12-15-2024 Radiology Diagnostic study note [facility] [address] [place] [address] Cerv Spine 2 or 3 Views MR#: [id number] Acct: [id number] Name: DESI PANDEY Rep #: [id number] : 1955 M 69 From: Jose Chow MD PCP: Dr. Alvaro Auguste MD Status: REG C TUAN Study:Cerv Spine 2 or 3 Views Date of Exam: 12/15/24 Exam# [id number] Ordering Dr: Alvaro Auguste MD PROCEDURE: CERV SPINE 2 OR 3 VIEWS 12/15/2024 REASON FOR EXAM: NECK PAIN,CERVICAL DISC DISEASE TECHNIQUE: CERV SPINE 2 OR 3 VIEWS FINDINGS: No evidence of acute fracture or dislocation. Vertebral body heights are maintained. Moderate degenerative changes of the visualized spine. Grade 1 anterolisthesis of C7 on T1. RAD/Cerv Spine 2 or 3 Views IMPRESSION: Spondylosis. Spondylolisthesis. Reading Location: [id number] CC: Dr. Alvaro Auguste MD ~ Bander: Signed [facility] 10-03-2024 Radiology Diagnostic study note [facility] [address] [place] [id number] L/S Spine Min 4 Views MR#: [id number] Acct: [id number] Name: DESI PANDEY Rep #: [id number] : 1955 M 69 From: Bandar Moe MD PCP: Dr. Alvaro Auguste MD Status: RAHEEL DICKERSON Study:L/S Spine Min 4 Views Date of Exam: 10/02/24 Exam# [id number] Ordering Dr: Alvaro Auguste MD PROCEDURE: L/S SPINE MIN 4 VIEWS 10/02/2024 REASON FOR EXAM: LDD TECHNIQUE: Five views; AP, bilateral oblique, lateral and coned-down L5-S1 view COMPARISON: 06/02/2024 FINDINGS: For nomenclature purposes L5 is partially sacralized especially towards the right. No fracture or malalignment. No evidence of spondylolysis. Similar appearance of multilevel spondylosis/discogenic change. L1-2 and L2-3 mild disc space narrowing and degenerative endplate changes again seen. L4-5 moderate disc space narrowing with degenerative endplate changes again noted. L5-S1 spondylosis/discogenic change. Bilateral facet degenerative changes RAD/L/S Spine Min 4 Views IMPRESSION: Similar appearance of multilevel spondylosis/discogenic change. Reading Location: [id number] CC: Dr. Alvaro Auguste MD ~ Bander: Signed [facility] 07-02-2024 Radiology Diagnostic study note [facility] [address] [place], [place] [address] Abd Inc Decub and/or Erect MR#: [id number] Acct: [id number] Name: DESI PANDEY Rep #: [id number] : 1955 M 69 From: Leslie Yepez DO PCP: Dr. Alvaro Auguste MD Status: [facility]ICK[facility] Study:Abd Inc Decub and/or Erect Date of Exam : 07/02/24 Exam# [id number] Ordering Dr: Alvaro Auguste MD PROCEDURE: Abdominal radiographs, three views REASON FOR EXAM: Diverticulitis TECHNIQUE: Three views of the abdomen were obtained. COMPARISON: CT abdomen/pelvis 07/02/2024 FINDINGS: Three views of the abdomen were obtained. Bones are osteopenic with degenerative changes in the spine. Lower lungs are clear. No abnormally dilated bowel segments or free intraperitoneal air. No pathologicair-fluid levels on the upright view. Mild stool in the colon. RAD/Abd Inc Decub and/or Erect IMPRESSION: Unremarkable abdominal radiographs. No free intraperitoneal air. Reading Location: [facility] CC: Dr. Alvaro Auguste MD ~ Bander: Signed [facility] 07-02-2024 Radiology Diagnostic study note [facility] [address] [place], [place] [address] Abdomen/Pelvis without Cont MR#: [id number] Acct: [id number] Name: DESI PANDEY Rep #: [id number] : 1955 M 69 From: Genaro Sommer MD PCP: Dr. Alvaro Auguste MD Status: [facility] Study:Abdomen/Pelvis without Cont Date of Exa m: 07/02/24 Exam# [id number] Ordering Dr: Alvaro Auguste MD EXAM: ABDOMEN/PELVIS WITHOUT CONT CLINICAL HISTORY: Right flank pain for 3 weeks after fall. COMPARISON: 04/19/2021. TECHNIQUE: Helical CT images of the abdomen and pelvis were performed utilizing routine protocol without intravenous contrast material. Multiplanar reformations were obtained. Dose reduction techniques were used including intermediate exposure control (AEC),iterative reconstruction technique, and/or mA and/or KV dose adjustments based on patient's size. FINDINGS: The lung bases are clear. No obvious acute abnormality of the liver, spleen, pancreas, or adrenal glands. No acute obstructive urinary collecting system calculus. No urinary bladder wallthickening. No hydronephrosis. Nonspecific bilateral perinephric stranding noted similar to the prior study. No acute bowel obstruction. No pneumoperitoneum. Colonic diverticulosis is notedwithout evidence of acute diverticulitis. No CT evidence of acute appendicitis. No lymphadenopathy. No significant free fluid in the abdomen and pelvis. Enlarged prostate. The visualized osseous structures demonstrate degenerative changes. CT/Abdomen/Pelvis without Cont IMPRESSION: No hydronephrosis or renal calculi noted. Colonic diverticulosis is noted without evidence of acute diverticulitis. Enlarged prostate. Reading Location: [facility] CC: Dr. Alvaro Auguste MD ~ Bander: Signed [facility] 05-15-2023 Procedure note [facility] 05-15-2023 Procedure note [facility] 04-19-2023 Discharge summary Note Date/Time April 19, 2023 11:54am [facility] Occupational [facility] 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 Rosamaria Sadler MD Status: REG RCR Eval Date: Discharge Date: Discharge Summary D/C Summary: It has been my pleasure to treat DESI PANDEY under orders from Dr. Rosamaria Mcintosh MD, for the diagnosis of CTS SLAC Arthritis of DRUJ tramatic for a totalof 5 visit(s). Please see the following information for a summary of their discharge status. Overall Improvement % Improvement: 80 Objective Objective/Function: pt demo understanding of joint protection CTR procedure scar mtg and ROM to comfort due to his SLAC and Arthritis of DRUJ pt ROM is functional pt very happy with his progress following CTR. Goals Patient Goals: Regain Strength, Decrease Tingling/Numbness, Be More Independent in ADLS and Resume Former Household Responsibilities (Cooking,Cleaning,Yard, etc.) Goal:: pt will demo a increase in bilateral rn observation strength by 5# to increase pt ind. with ADls by dc goal met Goal:: pt will report a reduction in pain by 50% with use of bilateral hands with ADLs by d/c goal met Goal:: Pt will demo understanding of joint protection and ergonomics when performing BADLs and IADLs by d/c goal met Pt will demo understanding of adaptive Equipment use to decrease stress on joints to allow pt to perform BADSL and IADLS at GREGORY level. goal met Goal:: Pt will demo understanding of work/lifting and carry ergonomics to decrease stress on tendons to increase pts independent with ADLs, IADLS and worktasks by d/c. goal met Pt will demo understanding of using supportive bracing 80% of workday/ADLS to decrease stress on tendon origin to allow healing and decrease pain by end of 2nd session. 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 pts left CTR progressed well. pt has no concerns at this time and agrees to d/c d/c sentence: If there are questions or concerns regarding this patient's occupational therapy, please fell free to call me at [phone]. Thank you for the referral of this patient. Sincerely, Stephanie Mcgee, OTR/L, CHT <Electronically signed by Stephanie Mcgee OTR/L, CHT> 04/19/23 3166 CC: Dr. Rosamaria Sadler MD; Dr. Alvaro Auguste MD ~ MK Signed [facility] Work Phone: Evaluation note* Diagnosis Onset Date Resolution Status Left lower quadrant abdominal pain acute [facility] Work Phone: Evaluation noteNo assessment information available [facility] Work Phone: Evaluation note* Diagnosis Onset Date Resolution Status History of colon polyps acut e [facility] Work Phone: Evaluation note* Diagnosis Onset Date Resolution Status Admit Date (HFpEF) heart failure with preserved ejection fraction chronic Jan 8:27am History of hypogonadism chronic S eptemb2024 8:27am HTN (hypertension) chronic 2024 8:27am [facility] Work Phone: History and physical note Author Riccardo Cross [facility] May 15, 2023 9:34am Note Date/Time May 15, 2023 9: 34am [facility] Medical Records Department [address] [place] [address] History & Physical Exam 05/15/23932 MR#: [id number] Acct: [id number] Name: DESI PANDEY Rep #:[id number] : 1955 68 From: Riccardo morrow MD PCP: Dr. Alvaro Auguste MD Status:REG S [place] Location: [address] - General HPI Narrative DESI PANDEY, is a 68 M who presents for surveillance colonoscopy. Patient had a colonoscopy 5 years ago and had 3 polyps removed. He denies any abdominal pain or blood in the stool. He is not on any blood thinners. [facility] Medical History (Updated 05/15/23 @ 09:[address] Riccardo Cross MD) Anxiety Arthritis Chewing tobacco dependence Depression History of colon polyps HTN (hypertension) Injury of back Leg cramps Migraine headache Wears dentures Wears glasses Home Medications lisinopril 20 mg tablet 20 mg PO QHS 10/24/13 [History Last Taken 05/14/23 22:00] tizanidine 4 mg tablet (Zanaflex) 4 mg PO QHS PRN muscle spasticity 04/16/23 [History Last Taken 05/14/23 22:00] ascorbic acid (vitamin C) 500 mg tablet (C-500) 1 g PO DAILY 05/10/23 [History Last Taken Unknown] testosterone 100 mg/mL intramuscular suspension 100 mg IM .[id number] 05/10/23 [History Last Taken Unknown] zinc gluconate 50 mg tablet 50 mg PO DAILY 05/10/23 [History Last Taken Unknown] Allergy/AdvReac Type Severity Reaction Status Date / Time erythromycin base Allergy Rash Verified 05/10/23 13:33 [Erythromycin Base] Family History Mother CVA (cerebral vascular accident) Surgical History (Updated 05/10/23 @ 13:44 by Catherine Lua) History of carpal tunnel surgery of left wrist History of carpal tunnel surgery of right wrist History of surgery on wrist Hx of colonoscopy S/P appendectomy S/P right knee surgery Social History (Updated 04/16/23 @ 15:30 by Sarah Pandey) household members: spouse current occupational status: retired Smoking Status: Current some day smoker tobacco type: smokeless tobacco alcohol intake: current alcohol intake frequency: holidays/special occasions only details: 1-beer per month substance use type: marijuana Past Medical/Surgical History Planned Operation Planned Operative Procedure/s: CSCOPE OA S.O.S: No Previous Hospitalizations/Surgeries HX Hospitalizations: No HX of Surgeries: APPENDECTOMY BACK INJECTIONS 2011 RIGHT KNEE SCOPE 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 Any Problems With Anesthesia: No You/Your Family Experience Fever (Hyperthermia) With Anes: No Cholinesterase deficiency: No Cardiovascular Hx Chest Pain within Last 2 months: No Hx of Irregular Heartbeat and/or Afib: No Hx Heart Attack: No Hx Congestive Heart Failure: No Hx Rheumatic Fever: No Hx Hypertension: Yes (CONTROLLED WITH MED) Hx Internal Defibrillator: No Hx Pacemaker: No Hx Cardiac Catheterization: No Hx Cardiac Surgery/Stents/Etc.: No Hx Stress Test: No Hx Pain in Legs when Walking/Leg Cramps: Yes (IN THE PAST) Respiratory Chronic Cough: No HX of Shortness of Breath: No Hoarseness: No Hx Chronic Obstructive Pulmonary Disease (COPD): No Hx Asthma: No Hx Emphysema: No Hx Sleep Apnea: No Hx Respiratory Tract Infection/Cold (presently): No Do You Snore Loudly (louder than talking or can be heard): Yes Do You Often Feel Tired/ Fatigued/ Sleepy Dring Daytime?: Yes Has Anyone Observed You Stop Breathing During Sleep?: No Result (for STOP score): Positive Hx Smoking: Yes (QUIT 15 YRS AGO) Smoking Status: Current some day smoker Gastrointestinal Hx Gastrointestinal Disorders: No Hx Gastrointestinal Bleed: No Hx Ulcer: No Hx Hiatal Hernia: No Difficulty Chewing/Swallowing: No Special diet followed at home: No Hx Unplanned Weight Loss of 20#: No HX Unplanned Weight Gain of 20#: No Neurological Hx Seizures: No HX Syncope/Blackout Spells/Unconsciousness: No Hx Transient Ischemic Attacks (TIA): No Hx Multiple Sclerosis: No Hx Parkinson's Disease: No Hx Head/Neck Injury: No Hx Headaches: No Hx Back Injury/Pain: Yes (LOWER BACK PAIN AT TIMES/HERNIATED DISC) Recent Onset of Speech Difficulty: No Restless Legs: No Does patient have nerve stimulator: No Blood Disorder Hx Leukemia: No Bleeding Tendencies: No Hx Deep Vein Thrombosis: No Hx High Cholesterol: No Blood Transmitted Disease: No Hx Hepatitis: No Hx Cirrhosis: No Hx Anemia: No Hx Blood Disorders: No Reproduction : No Genitourinary Hx Renal Disease: No Musculoskeletal Hx Arthritis: No Hx Rheumatoid Arthritis: No Hx Gout: No Recent Onset of an Orthopedic Problem: No Endocrine Hx Diabetes: No Thyroid Disease: No Hx Steroid Therapy: No Psycho/Social Hx Substance Use: No Hx Alcohol Use: Yes (6 PACK PER WEEK) Hx Anxiety: No Hx Depression: No Mental Illness: No Hx Dementia: No Miscellaneous Hx Cancer: No Recent Exposure to Contagious Disease: No Hx of C-Diff: No Any Loose Teeth: No Allergies erythromycin base [Erythromycin Base] Allergy (Verified 05/10/23 13:33) Rash Discharge Is Pt Admitted From a Group Home, or a Prison: No After D/C, Where Do you Plan to Go: Return Home From the [facility] History Number of Risk Factors: 2 Vital Signs Vital Signs Vital Signs: 05/15/23 08:45 05/15/23 08:45 Temperature 97.3 F L Temperature Source Temporal Pulse Rate 70 Respiratory Rate 18 Respiratory Pattern Normal Blood Pressure 119/90 H Blood Pressure Mean 99 Blood Pressure Source Monitor Blood Pressure Position Semi-Fowlers Blood Pressure Location Right Arm Pulse Ox 100 Oxygen Delivery Method Room Air Weight Weight: 167 lb 6.4 oz Body Mass Index (BMI) 23.3 Physical Exam Const alert and oriented x3 HEENT normocephalic Eyes PERRL Resp normal respiratory effort and normal air movement Cardio regular rate and regular rhythm GI soft to palpation, non-tender and non-distended Extremity normal to inspection Assessment & Plan Assessment/Plan (1) History of colon polyps: PLAN: I explained endoscopy in detail to the patient. I explained the risks including but not limited to stroke or heart attack with anesthesia, perforationof the GI tract, bleeding, infection. I explained that any of these could necessitate further emergency surgery. The patient understands and all questions were answered sufficiently. The patient wishes to proceed with procedure. Riccardo Cross MD Pager: [facility] [address] [place] [address], [address] [place] [address] Office: Surgery Risks - Colonoscopy Risks Include but are not Limited To: Risks include but are not limited to: Bleeding, perforation requiring further surgery, inability to complete colonoscopy requiring barium enema. 05/15/23 0934 <Electronically signed by Riccardo Cross MD> Cosigner Signature (if applicable): CC: Dr. Riccardo Cross MD; Dr. Alvaro Auguste MD~ Signed [facility] Work Phone: Progress note Author Rosy Velazquez [facility] Note Date/Time February 03, 2025 9:14am [facility] [address] [place] [address] OFFICE VISIT Date of Service: 02/03/25 MR#: [id number] Acct: [id number] Name: DESI PANDEY Rep #: [id number] : 1955 Provider: Dr. Igor Velazquez MD Age/Sex: 69/M Location: [facility] Status: Signed HPI HPI History of Present Illness Details: This very pleasant gentleman has history of hypertension. Last month, he was engaged in physical labor at his home. According to the patient, it was very hot. Per him, over the weekend he drank a lot of "energy drinks". He noticed that his ankles had swelled up. Also noticed "swelling of the neck". No dysphagia. No shortness of breath. No chest pain. The patient went and saw his primary care physician the next day. He was prescribed furosemide 40 mg once daily for 7 days. Also ordered an echocardiogram. Blood workup was also ordered. It showed elevated proBNP. Echocardiogram showed LVEF 50%. Stage I diastolic dysfunction was noted. Since that time, patient's ankle edema has completely resolved. Denies any chest pains or shortness of breath either at rest or with exertion. According to him, he is physically very active. Denies any orthopnea. No PND. Per patient, he has quit drinking energy drinks. Intake Vital Signs 05/15/23 08:45 02/03/25 08:30 Height 5 ft 11 in 5 ft 11 in Weight: 153 lb BMI 21.3 BP 122/73 H Blood Pressure Location Rt brachial Position Sitting Respiration 18 Pulse 75 Pulse Source Monitor Intake Visit Reasons: ANKLE SWELLING/LEAKING, FATIGUE, ABNORMAL ECHO Program Manager Slp Required: No Accompanied by: Is patient in pain?: No Allergies erythromycin base (Erythromycin Base) Allergy (Verified 02/03/25 08:30) Rash Medications ?Medication ?Instructions ?Recorded ?Confirmed ?Type lisinopril 20 mg tablet 20 mg PO QHS 10/24/13 History meloxicam 7.5 mg tablet 7.5 mg PO QDAY PRN 01/09/25 02/03/25 History tamsulosin 0.4 mg capsule 0.4 mg PO QDAY 01/09/2501/07 History tizanidine 4 mg tablet (Zanaflex) 4 mg PO QHS PRN musc le spasticity 02/03/25 02/03/25 History tumeric PO DAILY 02/03/25 History Ejection fraction %: 50 Have you fallen in the past year?: No PFSH Medical History Lyme disease Bilateral carpal tunnel syndrome Localized swelling of both lower extremities GERD without esophagitis Hypokalemia Shortness of breath Wears glasses Wears dentures Anxiety Depression Arthritis Injury of back Migraine headache Chewing tobacco dependence Leg cramps History of colon polyps HTN (hypertension) Surgical History History of surgery on wrist Hx of colonoscopy History of carpal tunnel surgery of right wrist History of carpal tunnel surgery of left wrist S/P right knee surgery S/P appendectomy Family History Mother CVA (cerebral vascular accident) Social History household members: spouse current occupational status: retired Smoking Status: Current some day smoker tobacco type: smokeless tobacco alcohol intake: current alcohol intake frequency: holidays/special occasions only details: 1-beer per month substance use type: marijuana ROS Const Const: Positive for fatigue (improved some); Negative for weakness Eyes Eyes: Negative for change in vision ENT ENT: Positive for dizziness and balance problems Cardio Chest Pain: No Palpitations: No Edema: Bilateral (In Dec-improved. mild swelling recently after alot of walking- worse on left) Resp Respiratory: Positive for SOB with activity and SOB at rest; Negative for SOB orthopnea\\SOB lying down GI GI: Negative nausea or heartburn Musc Musc: Positive for balance problems Neuro Neuro: Positive for dizziness; Negative for lightheadedness, near syncope, syncope or weakness Endo Endo: Positive for fatigue (improved some) Cardiology Exam Const Appearance: comfortable and no acute distress Nutritional Appearance: well nourished Neck Neck: no JVD Carotids: Negative bruit Chest Auscultation: Bilateral: Clear to Auscultation Cardio Rate: regular rate Rhythm: regular rhythm Heart sounds: S1 normal and S2 normal Neuro General: patient alert, patient awake and patient oriented x3 Extremities Lower Extremity Edema: None: Bilateral Supplemental Info Supplemental Information Diagnostics: Echocardiogram Abdomen/Pelvis CT Venous Doppler Study Past Visits: Cardiology Visit Today Assessment and Plan Assessment and Plan (1) (HFpEF) heart failure with preserved ejection fraction: Status: Chronic Plan: Likely transient fluid volume overload with HFpEF with drinking excessive amounts of energy drinks. Now resolved. Counseled to stay away from energy drinks. Counseled about salt and water intake. Continue lisinopril. Check exercise stress Myoview. Repeat BMP. Check complete metabolic panel. (2) HTN (hypertension): Status: Chronic Plan: Lisinopril. (3) History of hypogonadism: Status: Chronic Plan: Previously on testosterone injections. Continue to manage as per PCP. Orders: Orders 12 Lead EKG performed by BMS Today I10 - Essential (primary) hypertension Plan Details Additional Comments: Check lipid profile. Follow Up: 3 Months Coding Level of Care Code Off vis,new,level 4 Diagnoses (HFpEF) heart failure with preserved ejection fraction I50.30 HTN (hypertension) I10 History of hypogonadism Z86.39 Coding Level of Care Code Off vis,new,level 4 Diagnoses (HFpEF) heart failure with preserved ejection fraction I50.30 HTN (hypertension) I10 History of hypogonadism Z86.39 Clinical Quality Measures Falls Risk Screening/Assistive Devices Have you fallen in the past year?: No Cardiac Ejection fraction %: 50 02/03/25 0914 <Electronically signed by Rosy Velazquez MD> Date _ Rosy Velazquez MD Cosigner Signature: Date (if applicable) CC: Dr. Alvaro Auguste MD ~ [facility] Work Phone: Reason for referral (narrative)No reason for referral information availableWPremier Health [facility] Work Phone: Chief Complaint Chief Complaint Description Start Date left thumb finger pain Preliminary chief co mplaint data, not yet signed by the author as of Instructions Instruction Description Start Date Patient advised to follow-up with Primary Care Physician for BMI management. Advance Directives No Advanced Directives Records Found Advance Directive Response Recorded Date/ Time Living Will Yes November 05, 2017 2 :27pm Power of Counter Dish Carrier Yes November 05, 2017 2:27pm Advance Directive Response Recorded Date/ Time Living Will Yes November 05, 2017 1 :27pm Power of Counter Dish Carrier Yes November 05, 2017 1:27pm Advance Directive Response Recorded Date/ Time Living Will Yes April 11 1:47pm Power of Counter Dish Carrier Yes April 11, 2022 1:47pm Advance Directive Response Recorded Date/ Time Living Will Yes June 07 3:47pm Power of Counter Dish Carrier Yes June 07, 2022 3:47pm Advance Directive Response Recorded Date/ Time Living Will Yes June 07 2:47pm Power of Counter Dish Carrier Yes June 07, 2022 2:47pm Advance Directive Response Recorded Date/ Time Name of Medical Power of Counter Dish Carrier SPOUSE May 10, 2023 1:35pm Living Will Yes May 10 1:35pm Power of Counter Dish Carrier Yes May 10, 2 024 1:35pm Assessments There may be information available, but it has not been provided by the sender. Review of System There may be information available, but it has not been provided by the sender. Family History No Family History Records Found Relationship Condition Age at Onset Recorded Date/T alec mother Cerebrovascular accident (CVA) Unknown History of Present Illness There may be information available, but it has not been provided by the sender. Chief Complaint and Reason for Visit Chief Complaint DISCUSS CT RESULTS 1 06/20 Reason for Visit Left lower quadrant abdominal pain Chief Complaint RT UPPER EXTREMITY E LEXUS, HAND PAIN Chief Complaint Essential (primary) hypertension CARPAL TUNNEL R UPPER/OA R HAND/WRIST. Chief Complaint CARPAL TUNNEL RX HER E Chief Complaint Amb Documentation CARPAL TUNNEL RX HERE Chief Complaint Amb Documentation CARPAL TUNNEL RX HERE Reason for Visit History of colon janis yps Chief Complaint Admit Date RT HIP PAIN June 06, 2024 3 :45pm KIDNEY STONES July 02, 2024 12:49pm Chief Complaint Admit Date KIDNEY STONES July 02, 2024 12:49pm Unspecified thoracic, thoracolumbar and lumbosacra October 02, 2024 10:50am [facility] October 04, 2024 10:08 am Chief Complaint Admit Date Unspecified thoracic, thoracolumbar and lumbosacra October 02, 2024 10:50am [facility] October 04, 2024 10:08 am SOB December 19, 2024 1: 45pm Chief Complaint Admit Date SOB December 19, 2024 1: 45pm LAB[facility] January 19, 2025 1:36pm ANKLE SWELLING/LEAKING, FATIGUE, ABNORMA L ECHO February 03, 2025 8:27am Reason for Visit Admit Date (HFpEF) heart failure with preserved eje ction fraction February 03, 2025 8:27am History of hypogonadism February 03, 2025 8:27am HTN (hypertension) February 03, 2025 8:27am Chief Complaint Admit Date SOB December 19, 2024 1: 45pm LABS January 19, 2025 1:36pm ANKLE SWELLING/LEAKING, FATIGUE, ABNORMA L ECHO February 03, 2025 8:27am INT LABS February 04, 2025 8: 51am Summary Purpose Additional Source Comments Reason for Visit (unrecogniz ed section and content) Reason For Visit Description New - 1st visit with practice Preliminary reason f or visit data, not yet signed by the author as of left thumb finger pain Goals (unrecognized section and content) Goals may be documented in a n alternate sectionGoals may be documented in an alternate sectionGoals may be documented in an alternate sectionGoals may be documented in an alternate sectionGoals may be documented in an alternate sectionGoals may be documented in an alternate sectionGoals may be documented in an alternate sectionGoals may be documented in an alternate sectionGoals may be documented in an alternate sectionGoals may be documented in an alternate sectionGoals may be documented in an alternate sectionGoals may be documented in an alternate sectionGoals may be documented in an alternate sectionGoals may be documented in an alternate sectionGoals may be documented in an alternate sectionGoals may be documented in an alternate sectionGoals may be documented in an alternate sectionGoals may be documented in an alternate section Care Teams (unrecognized sec tion and content) Team Status: Active Member Role Status Dates Dr. Alvaro Auguste MD Family Provider Active Dr. Alvaro Auguste MD Primary Care Provider Active Team Status: Active Member Role Status Dates Dr. Alvaro Auguste MD Primary Care Provider Active Dr. Rosamaria Sadler MD Attending Provider, Referring Provider Active Team Status: Inactive Member Role Status Dates Dr. Alvaro Auguste MD Primary Care Provi chuck, Attending Provider, Referring Provider Active Team Status: Inactive Member Role Status Dates Dr. Alvaro Auguste MD Primary Care Provider Active Dr. Rosamaria Sadler MD Attending Provider, Referring Provider Active Team Status: Inactive Member Role Status Dates Dr. Alvaro Auguste MD Primary Care Provider, Attending Provider Active Team Status: Active Member Role Status Dates Dr. Alvaro Auguste MD Primary Care Provider Active [facility] Attending Provider Active Team Status: Active Member Role Status Dates Dr. Alvaro Auguste MD Primary Care Provider, Referring Provider Active Dr. Riccardo Cross MD Attending Provider, Other Provider Active Team Status: Inactive Member Role Status Dates Dr. Alvaro Auguste MD Primary Care Provider, Referring Provider Active Dr. Riccardo Cross MD Attending Provider Active Team Status: Active Member Role Status Dates Dr. Alvaro Auguste MD Primary Care Provider Active Team Status: Inactive Member Role Status Dates Dr. Alvaro Auguste MD Primary Care Provider Active Start: April 16, 2024 End: April 16, 2024 Dr. Alvaro Auguste MD Attending Provider Active Start: April 16, 2024 End: April 16, 2024 Team Status: Inactive Member Role Status Dates Dr. Alvaro Auguste MD Primary Care Provider Active Start: June 02, 2024 End: June 02, 2024 Dr. Alvaro Auguste MD Attending Provider Active Start: June 02, 2024 End: June 02, 2024 Dr. Alvaro Auguste MD Referring Provider Active Start: June 02, 2024 End: June 02, 2024 Team Status: Inactive Member Role Status Dates Dr. Alvaro Auguste MD Primary Care Provider Active Start: June 06, 2024 End: June 06, 2024 Dr. Alvaro Auguste MD Attending Provider Active Start: June 06, 2024 End: June 06, 2024 Dr. Alvaro Auguste MD Referring Provider Active Start: June 06, 2024 End: June 06, 2024 Team Status: Inactive Member Role Status Dates Dr. Alvaro Auguste MD Primary Care Provider Active Start: June 11, 2024 End: June 11, 2024 Dr. Alvaro Auguste MD Attending Provider Active Start: June 11, 2024 End: June 11, 2024 Team Status: Inactive Member Role Status Dates Dr. Alvaro Auguste MD Primary Care Provider Active Start: July 02, 2024 End: July 02, 2024 Dr. Alvaro Auguste MD Attending Provider Active Start: July 02, 2024 End: July 02, 2024 Dr. Alvaro Auguste MD Referring Provider Active Start: July 02, 2024 End: July 02, 2024 Team Status: Inactive Member Role Status Dates Dr. Alvaro Auguste MD Primary Care Provider Active Start: October 02, 2024 End: October 02, 2024 Dr. Alvaro Auguste MD Attending Provider Active Start: October 02, 2024 End: October 02, 2024 Dr. Alvaro Auguste MD Referring Provider Active Start: October 02, 2024 End: October 02, 2024 Team Status: Inactive Member Role Status Dates Dr. Alvaro Auguste MD Primary Care Provider Active Start: October 04, 2024 End: October 04, 2024 Dr. Alvaro Auguste MD Attending Provider Active Start: October 04, 2024 End: October 04, 2024 Dr. Alvaro Auguste MD Referring Provider Active Start: October 04, 2024 End: October 04, 2024 Team Status: Active Member Role Status Dates Dr. Alvaro Auguste MD Primary Care Provider Active Start: October 04, 2024 Dr. Alvaro Auguste MD Attending Provider Active Start: October 04, 2024 Dr. Alvaro Auguste MD Referring Provider Active Start: October 04, 2024 Team Status: Inactive Member Role Status Dates Dr. Alvaro Auguste MD Primary Care Provider Active Start: October 17, 2024 End: October 17, 2024 Dr. Alvaro Auguste MD Attending Provider Active Start: October 17, 2024 End: October 17, 2024 Dr. Alvaro Auguste MD Referring Provider Active Start: October 17, 2024 End: October 17, 2024 Team Status: Active Member Role/Relationship Status Dates Dr. Alvaro Auguste MD Primary Care Provider Active Team Status: Inactive Member Role/Relationship Status Dates Dr. Alvaro Auguste MD Primary Care Provider Active Start: October 02, 2024 End: October 02, 2024 Dr. Alvaro Auguste MD Attending Provider Active Start: October 02, 2024 End: October 02, 2024 Dr. Alvaro Auguste MD Referring Provider Active Start: October 02, 2024 End: October 02, 2024 Team Status: Inactive Member Role/Relationship Status Dates Dr. Alvaro Auguste MD Primary Care Provider Active Start: October 04, 2024 End: October 04, 2024 Dr. Alvaro Auguste MD Attending Provider Active Start: October 04, 2024 End: October 04, 2024 Dr. Alvaro Auguste MD Referring Provider Active Start: October 04, 2024 End: October 04, 2024 Team Status: Inactive Member Role/Relationship Status Dates Dr. Alvaro Auguste MD Primary Care Provider Active Start: October 17, 2024 End: October 17, 2024 Dr. Alvaro Auguste MD Attending Provider Active Start: October 17, 2024 End: October 17, 2024 Dr. Alvaro Auguste MD Referring Provider Active Start: October 17, 2024 End: October 17, 2024 Team Status: Inactive Member Role/Relationship Status Dates Dr. Alvaro Auguste MD Primary Care Provider Active Start: December 15, 2024 End: December 15, 2024 Dr. Alvaro Auguste MD Attending Provider Active Start: December 15, 2024 End: December 15, 2024 Dr. Alvaro Auguste MD Referring Provider Active Start: December 15, 2024 End: December 15, 2024 Team Status: Active Member Role/Relationship Status Dates Dr. Alvaro Auguste MD Primary Care Provider Active Start: December 19, 2024 Dr. Alvaro Auguste MD Attending Provider Active Start: December 19, 2024 Dr. Alvaro Auguste MD Referring Provider Active Start: December 19, 2024 Team Status: Inactive Member Role/Relationship Status Dates Dr. Alvaro Auguste MD Primary Care Provider Active Start: December 19, 2024 End: December 19, 2024 Dr. Alvaro Auguste MD Attending Provider Active Start: December 19, 2024 End: December 19, 2024 Dr. Alvaro Auguste MD Referring Provider Active Start: December 19, 2024 End: December 19, 2024 Team Status: Active Member Role/Relationship Status Dates Dr. Alvaro Auguste MD Primary Care Provider Active Start: December 19, 2024 Dr. Yobani Bernstein MD Attending Provider Active S tart: December 19, 2024 Team Status: Active Member Role/Relationship Status Dates Dr. Alvaro Auguste MD Primary care physician Active Team Status: Inactive Member Role/Relationship Status Dates Dr. Alvaro Auguste MD Primary care physician Active Start: October 17, 2024 End: October 17, 2024 Dr. Alvaro Auguste MD Attending physician Active Start: October 17, 2024 End: October 17, 2024 Dr. Alvaro Auguste MD Referring Provider Active Start: October 17, 2024 End: October 17, 2024 Team Status: Inactive Member Role/Relationship Status Dates Dr. Alvaro Auguste MD Primary care physician Active Start: December 15, 2024 End: December 15, 2024 Dr. Alvaro Auguste MD Attending physician Active Start: December 15, 2024 End: December 15, 2024 Dr. Alvaro Auguste MD Referring Provider Active Start: December 15, 2024 End: December 15, 2024 Team Status: Inactive Member Role/Relationship Status Dates Dr. Alvaro Auguste MD Primary care physician Active Start: December 19, 2024 End: December 19, 2024 Dr. Alvaro Auguste MD Attending physician Active Start: December 19, 2024 End: December 19, 2024 Dr. Alvaro Auguste MD Referring Provider Active Start: December 19, 2024 End: December 19, 2024 Team Status: Active Member Role/Relationship Status Dates Dr. Alvaro Auguste MD Primary care physician Active Start: December 19, 2024 Dr. Yobani Bernstein MD Attending physician Active Start: December 19, 2024 Team Status: Inactive Member Role/Relationship Status Dates Dr. Alvaro Auguste MD Primary care physician Active Start: January 19, 2025 End: January 19, 2025 Dr. Alvaro Auguste MD Attending physician Active Start: January 19, 2025 End: January 19, 2025 Team Status: Inactive Member Role/Relationship Status Dates Dr. Alvaro Auguste MD Primary care physician Active Start: February 03, 2025 End: February 03, 2025 Dr. Alvaro Auguste MD Referring Provider Active Start: February 03, 2025 End: February 03, 2025 Dr. Rosy Velazquez MD Attending physician Active Start: February 03, 2025 End: February 03, 2025 Team Status: Active Member Role/Relationship Status Dates Dr. Alvaro Auguste MD Primary care physician Active Start: February 04, 2025 Dr. Rosy Velazquez MD Attending physician Active Start: February 04, 2025 Dr. Rosy Velazquez MD Referring Provider Active Start: February 04, 2025 (unrecognized sect ion and content) No Status Records Found INFORMATION SOURCE (unrecogn ized section and content) DATE CREATED AUTHOR 02/11/2025 [facility] FOR RECORDS PERTAINING TO PATIENTS WHO ARE [...] BE BASED ON THE PRIMARY CLINICAL RECORDS. [employer] provides no warranty or guarantee of the accuracy or completeness of information in this document.
--- NOTE | 2025-02-23 10:20 | STRESSREP_ITS ---
Stress Test Report Date: 02/23/2025 Procedure: Exercise tolerance test/imaging study Indications: Dyspnea Consent: Per the patient Procedure: The patient exercised on a Jg protocol for 6 minutes achieving a peak heart rate of 130 bpm (87% predicted maximal heart rate) with a peak blood pressure 162/88 mmHg and a peak MET capacity of 7.0 METs. The baseline ECG demonstrated sinus rhythm. The peak exercise ECG showed horizontal ST depressions in inferior leads that were borderline positive for ischemia. Occasional PVCs pretest. PVCs noted in recovery. The functional capacity was considered average. There was no complaint of chest discomfort during exercise or recovery. The examination was discontinued secondary to dyspnea and target heart rate being achieved. The patient was injected with 11.7 mCi of technetium 99m Cardiolite and subsequently rest SPECT Cardiolite nuclear imaging was obtained in the horizontal long, vertical long, and short axis views. Post-exercise, the patient was injected with 34.1 mCi of technetium 99m Cardiolite and subsequently stress SPECT Cardiolite nuclear imaging was obtained in the horizontal long, vertical long, and short axis views. A gated Cardiolite study at peak stress was obtained. Rest and stress SPECT Cardiolite nuclear imaging status post realignment, normalization, and attenuation correction, demonstrates a small apical reversible perfusion defect of moderate intensity. There is end systolic thickening and brightening. The gated Cardiolite study demonstrates borderline LV function. The reported LVEF is 51%. Impression: 1. Technically adequate (percent predicted maximal heart rate greater than 85%) exercise tolerance test 2. Peak exercise ECG with borderline ECG changes in inferior leads for ischemia 3. Frequent PVCs in recovery 4. Rest and stress SPECT Cardiolite nuclear imaging demonstrate apical reversible perfusion defect of moderate intensity consistent with ischemia. 5. The gated Cardiolite study reports an LVEF of 51%. This note was generated with [employer] software. It may contain incorrect words, spelling, and punctuation that were not noted in checking the note before signing.
== END | disposition home or self-care (01) ==
LOC: CVS 06:05
PROVIDERS: PCP Family Medicine Geriatric Medicine; Referring Provider Internal Medicine Cardiovascular Disease; Visit Provider Internal Medicine Cardiovascular Disease
DX: R06.02 Shortness of breath (principal); I11.0 Hypertensive heart disease with heart failure; I50.30 Unspecified diastolic (congestive) heart failure; Z86.39 Personal history of other endocrine, nutritional and metabolic disease
CPT/HCPCS: 78452; 93017; A9500; A4216

== ENCOUNTER → 2025-02-27 | Outpatient (CLI) | payer MEDICARE, SELFPAY ==
[2025-02-27 12:54] LABS: Creatinine, Urine (random) 143.00 mg/dL (39.00-259.00); Protein, Urine (Random) 19.5 mg/dL (0.0-12.0); Protein:Creat Ratio 136 mg/g CRE (0-200)
== END | disposition home or self-care (01) ==
LOC: POLAB3 11:44
PROVIDERS: PCP Family Medicine Geriatric Medicine; Referring Provider Family Medicine Geriatric Medicine; Visit Provider Family Medicine Geriatric Medicine
DX: R80.9 Proteinuria, unspecified (principal); A69.20 Lyme disease, unspecified; W57.XXXA Bitten or stung by nonvenomous insect and other nonvenomous arthropods, initial encounter
CPT/HCPCS: 36415; 82570; 84156; 86617

== ENCOUNTER 2025-03-11 14:41 | Observation (INO) | payer MEDICARE, SELFPAY ==
--- NOTE | 2025-02-27 10:18 | RAD_ITS ---
PROCEDURE: RAD/Chest PA and Lateral
[2025-03-10 08:54] VITALS: BMI 21.6
[2025-03-11] VITALS (9 sets, daily range): BP systolic 138–162; BP diastolic 77–102; PULSE 48–68; RESP 14–16; TEMP 36.4–36.7; O2SAT 99–100; BMI 22.3
[2025-03-11 14:08] LABS: ACT Activated Clotting Time 214 sec (74-137)
[2025-03-11 14:08] LABS: ACT Activated Clotting Time 240 sec (74-137)
[2025-03-11 14:08] LABS: ACT Activated Clotting Time 158 sec (74-137)
--- NOTE | 2025-03-11 14:45 | DCINST_ITS ---
Discharge Instructions
--- NOTE | 2025-03-11 14:45 | PCM.DC ---
Discharge Instructions DC O2, CPAP, BIPAP needs Home O2 Discharge instructions: No Dressing / Incision Discharge Activity: Return to Normal Activity May resume sexual activity in: No Restrictions Dressing / Incision Call your doctor if your incision/area has: Continuous Slow Oozing, Sudden Increased Bleeding, Increased Pain/ Swelling, Increased Redness, Foul Smelling Discharge and Swelling at the incision site Follow Up Care Please Follow Up With: Rosy Velazquez MD When: 2-4 weeks Test Results: Test results from this visit will be discussed in further detail at your follow-up appointment, if applicable. Discharge Plan Admission Attending Provider: Rosy Velazquez Primary Care Provider: Alvaro Auguste Chi Instructions Print Language: [place]i Discharge Orders/Prescriptions Prescriptions: New aspirin 81 mg Tablet,Delayed Release (Dr/Ec) 81 mg PO BREAKFAST Qty: 90 4RF atorvastatin 10 mg Tablet 10 mg PO QHS Qty: 30 11RF clopidogrel 75 mg Tablet 75 mg PO DAILY Qty: 30 10RF Continued tamsulosin 0.4 mg capsule 0.4 mg PO QDAY tumeric capsule PO DAILY callie root extract 15 mg tablet,chewable PO DAILY lisinopril 20 MG tablet 20 mg PO QHS Patient Comments: Referrals / Follow Up: Alvaro Auguste Chi, MD [Primary Care Provider, Geriatrics] Disposition Disposition (needs filled in before D/C Order can be placed): Home, Self Care
--- NOTE | 2025-03-11 15:09 | CRPHASE1_ITS ---
Patient Communication
--- NOTE | 2025-03-11 15:09 | CRPHASE1 ---
Patient Communication Patient Information Former Patient:: Phase I PHII Cardiac Rehab Discussed with Patient:: Yes Guide to Cardiac Rehab Given to Patient:: Yes Cardiac Rehab Facility Choice List Given to Patient:: Yes Communication to Cardiac Rehab Choice Program [facility] CR PHII:: Communication Given to CR Boiler Assistant Operator:: Rosy Velazquez Phase II Cardiac Rehab:: Yes Sessions:: 36 sessions - 3 days/wk, 12 weeks Medical/Surgical History Medical History VA:: No Angina:: Yes CAD:: Yes Congestive Heart Failure:: No Cardiomyopathy:: No Valve Disease/Replacement:: No Pulmonary:: No COPD:: No Asthma:: No PHAN:: No Diabetes:: No Diabetes Type I:: No Diabetes Type II:: No Hypertension:: No Dyslipidemia:: No Arrhythmias:: No EPS:: No CVA/TIA: CEA:: No PE:: No DVT:: No PVD:: No PAD:: No Arthritis:: No GI:: No GERD:: No Cancer:: No Renal:: No Thyroid:: No Depression:: No Anxiety:: No Surgical History CABG: No PTCA:: Yes ICD:: No Pacemaker:: No Orthopedic:: No Cardiac Rehabilitation Info Program Information Cardiac Rehabilitation Program Information: Cardiac Rehab The cardiac rehab team at [facility] consists of highly skilled exercise physiologists, nurses, respiratory therapists and physicians working together with you. Our purpose is to help you have a full recovery and achieve the goals you set for yourself. Over the years many of our patients have returned to activities they assumed they would never do again! We can help restore your confidence and motivation to make lifestyle changes that can have a significant impact on your health and quality of life! We can help answer questions and concerns you may have about exercise, lifestyle, medications, diet, stress and anxiety which are common following a hospitalization. WE monitor ECG and vital signs during exercise and discuss your progress with you and report to your physician(s). Cardiac Rehab is proven to help reduce readmissions, improve functional capacity and lower recurrence of problems with your heart. Our Cardiac Rehab program is Certified by the [place] [employer] Cardio-Vascular and Pulmonary Rehabilitation (AACVPR) and Accredited by the [place] [employer] through our [facility]. You can contact us at . We invite you to call us with your questions or to get started in our program. If you have other questions or concerns be sure to ask your physician/provider during your follow-up visit. WE look forward to seeing you!
--- NOTE | 2025-03-11 15:10 | CRPH1.INSTRU ---
General Education Discussed with Patient CAD and cardiac anatomy and function:: Patient communicates acknowledgment Explanation of diagnoses and procedures:: Patient communicates acknowledgment Sign/Symptoms of GA:: Patient communicates acknowledgment Antiplatelet therapy: Patient communicates acknowledgment Proper use of NTG-SL: Patient communicates acknowledgment Emergency procedures and activation of EMS: Patient communicates acknowledgment Compliance of all prescribed medications: Patient communicates acknowledgment Smoking Risk Factors Patient Nicotine/Smoking Risk Factors Are:: Cigarettes Recommendations Recommendations Include:: Smoking cessation strategies/Smoking packet Response Code Nicotine/Smoking Response Code:: Patient communicates acknowledgment Dyslipidemia Recommendations Recommendations Include:: Lipid profile not available Overweight/Obesity Risk Factors Patient Overweight/Obesity Risk Factors Are:: BMI Normal [18-25 & < 65 years old] Hypertension Risk Factors Patient Hypertension Risk Factors Are:: No documented hx of HTN Heart Disease Risk Factors Patient Heart Disease Risk Factors Are:: Previous cardiac event Recommendations Recommendations Include:: Educated family members of their risk Response Code Heart Disease Response Code:: Patient communicates acknowledgment Diabetes Risk Factors Patient Diabetes Risk Factors Are:: No documented hx of diabetes Metabolic Syndrome Response Code Metabolic Syndrome Response Code:: Patient communicates acknowledgment Sedentary Recommendations Recommendations Include:: Benefits of regular exercise Response Code Sedentary Response Code:: Patient communicates acknowledgment Stress Risk Factors Patient Stress Risk Factors Are:: Patient denies stress as a risk factor
[2025-03-11] MEDS: 0.9% Normal Saline (1000mL) 1,000 ML 150 ML IV (16:26)
[2025-03-12 03:10] VITALS: BP 120/78; PULSE 61; RESP 16; TEMP 36.6; O2SAT 98
[2025-03-12 06:15] LABS: Hematocrit 37.4 % (40-54); Hemoglobin 12.9 g/dL (13.0-16.5); Mean Corp Hgb Conc 34.5 g/dL (32-36); Mean Corpuscular Volume 92.3 fL (80-94); Mean Platelet Vol. 11.4 fl (6.2-12.0); Platelet Count 189 K/mm3 (150-450); RBC Distribution Width CV 13.4 % (11.6-14.6); RBC Distribution Width SD 45.6 fl (35.1-43.9); Red Blood Count 4.05 M/mm3 (4.6-6.2); White Blood Count 10.4 K/mm3 (4.4-11.0)
[2025-03-12 06:47] LABS: Cholesterol 131 mg/dL (<=200); Low Density Lipoprotein Calc. 51 mg/dL; Triglycerides 142 mg/dL; Very Low Density Lipoprotein 28 mg/dL (5-40); cholesterol:hdl ratio screen 2.34
[2025-03-12 06:53] LABS: AST(SGOT) 26 U/L (<=37); Alanine Aminotransfer ALT/SGPT 15 U/L (<=46); Albumin, Serum 3.7 g/dL (3.4-4.8); Alkaline Phosphatase 63 U/L (40-129); Anion Gap 10 (5-15); BUN 19 mg/dL (4-19); BUN/Creat Ratio 21.5 RATIO (10-20); Calcium,Total 9.1 mg/dL (7.6-11.0); Carbon Dioxide 21.4 mmol/L (21.0-32.0); Chloride 108 mmol/L (98-108); Estimated Creatinine Clearance 76.88 ml/min (50-250); Globulin 2.7 g/dL (2.2-4.2); Glucose 91 mg/dL (70-99); Potassium 4.4 mmol/L (3.3-5.1)
[2025-03-12 08:19] VITALS: BP 106/64; PULSE 69; RESP 16; TEMP 36.6; O2SAT 96
[2025-03-12] MEDS: Aspirin E.C. 81 MG Tablet PO (08:24)
--- NOTE | 2025-03-12 10:00 | CASEMGMT ---
CARMITA PARMAR NOTE: Discharge order is in. CARMITA PARMAR to room. Pt resting in bed. He denies having any concerns w/going home. He states his will be taking him home. He is aware Rx has been sent to [facility] pharmacy and he states they can pick that up today. Faisal BSN CARMITA PARMAR
[2025-03-12 16:24] VITALS: BP 126/73; PULSE 61; RESP 18; TEMP 36.4; O2SAT 100
== END 2025-03-12 17:26 | disposition home or self-care (01) ==
LOC: CLSP 14:50 → PCU 14:50
PROVIDERS: Admitting Provider Internal Medicine Cardiovascular Disease; PCP Family Medicine Geriatric Medicine; Referring Provider Internal Medicine Cardiovascular Disease; Visit Provider Internal Medicine Cardiovascular Disease
DX: R94.39 Abnormal result of other cardiovascular function study (principal); I11.0 Hypertensive heart disease with heart failure; I50.32 Chronic diastolic (congestive) heart failure; M54.2 Cervicalgia; M79.89 Other specified soft tissue disorders; R60.0 Localized edema; Z79.899 Other long term (current) drug therapy; K21.9 Gastro-esophageal reflux disease without esophagitis; F17.220 Nicotine dependence, chewing tobacco, uncomplicated; R06.02 Shortness of breath
CPT/HCPCS: 71046; 80053; 80061; 85027; 85347; 92928; 93005; 93454; 93571; 96360; 96361; 99152; 99153; 99221; C1887; C1894; Q9967; C1725; C1769; C1874; C9600; G0378

== ENCOUNTER → 2025-03-19 | Outpatient (CLI) | payer MEDICARE, SELFPAY ==
[2025-03-19 12:13] LABS: Hematocrit 37.8 % (40-54); Hemoglobin 13.0 g/dL (13.0-16.5); Mean Corp Hgb Conc 34.4 g/dL (32-36); Mean Corpuscular Volume 93.3 fL (80-94); Mean Platelet Vol. 12.2 fl (6.2-12.0); Platelet Count 194 K/mm3 (150-450); RBC Distribution Width CV 13.6 % (11.6-14.6); RBC Distribution Width SD 46.8 fl (35.1-43.9); Red Blood Count 4.05 M/mm3 (4.6-6.2); White Blood Count 7.6 K/mm3 (4.4-11.0)
[2025-03-19 13:35] LABS: AST(SGOT) 25 U/L (<=37); Alanine Aminotransfer ALT/SGPT 17 U/L (<=46); Albumin, Serum 4.2 g/dL (3.4-4.8); Alkaline Phosphatase 83 U/L (40-129); Anion Gap 11 (5-15); BUN 17 mg/dL (4-19); BUN/Creat Ratio 21.2 RATIO (10-20); Calcium,Total 10.0 mg/dL (7.6-11.0); Carbon Dioxide 22.4 mmol/L (21.0-32.0); Chloride 110 mmol/L (98-108); Globulin 2.7 g/dL (2.2-4.2); Glucose 91 mg/dL (70-99); Potassium 4.1 mmol/L (3.3-5.1)
== END | disposition home or self-care (01) ==
LOC: LAB 10:57
PROVIDERS: PCP Family Medicine Geriatric Medicine; Referring Provider Internal Medicine Cardiovascular Disease; Visit Provider Internal Medicine Cardiovascular Disease
DX: I25.10 Atherosclerotic heart disease of native coronary artery without angina pectoris (principal); I11.0 Hypertensive heart disease with heart failure; I50.30 Unspecified diastolic (congestive) heart failure; R53.83 Other fatigue
CPT/HCPCS: 36415; 80053; 84443; 85027

== ENCOUNTER → 2025-03-25 | Outpatient (CLI) | payer MEDICARE, SELFPAY ==
[2025-03-25 09:53] LABS: Cholesterol 115 mg/dL (<=200); Low Density Lipoprotein Calc. 26 mg/dL; Pro- Brain NATRIURETIC PEPTIDE 305 pg/mL (<=900); Triglycerides 112 mg/dL; Very Low Density Lipoprotein 22 mg/dL (5-40); cholesterol:hdl ratio screen 1.66
[2025-03-25 09:58] LABS: AST(SGOT) 27 U/L (<=37); Alanine Aminotransfer ALT/SGPT 20 U/L (<=46); Albumin, Serum 4.3 g/dL (3.4-4.8); Alkaline Phosphatase 91 U/L (40-129); Bilirubin, Direct 0.14 mg/dL (0.00-0.30); Globulin 2.8 g/dL (2.2-4.2)
== END | disposition home or self-care (01) ==
LOC: LAB 09:03
PROVIDERS: Physician Assistant Medical; PCP Family Medicine Geriatric Medicine; Referring Provider Internal Medicine Cardiovascular Disease; Visit Provider Internal Medicine Cardiovascular Disease
DX: E78.00 Pure hypercholesterolemia, unspecified (principal); I11.0 Hypertensive heart disease with heart failure; I50.30 Unspecified diastolic (congestive) heart failure; R53.83 Other fatigue; I25.10 Atherosclerotic heart disease of native coronary artery without angina pectoris; Z95.5 Presence of coronary angioplasty implant and graft
CPT/HCPCS: 36415; 80061; 80076; 83880

== ENCOUNTER → 2025-03-25 | Outpatient (CLI) | payer MEDICARE, SELFPAY ==
--- NOTE | 2025-03-25 08:04 | PCM.CR.HP2 ---
CR - History & Physical General Arrival date:: 03/25/25 Arrival time:: 08:04 Date of Referral:: 03/11/25 Date of CR Evaluation:: 03/25/25 Referring Physician: Dr. Velazquez Primary Diagnosis: PCI w/stenting History of Present Cardiac Event Onset Date PTCA or coronary stenting:: Yes (onset 03/11/2025) Vessel: LAD Medications Ambulatory Orders Medication Instructions Recorded tamsulosin 0.4 mg capsule 0.4 mg PO QDAY 01/09/25 tumeric PO DAILY 02/03/25 callie root extract 15 mg chewable mg PO DAILY 02/27/25 tablet aspirin 81 mg tablet,delayed 81 mg PO BREAKFAST #90 tabs 03/11/25 release atorvastatin 10 mg tablet 10 mg PO QHS #30 tabs 03/11/25 Held on 03/24/25. Instructions: Severe fatigue clopidogrel 75 mg tablet 75 mg PO DAILY #30 tabs 03/11/25 lisinopril 10 mg tablet 10 mg PO QDAY #90 tabs 03/19/25 Allergies Allergies erythromycin base (Erythromycin Base) Allergy (Verified 03/19/25 10:12) Rash Sleep Disorder Evaluation Hx of Sleep Apnea: No Do you snore loudly (louder than talking or can be heard through closed doors)?: No Do you often feel tired/ fatigued/ sleepy during daytime?: No Has anyone observed you stop breathing during sleep?: No History of Hypertension (for STOP score): Yes STOP Results: Negative Advanced Directives Advanced Directives Do you have a Healthcare 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 Rosy Velazquez MD) Hyperlipidemia E78.5 Lyme disease A69.20 Bilateral carpal tunnel syndrome G56.03 Localized swelling of both lower extremities M79.89 GERD without esophagitis K21.9 Hypokalemia E87.6 Shortness of breath R06.02 Wears glasses Z97.3 READERS Wears dentures Z97.2 Anxiety F41.9 SITUATIONAL Depression F32.A SAD/FAMILY ISSUES Arthritis M19.90 Injury of back S39.92XA HERNIATE DISC 2007/HAD CAUDAL BLOCK Migraine headache G43.909 [employer] IN THE PAST Chewing tobacco dependence F17.220 DO NOT USE 12 HOURS PRIOR Leg cramps R25.2 OCC History of colon polyps Z86.010 HTN (hypertension) I10 Past Surgical History Past Surgical History (Updated 03/11/25 @ 17:06 by Amairani Barnett) Stented coronary artery (03/11/25) Z95.5 [place] JEET 3.0x15mm to mid LAD; [place] JEET 3.0 x 38mm and 3.0x 8mm to Proximal and Mid LAD 03/11/25 History of surgery on wrist Z98.890 RIGHT 2021 Hx of colonoscopy Z98.890 2018 History of carpal tunnel surgery of right wrist Z98.890 History of carpal tunnel surgery of left wrist Z98.890 S/P right knee surgery Z98.890 S/P appendectomy Z90.49 Family History Summary Family History Mother CVA (cerebral vascular accident) Social History Smoking History Smoking Status: Former smoker Years Smokin (stopped in 2002) Packs Smoked per Day: 1 Alcohol Use Alcohol Usage: No Occupation Occupation (List type of work in comments):: Retired Social Environment Status Marital Status: Current Living Arrangements Living Environment:: Spouse Children How many children do you have?: 1 Do any of your children live nearby?: Yes Safety Do you feel safe in your surroundings?: Yes Assistance Do you need any assistance at home?: no Review of Systems Review of Systems Hints Review of Present Symptoms: Reports Dizziness/Lightheadedness, Fatigue, Appetite - Normal and Sleep - Normal; Denies Shortness of Breath at Rest, Shortness of Breath with Exertion, PVD, Operative Discomfort, Angina, Wound Healing, Heart Arrhythmia/Irregularities, Appetite - Special Diet or Sexual Changes Pain Is Patient Pain Free?: Yes Risk Factor Assessment Chief Complaint Chief Complaint: PCI w/stenting Vital Signs Pulse Ox: 99 Blood Pressure: 140/80 Pulse Pulse Rate: 74 Pulse Rhythm: Regular Hypertension How long have you been treated?: 20 years Blood Pressure Sitting - Right Arm: 140/80 Obesity Height: 5 ft 10 in Weight:: 155 lb Weight in Pounds: 155.0 lbs Body Mass Index (BMI): 22.2 Physical Inactivity Physical Inactivity: Recreational activity (work around the house) Risk Stratification Risk Guidelines: Moderate Risk: Risk Factor for Smoking, Risk Factor for Diabetes, Risk Factor for Obesity, Risk Factor for Sedentary Lifestyle and Risk Factor for Depression and Highest Risk: Risk Factor for Dyslipidemia and Risk Factor for Hypertension For Smoking Smoking Risk Guidelines For Dyslipidemia Dyslipidemia Risk Guidelines For Diabetes Mellitus Diabetes Risk Guidelines For Obesity/Overweight Obesity/Overweight Risk Guidelines For Hypertension Hypertension Risk Guidelines For Sedentary Lifestyle Sedentary Lifestyle Risk Guidelines For Depression Depression Risk Guidelines Family History Family History Mother CVA (cerebral vascular accident) Motivation Motivation to Participate On a scale of 1 to 10, how prepared are you to commit to attending program?: 10 What do you see as barriers to successfully being able to complete the program?: nothing What do you see as the benefits of succesfully completing the program? In other words, what do you hope to get out of participating in the program?: improved energy, stronger Are there issues you are dealing with that will interfere with completing the program?: Pt has a copay Do you have a spouse or signficant other, family or friends who will help support you to complete the program?: yes
--- NOTE | 2025-03-25 08:15 | PCM.CR.ITP ---
Diagnosis General Information Admitting Diagnosis: PCI w/stenting Personal Learning Style:: Audio/Visual Barriers to Learning: No Barriers Stage of change r/t lifestyle modifications:: Contemplation Gave educational material for:: Treating Heart Disease, How The Heart Works, What it means to have Heart Disease, How Coronary Artery Disease is Diagnosed, Heart Procedures, What Heart Medications Do, Risk Factors & Modifications, Living an Active Life, Nutrition, Emotions & Heart Disease, Stress Management & Relaxation and Sleep Disorders & Heart Disease Education/Goals Cardiac Rehabilitation Goals Personal Goals: Initial Assessment: Improve management of stress and emotions, Improve energy level, Participate in home exercise program, Improve knowledge of cardiac disease and Improve muscle strength and endurance Scale for measuring improvement of personal goals Diagnosis & Disease Process Outcomes/Goals: Pt IDs own risk factors & lifestyle modifications by Session 10, Verbalizes symptoms of angina & response by session 3., Pt independently manages and Other Additional Outcomes/Goals: Plan/Interventions: Assist Pt to ID & engage in lifestyle modification to reduce CVD risk, Instruct on individual risk factors, Review symptoms of angina & emergency actions, Review secondary diagnosis & identify educational needs. and Other see comment 30 day Reassessments:: Not Met 30 day Reassessments:: Not Met 30 day Reassessments:: Not Met 30 day Reassessments:: Not Met Final Reassessments:: Not Met Safety Referral to Physical Therapy: No Referral to [facility] Case Management: No Fall Risk Assessed:: Yes Assistive Devices:: None Exercise - Initial Assessment Visit Date of Eval: 03/25/25 (initial eval) Mets: Pre-: >3 METS for 30 minutes by discharge, >5 METS for 30 minutes by discharge, >7 METS for 30 minutes by discharge and Unable to meet goal due to: (see comment below) Physician Prescribed Exercise Modalities: Treadmill, Rower, Schwinn Airdyne AD-7, SciFit Stepper, SciFit Pro-II Ergometer and SciFit Lateral [place] Frequency: 3x/week for 12 weeks [36 sessions] Intensity: 60-80% of age predicted maximum heart rate reserve Duration: 30 - 45 minutes Current METSs:: 3 Target Heart Rate:: 89-111 Resting Blood Pressure: 140/80 EKG Type: SB Outcomes & Goals Goals:: Verbalizes understanding of THR, RPE & goal METS by session 6, Documents in home exercise log/reports 30 min aerobic 5 day/wk by DC, Demonstrates accurate pulse taking by DC and Other additional outcome/goals: see below Intervention & Plan Exercise Program Goals: Instruct on personal THR & RPE, Instruct on MET level & personal MET goal, Show patient to take own pulse /validate performance until accurate, Instruct on home exercise and Other additional plan/int Physical Activity Home Exercise Physical Activity - Home Exercise: Safe Exercise, Warm-up, Self-monitoring, Cool-Down, Home Exercise > 30 min Daily and Sitting Time <3 hours/daily Outcomes & Goals Outcomes/Goals: Demonstrates correct Warm-up/exercise Cool-Down (S3) if = 2.5 METs, Verbalizes symptoms of exercise intolerance by Session 3 (S3), Demonstrate safe equipment use (S3) & follows exercise prescrition (6) and Other: See below Intervention & Plan Plan/Intervention: Instruct warm-up & cool-down if exercising at > 2 METs, Instruct on symptoms of exercise intolerance & actions to take, Instruct & monitor on saf, Assess intial functional capacity & safety risk and Other See below Nutrition - Initial Assessment Program Goals Nutrition Program Goals Patient has diagnosis of Hyperlipidemia (ICD E78)?: Yes Visit Date of Eval: 03/25/25 (initial eval. Nutrition score of 3) Cholesterol/Lipids (Other Core Measures) Determine presence & major risk factors that modify LDL goal: Cigarette smoking, Hypertension or hypertensive medication, Low HDL cholesterol <40 mg/dL*, Family history of premature CHD in Male < 55 years: female <65 yearsFa and Age men > 45 years; women >/= 55 years Outcomes/Goals: Pt IDs own risk factors & lifestyle modifications by Session 10, Verbalizes symptoms of angina & response by session 3., Pt independently manages and Other Additional Outcomes/Goals: Intervention/Plan: Advocate for lipid panel cholesterol medication if applicable, Instruct on personal lipid levels & lipid goals/NCEP guidelines, Instruct on cholesterol and Other additional plan/int Diabetes (Other Core Measures) Diabetes Type: Not Applicable Weight Mgt (Other Care) Height: 5 ft 10 in Weight:: 155 lb BMI: 22.2 Diagnosis Overweight/Obesity BMI> 30% ICD-10 E66: No Diagnosis High BMI/Morbid Obesity BMI> 35% ICD-10 Z68: No Outcomes/Goals: Pt sets, maintains & shows weight loss goal & trend during rehab and Other additional outcomes/goals Intervention/Plan: Instruct on ideal BMI & set weight loss goal w/patient, Assist pt to ID & incorporate diet changes for weight loss by S9, Refer to Structured Weight Loss program as appropriate, Encourage goal of using 250-300dcal per session for weight loss and Other additional plan/interventions Healthy Eating Habits Will attend diet classes:: Yes Outcomes/Goals:: Consume diet rich in vegs,fruits,whole grain/high fiber,fish,lean meat, Limit sat/trans fats,cholesterol & added salts & sugars and Other additional outcome/goals: Intervention/Plan:: Assess current eating habits and Other Additional plan/interventions Education Gave educational materials for:: Signs & symptoms of hypoglycemia, Signs & symptoms of hyperglycemia, Relate diabetes to coronary artery disease and Healthy eating Core - Initial Assessment Visit Date of Eval: 03/25/25 (initial eval) Medication Compliance Preventative Medication(s):: Aspirin, BETSY inhibitor, Clopidogrel/P2Y12 inhibit and Statin/lipid H/O mental health issues: depression, anxiety, or addiction?: No Doesn’t believe in the benefits of treatment?: No Believes medications are unnecessary or harmful?: No Has a concern about medication side effects?: No Expresses concern over the cost of medications?: No Outcomes/Goals: Verbalizes medications,desired effect & common side effects @ DC, Pt self-reports following medication regimen, Keeps card in wallet w/medications listed by DC and Other additional outcome/goals: Interventions/plans: Instruct on medication effects & side effects, Review medication list w/patient every two weeks, Instruct importance of taking meds as ordered & assist problem solving and Other additional Tobacco Use Tobacco Use: Non-smoker How long ago did you quit using tobacco products?: Greater than or equal to 6 months ago (Pt stopped in 2002) How many cigarettes do you smoke per day?: 20 Years Smokin Outcomes/Goals: Smoking cessation achieved or maintained by discharge, Identify aids/strategies for achieving smoking cessation by session 6 and Other additional outcome/goals Interventions/plan: Instruct on effects of smoking & provide smoking cessation resource, Assist pt to set quit date & provide encouragement, Assist pt to develop strategies to achieve/maintain quit date, Assist pt w/nicotine replacement & medication for cessation success and Other additional plan/interventions Hypertension Hypertension Diagnosis:: Hypertension ICD-10 I10 Resting Blood Pressure:: 140/80 [place] [employer] Hypertension Guidelines Outcomes/Goals: Able to verbalize/achieve optimal blood pressure <130/80, Incorporates diet changes & exercise for blood pressure control by DC and Other additional outcomes/goals Interventions/plan: Instruct on optimal blood pressure, hypertension & medications, Instruct on effects of sodium, alcohol, stress, exercise &hypertension and Other additional plan/interventions Tobacco Cessation Referral Smoking Cessation Referral:: No Individual Education/Counseling:: No Education Schedule Given:: Yes Psychosocial - Initial Assess VIsit Date of Eval: 03/25/25 (initial eval) History of previous Mental disease:: No Psychosocial Test Tool Used:: [employer] QOL Cardiac and PHQ-9 Questionnaire phq-9 Severity See PHQ-9 Score: 7 Referral to Behavioral Health PS - Interventions: Yes: Attend Stress Management Classes Outcomes/Goals: See list Psychosocial Outcomes/Goals:: ID's personal stressors & 2 strategies to manage stress by discharge and Other Additional outcome/goals: Intervention/Plan: See List Interventions/Plan:: Assess stressors,coping strategies & signs of derpression on admission, Instruct/assist pt to develop coping & personal stress Mgt strategies, Refer to Behavioral Health if appropriate, Refer to Physician if appropriate, Instruct patient to recognize signs & symptoms of depression, Instruct patient to recog and Other additional plan/intervention Exercise - 30-day Assessment Physician Prescribed Exercise Modalities: Treadmill, Rower, Schwinn Airdyne AD-7, SciFit Stepper, SciFit Pro-II Ergometer and SciFit Lateral Phone Specialist Exercise - 60-day Assessment Physician Prescribed Exercise Modalities: Treadmill, Rower, Schwinn Airdyne AD-7, SciFit Stepper, SciFit Pro-II Ergometer and SciFit Lateral [place] Exercise - 90-day Assessment Physician Prescribed Exercise Modalities: Treadmill, Rower, Schwinn Airdyne AD-7, SciFit Stepper, SciFit Pro-II Ergometer and SciFit Lateral [place] Exercise - Final/Discharge Physician Prescribed Exercise Modalities: Treadmill, Rower, Schwinn Airdyne AD-7, SciFit Stepper, SciFit Pro-II Ergometer and SciFit Lateral Phone Specialist Frequency: 3x/week for 12 weeks [36 sessions] Intensity: 60-80% of age predicted maximum heart rate reserve Current METSs:: 3 Target Heart Rate:: 89-111 Nutrition - 30-Day Assessment Weight Mgt (Other Care) Height: 5 ft 10 in Weight:: 155 lb BMI: 22.2 Nutrition - 60-Day Assessment Weight Mgt (Other Care) Height: 5 ft 10 in Weight:: 155 lb BMI: 22.2 Core - 30-Day Assessment Tobacco Use Years Smokin Core - Final Assessment Hypertension Resting Blood Pressure:: 140/80 [place] [employer] Hypertension Guidelines Core - 60-Day Assessment Hypertension Resting Blood Pressure:: 140/80 [place] [employer] Hypertension Guidelines Psychosocial - 30-Day Assess Referral to Behavioral Health PS - Interventions: Yes: Attend Stress Management Classes Psychosocial - 60-Day Assess Referral to Behavioral Health PS - Interventions: Yes: Attend Stress Management Classes Psychosocial - 90-Day Assess Referral to Behavioral Health PS - Interventions: Yes: Attend Stress Management Classes Psychosocial - Final Assessmen Psychosocial Test phq-9 Severity See PHQ-9 Score: 7 Referral to Behavioral Health PS - Interventions: Yes: Attend Stress Management Classes Nutrition - 90-Day Assessment Weight Mgt (Other Care) Height: 5 ft 10 in Weight:: 155 lb BMI: 22.2 Nutrition - Final Assessment Program Goals Patient has diagnosis of Hyperlipidemia (ICD E78)?: Yes Weight Mgt (Other Care) Height: 5 ft 10 in Weight:: 155 lb BMI: 22.2
[2025-03-25 08:25] VITALS: BMI 22.2
[2025-03-25 08:29] VITALS: BP 140/80; PULSE 74; O2SAT 99
[2025-03-25 09:05] VITALS: BP 140/80; BMI 22.2
== END | disposition home or self-care (01) ==
PROVIDERS: PCP Family Medicine Geriatric Medicine; Referring Provider Internal Medicine Cardiovascular Disease; Visit Provider Internal Medicine Cardiovascular Disease
DX: I25.10 Atherosclerotic heart disease of native coronary artery without angina pectoris (principal); I11.0 Hypertensive heart disease with heart failure; I50.30 Unspecified diastolic (congestive) heart failure; E78.5 Hyperlipidemia, unspecified; R94.39 Abnormal result of other cardiovascular function study; Z95.5 Presence of coronary angioplasty implant and graft

== ENCOUNTER 2025-04-01 09:15 | Outpatient (RCR) | payer MEDICARE, SELFPAY ==
[2025-03-25 09:05] VITALS: BMI 22.2
== END 2025-04-05 23:59 ==
LOC: CR 09:15
PROVIDERS: PCP Family Medicine Geriatric Medicine; Referring Provider Internal Medicine Cardiovascular Disease; Visit Provider Internal Medicine Cardiovascular Disease
DX: Z95.5 Presence of coronary angioplasty implant and graft (principal); I25.10 Atherosclerotic heart disease of native coronary artery without angina pectoris; I50.30 Unspecified diastolic (congestive) heart failure; R94.39 Abnormal result of other cardiovascular function study; E78.5 Hyperlipidemia, unspecified; I11.0 Hypertensive heart disease with heart failure
CPT/HCPCS: 93798

== ENCOUNTER → 2025-04-17 | Outpatient (CLI) | payer MEDICARE, SELFPAY ==
[2025-03-25 09:05] VITALS: BMI 22.2
[2025-04-17 13:28] LABS: Hematocrit 36.7 % (40-54); Hemoglobin 12.8 g/dL (13.0-16.5); Immature Granulocytes Count 0.020 X10^3/uL (0.0-0.0); Mean Corp Hgb Conc 34.9 g/dL (32-36); Mean Corpuscular Volume 93.4 fL (80-94); Mean Platelet Vol. 11.5 fl (6.2-12.0); NRBC Flagged by Analyzer 0 % (0-5); Platelet Count 175 K/mm3 (150-450); RBC Distribution Width CV 13.6 % (11.6-14.6); RBC Distribution Width SD 46.9 fl (35.1-43.9); Red Blood Count 3.93 M/mm3 (4.6-6.2); White Blood Count 7.5 K/mm3 (4.4-11.0)
[2025-04-17 14:15] LABS: Uric Acid 6.9 mg/dL (3.5-7.2)
[2025-04-17 14:19] LABS: AST(SGOT) 22 U/L (<=37); Alanine Aminotransfer ALT/SGPT 17 U/L (<=46); Albumin, Serum 4.4 g/dL (3.4-4.8); Alkaline Phosphatase 76 U/L (40-129); Anion Gap 12 (5-15); BUN 21 mg/dL (4-19); BUN/Creat Ratio 25.6 RATIO (10-20); Calcium,Total 9.8 mg/dL (7.6-11.0); Carbon Dioxide 19.9 mmol/L (21.0-32.0); Chloride 107 mmol/L (98-108); Globulin 2.9 g/dL (2.2-4.2); Glucose 104 mg/dL (70-99); Potassium 4.0 mmol/L (3.3-5.1); Vitamin D,25 Hydroxy 23.9 ng/mL (30-100)
== END | disposition home or self-care (01) ==
LOC: LAB 12:35
PROVIDERS: PCP Family Medicine Geriatric Medicine; Referring Provider Family Medicine Geriatric Medicine; Visit Provider Family Medicine Geriatric Medicine
DX: E55.9 Vitamin D deficiency, unspecified (principal); I10 Essential (primary) hypertension; M10.9 Gout, unspecified
CPT/HCPCS: 36415; 80053; 82306; 84443; 84550; 85025

== ENCOUNTER 2025-04-23 16:36 | Observation (INO) | payer MEDICARE, SELFPAY ==
[2025-04-21 09:41] VITALS: BMI 22.4
[2025-04-23 16:39] VITALS: BP 135/70; PULSE 68; RESP 18; TEMP 36.8; O2SAT 99
--- NOTE | 2025-04-23 17:34 | EKG12_ITS ---
Test Reason : Blood Pressure : */* mmHG Vent. Rate : 63 BPM Atrial Rate : 63 BPM P-R Int : 154 ms QRS Dur : 84 ms QT Int : 412 ms P-R-T Axes : 4 43 46 degrees QTcB Int : 421 ms Sinus rhythm with Premature atrial complexes with Aberrant conduction Nonspecific ST abnormality Abnormal ECG Baseline artifact Confirmed by Woody Souza ([id number]), supervising film or videotape editor MIHAELA WIGGINS ([id number]) on 04/24/2025 10:37:23 AM Referred By: Confirmed By: Woody Souza
[2025-04-23 17:42] VITALS: BMI 22.5
--- NOTE | 2025-04-23 17:49 | EX.ED.DYSGE1 ---
HPI History of Present Illness Chief Complaint: Syncope Informant: patient Narrative Narrative: 70-year-old male presenting to the emergency room with chief complaint of syncope. Patient states that he had cardiac stents placed at the beginning of March. States he really has not felt significantly better like he thought he would. However today he was able to go outside and do outdoor labor. He had been moving wheel barrels of firewood. At 1 point he started to feel poorly like when you get the flu. States that he sat down and his vision was very blurry but it had been blurry throughout most of the day. Eventually he got the wheelbarrow went back across the yard but needed to stop at the shed. While in the shed he noticed that he was getting very sweaty and began to feel worse. He did not have any chest pain or palpitations. No nausea abdominal cramping. He states that he passed out to striking his head on a stand that was in the shop. States when he came to everything seemed worse and he was very sweaty. He went inside. He has abrasions to his head. He notes light sensitivity and headache. He continues to state that he has not had any chest pain or palpitations or significant dyspnea. He has not had prior syncope before. He has been participating in cardiac rehab. He follows with Dr. Velazquez through [facility]. [facility] Medical History Hyperlipidemia Lyme disease Bilateral carpal tunnel syndrome Localized swelling of both lower extremities GERD without esophagitis Hypokalemia Shortness of breath Wears glasses Wears dentures Anxiety Depression Arthritis Injury of back Migraine headache Chewing tobacco dependence Leg cramps History of colon polyps HTN (hypertension) Home Medications ?Medication ?Instructions ?Recorded ?Last Taken ?Type tamsulosin 0.4 mg capsule 0.4 mg PO QDAY 01/09/25 Unknown History aspirin 81 mg tablet,delayed 81 mg PO BREAKFAST #90 tabs 03/11/25 04/23/25 Rx release clopidogrel 75 mg tablet 75 mg PO DAILY #30 tabs 03/11/25 04/23/25 Rx losartan 100 mg tablet 100 mg PO DAILY 04/23/25 Unknown History rosuvastatin 40 mg tablet 40 mg PO QHS 04/23/25 04/22/25 History Allergy/AdvReac Type Severity Reaction Status Date / Time erythromycin base Allergy Rash Verified 04/23/25 16:44 (Erythromycin Base) Family History Mother CVA (cerebral vascular accident) Surgical History Stented coronary artery (03/11/25) History of surgery on wrist Hx of colonoscopy History of carpal tunnel surgery of right wrist History of carpal tunnel surgery of left wrist S/P right knee surgery S/P appendectomy Social History household members: spouse current occupational status: retired Smoking Status: Former smoker alcohol intake: current alcohol intake frequency: holidays/special occasions only details: 1-beer per month substance use type: marijuana ROS ROS ED Constitutional Constitutional ED: Denies chills, fever(s) or weight loss Eyes Eyes: Reports blurry vision bilateral; Denies change in vision or diplopia ENT ENT ED: Reports other; Denies ear pain, rhinorrhea or sore throat Cardiovascular Cardiovascular: Reports other Details: Syncope ; Denies chest pain, orthopnea, palpitations or racing heartbeat Respiratory/Chest Respiratory/Chest: Denies cough, dyspnea or orthopnea Gastrointestinal Gastrointestinal: Denies abdominal pain, diarrhea, nausea or vomiting Genitourinary Genitourinary ED: Denies dysuria, hematuria or urinary frequency Musculoskeletal Musculoskeletal: Denies arthralgias or myalgias Integumentary Denies abscess or rash Neurologic Neurologic: Denies headache(s) or weakness Psychiatric Psychiatric: Denies anxiety, depression, suicidal ideation or suicidal thoughts Endocrine Endocrinology: Denies polydipsia, polyphagia or polyuria Allergic/Immunologic Allergic/Immunologic ED: Denies mouth swelling, tongue swelling or urticaria EXAM Physical Exam Const Vital Signs: 04/23/25 16:39 04/23/25 17:42 04/23/25 17:58 Temperature 98.2 F Temperature Source Oral Pulse Rate 68 Pulse Rate [Lying] 58 L Pulse Rate [Sitting (for 1 minute prior to obtaining)] 70 Pulse Rate [Standing (for 1 minute prior to obtaining)] 79 Respiratory Rate 18 Respiratory Effort Normal Non-Labored Respiratory Pattern Normal Blood Pressure 135/70 H Blood Pressure [Lying] 138/79 H Blood Pressure [Sitting (for 1 minute prior to obtaining)] 137/75 H Blood Pressure [Standing (for 1 minute prior to obtaining)] 116/66 Blood Pressure Mean 91 Blood Pressure Mean [Lying] 98 Blood Pressure Mean [Sitting (for 1 minute prior to obtaining)] 95 Blood Pressure Mean [Standing (for 1 minute prior to obtaining)] 82 Pulse Ox 99 Oxygen Delivery Method Room Air 04/23/25 18:36 04/23/25 19:51 Temperature Temperature Source Pulse Rate 63 62 Pulse Rate [Lying] Pulse Rate [Sitting (for 1 minute prior to obtaining)] Pulse Rate [Standing (for 1 minute prior to obtaining)] Respiratory Rate 18 13 Respiratory Effort Respiratory Pattern Blood Pressure 131/75 H Blood Pressure [Lying] Blood Pressure [Sitting (for 1 minute prior to obtaining)] Blood Pressure [Standing (for 1 minute prior to obtaining)] Blood Pressure Mean 93 Blood Pressure Mean [Lying] Blood Pressure Mean [Sitting (for 1 minute prior to obtaining)] Blood Pressure Mean [Standing (for 1 minute prior to obtaining)] Pulse Ox 100 100 Oxygen Delivery Method Room Air Room Air Positive well nourished and well developed General Appearance ED: well developed HEENT Reports normocephalic, head/scalp atraumatic and moist mucous membranes Eyes PERRL and EOMs intact bilaterally Neck no lymphadenopathy, supple and no JVD Resp normal respiratory effort and clear to auscultation bilaterally Cardio regular rate, regular rhythm and no murmurs GI normal to inspection, nondistended, normoactive bowel sounds and non-tender Palpation: soft Back/Spine no CVA tenderness and normal ROM Extremity normal to inspection General Extremety ED: Negative for edema General Extremity: Negative for edema Neuro oriented x3 and CN's II-XII intact bilaterally Sensorium / Orientation: alert Motor Exam: strength 5/5 throughout Psych Mood & Affect: anxious and tearful; Negative for depressed Skin no rashes or lesions noted Skin Narrative: Superficial abrasions right parietal right forehead MDM MDM MDM Narrative Medical decision making narrative: Differential diagnosis includes but not limited to acute coronary syndrome cardiac dysrhythmia electrolyte abnormalities vasovagal syncope anemia dehydration intracranial hemorrhage hematoma skull fracture My independent interpretation of the chest x-ray is a normal sinus rhythm with atrial ectopy. He had no events on the monitor. White count 8.4 hemoglobin 11.8 platelet count is 165. Troponins are 29 and 23 creatinine 1.10 normal sodium potassium CO2 was 20.2 BUN of [address] of the brain demonstrates no intracranial hemorrhage or hematoma CTA of the chest was obtained which demonstrates no obvious pulmonary embolism. Please see radiologist read for full details. Patient appears to not have had a prodrome based on what he is telling me. With the recent cardiac stents and this apparently unprovoked syncopal episode I think it is reasonable that we watch him in the hospital. I will speak with the hospitalist. History & Record Review Discussion w/independent historian: Patient Additional record(s) reviewed:: Prior inpatient record, Prior outpatient record, Prior ED visit and Prior labs Lab Data Attestation: I reviewed the patient's lab results. Labs: Laboratory Results - last 24 hr 04/23/25 04/23/25 18:15 19:15 WBC 8.4 RBC 3.64 L Hgb 11.8 L Hct 35.0 L MCV 96.2 H MCH 32.4 H MCHC 33.7 RDW Std Deviation 46.8 H RDW Coeff of Yordy 13.2 Plt Count 165 MPV 11.8 Immature Gran % (Auto) 0.200 Neut % (Auto) 80.4 H Lymph % (Auto) 10.5 L [place] % (Auto) 8.1 Eos % (Auto) 0.2 Baso % (Auto) 0.6 Absolute Neuts (auto) 6.8 Absolute Lymphs (auto) 0.89 Nucleated RBC % 0 Sodium 138 Potassium 4.0 Chloride 105 Carbon Dioxide 20.2 L Anion Gap 12 BUN 22 H Creatinine 1.10 Estim Creat Clear Calc 61.30 Est GFR (MDRD) Non-Af 71 BUN/Creatinine Ratio 20.3 H Glucose 91 Calcium 9.3 Troponin T High Sens 29 H Troponin T Hi Sens 2 Hr 23 H Radiography Diagnostic Testing: Clinical Impression(s) from Imaging Studies Brain CT 04/23/25 18:08 IMPRESSION: No acute intracranial abnormality. Reading Location: [id number] Chest CTA 04/23/25 18:08 IMPRESSION: No evidence of acute pulmonary embolism. Right upper lobe solid pulmonary nodule measuring 9 mm. Per Fleischner Society guidelines for solid pulmonary nodules 6 to 8 mm and greater than 8 mm, recommend follow up chest CT at approximately 3 months, with consideration of PET CT based on patient risk factors. Left heart enlargement. Coronary artery calcifications. Mild thoracic aortic atherosclerosis. Reading Location: [facility] EKG Initial EKG: Attestation: I personally reviewed and interpreted this EKG as follows: Comments: Sinus rhythm with ventricular rate of 63 bpm. PAC noted. Management Discussion w/another healthcare provider: Hospitalist Discharge Plan Dx/Rx/DC Orders Clinical Impression: CAD (coronary artery disease), Syncope, Abrasion head Disposition Disposition: Acute Care Hospital [facility] Discharge Date/Time: 04/23/25 21:16
[2025-04-23 17:58] VITALS: BP 116/66; BP 137/75; BP 138/79; PULSE 58; PULSE 70; PULSE 79
--- NOTE | 2025-04-23 18:08 | CT_ITS ---
PROCEDURE: CTA CHEST W/WO CONTRAST 04/23/2025 REASON FOR EXAM: PULMONARY EMBOLISM / SYNCOPE TECHNIQUE: Procedure Code: [id number] Modality: CT Procedure: CTA CHEST W/WO CONTRAST Multiplanar Sagittal and Coronal images were obtained. MIP images were utilized. CONTRAST: Isovue 370 VOLUME: 100 mL One or more dose reduction techniques were used (e.g., Automated exposure control, adjustment of the mA and/or kV according to patient size, use of iterative reconstruction technique). RADIATION DOSE SUMMARY: CTDlvol: 44+ 11+ 13 mGy DLP: 1309 mGycm COMPARISON: None. FINDINGS: The peripheral soft tissues are unremarkable. Mild degenerative changes of the visualized spine. The esophagus is normal in caliber. The upper abdomen is unremarkable. Normal caliber thoracic aorta with mild atherosclerosis. Coronary artery calcifications are present. The left heart is enlarged. No pulmonary artery filling defects. Right upper lobe 9 mm solid pulmonary nodule. No consolidation. CT/CTA Chest W/WO Contrast IMPRESSION: No evidence of acute pulmonary embolism. Right upper lobe solid pulmonary nodule measuring 9 mm. Per Fleischner Society guidelines for solid pulmonary nodules 6 to 8 mm and gre ater than 8 mm, recommend follow up chest CT at approximately 3 months, with consideration of PET CT based on patient risk fact ors. Left heart enlargement. Coronary artery calcifications. Mild thoracic aortic atherosclerosis. Reading Location: [facility]
--- NOTE | 2025-04-23 18:08 | CT_ITS ---
PROCEDURE: CT BRAIN/HEAD WITHOUT CONTRAST 04/23/2025 REASON FOR EXAM: INJURY TECHNIQUE: Procedure Code: CTBR Modality: CT Procedure: BRAIN/HEAD WITHOUT CONTRAST Coronal and Sagittal reconstruction series were provided. One or more dose reduction techniques were used (e.g., Automated exposure control, adjustment of the mA and/or kV according to patient size, use of iterative reconstruction technique. RADIATION DOSE SUMMARY: CTDlvol: 44.99 mGy DLP: 863.6 mGycm COMPARISON: None. FINDINGS: No acute intracranial hemorrhage, extra-axial collection, mass effect or evidence of acute infarct. Mild age-appropriate generalized brain parenchymal volume loss and chronic microangiopathic changes. Unremarkable orbits. Intact skull base and calvarium. Mild peripheral mucosal thickening in the maxillary sinuses, greater on the left. No mastoid effusions. CT/Brain/Head without Contrast IMPRESSION: No acute intracranial abnormality. Reading Location: [id number]
[2025-04-23 18:27] LABS: Hematocrit 35.0 % (40-54); Hemoglobin 11.8 g/dL (13.0-16.5); Immature Granulocytes Count 0.020 X10^3/uL (0.0-0.0); Mean Corp Hgb Conc 33.7 g/dL (32-36); Mean Corpuscular Volume 96.2 fL (80-94); Mean Platelet Vol. 11.8 fl (6.2-12.0); NRBC Flagged by Analyzer 0 % (0-5); Platelet Count 165 K/mm3 (150-450); RBC Distribution Width CV 13.2 % (11.6-14.6); RBC Distribution Width SD 46.8 fl (35.1-43.9); Red Blood Count 3.64 M/mm3 (4.6-6.2); White Blood Count 8.4 K/mm3 (4.4-11.0)
[2025-04-23 18:36] VITALS: BP 131/75; PULSE 63; RESP 18; O2SAT 100
[2025-04-23 18:48] LABS: Anion Gap 12 (5-15); BUN 22 mg/dL (4-19); BUN/Creat Ratio 20.3 RATIO (10-20); Calcium,Total 9.3 mg/dL (7.6-11.0); Carbon Dioxide 20.2 mmol/L (21.0-32.0); Chloride 105 mmol/L (98-108); Estimated Creatinine Clearance 61.30 ml/min (50-250); Glucose 91 mg/dL (70-99); Potassium 4.0 mmol/L (3.3-5.1)
[2025-04-23 19:03] LABS: Troponin T High Sensitivity 29 ng/L (<=22)
[2025-04-23 19:51] VITALS: PULSE 62; RESP 13; O2SAT 100
--- NOTE | 2025-04-23 20:45 | PCM.HP.STD ---
HPI - General General Date of Admission: 04/23/25 Date of Service: 04/23/25 Chief Complaint: Syncopal episode HPI Narrative DESI FATIMA, is a 70-year-old male history of coronary artery disease with stenting, BPH, hypertension presented to [facility] ED 04/23/2025 due to syncopal episode. He had been out working in his yard and was not feeling well. He went into his barn and then woke up on the floor. Did hit his head. In the ED temp 98.2, heart rate 68, respiratory 18, blood pressure 135/70, pulse ox 99% on room air. White count 8.4, hemoglobin 11.8. Sodium and potassium within normal limits, BUN 22 and creatinine 1.10, troponin of 29 and glucose 91. EKG sinus at 63 with PACs, QTc 421. Patient had head CT with no intracranial abnormality. CTA of the chest obtained which showed a right upper lobe solid pulmonary nodule measuring 9 mm and recommended follow-up CT chest in 3 months. No PE appreciated. Orthostats obtained and blood pressure standing 138/79 and decreased to 116/66 on standing and patient did have symptoms. Given patient's cardiac history and syncopal episode of which he reported no prodrome hospitalist contacted for admission for observation. Patient evaluated bedside. He reports he had stents placed at the beginning of March and is still not felt very well or energetic since then but today given the better weather he went outside to try to get things done. He notes when he woke up this morning he felt generally off but cannot put his finger on it. Patient somewhat poor historian and has difficult time giving choice of timeline and symptoms but essentially it seems after hauling wood around with a wheelbarrow for a while he noticed that his head was spinning and his vision was blurry. He sat down for a little while and tried to drink some water because he felt dehydrated but did not do that for long before getting up and continuing to try to work. He ultimately went into his barn and was sitting next to his heater and still felt like everything was spinning. From a sitting position he unplugged his heater and then He knew he woke up on the ground. He had been sweating profusely and became very cold and when he sat up he vomited. After that he began to feel better. Denies any chest pain or shortness of breath during this period of time but at the end when specifically asked about any heart racing or palpitations he said yes and then indicated that that it been present before he passed out and after he woke up he still noted that for a period of time. Now feels almost back to baseline. Reports his head hurts a little bit where he hit it but otherwise does not have any acute complaints [facility] Medical History Hyperlipidemia Lyme disease Bilateral carpal tunnel syndrome Localized swelling of both lower extremities GERD without esophagitis Hypokalemia Shortness of breath Wears glasses Wears dentures Anxiety Depression Arthritis Injury of back Migraine headache Chewing tobacco dependence Leg cramps History of colon polyps HTN (hypertension) Home Medications ?Medication ?Instructions ?Recorded ?Last Taken ?Type tamsulosin 0.4 mg capsule 0.4 mg PO QDAY 01/09/25 Unknown History aspirin 81 mg tablet,delayed 81 mg PO BREAKFAST #90 tabs 03/11/25 04/23/25 Rx release clopidogrel 75 mg tablet 75 mg PO DAILY #30 tabs 03/11/25 04/23/25 Rx losartan 100 mg tablet 100 mg PO DAILY 04/23/25 Unknown History rosuvastatin 40 mg tablet 40 mg PO QHS 04/23/25 04/22/25 History Allergy/AdvReac Type Severity Reaction Status Date / Time erythromycin base Allergy Rash Verified 04/23/25 16:44 (Erythromycin Base) Family History Mother CVA (cerebral vascular accident) Surgical History Stented coronary artery (03/11/25) History of surgery on wrist Hx of colonoscopy History of carpal tunnel surgery of right wrist History of carpal tunnel surgery of left wrist S/P right knee surgery S/P appendectomy Social History household members: spouse current occupational status: retired Smoking Status: Former smoker alcohol intake: current alcohol intake frequency: holidays/special occasions only details: 1-beer per month substance use type: marijuana ROS ROS Narrative General: Denies fever/chills HENT: Headaches little bit from passing out, denies stuffy nose, denies sore throat EYES: Denies changes in vision Resp: Denies cough, denies shortness of breath Cardiac: Denies chest pain, possibly had some racing heart prior to syncopal episode GI: Denies abdominal pain, denies changes in bowel, had 1 episode of vomiting after waking up : Denies changes in urination Extremity: Denies swelling MSK: Denies weakness Neuro: Denies any numbness/tingling, reports some cold fingertips and toes consistent but nothing has changed Heme: Denies any bleeding or bruising Skin: Denies rashes Psychiatric: No complaints voiced Patient's Goals Of Care . What would you like to achieve or improve as a result of your hospital stay?: Finding out what happened/whats wrong with me so I can fix it or know what to do to not have to come back Vital Signs Vital Signs Vital Signs: 04/23/25 16:39 04/23/25 17:42 04/23/25 17:58 Temperature 98.2 F Temperature Source Oral Pulse Rate 68 Pulse Rate [Lying] 58 L Pulse Rate [Sitting (for 1 minute prior to obtaining)] 70 Pulse Rate [Standing (for 1 minute prior to obtaining)] 79 Respiratory Rate 18 Respiratory Effort Normal Non-Labored Respiratory Pattern Normal Blood Pressure 135/70 H Blood Pressure [Lying] 138/79 H Blood Pressure [Sitting (for 1 minute prior to obtaining)] 137/75 H Blood Pressure [Standing (for 1 minute prior to obtaining)] 116/66 Blood Pressure Mean 91 Blood Pressure Mean [Lying] 98 Blood Pressure Mean [Sitting (for 1 minute prior to obtaining)] 95 Blood Pressure Mean [Standing (for 1 minute prior to obtaining)] 82 Pulse Ox 99 Oxygen Delivery Method Room Air 04/23/25 18:36 04/23/25 19:51 Temperature Temperature Source Pulse Rate 63 62 Pulse Rate [Lying] Pulse Rate [Sitting (for 1 minute prior to obtaining)] Pulse Rate [Standing (for 1 minute prior to obtaining)] Respiratory Rate 18 13 Respiratory Effort Respiratory Pattern Blood Pressure 131/75 H Blood Pressure [Lying] Blood Pressure [Sitting (for 1 minute prior to obtaining)] Blood Pressure [Standing (for 1 minute prior to obtaining)] Blood Pressure Mean 93 Blood Pressure Mean [Lying] Blood Pressure Mean [Sitting (for 1 minute prior to obtaining)] Blood Pressure Mean [Standing (for 1 minute prior to obtaining)] Pulse Ox 100 100 Oxygen Delivery Method Room Air Room Air Weight Weight: 71.4 kg Body Mass Index (BMI) 22.5 Physical Exam Narrative General: Alert, oriented, no apparent distress HEENT: Atraumatic, normocephalic Eyes: Anicteric, normal conjunctiva, extraocular movements grossly intact Neck: Supple Respiratory: Clear to auscultation bilaterally, normal respiratory effort Cardiovascular: Regular rate and rhythm GI: Soft, nontender, nondistended Extremities: No edema Musculoskeletal: Moving all extremities Neuro: No overt focal neurological deficits Skin: No rashes appreciated Psych: Cooperative Results Lab / Micro Data 04/23/25 18:15 04/23/25 18:15 Labs: Laboratory Results - last 24 hr 04/23/25 18:15: WBC 8.4, RBC 3.64 L, Hgb 11.8 L, Hct 35.0 L, MCV 96.2 H, MCH 32.4 H, MCHC 33.7, RDW Std Deviation 46.8 H, RDW Coeff of Yordy 13.2, Plt Count 165, MPV 11.8, Immature Gran % (Auto) 0.200, Neut % (Auto) 80.4 H, Lymph % (Auto) 10.5 L, [place] % (Auto) 8.1, Eos % (Auto) 0.2, Baso % (Auto) 0.6, Absolute Neuts (auto) 6.8, Absolute Lymphs (auto) 0.89, Nucleated RBC % 0, Sodium 138, Potassium 4.0, Chloride 105, Carbon Dioxide 20.2 L, Anion Gap 12, BUN 22 H, Creatinine 1.10, Estim Creat Clear Calc 61.30, Est GFR (MDRD) Non-Af 71, BUN/Creatinine Ratio 20.3 H, Glucose 91, Calcium 9.3, Troponin T High Sens 29 H Imaging Radiology Impression Brain CT 04/23/25 18:08 IMPRESSION: No acute intracranial abnormality. Reading Location: [facility] Chest CTA 04/23/25 18:08 IMPRESSION: No evidence of acute pulmonary embolism. Right upper lobe solid pulmonary nodule measuring 9 mm. Per Fleischner Society guidelines for solid pulmonary nodules 6 to 8 mm and greater than 8 mm, recommend follow up chest CT at approximately 3 months, with consideration of PET CT based on patient risk factors. Left heart enlargement. Coronary artery calcifications. Mild thoracic aortic atherosclerosis. Reading Location: [facility] Assessment & Plan Assessment/Plan (1) Syncope: PLAN: Plan # Syncopal episode -Patient reported racing heart around the time of a syncopal episode however had not endorsed this to the previous physician and did not endorse this until I specifically asked so unclear the extent the role played, also reported at dizzy feeling like everything was spinning before he passed out but said it was present for a while before that and after. Additionally he did tell me that he has been drinking less water in an effort to not have to pee overnight so he has been thirsty and dehydrated as well -Certainly concern that this could be cardiac in nature given his cardiac history and reported palpitations -EKG sinus rhythm with PACs at 63, QTc 421 -Monitor on telemetry -First troponin 29 with 2-hour troponin pending, denied any chest pain at all today and does not have any currently -Head CT negative -Orthostats obtained and blood pressure standing 138/79 and decreased to 116/66 on standing and patient did have symptoms, also notes he is intentionally but not drinking as much water so he does not have to pee so unclear if this was caused or contributor -Recent TSH within normal limits -Will check mag -Will check limited echocardiogram #Hx of CAD -w/ previous stenting in March -Continue home aspirin and Plavix #Hypertension - Does not think he is taking losartan, reports he was on lisinopril for many years but was taken off of it recently # Pulmonary nodule - CTA of the chest obtained which showed a right upper lobe solid pulmonary nodule measuring 9 mm and recommended follow-up CT chest in 3 months #DVT ppx: lovenox subq Irma Rodriguez MD Charges/Coding Visit Charges Inpatient E&M: 91318 Init Hosp L2
--- OUTSIDE RECORDS SUMMARY | 2025-04-23 20:54 | XMS RPT_ITS | CCD ---
Author Organization [facility] Care Team Providers Care Chuck Boner Name Role Phone Sylvia BASHIR, Olivier Levine Unavailable Molina, Dr. Alvaro Ramos Primary Care Provider Dr. Grace Rosas Attending Provider Dr. Grace Rosas Referring Provider Molina, Dr. Alvaro Ramos Primary Care Provider Dr. Antoine Francois Attending Provider [phone] Molina, Dr. Alvaro Ramos Primary Care Provider Molina, Dr. Alvaro Ramos Referring Provider Dr. Antoine Francois Attending Provider [phone]([facility])[phone] Molina, Dr. Alvaro Ramos Primary Care [...] Dr. Alvaro Ramos Primary Care Provider [phone] Molina BASHIR, Dr. Alvaro Ramos Attending Provider Molina BASHIR, Dr. Alvaro Ramos Referring Provider [phone] Day BASHIR, Dr. Hilton Attending Provider Molina BASHIR, Dr. Alvaro Ramos Primary Care Physician [phone] Molina BASHIR, Dr. Alvaro Ramos Attending Physician Molina BASHIR, Dr. Alvaro Ramos Referring Provider [phone] Day BASHIR, Dr. Hilton Attending Physician Marcus BASHIR, Dr. Gallegos Attending Physician Marcus BASHIR, Dr. Gallegos Referring Provider Molina, Alvaro Chi Primary Care Unavailable Yobani Bernstein Attending Unavailable Marcus, Rosy Referring Unavailable Marcus, Rosy Attending Unavailable Molina, Alvaro Chi Primary Care Unavailable Marcus, Rosy Consulting Unavailable Molina, Alvaro Chi Referring Unavailable Marcus, Rosy Attending Unavailable Molina, Alvaro Chi Primary Care Unavailable Molina, Alvaro Chi Referring Unavailable Stephanie Tsang Attending Unavail able Molina, Alvaro Chi Primary Care Unavailable Molina, [...] Care Unavailable Molina, Alvaro Chi Referring Unavailable Marcus, Rosy Attending Unavailable Molina, Alvaro Chi Attending Unavailable Molina, [...] Unavailable Molina, Alvaro Chi Primary Care Unavailable Marcus, Rosy Admitting Unavailable Marcus, Rosy Referring Unavailable Marcus, Rosy Attending Unavailable Molina, Alvaro Chi Primary Care Unavailable Molina, Alvaro Chi Attending Unavailable Molina, Alvaro Chi Referring Unavailable Molina, Alvaro Chi Primary Care Unavailable Marcus, Rosy Referring Unavailable Marcus, Rosy Attending Unavailable Molina, Alvaro Chi Primary Care Unavailable Molina, Alvaro Chi Attending Unavailable Molina, Alvaro Chi Primary Care Unavailable Molina, Alvaro Chi Referring Unavailable Molina, Alvaro Chi Attending Unavailable Molina, Alvaro Chi Primary Care Unavailable Marcus, Rosy Referring Unavailable Molina, Alvaro Chi Primary Care Unavailable Marcus, Rosy Attending Unavailable Marcus, Rosy Referring Unavailable Molina, Alvaro Chi Primary Care Unavailable Marcus, Rosy Attending Unavailable Marcus, Rosy Attending Unavailable Molina, Alvaro Chi Primary Care Unavailable Allergies Allergy Classification Reported Allergen(s) Allergy Type Date of Onset Reaction(s) Facility (19 sources) Erythromycin Drug Allergy 04-25-2021 Rash [facility] (1 source) Erythromycin Drug Allergy 03-19-2025 [facility] Repository Medications Current Medications Medication Drug [...] Start: 05-10-2023 Testosterone Active 100 MG IM .[id number] May 10, 2023 12:00am tiZANidine 4 mg [...] 2.5 MG TABS 1/2 tablet daily LISINOPRIL [id number] Olivier Ward MD Start: 10-24-2013 take 1 tablet by mouth at bedt alec Testosterone 100 mg/mL suspension (8 sources) Start: 05-10-2023 End: 01-09-2025 Testosterone 100 mg/mL suspension Discontinued 100 mg IM .[id number] May 10, 2023 1:00am January 09, 2025 3:34pm Start: 05-10-2023 Testosterone 1 00 mg/mL suspension Active 100 mg IM .[id number] May 10, 2023 1:00am triamcinolone acetonide 40 [...] quadrant pain] Episodic Congestive heart failure; nonhypertensive (6 sources) Heart failure with normal ejection fraction; Translations: [Unspecified diastolic (congestive) heart failure] Onset: 5 02-03-2025 Chronic Coronary atherosclerosis and other heart disease (1 source) Atherosclerotic heart disease of [place] coronary artery without angina pectoris; Translations: [Atherosclerotic heart disease of [place] coronary artery without angina pectoris] Onset: 5 Chronic Deficiency and other anemia (1 source) [...] Chronic Comment on above: CONTROLLED WITH MED Genitourinary symptoms and ill-defined conditions (1 source) Proteinuria, unspecified; Translations: [Proteinuria, unspecified] Onset: 5 Episodic Hyperplasia of prostate (2 sources) Benign prostatic hyperplasia without lower urinary tract symptoms; Translations: [Benign prostatic hyperplasia without lower urinary tract symptoms] Onset: 5 Chronic Hypertension with complications and secondary hypertension (1 source) Hypertensive heart disease with heart failure; Translations: [Hypertensive heart disease with heart failure] Onset: 5 Chronic Malaise and fatigue (1 source) Other fatigue; Translations: [Other fatigue] Onset: 5 Episodic Other and unspecified benign neoplasm (9 sources) [...] Episodic Other nutritional; endocrine; and metabolic disorders (2 sources) Personal history of other endocrine, nutritional and metabolic disease; Translations: [Personal history of other endocrine, nutritional and metabolic disease] Onset: 5 Episodic Other screening for suspected conditions (not mental disorders or infectious disease) (20 sources) Patient encounter status; Translations: [Encounter for screening for malignant neoplasm of colon] Onset: 5 08-03-2017 Episodic Spondylosis; intervertebral disc disorders; other back problems (1 source) Cervical disc disorder, unspecified, unspecified cervical region; Translations: [Cervical disc disorder, unspecified, unspecified cervical region] Onset: 5 Chronic Past or Other Problems Problem Classification Problem Date Documented Da te Episodic/Chronic Other non-traumatic joint disorders (1 source) Pain in right hip; Translations: [Pain in right hip] Onset: 06-23-2024 Episodic Spondylosis; intervertebral disc disorders; other back problems (1 source) Muscle spasm of back; Translations: [Muscle spasm of back] Onset: 06-17-2024 Episodic Unclassified (1 source) Problem Results Test Name Value Interpretation Reference Range Facility CBC-Complete Blood Cnt No Di ffradha 03-19-2025 Erythrocyte distribution width (RBC) [Ratio] 13.6 % Normal 11.6-14.6 [facility] Comment on above: Performed By: #### L 100.0500, L500.4050, L501.9520 #### [facility] [address] [place], [address] Hematocrit (Bld) [Volume fraction] 37.8 % Low 40-54 [facility] Comment on above: Performed By: #### L 100.0500, L500.4050, [id number] #### [facility] [address] [place], [address] Hemoglobin (Bld) [Mass/Vol] 13.0 g/dL Normal 13.0-16.5 [facility] Comment on above: Performed By: #### L 100.0500, L500.4050, [id number] #### [facility] [address] [place], [address] MCH (RBC) [Entitic mass] 32.1 pg High 27.0-32.0 [facility] Comment on above: Performed By: #### L 100.0500, L500.4050, [id number] #### [facility] [address] [place], [address] MCHC (RBC) [Mass/Vol] 34.4 g/dL Normal 32-36 [facility] Comment on above: Performed By: #### L 100.0500, L500.4050, [id number] #### [facility] [address] [place], [address] MCV (RBC) [Entitic vol] 93.3 fL Normal 80-94 [facility] Comment on above: Performed By: #### L 100.0500, L500.4050, [id number] #### [facility] [address] [place], [address] Platelet mean volume (Bld) [Entitic vol] 12.2 fL High 6.2-12.0 [facility] Comment on above: Performed By: #### L 100.0500, L500.4050, [id number] #### [facility] [address] [place], [address] Platelets (Bld) [#/Vol] 194 10*3/uL Normal 150-450 [facility] Comment on above: Performed By: #### L 100.0500, L500.4050, [id number] #### [facility] [address] [place], [address] RBC (Bld) [#/Vol] 4.05 10*6/uL Low 4.6-6.2 [facility] Comment on above: Performed By: #### L 100.0500, L500.4050, [id number] #### [facility] [address] [place], [address] RDW SD 46.8 fl High 35.1-43.9 [facility] Comment on above: Performed By: #### L 100.0500, L500.4050, [id number] #### [facility] [address] [place], [address] WBC (Bld) [#/Vol] 7.6 10*3/uL Normal 4.4-11.0 [facility] Comment on above: Performed By: #### L 100.0500, L500.4050, [id number] #### [facility] [address] [place], [address] Cardiology Visit Reporton Cardiology Visit Report [facility] [address] [place], [place] [address] OFFICE VISIT Date of Service: 03/19/25 MR#: [id number] Acct: [id number] Name: DESI PANDEY Rep #: [id number] : 1955 Provider: Dr. Rosy Velazquez MD Age/Sex: 69/M Location: [facility] Status: Signed HPI HPI History of Present Illness Details: This gentleman has had coronary angiography done earlier this month. It showed severe disease of the mid and proximal LAD. Successful percutaneous intervention was performed with placement of 3 drug-eluting stents. Borderline lesion was noted in the left circumflex coronary artery. Since his procedure, patient has been doing good. No angina pectoris. According to him, he has a constant nagging sensation over his left chest that does not wax or wane throughout the day. It does not worsen with deep breathing. No relationship with activity. No radiation to the arm neck or jaw. Patient has been complaining of feeling tired most of the time. According to his significant other, he snores loudly at night. He has never been screened for sleep apnea. Intake Vital Signs 03/11/25 14:17 03/19/25 10:05 Height 5 ft 10 in 5 ft 10 in Weight: 157 lb BMI 22.5 BP 106/65 Blood Pressure Location Lt brachial Position Sitting Respiration 16 Pulse 76 Pulse Source Monitor Intake Visit Reasons: S/P ([facility] 03/11) Sheet [place] Applicator Required: No Accompanied by: Is patient in pain?: No Allergies erythromycin base (Erythromycin Base) Allergy (Verified 03/19/25 10:12) Rash Medications ???Medication ???Instructions ???Recorded ???Confirmed ???Type lisinopril 20 mg tablet 20 mg PO QHS 10/24/13 03/18/25 His tory tamsulosin 0.4 mg capsule 0.4 mg PO QDAY 01/09/25 03/18/25 H istory tumeric PO DAILY 02/03/25 03/18/25 History callie root extract 15 mg chewable mg PO DAILY 02/27/25 03/18/25 Hi story tablet aspirin 81 mg tablet,delayed 81 mg PO BREAKFAST #90 tabs 03/18/25 Rx release atorvastatin 10 mg tablet 10 mg PO QHS #30 tabs 03/11/2504/30 Rx clopidogrel 75 mg tablet 75 mg PO DAILY #30 tabs 03/11/25 1 05/18/24 Rx Medication Reconciliation completed?: Yes Ejection fraction %: 51 Have you fallen in the past year?: No PFSH Medical History (Updated 03/19/25 @ 10:[address] Rosy Velazquez MD) Hyperlipidemia Lyme disease Bilateral carpal tunnel syndrome Localized swelling of both lower extremities GERD without esophagitis Hypokalemia Shortness of breath Wears glasses Wears dentures Anxiety Depression Arthritis Injury of back Migraine headache Chewing tobacco dependence Leg cramps History of colon polyps HTN (hypertension) Surgical History (Updated 03/11/25 @ 17:06 by Amairani Barnett) Stented coronary artery (03/11/25) History of surgery on wrist Hx of [...] substance use type: marijuana ROS Const Const: Negative for fatigue or weakness Eyes Eyes: Negative for change in vision ENT ENT: Negative for dizziness or balance problems Cardio Chest Pain: Yes (pressure) Location: left chest Duration: continuous Palpitations: No Edema: None Resp Respiratory: Negative for SOB with activity, SOB at rest or SOB orthopnea SOB lying down GI GI: Negative nausea or heartburn Musc Musc: Negative for balance problems Neuro Neuro: Positive for lightheadedness; Negative for dizziness, near syncope, syncope or weakness Endo Endo: Negative for fatigue Cardiology Exam Const Appearance: comfortable and no acute distress Nutritional Appearance: well nourished Neck Neck: no JVD Carotids: Negative bruit Chest Auscultation: Bilateral: Clear to Auscultation Cardio Rate: regular rate Rhythm: regular rhythm Heart sounds: S1 normal and S2 normal Neuro General: patient alert, patient awake and patient oriented x3 Extremities Lower Extremity Edema: None: Bilateral Supplemental Info Supplemental Information Labs: HDL Cholesterol, (40-) 56 mg/dL Cholesterol, (<=200) 131 mg/dL Triglycerides, (-199) 142 mg/dL Diagnostics: Electrocardiogram Echocardiogram Stress Test Stress Test Nuclear Medicine Cardiac Catheterization (more content not included)... Normal [facility] Comprehensive Metabolic Prof ilon 03-19-2025 Albumin [Mass/Vol] 4.2 g/dL Normal 3.4-4.8 [facility] Comment on above: Performed By: #### L 100.0500, L500.4050, L501.9520 #### [facility] [address] [place], [address] Albumin/Globulin [Mass ratio] 1.5 {ratio} Normal 0.9-2.4 [facility] Comment on above: Performed By: #### L 100.0500, L500.4050, L501.9520 #### [facility] [address] [place], [address] ALK PHOS 83 U/L Normal 40-129 [facility] Comment on above: Performed By: #### L 100.0500, L500.4050, [id number] #### [facility] [address] [place], [address] ALT [Catalytic activity/Vol] 17 U/L Normal <=46 [facility] Comment on above: Performed By: #### L 100.0500, L500.4050, [id number] #### [facility] [address] [place], [address] AST [Catalytic activity/Vol] 25 U/L Normal <=37 [facility] Comment on above: Result Comment: Hemo lysis present, Results??could be affected. ?? Performed By: #### L 100.0500, L500.4050, [id number] #### [facility] [address] [place], [address] Bilirubin [Mass/Vol] 0.37 mg/dL Normal 0.00-1.30 [facility] Comment on above: Performed By: #### L 100.0500, L500.4050, [id number] #### [facility] [address] [place], [address] BUN/CRE 21.2 RATIO High 10-20 [facility] Comment on above: Performed By: #### L 100.0500, L500.4050, [id number] #### [facility] [address] [place], [address] Calcium [Mass/Vol] 10.0 mg/dL Normal 7.6-11.0 [facility] Comment on above: Performed By: #### L 100.0500, L500.4050, [id number] #### [facility] [address] [place], [address] Chloride [Moles/Vol] 110 mmol/L High 98-108 [facility] Comment on above: Performed By: #### L 100.0500, L500.4050, [id number] #### [facility] [address] [place], [address] CO2 [Moles/Vol] 22.4 mmol/L Normal 21.0-32.0 [facility] Comment on above: Performed By: #### L 100.0500, L500.4050, L501.9520 #### [facility] [address] [place], [address] Creatinine [Mass/Vol] 0.81 mg/dL Normal 0.70-1.20 [facility] Comment on above: Performed By: #### L 100.0500, L500.4050, [id number] #### [facility] [address] [place], [address] GAP 11 Normal 5-15 [facility] Comment on above: Performed By: #### L 100.0500, L500.4050, L501.9520 #### [facility] [address] [place], [address] GFR/1.73 sq M.predicted among non-blacks MDRD (S/P/Bld) [Vol rate/Area] 94 mL/min/{1.73_m2} Normal >60 [facility] Comment on above: Result Comment: mL/m in/1.73m2 CKD-EPI Creatinine Equation (2020) Performed By: #### L 100.0500, L500.4050, L501.9520 #### [facility] [address] [place], [address] Globulin (S) [Mass/Vol] 2.7 g/dL Normal 2.2-4.2 [facility] Comment on above: Performed By: #### L 100.0500, L500.4050, L501.9520 #### [facility] [address] [place], [address] Glucose [Mass/Vol] 91 mg/dL Normal 70-99 [facility] Comment on above: Performed By: #### L 100.0500, L500.4050, L501.9520 #### [facility] [address] [place], [address] Potassium [Moles/Vol] 4.1 mmol/L Normal 3.3-5.1 [facility] Comment on above: Result Comment: Hemo lysis present, Results??could be affected. ?? Performed By: #### L 100.0500, L500.4050, L501.9520 #### [facility] [address] [place], [address] Sodium [Moles/Vol] 144 mmol/L Normal 133-145 [facility] Comment on above: Performed By: #### L 100.0500, L500.4050, L501.9520 #### [facility] [address] [place], [address] T PROT 6.9 g/dL Normal 5.9-8.4 [facility] Comment on above: Performed By: #### L 100.0500, L500.4050, L501.9520 #### [facility] [address] [place], [address] Urea nitrogen [Mass/Vol] 17 mg/dL Normal 4-19 [facility] Comment on above: Performed By: #### L 100.0500, L500.4050, L501.9520 #### [facility] [address] [place], [address] Thyroid Stim Hormone (TSH)on 03-19-2025 TSH 1.610 uIU/mL Normal 0.300-4.200 [facility] Comment on above: Performed By: #### L 100.0500, L500.4050, L501.9520 #### [facility] [address] [place], [address] CBC-Complete Blood Cnt No Di ffon 03-12-2025 Erythrocyte distribution width (RBC) [Ratio] 13.4 % Normal 11.6-14.6 [facility] Comment on above: Performed By: #### L 501.9940 #### [facility] [address] [place], [address] Hematocrit (Bld) [Volume fraction] 37.4 % Low 40-54 [facility] Comment on above: Performed By: #### L 501.9940 #### [facility] [address] [place], [address] Hemoglobin (Bld) [Mass/Vol] 12.9 g/dL Low 13.0-16.5 [facility] Comment on above: Performed By: #### L 501.9940 #### [facility] [address] [place], [address] MCH (RBC) [Entitic mass] 31.9 pg Normal 27.0-32.0 [facility] Comment on above: Performed By: #### L 501.40 #### [facility] [address] [place], [address] MCHC (RBC) [Mass/Vol] 34.5 g/dL Normal 32-36 [facility] Comment on above: Performed By: #### L 501.9940 #### [facility] [address] [place], [address] MCV (RBC) [Entitic vol] 92.3 fL Normal 80-94 [facility] Comment on above: Performed By: #### L 501.40 #### [facility] [address] [place], [address] Platelet mean volume (Bld) [Entitic vol] 11.4 fL Normal 6.2-12.0 [facility] Comment on above: Performed By: #### L 501.9940 #### [facility] [address] [place], [address] Platelets (Bld) [#/Vol] 189 10*3/uL Normal 150-450 [facility] Comment on above: Performed By: #### L [id number] #### [facility] [address] [place], [address] RBC (Bld) [#/Vol] 4.05 10*6/uL Low 4.6-6.2 [facility] Comment on above: Performed By: #### L 501.9940 #### [facility] [address] [place], [address] RDW SD 45.6 fl High 35.1-43.9 [facility] Comment on above: Performed By: #### L 501.9940 #### [facility] [address] [place], [address] WBC (Bld) [#/Vol] 10.4 10*3/uL Normal 4.4-11.0 [facility] Comment on above: Performed By: #### L 501.9940 #### [facility] [address] [place], [address] Comprehensive Metabolic Prof ilon 03-12-2025 Albumin [Mass/Vol] 3.7 g/dL Normal 3.4-4.8 [facility] Comment on above: Performed By: #### L 501.9940 #### [facility] [address] [place], [address] Albumin/Globulin [Mass ratio] 1.4 {ratio} Normal 0.9-2.4 [facility] Comment on above: Performed By: #### L 501.9940 #### [facility] [address] [place], [address] ALK PHOS 63 U/L Normal 40-129 [facility] Comment on above: Performed By: #### L 501.9940 #### [facility] [address] [place], [address] ALT [Catalytic activity/Vol] 15 U/L Normal <=46 [facility] Comment on above: Performed By: #### L 501.9940 #### [facility] [address] [place], [address] AST [Catalytic activity/Vol] 26 U/L Normal <=37 [facility] Comment on above: Performed By: #### L 501.9940 #### [facility] [address] [place], [address] Bilirubin [Mass/Vol] 0.55 mg/dL Normal 0.00-1.30 [facility] Comment on above: Performed By: #### L 501.9940 #### [facility] [address] [place], [address] BUN/CRE 21.5 RATIO High 10-20 [facility] Comment on above: Performed By: #### L 501.9940 #### [facility] [address] [place], [address] Calcium [Mass/Vol] 9.1 mg/dL Normal 7.6-11.0 [facility] Comment on above: Performed By: #### L 501.9940 #### [facility] [address] [place], [address] Chloride [Moles/Vol] 108 mmol/L Normal 98-108 [facility] Comment on above: Performed By: #### L [id number] #### [facility] [address] [place], [address] CO2 [Moles/Vol] 21.4 mmol/L Normal 21.0-32.0 [facility] Comment on above: Performed By: #### L [id number] #### [facility] [address] [place], [address] Creatinine [Mass/Vol] 0.88 mg/dL Normal 0.70-1.20 [facility] Comment on above: Performed By: #### L 501.9940 #### [facility] [address] [place], [address] ECRCL 76.88 ml/min Normal 50-250 [facility] Comment on above: Performed By: #### L 501.9940 #### [facility] [address] [place], [address] GAP 10 Normal 5-15 [facility] Comment on above: Performed By: #### L 501.9940 #### [facility] [address] [place], [address] GFR/1.73 sq M.predicted among non-blacks MDRD (S/P/Bld) [Vol rate/Area] 92 mL/min/{1.73_m2} Normal >60 [facility] Comment on above: Result Comment: mL/m in/1.73m2 CKD-EPI Creatinine Equation (2020) Performed By: #### L 501.9940 #### [facility] [address] [place], [address] Globulin (S) [Mass/Vol] 2.7 g/dL Normal 2.2-4.2 [facility] Comment on above: Performed By: #### L 501.9940 #### [facility] [address] [place], [address] Glucose [Mass/Vol] 91 mg/dL Normal 70-99 [facility] Comment on above: Performed By: #### L 501.9940 #### [facility] [address] [place], [address] Potassium [Moles/Vol] 4.4 mmol/L Normal 3.3-5.1 [facility] Comment on above: Result Comment: Hemo lysis present, Results??could be affected. ?? Performed By: #### L 501.9940 #### [facility] [address] [place], [address] Sodium [Moles/Vol] 139 mmol/L Normal 133-145 [facility] Comment on above: Performed By: #### L 501.9940 #### [facility] [address] [place], [address] T PROT 6.4 g/dL Normal 5.9-8.4 [facility] Comment on above: Performed By: #### L 501.9940 #### [facility] [address] [place], [address] Urea nitrogen [Mass/Vol] 19 mg/dL Normal 4-19 [facility] Comment on above: Performed By: #### L [id number] #### [facility] [address] [place], [address] Lipid Profileon 03-12-2025 CHOL:HDL 2.34 Normal [facility] Comment on above: Performed By: #### L 501.9940 #### [facility] [address] [place], [address] Cholesterol [Mass/Vol] 131 mg/dL Normal <=[address] [facility] Comment on above: Result Comment: Chol esterol level, Desirable <200 mg/dL Borderline high cholesterol 200-239 mg/dL High cholesterol >=240 mg/dL Recommendations of the NCEP Adult Treatment Panel for the following risk-cutoff thresholds for the [place] population. Performed By: #### L 501.9940 #### [facility] [address] [place], [address] Cholesterol in HDL [Mass/Vol] 56 mg/dL Normal [facility] Comment on above: Result Comment: Leatha onal Cholesterol Education Program (NCEP) guidelines: <40 mg/dL: Low HDL-cholesterol (major risk factor for CHD) >= 60 mg/dL: High HDL-cholesterol (negative risk factor for CHD) HDL-cholesterol is affected by a number of factors, e.g. smoking, exercise, hormones, sex and age. Performed By: #### L 501.9940 #### [facility] [address] [place], [address] Cholesterol in LDL [Mass/Vol] 51 mg/dL Normal [facility] Comment on above: Result Comment: Bord ooketw=348-732 mg/dL Higher Tqus=295 mg/dL or greater Chew Equation 2020 for LDL-C Performed By: #### L 501.9940 #### [facility] [address] [place], [address] Cholesterol in VLDL [Mass/Vol] 28 mg/dL Normal 5-40 [facility] Comment on above: Performed By: #### L 501.9940 #### [facility] [address] [place], [place], [address] Triglyceride [Mass/Vol] 142 mg/dL Normal [facility] Comment on above: Result Comment: The drugs N-Acetylcysteine and Metamizole may falsely depress this assay. Normal range: <150 mg/dL Borderline High: 150-199 mg/dL High: 200-499 mg/dL Very High: >500 mg/dL Performed By: #### L 501.9940 #### [facility] [address] [place], [address] ACT Activated Clotting Timeo 03-11-2025 ACTk CLOT TIME 158 sec High 74-137 [facility] Comment on above: Performed By: #### L 9100.0100 #### [facility] [address] [place], [address] ACTk CLOT TIME 240 sec High 74-137 [facility] Comment on above: Performed By: #### L 9100.0100 #### [facility] [address] [place], [address] ACTk CLOT TIME 214 sec [facility] 74-137 [facility] Comment on above: Performed By: #### L 501.9940 #### [facility] [address] [place], [address] Cardiac Cath Intervention 03-11-2025 Cardiac Cath Intervention [facility] Imaging Services [address] [place] [address] Cardiac Cath Intervention MR#: [id number] Acct: [id number] Name: DESI PANDEY Rep #: [id number] : 1955 69 From: Rosy Velazquez MD PCP: Dr. Alvaro Auguste MD Status:ADM VICTORIANO Patient Name: DESI PANDEY Study Date: 03/11/2025 Performing: Rosy Velazquez MD Ht: 71 inches 180.34 cm : 1955 Wt: 155.2 lbs 70.31 kg Age: 69 Gender: male BSA: 1.89 PROCEDURE(S) PERFORMED DC02-(58159)LHC/COR IC12-(78157/C9600)JEET W/WO PTCA, SINGLE CORONARY ARTERY IC10-(64101)FFR, CORONARY OR GRAFT, INITIAL VESSEL CLINICAL PROFILE AND CO-MORBIDITIES Indications: Suspected CAD Heart Failure: None Stress/Imaging Stress Test w/SPECT MPI: Yes Result: Positive Intermediate Risk Stress Test with SPECT MPI: Positive Intermediate Risk CAD Presentations: No Sxs, no angina. CONCLUSIONS 80% Mid LAD; 65-70% prox LAD (iFR 0.89) 65% Mid LCX Successful JEET Mid LAD using Manfred Montague 3.0x15 mm RECOMMENDATIONS ASA Indefinitley P2Y12 inhibitors for atleast 6 months DESCRIPTION OF PROCEDURE The patient arrived to the procedure lab. The risks and benefits of the procedure as well as a full description of our services here and lack of surgical backup were fully explained to the patient and/or their significant other prior to the catheterization. The Timeout was completed, verifying the correct patient and procedure. The patient's procedural site was prepped and draped in the usual fashion. Local anesthetic was given subcutaneously to right radial region with Lidocaine 2%. Using a modified Seldinger technique, arterial access was obtained via the right radial artery, a 6Fr sheath was inserted.. Right Coronary Artery selective angiography was then performed in multiple views using a 5 Fr. 4.0 [place] catheter. Left Coronary Artery selective angiography was performed in multiple views using a 5 Fr. 4.0 [place] catheterThe images were reviewed and options discussed. A decision was then made to proceed with an Intervention, IVUS or other adjunct procedure. XB3 Guide catheter was inserted and engaged into the LCA. {L1} {L2} RUNTHROUGH Guide wire was advanced to the LAD. Angiogram performed pre balloon dilatation. MANFRED FRONITER 3.0 X 15 Drug Eluting stent was inserted. Drug Eluting stent was advanced across the lesion in the LAD, mid. Angiogram performed pre stent deployment. Angiogram performed post stent deployment. NC EMERGE 3.0 X 12 Balloon catheter was inserted post stent. Angiogram performed post balloon dilatation. Angiogram performed post balloon dilatation. The FFR/iFR wire was inserted. iFR measurements were performed. iFR Ratio: 0.89 The FFR/iFR wire was left in place as guide wire. MANFRED FRONTIER 3.0 X 38 Drug Eluting stent was inserted. Drug Eluting stent was advanced across the lesion in the LAD, proximal. The FFR/iFR wire was then removed. RUNTHROUGH Guide wire was inserted MANFRED FRONITER 3.0 X 8 Drug Eluting stent was inserted. Drug Eluting stent was advanced across the lesion in the LAD, proximal. NC EMERGE 3.0 X 12 Balloon catheter was reinserted Balloon catheter was inserted post stent. Angiogram performed post balloon dilatation. Angiogram performed post balloon dilatation. The FFR/iFR wire was inserted. The FFR/iFR wire was then removed. The arterial sheath was pulled and a TR Band was applied for hemostasis 10ML OF AIR CORONARY ANGIOGRAPHY DOMINANCE: Right Dominant LEFT MAIN: Angiographically normal LEFT ANTERIOR DESCENDING ARTERY: LAD: Tubular 80% Mid lesion in LAD Tubular 70% Proximal lesion in LAD RIGHT CORONARY ARTERY: RCA: Tubular 30% Proximal lesion in RCA INTERVENTION INFORMATION LESION SITE: LAD (Mid) Lesion Complexity: Non-High/Non-C, lesion length: 14 mm Pre Stenosis: 80 % Pre intervention TAWANNA flow: 3 PROCEDURE: Drug Eluting Stent with post dilatation Post Stenosis: 0 % Post intervention TAWANNA flow: 3 Lesion Devices: Cordis 6 Fr XB3.0 100cm Guide Catheter Terumo .014 180cm Runthrough Extra Floppy straight Medtronic 3.0 x 15 MANFRED FRONTIER JEET [employer] NC EMERGE MR 3.00x12 BALLOON LESION SITE: LAD (Proximal) Lesion Complexity: High/C, lesion length: 42 mm Pre Stenosis: 70 % Pre intervention TAWANNA flow: 3 PROCEDURE: Drug Eluting Stent with post dilatation Post Stenosis: 0 % Post intervention TAWANNA flow: 3 Lesion Devices: Cordis 6 Fr XB3.0 100cm Guide Catheter Terumo .014 180cm Runthrough Extra Floppy straight Alan Sci NC EMERGE MR 3.00x12 BALLOON [employer] [facility] Coronary FFR Wire Medtronic 3.0 x 38 MANFRED FRONTIER JEET Medtronic 3.0 x 08 MANFRED FRONTIER JEET COMPLICATIONS No Complications PROCEDURE MEDICATIONS Fentanyl 50 mcg IV Versed 1 mg IV Versed 1 mg IV Fentanyl 25 mcg IV Oxygen: 2 L/min via nasal cannul (more content not included)... Normal [facility] Discharge Instructionon Discharge Instruction [facility] Medical Records Department [address] [place] [address] Instructions for Home/Discharge Instructions 03/11/25 1445 MR#: [id number] Acct: [id number] Name: DESI PANDEY Rep #: [id number] : 1955 69 From: Rosy Velazquez MD PCP: Dr. Alvaro Auguste MD Status:REG SDC Discharge Instructions DC O2, CPAP, BIPAP needs Home O2 Discharge instructions: No Dressing / Incision Discharge Activity: Return to Normal Activity May resume sexual activity in: No Restrictions Dressing / Incision Call your doctor if your incision/area has: Continuous Slow Oozing, Sudden Increased Bleeding, Increased Pain/ Swelling, Increased Redness, Foul Smelling Discharge and Swelling at the incision site Follow Up Care Please Follow Up With: Rosy Velazquez MD When: 2-4 weeks Test Results: Test results from this visit will be discussed in further detail at your follow-up appointment, if applicable. Discharge Plan Admission Attending Provider: Rosy Velazquez Primary Care Provider: Alvaro Auguste Chi Instructions Print Language: Syriac Discharge Orders/Prescriptions Prescriptions: New aspirin 81 mg Tablet,Delayed Release (Dr/Ec) 81 mg PO BREAKFAST Qty: 90 4RF atorvastatin 10 mg Tablet 10 mg PO QHS Qty: 30 11RF clopidogrel 75 mg Tablet 75 mg PO DAILY Qty: 30 10RF Continued tamsulosin 0.4 mg capsule 0.4 mg PO QDAY tumeric capsule PO DAILY callie root extract 15 mg tablet,chewable PO DAILY lisinopril 20 MG tablet 20 mg PO QHS Patient Comments: Referrals / Follow Up: Alvaro Auguste Chi, MD [Primary Care Provider, Geriatrics] Disposition Disposition (needs filled in before D/C Order can be placed): Home, Self Care 03/11/25 1448 Rosy Velazquez MD CC: Dr. Alvaro Auguste MD Signed Normal [facility] Lyme Antibodies,W [place] Lyme Additional Comment Normal . [facility] Comment on above: Result Comment: Per CDC criteria, the Lyme IgG Immunoblot is interpreted as positive if IgG-class antibodies are detected to 5 or more B. burgdorferi proteins, and the Lyme IgM Immunoblot is interpreted as positive if IgM-class antibodies are detected to 2 or more B. burgdorferi proteins. Immunoblot patterns not meeting these criteria should not be interpreted as positive. Epitopes from certain B. burgdorferi proteins (e.g., p41) are conserved across other bacteria, which may lead to the detection of IgM-and/or IgG class antibodies on the Lyme disease immunoblots in patients without Lyme disease. Immunoblot should only be ordered on specimens that are positive or equivocal by an FDA-licensed Lyme disease antibody screening test (e.g., EIA). Results of the Lyme IgM immunoblot should not be considered in patients with 30 or more days of symptoms. Performed at: [address] [id number] [place] Farmer: Uziel Rees MD, Phone: [phone] Performed By: #### L 501.9940 #### [facility] [address] [place], [address] LYME IgG INTERP Positive Abnormal Negative [facility] Comment on above: Result Comment: Rehana thurman Requested Flag Performed By: #### L 501.9940 #### [facility] [address] [place], [address] LYME IgM INTERP Positive Abnormal Negative [facility] Comment on above: Result Comment: Rehana thurman Requested Flag Please Note: Lyme immunoblot alone is not recommended for the diagnosis of Lyme disease. Current guidelines recommend the use of a two-tiered approach to Lyme serology testing to improve the sensitivity and specificity of testing. [facility] offers test code 542712 Lyme Disease Serology with Reflex to aid in the diagnosis of Lyme Disease. Performed By: #### L 501.9940 #### [facility] [address] [place], [address] P18 Ab Present Normal . [facility] Comment on above: Performed By: #### L 501.9940 #### [facility] [address] [place], [address] P23 Ab Present Normal . [facility] Comment on above: Performed By: #### L 501.9940 #### [facility] [address] [place], [address] P28 Ab Present Normal . [facility] Comment on above: Performed By: #### L 501.9940 #### [facility] [address] [place], [address] P30 Ab Present Normal . [facility] Comment on above: Performed By: #### L 501.9940 #### [facility] [address] [place], [address] P39 Ab Present Normal . [facility] Comment on above: Performed By: #### L 501.9940 #### [facility] [address] [place], [address] P41 Ab Present Normal . [facility] Comment on above: Performed By: #### L 501.9940 #### [facility] [address] [place], [address] P45 Ab Present Normal . [facility] Comment on above: Performed By: #### L 501.9940 #### [facility] [address] [place], [address] P58 Ab Present Normal . [facility] Comment on above: Performed By: #### L 501.9940 #### [facility] [address] [place], [address] P66 Ab Present Normal . [facility] Comment on above: Performed By: #### L 501.9940 #### [facility] [address] [place], [address] P93 Ab Present Normal . [facility] Comment on above: Performed By: #### L 501.9940 #### [facility] [address] [place], [address] Cardiology Visit Reporton Cardiology Visit Report [facility] [address] [place] [address] OFFICE VISIT Date of Service: 02/27/25 MR#: [id number] Acct: [id number] Name: DESI PANDEY Rep #: [id number] : 1955 Provider: DORA Martinez Age/Sex: 69/M Location: [facility] Status: Signed HPI HPI History of Present Illness Details: The patient is a 69-year-old male with HTN presenting for evaluation of exertional neck and ankle swelling. 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 without associated leg swelling. He also noted a sensation of swelling in his neck. He denies chest pain, dyspnea, or chest tightness, but does report episodes of indigestion. He attributes the edema to excessive consumption of Prime sports drinks during the project, which he drank in place of his usual water intake. Elevating his legs provided some relief, but the swelling persisted for 4 days. He was evaluated by his PCP, who initiated a 7-day course of Lasix (which the patient only vaguely recalls), and ordered laboratory tests and an echocardiogram. The echocardiogram showed an EF of 50% with stage 1 diastolic dysfunction. ProBNP was elevated. A subsequent stress test demonstrated an apical reversible perfusion defect of moderate intensity consistent with ischemia, and frequent PVCs in recovery. 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 Intake Vital Signs 02/03/25 08:30 02/27/25 07:45 Height 5 ft 11 in 5 ft 11 in Weight: 155 lb BMI 21.6 Pulse 64 Intake Visit Reasons: UPDATE HPI, SCHEDULE HEART CATH, PER MMM Allergies erythromycin base (Erythromycin Base) Allergy (Verified 02/03/25 08:30) Rash Medications ???Medication ???Instructions ???Recorded ???Confirmed ???Type lisinopril 20 mg tablet 20 mg PO QHS 10/24/13 02/27/25 His tory tamsulosin 0.4 mg capsule 0.4 mg PO QDAY 01/09/25 02/27/25 H istory tumeric PO DAILY 02/03/25 02/27/25 History callie root extract 15 mg chewable mg PO 02/27/25 02/27/25 History tablet Ejection fraction %: 50 Have you fallen [...] fatigue (improved some) Cardiology Exam Const Appearance: cooperative, no acute distress and well developed Orientation: alert, awake and oriented x3 Head Head: normocephalic and atraumatic Mouth: moist mucous membranes Eyes General: appearance normal, both eyes and all related structures Conjunctivae: conjunctivae normal Pupils: PERRL EOM: EOM intact bilaterally Neck Neck: normal visual inspection, no lymphadenopathy and no JVD Carotids: Negative bruit Neck Mass: Negative Neck mass Chest Chest inspection: normal inspection of the chest an (more content not included)... Normal [facility] Chest PA and Lateralon 02-27 Chest PA and Lateral [facility] Imaging Services [address] [place], [place] [address] Chest PA and Lateral MR#: [id number] Acct: [id number] Name: DESI PANDEY Rep #: [id number] : 1955 M 69 From: Nirmal Wills MD PCP: Dr. Alvaro Auguste MD Status: PRE [facility] Study: Chest PA and Lateral Date of Exam: 02/27/25 Exam# [id number] Ordering Dr: Stephanie Woods PA PROCEDURE: CHEST PA AND LATERAL 02/27/2025 REASON FOR EXAM: ABNORMAL STRESS TECHNIQUE: Procedure Code: RADCXR Modality: DX Procedure: CHEST PA AND LATERAL COMPARISON: None FINDINGS: The lungs are clear. The heart borders mediastinum and pulmonary vascular pattern are normal. The upper abdominal bowel gas pattern is normal. There are no significant bony abnormalities of the chest. RAD/Chest PA and Lateral IMPRESSION: No evidence of acute cardiopulmonary pathology. Reading Location: [place] [address] CC: Dr. Alvaro Auguste MD; DORA Beatty Berry Picker Machine Operator: Signed Normal [facility] Protein+Creatinine Ratio,Uri neon 02-27-2025 PROT:CRE RATIO 136 mg/g CRE Normal 0-200 [facility] Comment on above: Performed By: #### L 501.9940 #### [facility] [address] [facility] [place], [id number] Protein (U) [Mass/Vol] 19.5 mg/dL High 0.0-12.[address] [facility] Comment on above: Performed By: #### L 501.9940 #### [facility] [address] [place], [address] UR CREAT 143.00 mg/dL Normal 39.00-259.00 [facility] Comment on above: Performed By: #### L 501.9940 #### [facility] [address] [place], [address] Stress Reporton 02-23-2025 Stress Report [facility] Services [address] [place] [address] MR#: [id number] Acct: [id number] Name: DESI PANDEY Rep #: [id number] : 1955 69 From: Rosy Velazquez MD Primary Care: Dr. Alvaro Auguste MD Status: REG CLI Referring Dr: Rosy Velazquez MD Sex: M C Stress Test Report Date: 02/23/2025 Procedure: Exercise tolerance test/imaging study Indications: Dyspnea Consent: Per the patient Procedure: The patient exercised on a Jg protocol for 6 minutes achieving a peak heart rate of 130 bpm (87% predicted maximal heart rate) with a peak blood pressure 162/88 mmHg and a peak MET capacity of 7.0 METs. The baseline ECG demonstrated sinus rhythm. The peak exercise ECG showed horizontal ST depressions in inferior leads that were borderline positive for ischemia. Occasional PVCs pretest. PVCs noted in recovery. The functional capacity was considered average. There was no complaint of chest discomfort during exercise or recovery. The examination was discontinued secondary to dyspnea and target heart rate being achieved. The patient was injected with 11.7 mCi of technetium 99m Cardiolite and subsequently rest SPECT Cardiolite nuclear imaging was obtained in the horizontal long, vertical long, and short axis views. Post-exercise, the patient was injected with 34.1 mCi of technetium 99m Cardiolite and subsequently stress SPECT Cardiolite nuclear imaging was obtained in the horizontal long, vertical long, and short axis views. A gated Cardiolite study at peak stress was obtained. Rest and stress SPECT Cardiolite nuclear imaging status post realignment, normalization, and attenuation correction, demonstrates a small apical reversible perfusion defect of moderate intensity. There is end systolic thickening and brightening. The gated Cardiolite study demonstrates borderline LV function. The reported LVEF is 51%. Impression: 1. Technically adequate (percent predicted maximal heart rate greater than 85%) exercise tolerance test 2. Peak exercise ECG with borderline ECG changes in inferior leads for ischemia 3. Frequent PVCs in recovery 4. Rest and stress SPECT Cardiolite nuclear imaging demonstrate apical reversible perfusion defect of moderate intensity consistent with ischemia. 5. The gated Cardiolite study reports an LVEF of 51%. This note was generated with [employer] software. It may contain incorrect words, spelling, and punctuation that were not noted in checking the note before signing. 02/23/25 1025 Date Rosy Velazquez MD CC: Dr. Rosy Velazquez MD; Dr. Alvaro Auguste MD Date Dictated: 02/23/25 1020 Date Transcribed: 02/23/25 1020 Berry Picker Machine Operator: MICHAEL Signed Normal [facility] Anion gap in Serum or Plasma Ordered By: Rosy Velazquez on 02-04-2025 Anion gap [Moles/Vol] 11 mmol/L 09-18 [facility] BUN/creatinine ratioOrdered By: Rosy Velazquez on 02-04-2025 Urea nitrogen/Creatinine [Mass ratio] 15.4 mg/mg 02-23 [facility] Bilirubin, totalOrdered By: Rosy Velazquez on 02-04-2025 Bilirubin [Mass/Vol] 0.45 mg/dL 0.00-1.30 [facility] Calculated very low density lipoprotein (VLDL) cholesterol measurementOrdered By: Rosy Velazquez on 02-04-2025 Calculated very low density lipoprotein (VLDL) cholesterol measurement 23 mg/dL -40 [facility] Carbon dioxide, total [Moles /volume] in Central venous bloodOrdered By: Rosy Velazquez on 02-04-2025 CO2 [Moles/Vol] 22.9 mmol/L 21.0-32.0 [facility] Chloride assayOrdered By: Michael Velazquez on 02-04-2025 Chloride [Moles/Vol] 109 mmol/L High 98-108 [facility] Comprehensive Metabolic Prof ilon 02-04-2025 Albumin [Mass/Vol] 4.1 g/dL Normal 3.4-4.8 [facility] Comment on above: Performed By: #### L 503.7505, L501.9520, L100.0100, L500.4050 #### [facility] [address] [place], [address] Albumin/Globulin [Mass ratio] 1.2 {ratio} Normal 0.9-2.4 [facility] Comment on above: Performed By: #### L 503.7505, L501.9520, L100.0100, L500.4050 #### [facility] [address] [place], [address] ALK PHOS 81 U/L Normal 40-129 [facility] Comment on above: Performed By: #### L 503.7505, L501.9520, L100.0100, L500.4050 #### [facility] [address] [place], [address] ALT [Catalytic activity/Vol] 19 U/L Normal <=46 [facility] Comment on above: Performed By: #### L 503.7505, L501.9520, L100.0100, L500.4050 #### [facility] [address] [place], [address] AST [Catalytic activity/Vol] 27 U/L Normal <=37 [facility] Comment on above: Result Comment: Hemo lysis present, Results??could be affected. ?? Performed By: #### L 503.7505, L501.9520, L100.0100, L500.4050 #### [facility] [address] [place], [address] Bilirubin [Mass/Vol] 0.45 mg/dL Normal 0.00-1.30 [facility] Comment on above: Performed By: #### L 503.7505, L501.9520, L100.0100, L500.4050 #### [facility] [address] [place], [address] BUN/CRE 15.4 RATIO Normal 10-20 [facility] Comment on above: Performed By: #### L 503.7505, L501.9520, L100.0100, L500.4050 #### [facility] [address] [place], [address] Calcium [Mass/Vol] 9.7 mg/dL Normal 7.6-11.0 [facility] Comment on above: Performed By: #### L 503.7505, L501.9520, L100.0100, L500.4050 #### [facility] [address] [place], [address] Chloride [Moles/Vol] 109 mmol/L High 98-108 [facility] Comment on above: Performed By: #### L 503.7505, L501.9520, L100.0100, L500.4050 #### [facility] [address] [place], [address] CO2 [Moles/Vol] 22.9 mmol/L Normal 21.0-32.0 [facility] Comment on above: Performed By: #### L 503.7505, L501.9520, L100.0100, L500.4050 #### [facility] [address] [place], [address] Creatinine [Mass/Vol] 0.99 mg/dL Normal 0.70-1.20 [facility] Comment on above: Performed By: #### L 503.7505, L501.9520, L100.0100, L500.4050 #### [facility] [address] [place], [address] GAP 11 Normal 5-15 [facility] Comment on above: Performed By: #### L 503.7505, L501.9520, L100.0100, L500.4050 #### [facility] [address] [place], [address] GFR/1.73 sq M.predicted among non-blacks MDRD (S/P/Bld) [Vol rate/Area] 82 mL/min/{1.73_m2} Normal >60 [facility] Comment on above: Result Comment: mL/m in/1.73m2 CKD-EPI Creatinine Equation (2020) Performed By: #### L 503.7505, L501.9520, L100.0100, L500.4050 #### [facility] [facility] [address] [place], [address] Globulin (S) [Mass/Vol] 3.3 g/dL Normal 2.2-4.2 [facility] Comment on above: Performed By: #### L 503.7505, L501.9520, L100.0100, L500.4050 #### [facility] [address] [place], [address] Glucose [Mass/Vol] 102 mg/dL High 70-99 [facility] Comment on above: Performed By: #### L 503.7505, L501.9520, L100.0100, L500.4050 #### [facility] [address] [place], [address] Potassium [Moles/Vol] 4.5 mmol/L Normal 3.3-5.1 [facility] Comment on above: Result Comment: Hemo lysis present, Results??could be affected. ?? Performed By: #### L 503.7505, L501.9520, L100.0100, L500.4050 #### [facility] [address] [place], [address] Sodium [Moles/Vol] 143 mmol/L Normal 133-145 [facility] Comment on above: Performed By: #### L 503.7505, L501.9520, L100.0100, L500.4050 #### [facility] [address] [place], [address] T PROT 7.4 g/dL Normal 5.9-8.4 [facility] Comment on above: Performed By: #### L 503.7505, L501.9520, L100.0100, L500.4050 #### [facility] [address] [place], [address] Urea nitrogen [Mass/Vol] 15 mg/dL Normal 4-19 [facility] Comment on above: Performed By: #### L 503.7505, L501.9520, L100.0100, L500.4050 #### [facility] [address] [place], [address] Glomerular filtration rate ( GFR) estimation/1.73 sq m using serum, plasma, or whole bOrdered By: Rosy Velazquez on 02-04-2025 GFR/1.73 sq M.predicted among non-blacks MDRD (S/P/Bld) [Vol rate/Area] 82 mL/min/{1.73_m2} >60 [facility] Comment on above: mL/min/1.73m2 CKD-EP I Creatinine Equation (2020) LDL calc ser/plasOrdered By: Rosy Velazquez on 02-04-2025 Cholesterol in LDL [Mass/Vol] 60 mg/dL [facility] Comment on above: Ecnflmkhuo=467-068 m g/dL & Higher Ewth=357 mg/dL or greaterFriedwald Equation for LDL-C Laboratory - Chemistry and C hemistry - challengeOrdered By: Rosy Velazquez on 02-04-2025 AST [Catalytic activity/Vol] 27 U/L <38 [facility] Comment on above: Hemolysis present, R esults could be affected. Lipid Profileon 02-04-2025 CHOL:HDL 2.60 Normal [facility] Comment on above: Performed By: #### L 503.7505, L501.9520, L100.0100, L500.4050 #### [facility] [address] [place], [address] Cholesterol [Mass/Vol] 135 mg/dL Normal <=[address] [facility] Comment on above: Result Comment: Chol esterol level, Desirable <200 mg/dL Borderline high cholesterol 200-239 mg/dL High cholesterol >=240 mg/dL Recommendations of the NCEP Adult Treatment Panel for the following risk-cutoff thresholds for the [place] population. Performed By: #### L 503.7505, L501.9520, L100.0100, L500.4050 #### [facility] [address] [place], [address] Cholesterol in HDL [Mass/Vol] 52 mg/dL Normal [facility] Comment on above: Result Comment: Leatha onal Cholesterol Education Program (NCEP) guidelines: <40 mg/dL: Low HDL-cholesterol (major risk factor for CHD) >= 60 mg/dL: High HDL-cholesterol (negative risk factor for CHD) HDL-cholesterol is affected by a number of factors, e.g. smoking, exercise, hormones, sex and age. Performed By: #### L 503.7505, L501.9520, L100.0100, L500.4050 #### [facility] [address] [place], [address] Cholesterol in LDL [Mass/Vol] 60 mg/dL Normal [facility] Comment on above: Result Comment: Bord ssfwvj=549-085 mg/dL Higher Koff=426 mg/dL or greater Friedwald Equation for LDL-C Performed By: #### L 503.7505, L501.9520, L100.0100, L500.4050 #### [facility] [address] [place], [address] Cholesterol in VLDL [Mass/Vol] 23 mg/dL Normal 5-40 [facility] Comment on above: Performed By: #### L 503.7505, L501.9520, L100.0100, L500.4050 #### [facility] [address] [place], [address] Triglyceride [Mass/Vol] 114 mg/dL Normal [facility] Comment on above: Result Comment: The drugs N-Acetylcysteine and Metamizole may falsely depress this assay. Normal range: <150 mg/dL Borderline High: 150-199 mg/dL High: 200-499 mg/dL Very High: >500 mg/dL Performed By: #### L 503.7505, L501.9520, L100.0100, L500.4050 #### [facility] [address] [place], [address] Natriuretic peptide.B prohor eloina N-Terminal [Mass/volume] in Serum or PlasmaOrdered By: Rosy Velazquez on 02-04-2025 Natriuretic peptide.B prohormone N-Terminal [Mass/Vol] 469 pg/mL <900 [facility] Comment on above: Heart Failure Unlike ly: < 300 pg/mLHeart Failure Likely< 50 Years: > 450 pg/mL50-75 Years: > 900 pg/mL>75 Years: > 1800 pg/mL Potassium measurement (mass/ volume)Ordered By: Rosy Velazquez on 02-04-2025 Potassium (Unsp spec) [Mass/Vol] 4.5 mmol/L 3.3-5.1 [facility] Comment on above: Hemolysis present, R esults could be affected. Pro- Brain NATRIURETIC PEPTI Sakshi 02-04-2025 Natriuretic peptide B (Bld) [Mass/Vol] 469 pg/mL Normal <=900 [facility] Comment on above: Result Comment: Hear t Failure Unlikely: < 300 pg/mL Heart Failure Likely < 50 Years: > 450 pg/mL 50-75 Years: > 900 pg/mL >75 Years: > 1800 pg/mL Performed By: #### L 503.7505, L501.9520, L100.0100, L500.4050 #### [facility] [address] [place], [address] Screening total cholesterol/ high density lipoprotein (HDL) cholesterol ratioOrdered By: Rosy Velazquez on 02-04-2025 Cholesterol.total/Chol esterol in HDL [Mass ratio] 2.60 {ratio} [facility] Serum creatinine measurement (mass/volume)Ordered By: Rosy Velazquez on 02-04-2025 Creatinine [Mass/Vol] 0.99 mg/dL 0.70-1.20 [facility] Serum globulin measurementOr dered By: Rosy Velazquez on 02-04-2025 Globulin (S) [Mass/Vol] 3.3 g/dL 2.2-4.2 [facility] Serum glucose measurement (m ass/volume)Ordered By: Rosy Velazquez on 02-04-2025 Glucose [Mass/Vol] 102 mg/dL High 70-99 [facility] Serum or plasma alanine dominguez otransferase (ALT) measurementOrdered By: Rosy Velazquez on 02-04-2025 ALT [Catalytic activity/Vol] 19 U/L <47 [facility] Serum or plasma albumin jean urement (mass/volume)Ordered By: Rosy Velazquez on 02-04-2025 Albumin [Mass/Vol] 4.1 g/dL 3.4-4.8 [facility] Serum or plasma albumin/glob ulin mass ratioOrdered By: Rosy Velazquez on 02-04-2025 Albumin/Globulin [Mass ratio] 1.2 {ratio} 0.9-2.4 [facility] Serum or plasma alkaline denzel sphatase measurementOrdered By: Rosy Velazquez on 02-04-2025 ALP [Catalytic activity/Vol] 81 U/L 40-129 [facility] Serum or plasma calcium jean urement (mass/volume)Ordered By: Rosy Velazquez on 02-04-2025 Calcium [Mass/Vol] 9.7 mg/dL 7.6-11.0 [facility] Serum or plasma cholesterol in HDL measurement (mass/volume)Ordered By: Rosy Velazquez on 02-04-2025 Cholesterol in HDL [Mass/Vol] 52 mg/dL >40 [facility] Comment on above: National Cholesterol Education Program (NCEP) guidelines:<40 mg/dL: Low HDL-cholesterol (major risk factor for CHD)>= 60 mg/dL: High HDL-cholesterol (negative risk factor for CHD)HDL-cholesterol is affected by a number of factors, e.g. smoking, exercise, hormones, sex and age. Serum or plasma cholesterol measurement (mass/volume)Ordered By: Rosy Velazquez on 02-04-2025 Cholesterol [Mass/Vol] 135 mg/dL <[address] [facility] Comment on above: Cholesterol level, D esirable <200 mg/dLBorderline high cholesterol 200-239 mg/dLHigh cholesterol >=240 mg/dLRecommendations of the NCEP Adult Treatment Panel for the following risk-cutoff thresholds for the [place] population. Serum or plasma urea nitroge n measurement (mass/volume)Ordered By: Rosy Velazquez on 02-04-2025 Urea nitrogen [Mass/Vol] 15 mg/dL 4-19 [facility] Sodium levelOrdered By: Igor Velazquez on 02-04-2025 Sodium [Moles/Vol] 143 mmol/L 133-145 [facility] Total proteinOrdered By: Ashish Velazquez on 02-04-2025 Protein [Mass/Vol] 7.4 g/dL 5.9-8.4 [facility] Triglycerides measurementOrd ered By: Rosy Velazquez on 02-04-2025 Triglyceride [Mass/Vol] 114 mg/dL <199 [facility] Comment on above: The drugs N-Acetylcy steine and Metamizole may falsely depress this assay. Normal range: <150 mg/dLBorderline High: 150-199 mg/dLHigh: 200-499 mg/dLVery High: >500 mg/dL Cardiology Visit Reporton Cardiology Visit Report [facility] [address] [place], [place] [address] OFFICE VISIT Date of Service: 02/03/25 MR#: [id number] Acct: [id number] Name: DESI PANDEY Rep #: [id number] : 1955 Provider: Dr. Rosy Velazquez MD Age/Sex: 69/M Location: [facility] [place] Status: Signed HPI HPI History of Present Illness Details: This very pleasant gentleman has history of hypertension. Last month, he was engaged in physical labor at his home. According to the patient, it was very hot. Per him, over the weekend he drank a lot of energy drinks. He noticed that his ankles had swelled up. Also noticed swelling of the neck. No dysphagia. No shortness of breath. 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 Normal [facility] Absolute lymphocyte countOrd ered By: Alvaro Auguste on 01-19-2025 Lymphocytes Auto (Unsp spec) [#/Vol] 1.39 10*3/uL 0.83-4.51 [facility] Absolute neutrophil countOrd ered By: Alvaro Auguste on 01-19-2025 Neutrophils (Bld) [#/Vol] 8.3 10*3/uL High 2.0-7.7 [facility] Automated lymphocyte count a s percentage of total leukocytesOrdered By: Alvaro Auguste on 01-19-2025 Lymphocytes/100 WBC Auto (Unsp spec) 12.8 % Low 19-41 [facility] Basophil percentageOrdered B y: Alvaro Auguste on 01-19-2025 Basophils/100 WBC (Bld) 0.8 % 0-1 [facility] CBC W/Diff, Automatedon 01-05 Absolute Lymph 1.39 X10 3/uL Normal 0.83-4.51 [facility] Comment on above: Performed By: #### L 501.9940 #### [facility] [address] [place], [address] Absolute Neut 8.3 X10 3/uL High 2.0-7.7 [facility] Comment on above: Performed By: #### L 501.9940 #### [facility] [address] [place], [address] Basophils/100 WBC (Bld) 0.8 % Normal 0-1 [facility] Comment on above: Performed By: #### L 501.9940 #### [facility] [address] [place], [address] Eosinophils/100 WBC (Bld) 1.7 % Normal 0-5 [facility] Comment on above: Performed By: #### L 501.9940 #### [facility] [address] [place], [address] Erythrocyte distribution width (RBC) [Ratio] 13.3 % Normal 11.6-14.6 [facility] Comment on above: Performed By: #### L 501.9940 #### [facility] [address] [place], [address] Hematocrit (Bld) [Volume fraction] 45.4 % Normal 40-54 [facility] Comment on above: Performed By: #### L 501.9940 #### [facility] [address] [place], [address] Hemoglobin (Bld) [Mass/Vol] 15.5 g/dL Normal 13.0-16.5 [facility] Comment on above: Performed By: #### L 501.9940 #### [facility] [address] [place], [address] IG% 1.000 High 0.0-0.9 [facility] Comment on above: Result Comment: IG% - Immature Granulocytes (promyelocytes, myelocytes and metamyelocytes) > 1% indicates that a LEFT SHIFT is Present. Performed By: #### L 501.9940 #### [facility] [address] [place], [address] Lymphocytes/100 WBC (Bld) 12.8 % Low 19-41 [facility] Comment on above: Performed By: #### L 501.9940 #### [facility] [address] [place], [address] MCH (RBC) [Entitic mass] 32.8 pg High 27.0-32.0 [facility] Comment on above: Performed By: #### L 501.9940 #### [facility] [address] [place], [address] MCHC (RBC) [Mass/Vol] 34.1 g/dL Normal 32-36 [facility] Comment on above: Performed By: #### L 501.9940 #### [facility] [address] [place], [address] MCV (RBC) [Entitic vol] 96.0 fL High 80-94 [facility] Comment on above: Performed By: #### L 501.9940 #### [facility] [address] [place], [address] Monocytes/100 WBC (Bld) 7.4 % Normal 0-10 [facility] Comment on above: Performed By: #### L 501.9940 #### [facility] [address] [place], [address] Neutrophils/100 WBC (Bld) 76.3 % High 47-70 [facility] Comment on above: Performed By: #### L 501.9940 #### [facility] [address] [place], [address] Nucleated RBC (Bld) [#/Vol] 0 10*3/uL Normal 0-5 [facility] Comment on above: Performed By: #### L 501.40 #### [facility] [address] [place], [address] Platelet mean volume (Bld) [Entitic vol] 11.1 fL Normal 6.2-12.0 [facility] Comment on above: Performed By: #### L 501.9940 #### [facility] [address] [place], [address] Platelets (Bld) [#/Vol] 261 10*3/uL Normal 150-450 [facility] Comment on above: Performed By: #### L 501.40 #### [facility] [address] [place], [address] RBC (Bld) [#/Vol] 4.73 10*6/uL Normal 4.6-6.2 [facility] Comment on above: Performed By: #### L 501.9940 #### [facility] [address] [place], [address] RDW SD 48.1 fl High 35.1-43.9 [facility] Comment on above: Performed By: #### L 501.9940 #### [facility] [address] [place], [address] WBC (Bld) [#/Vol] 10.9 10*3/uL Normal 4.4-11.0 [facility] Comment on above: Performed By: #### L 501.9940 #### [facility] [address] [place], [place], [address] Eosinophil percentageOrdered By: [facility] on 01-19-2025 Eosinophils/100 WBC (Bld) 1.7 % 0-5 [facility] Erythrocyte distribution wid th ratioOrdered By: [facility] on 01-19-2025 Erythrocyte distribution width (RBC) [Ratio] 13.3 % 11.6-14.6 [facility] Erythrocyte distribution wid th standard deviationOrdered By: [facility] 01-19-2025 Erythrocyte distribution width (RBC) [Ratio] 48.1 fl High 35.1-43.9 [facility] Hematocrit Auto (Bld) [Volum e fraction]Ordered By: [facility] 01-19-2025 Hematocrit (Bld) [Volume fraction] 45.4 % 40-54 [facility] Hemoglobin measurementOrdere d By: [facility] 01-19-2025 Hemoglobin (Bld) [Mass/Vol] 15.5 g/dL 13.0-16.5 [facility] Immature granulocytes/100 WB C Auto (Bld)Ordered By: [facility] 01-19-2025 Immature granulocytes/100 WBC (Bld) 1.000 % High 0.0-0.9 [facility] Comment on above: IG% - Immature Granu locytes (promyelocytes, myelocytes and metamyelocytes) > 1% indicates that a LEFT SHIFT is Present. MCV (mean corpuscular volume ) determinationOrdered By: [facility] 01-19-2025 MCV (RBC) [Entitic vol] 96.0 fL High 80-94 [facility] Mean corpuscular hemoglobin (MCH) determinationOrdered By: [facility] 01-19-2025 MCH (RBC) [Entitic mass] 32.8 pg High 27.0-32.0 [facility] Mean corpuscular hemoglobin concentration (MCHC) determinationOrdered By: [facility] 01-19-2025 MCHC (RBC) [Mass/Vol] 34.1 g/dL 32-36 [facility] Mean platelet volume determi nationOrdered By: Alvaro Auguste on 01-19-2025 Platelet mean volume (Bld) [Entitic vol] 11.1 fL 6.2-12.0 [facility] Monocyte percentageOrdered B y: Alvaro Auguste on 01-19-2025 Monocytes/100 WBC (Bld) 7.4 % 0-10 [facility] Neutrophil percentageOrdered By: Alvaro Auguste on 01-19-2025 Neutrophils/100 WBC (Bld) 76.3 % High 47-70 [facility] Nucleated red blood cell per centageOrdered By: Alvaro Auguste on 01-19-2025 Nucleated RBC/100 WBC (Bld) [Ratio] 0 % 0-5 [facility] Platelet countOrdered By: Rubens Auguste on 01-19-2025 Platelets (Bld) [#/Vol] 261 10*3/uL 150-450 [facility] RBC Auto (Bld) [#/Vol]Ordere d By: Alvaro Auguste on 01-19-2025 RBC (Bld) [#/Vol] 4.73 10*6/uL 4.6-6.2 [facility] White blood cell (WBC) count Ordered By: Alvaro Auguste on 01-19-2025 WBC (Bld) [#/Vol] 10.9 10*3/uL 4.4-11.0 [facility] Echo Completeon 12-19-2024 Echo [facility] [address] [place] [address] Echo Complete 12/19/24 1353 MR#: [id number] Acct: [id number] Name: DESI PANDEY Rep #: [id number] : 1955 69 From: Yobani Bernstein MD Attending Dr: Dr. Alvaro Auguste MD Status: REG CLI Ordering Dr: Alvaro Auguste MD Date: 12/19/24 Location: [facility] Sex: M C Admitted: Reason For Study [...] Performed By: Tami Thomason RDCS 12/19/241758 Date Yobani Bernstein MD CC: Dr. 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 [address] Echo Complete 12/19/241352 MR#: [id number] Acct: [id number] Name: DESI PANDEY Rep #:[id number] : 1955 69 From: Yobani Florez Attending Dr: Dr. Alvaro Auguste MD Status: REG CLI Ordering Dr: Alvaro Auguste MD Date: Location: [facility] Sex: M C Admitted: Reason For Study [...] Chi Performed By: Tami Thomason RDCS 12/19/24 0359 Date _ Yobani Bernstein MD CC: Dr. 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 Machine Operator: Signed [facility] Work Phone: Absolute lymphocyte countOrd ered By: Alvaro Auguste on 12-15-2024 Lymphocytes Auto (Unsp spec) [#/Vol] 1.50 10*3/uL 0.83-4.51 [facility] Absolute neutrophil countOrd ered By: Alvaro Auguste on 12-15-2024 Neutrophils (Bld) [#/Vol] 7.8 10*3/uL High 2.0-7.7 [facility] Anion gap in Serum or Plasma Ordered By: Alvaro Auguste on 12-15-2024 Anion gap [Moles/Vol] 12 mmol/L 5-15 [facility] Automated lymphocyte count a s percentage of total leukocytesOrdered By: Alvaro Auguste on 12-15-2024 Lymphocytes/100 WBC Auto (Unsp spec) 14.2 % Low 19-41 [facility] BUN/creatinine ratioOrdered By: [facility] 12-15-2024 Urea nitrogen/Creatinine [Mass ratio] 10.2 mg/mg 10- [facility] Basophil percentageOrdered B y: Alvaro Molina on 12-15-2024 Basophils/100 WBC (Bld) 0.6 % 0- [facility] Bilirubin, totalOrdered By: Alvaro Auguste on 12-15-2024 Bilirubin [Mass/Vol] 0.27 mg/dL 0.00-1.30 [facility] CBC W/Diff, Automatedon 12-05 Absolute Lymph 1.50 X10 3/uL Normal 0.83-4.51 [facility] Comment on above: Performed By: #### L 503.7505, L501.9520, L100.0100, L500.4050 #### [facility] [address] [place], [place], [id number] Absolute Neut 7.8 X10 3/uL High 2.0-7.7 [facility] Comment on above: Performed By: #### L 503.7505, L501.9520, L100.0100, L500.4050 #### [facility] [address] [place], [address] Basophils/100 WBC (Bld) 0.6 % Normal 0-1 [facility] Comment on above: Performed By: #### L 503.7505, L501.9520, L100.0100, L500.4050 #### [facility] [address] [place], [address] Eosinophils/100 WBC (Bld) 1.3 % Normal 0-5 [facility] Comment on above: Performed By: #### L 503.7505, L501.9520, L100.0100, L500.4050 #### [facility] [address] [place], [address] Erythrocyte distribution width (RBC) [Ratio] 13.4 % Normal 11.6-14.6 [facility] Comment on above: Performed By: #### L 503.7505, L501.9520, L100.0100, L500.4050 #### [facility] [address] [place], [address] Hematocrit (Bld) [Volume fraction] 41.3 % Normal 40-54 [facility] Comment on above: Performed By: #### L 503.7505, L501.9520, L100.0100, L500.4050 #### [facility] [address] [place], [address] Hemoglobin (Bld) [Mass/Vol] 14.0 g/dL Normal 13.0-16.5 [facility] Comment on above: Performed By: #### L 503.7505, L501.9520, L100.0100, L500.4050 #### [facility] [address] [place], [address] IG% 1.000 High 0.0-0.9 [facility] Comment on above: Result Comment: IG% - Immature Granulocytes (promyelocytes, myelocytes and metamyelocytes) > 1% indicates that a LEFT SHIFT is Present. Performed By: #### L 503.7505, L501.9520, L100.0100, L500.4050 #### [facility] [address] [place], [address] Lymphocytes/100 WBC (Bld) 14.2 % Low 19-41 [facility] Comment on above: Performed By: #### L 503.7505, L501.9520, L100.0100, L500.4050 #### [facility] [address] [place], [address] MCH (RBC) [Entitic mass] 33.6 pg High 27.0-32.0 [facility] Comment on above: Performed By: #### L 503.7505, L501.9520, L100.0100, L500.4050 #### [facility] [address] [place], [address] MCHC (RBC) [Mass/Vol] 33.9 g/dL Normal 32-36 [facility] Comment on above: Performed By: #### L 503.7505, L501.9520, L100.0100, L500.4050 #### [facility] [address] [place], [address] MCV (RBC) [Entitic vol] 99.0 fL High 80-94 [facility] Comment on above: Performed By: #### L 503.7505, L501.9520, L100.0100, L500.4050 #### [facility] [address] [place], [address] Monocytes/100 WBC (Bld) 9.6 % Normal 0-10 [facility] Comment on above: Performed By: #### L 503.7505, L501.9520, L100.0100, L500.4050 #### [facility] [address] [place], [address] Neutrophils/100 WBC (Bld) 73.3 % High 47-70 [facility] Comment on above: Performed By: #### L 503.7505, L501.9520, L100.0100, L500.4050 #### [facility] [address] [place], [address] Nucleated RBC (Bld) [#/Vol] 0 10*3/uL Normal 0-5 [facility] Comment on above: Performed By: #### L 503.7505, L501.9520, L100.0100, L500.4050 #### [facility] [address] [place], [address] Platelet mean volume (Bld) [Entitic vol] 10.7 fL Normal 6.2-12.0 [facility] Comment on above: Performed By: #### L 503.7505, L501.9520, L100.0100, L500.4050 #### [facility] [address] [place], [address] Platelets (Bld) [#/Vol] 310 10*3/uL Normal 150-450 [facility] Comment on above: Performed By: #### L 503.7505, L501.9520, L100.0100, L500.4050 #### [facility] [address] [place], [address] RBC (Bld) [#/Vol] 4.17 10*6/uL Low 4.6-6.2 [facility] Comment on above: Performed By: #### L 503.7505, L501.9520, L100.0100, L500.4050 #### [facility] [address] [place], [address] RDW SD 49.4 fl High 35.1-43.9 [facility] Comment on above: Performed By: #### L 503.7505, L501.9520, L100.0100, L500.4050 #### [facility] [address] [place], [address] WBC (Bld) [#/Vol] 10.6 10*3/uL Normal 4.4-11.0 [facility] Comment on above: Performed By: #### L 503.7505, L501.9520, L100.0100, L500.4050 #### [facility] [address] [place], [address] Carbon dioxide, total [Moles /volume] in Central venous bloodOrdered By: Alvaro Auguste on 12-15-2024 CO2 [Moles/Vol] 23.0 mmol/L 21.0-32.0 [facility] Cerv Spine 2 or 3 Viewson Cerv Spine 2 or 3 Views [facility] Imaging Services [address] [place] [address] Cerv Spine 2 or 3 Views MR#: [id number] Acct: [id number] Name: DESI PANDEY Rep #: [id number] : 1955 M 69 From: Kenneth Chow MD PCP: Dr. Alvaro Auguste MD Status: REG CLI Study: Cerv Spine 2 or 3 Views Date of Exam: 12/15/24 Exam# [id number] Ordering Dr: Alvaro Auguste MD PROCEDURE: CERV [...] 3 Views IMPRESSION: Spondylosis. Spondylolisthesis. Reading Location: [id number] CC: Dr. 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, [address] Albumin/Globulin [Mass ratio] 1.3 {ratio} Normal 0.9-2.4 [facility] Comment on above: Performed By: #### L 503.7505, L501.9520, L100.0100, L500.4050 #### [facility] [address] [place], [address] ALK PHOS 92 U/L Normal 40-129 [facility] Comment on above: Performed By: #### L 503.7505, L501.9520, L100.0100, L500.4050 #### [facility] [address] [place], [address] ALT [Catalytic activity/Vol] 15 U/L Normal <=46 [facility] Comment on above: Performed By: #### L 503.7505, L501.9520, L100.0100, L500.4050 #### [facility] [address] [place], [address] AST [Catalytic activity/Vol] 25 U/L Normal <=37 [facility] Comment on above: Performed By: #### L 503.7505, L501.9520, L100.0100, L500.4050 #### [facility] [address] [place], [address] Bilirubin [Mass/Vol] 0.27 mg/dL Normal 0.00-1.30 [facility] Comment on above: Performed By: #### L 503.7505, L501.9520, L100.0100, L500.4050 #### [facility] [address] [place], [address] BUN/CRE 10.2 RATIO Normal 10-20 [facility] Comment on above: Performed By: #### L 503.7505, L501.9520, L100.0100, L500.4050 #### [facility] [address] [place], [address] Calcium [Mass/Vol] 9.5 mg/dL Normal 7.6-11.0 [facility] Comment on above: Performed By: #### L 503.7505, L501.9520, L100.0100, L500.4050 #### [facility] [address] [place], [address] Chloride [Moles/Vol] 106 mmol/L Normal 98-108 [facility] Comment on above: Performed By: #### L 503.7505, L501.9520, L100.0100, L500.4050 #### [facility] [address] [place], [address] CO2 [Moles/Vol] 23.0 mmol/L Normal 21.0-32.0 [facility] Comment on above: Performed By: #### L 503.7505, L501.9520, L100.0100, L500.4050 #### [facility] [address] [place], [address] Creatinine [Mass/Vol] 0.94 mg/dL Normal 0.70-1.20 [facility] Comment on above: Performed By: #### L 503.7505, L501.9520, L100.0100, L500.4050 #### [facility] [address] [place], [address] GAP 12 Normal 5-15 [facility] Comment on above: Performed By: #### L 503.7505, L501.9520, L100.0100, L500.4050 #### [facility] [address] [place], [address] GFR/1.73 sq M.predicted among non-blacks MDRD (S/P/Bld) [Vol rate/Area] 87 mL/min/{1.73_m2} Normal >60 [facility] Comment on above: Result Comment: mL/m in/1.73m2 CKD-EPI Creatinine Equation (2020) Performed By: #### L 503.7505, L501.9520, L100.0100, L500.4050 #### [facility] [address] [place], [address] Globulin (S) [Mass/Vol] 3.0 g/dL Normal 2.2-4.2 [facility] Comment on above: Performed By: #### L 503.7505, L501.9520, L100.0100, L500.4050 #### [facility] [address] [place], [address] Glucose [Mass/Vol] 92 mg/dL Normal 70-99 [facility] Comment on above: Performed By: #### L 503.7505, L501.9520, L100.0100, L500.4050 #### [facility] [address] [place], [address] Potassium [Moles/Vol] 4.1 mmol/L Normal 3.3-5.1 [facility] Comment on above: Performed By: #### L 503.7505, L501.9520, L100.0100, L500.4050 #### [facility] [address] [place], [address] Sodium [Moles/Vol] 141 mmol/L Normal 133-145 [facility] Comment on above: Performed By: #### L 503.7505, L501.9520, L100.0100, L500.4050 #### [facility] [address] [place], [address] T PROT 6.7 g/dL Normal 5.9-8.4 [facility] Comment on above: Performed By: #### L 503.7505, L501.9520, L100.0100, L500.4050 #### [facility] [address] [place], [address] Urea nitrogen [Mass/Vol] 10 mg/dL Normal 4-19 [facility] Comment on above: Performed By: #### L 503.7505, L501.9520, L100.0100, L500.4050 #### [facility] [address] [place], [address] Eosinophil percentageOrdered By: Alvaro Auguste on 12-15-2024 Eosinophils/100 WBC (Bld) 1.3 % 0-5 [facility] Erythrocyte distribution wid th ratioOrdered By: Alvaro Auguste on 12-15-2024 Erythrocyte distribution width (RBC) [Ratio] 13.4 % 11.6-14.6 [facility] Erythrocyte distribution wid th standard deviationOrdered By: Alvaro Auguste on 12-15-2024 Erythrocyte distribution width (RBC) [Ratio] 49.4 fl High 35.1-43.9 [facility] Glomerular filtration rate ( GFR) estimation/1.73 sq m using serum, plasma, or whole bOrdered By: Alvaro Auguste on 12-15-2024 GFR/1.73 sq M.predicted among non-blacks MDRD (S/P/Bld) [Vol rate/Area] 87 mL/min/{1.73_m2} >60 [facility] Comment on above: mL/min/1.73m2 CKD-EP I Creatinine Equation (2020) Hematocrit Auto (Bld) [Volum e fraction]Ordered By: Alvaro Auguste on 12-15-2024 Hematocrit (Bld) [Volume fraction] 41.3 % 40-54 [facility] Hemoglobin measurementOrdere d By: Alvaro Auguste on 12-15-2024 Hemoglobin (Bld) [Mass/Vol] 14.0 g/dL 13.0-16.5 [facility] Immature granulocytes/100 WB C Auto (Bld)Ordered By: Alvaro Auguste on 12-15-2024 Immature granulocytes/100 WBC (Bld) 1.000 % High 0.0-0.9 [facility] Comment on above: IG% - Immature Granu locytes (promyelocytes, myelocytes and metamyelocytes) > 1% indicates that a LEFT SHIFT is Present. Laboratory - Chemistry and C hemistry - challengeOrdered By: Alvaro Auguste on 12-15-2024 AST [Catalytic activity/Vol] 25 U/L <38 [facility] MCV (mean corpuscular volume ) determinationOrdered By: Alvaro Auguste 12-15-2024 MCV (RBC) [Entitic vol] 99.0 fL High 80-94 [facility] Mean corpuscular hemoglobin (MCH) determinationOrdered By: Alvaro Auguste 12-15-2024 MCH (RBC) [Entitic mass] 33.6 pg High 27.0-32.0 [facility] Mean corpuscular hemoglobin concentration (MCHC) determinationOrdered By: Alvaro Auguste 12-15-2024 MCHC (RBC) [Mass/Vol] 33.9 g/dL 32-36 [facility] Mean platelet volume determi nationOrdered By: Alvaro Auguste 12-15-2024 Platelet mean volume (Bld) [Entitic vol] 10.7 fL 6.2-12.0 [facility] Monocyte percentageOrdered B y: Alvaro Auguste 12-15-2024 Monocytes/100 WBC (Bld) 9.6 % 0-10 [facility] Natriuretic peptide.B prohor eloina N-Terminal [Mass/volume] in Serum or PlasmaOrdered By: Alvaro Auguste 12-15-2024 Natriuretic peptide.B prohormone N-Terminal [Mass/Vol] 1515 pg/mL High <900 [facility] Comment on above: Heart Failure Unlike ly: < 300 pg/mLHeart Failure Likely< 50 Years: > 450 pg/mL50-75 Years: > 900 pg/mL>75 Years: > 1800 pg/mL Neutrophil percentageOrdered By: Alvaro Auguste on 12-15-2024 Neutrophils/100 WBC (Bld) 73.3 % High 47-70 [facility] Nucleated red blood cell per centageOrdered By: Alvaro Auguste on 12-15-2024 Nucleated RBC/100 WBC (Bld) [Ratio] 0 % 0-5 [facility] Platelet countOrdered By: Rubens Auguste on 12-15-2024 Platelets (Bld) [#/Vol] 310 10*3/uL 150-450 [facility] Potassium measurement (mass/ volume)Ordered By: Alvaro Auguste on 12-15-2024 Potassium (Unsp spec) [Mass/Vol] 4.1 mmol/L 3.3-5.1 [facility] Pro- Brain NATRIURETIC PEPTI Sakshi 12-15-2024 Natriuretic peptide B (Bld) [Mass/Vol] 1515 pg/mL High <=900 [facility] Comment on above: Result Comment: Hear t Failure Unlikely: < 300 pg/mL Heart Failure Likely < 50 Years: > 450 pg/mL 50-75 Years: > 900 pg/mL >75 Years: > 1800 pg/mL Performed By: #### L 503.7505, L501.9520, L100.0100, L500.4050 #### [facility] [address] [place], [address] RBC Auto (Bld) [#/Vol]Ordere d By: Alvaro Auguste on 12-15-2024 RBC (Bld) [#/Vol] 4.17 10*6/uL Low 4.6-6.2 [facility] Serum creatinine measurement (mass/volume)Ordered By: Alvaro Auguste on 12-15-2024 Creatinine [Mass/Vol] 0.94 mg/dL 0.70-1.20 [facility] Serum globulin measurementOr dered By: Alvaro Auguste on 12-15-2024 Globulin (S) [Mass/Vol] 3.0 g/dL 2.2-4.2 [facility] Serum glucose measurement (m ass/volume)Ordered By: Alvaro Auguste on 12-15-2024 Glucose [Mass/Vol] 92 mg/dL 70-99 [facility] Serum or plasma alanine dominguez otransferase (ALT) measurementOrdered By: Alvaro Auguste on 12-15-2024 ALT [Catalytic activity/Vol] 15 U/L <47 [facility] Serum or plasma albumin jean urement (mass/volume)Ordered By: Alvaro Auguste on 12-15-2024 Albumin [Mass/Vol] 3.8 g/dL 3.4-4.8 [facility] Serum or plasma albumin/glob ulin mass ratioOrdered By: Alvaro Auguste on 12-15-2024 Albumin/Globulin [Mass ratio] 1.3 {ratio} 0.9-2.4 [facility] Serum or plasma alkaline denzel sphatase measurementOrdered By: Alvaro Auguste on 12-15-2024 ALP [Catalytic activity/Vol] 92 U/L 40-129 [facility] Serum or plasma calcium jean urement (mass/volume)Ordered By: Alvaro Auguste on 12-15-2024 Calcium [Mass/Vol] 9.5 mg/dL 7.6-11.0 [facility] Serum or plasma urea nitroge n measurement (mass/volume)Ordered By: Alvaro Auguste on 12-15-2024 Urea nitrogen [Mass/Vol] 10 mg/dL 4-19 [facility] Sodium levelOrdered By: Alvaro Auguste 12-15-2024 Sodium [Moles/Vol] 141 mmol/L 133-145 [facility] TSH DL <= 0.005 mIU/L QnOrde red By: Alvaro Auguste on 12-15-2024 TSH Qn 0.979 uIU/mL 0.300-4.200 [facility] Thyroid Stim Hormone (TSH)on 12-15-2024 TSH 0.979 uIU/mL Normal 0.300-4.200 [facility] Comment on above: Performed By: #### L 503.5436, L501.9507, L100.0100, L500.4050 #### [facility] [address] [place], [address] Total proteinOrdered By: Alvaro Auguste on 12-15-2024 Protein [Mass/Vol] 6.7 g/dL 5.9-8.4 [facility] White blood cell (WBC) count Ordered By: Alvaro Auguste on 12-15-2024 WBC (Bld) [#/Vol] 10.6 10*3/uL 4.4-11.0 [facility] Absolute lymphocyte countOrd ered By: Alvaro Auguste on 10-17-2024 Lymphocytes Auto (Unsp spec) [#/Vol] 1.45 10*3/uL 0.83-4.51 [facility] Absolute neutrophil countOrd ered By: Alvaro Auguste on 10-17-2024 Neutrophils (Bld) [#/Vol] 7.0 10*3/uL 2.0-7.7 [facility] Anion gap in Serum or Plasma Ordered By: Alvaro Auguste on 10-17-2024 Anion gap [Moles/Vol] 12 mmol/L 5-15 [facility] Automated lymphocyte count a s percentage of total leukocytesOrdered By: Alvaro Auguste on 10-17-2024 Lymphocytes/100 WBC Auto (Unsp spec) 14.9 % Low 19-41 [facility] BUN/creatinine ratioOrdered By: [facility] on 10-17-2024 Urea nitrogen/Creatinine [Mass ratio] 21.0 mg/mg High 10-20 [facility] Basophil percentageOrdered B y: Alvaro Auguste on 10-17-2024 Basophils/100 WBC (Bld) 0.5 % 0-1 [facility] Bilirubin, totalOrdered By: Alvaro Auguste on 10-17-2024 Bilirubin [Mass/Vol] 0.61 mg/dL 0.00-1.30 [facility] CBC W/Diff, Automatedon 10-05 Absolute Lymph 1.45 X10 3/uL Normal 0.83-4.51 [facility] Comment on above: Performed By: #### L 501.9940 #### [facility] [address] [place], [place], [id number] (265) Absolute Neut 7.0 X10 3/uL Normal 2.0-7.7 [facility] Comment on above: Performed By: #### L 501.9940 #### [facility] [address] [place], [address] Basophils/100 WBC (Bld) 0.5 % Normal 0-1 [facility] Comment on above: Performed By: #### L 501.9940 #### [facility] [address] [place], [address] Eosinophils/100 WBC (Bld) 2.6 % Normal 0-5 [facility] Comment on above: Performed By: #### L 501.9940 #### [facility] [address] [place], [address] Erythrocyte distribution width (RBC) [Ratio] 13.4 % Normal 11.6-14.6 [facility] Comment on above: Performed By: #### L 501.9940 #### [facility] [address] [place], [address] Hematocrit (Bld) [Volume fraction] 43.2 % Normal 40-54 [facility] Comment on above: Performed By: #### L 501.9940 #### [facility] [address] [place], [address] Hemoglobin (Bld) [Mass/Vol] 15.0 g/dL Normal 13.0-16.5 [facility] Comment on above: Performed By: #### L 501.9940 #### [facility] [address] [place], [address] IG% 0.700 Normal 0.0-0.9 [facility] Comment on above: Result Comment: IG% - Immature Granulocytes (promyelocytes, myelocytes and metamyelocytes) > 1% indicates that a LEFT SHIFT is Present. Performed By: #### L 501.9940 #### [facility] [address] [place], [address] Lymphocytes/100 WBC (Bld) 14.9 % Low 19-41 [facility] Comment on above: Performed By: #### L 501.9940 #### [facility] [address] [place], [address] MCH (RBC) [Entitic mass] 32.9 pg High 27.0-32.0 [facility] Comment on above: Performed By: #### L 501.9940 #### [facility] [address] [place], [address] MCHC (RBC) [Mass/Vol] 34.7 g/dL Normal 32-36 [facility] Comment on above: Performed By: #### L 501.9940 #### [facility] [address] [place], [address] MCV (RBC) [Entitic vol] 94.7 fL High 80-94 [facility] Comment on above: Performed By: #### L 501.9940 #### [facility] [address] [place], [address] Monocytes/100 WBC (Bld) 10.0 % Normal 0-10 [facility] Comment on above: Performed By: #### L 501.9940 #### [facility] [address] [place], [address] Neutrophils/100 WBC (Bld) 71.3 % High 47-70 [facility] Comment on above: Performed By: #### L 501.9940 #### [facility] [address] [place], [address] Nucleated RBC (Bld) [#/Vol] 0 10*3/uL Normal 0-5 [facility] Comment on above: Performed By: #### L 501.9940 #### [facility] [address] [place], [address] Platelet mean volume (Bld) [Entitic vol] 10.5 fL Normal 6.2-12.0 [facility] Comment on above: Performed By: #### L 501.9940 #### [facility] [address] [place], [address] Platelets (Bld) [#/Vol] 177 10*3/uL Normal 150-450 [facility] Comment on above: Performed By: #### L 501.9940 #### [facility] [address] [place], [address] RBC (Bld) [#/Vol] 4.56 10*6/uL Low 4.6-6.2 [facility] Comment on above: Performed By: #### L 501.9940 #### [facility] [address] [place], [address] RDW SD 47.1 fl High 35.1-43.9 [facility] Comment on above: Performed By: #### L 501.9940 #### [facility] [address] [place], [address] WBC (Bld) [#/Vol] 9.7 10*3/uL Normal 4.4-11.0 [facility] Comment on above: Performed By: #### L 501.9940 #### [facility] [address] [place], [address] Carbon dioxide, total [Moles /volume] in Central venous bloodOrdered By: Alvaro Auguste on 10-17-2024 CO2 [Moles/Vol] 22.0 mmol/L 21.0-32.0 [facility] Chloride assayOrdered By: Rubens Auguste on 10-17-2024 Chloride [Moles/Vol] 106 mmol/L 98-108 [facility] Metabolic Prof ilon 10-17-2024 Albumin [Mass/Vol] 4.4 g/dL Normal 3.4-4.8 [facility] Comment on above: Performed By: #### L 503.7505, L501.9520, L100.0100, L500.4050 #### [facility] [address] [place], [address] Albumin/Globulin [Mass ratio] 1.6 {ratio} Normal 0.9-2.4 [facility] Comment on above: Performed By: #### L 503.7505, L501.9520, L100.0100, L500.4050 #### [facility] [address] [place], [address] ALK PHOS 88 U/L Normal 40-129 [facility] Comment on above: Performed By: #### L 503.7505, L501.9520, L100.0100, L500.4050 #### [facility] [address] [place], [address] ALT [Catalytic activity/Vol] 27 U/L Normal <=46 [facility] Comment on above: Performed By: #### L 503.7505, L501.9520, L100.0100, L500.4050 #### [facility] [address] [place], [address] AST [Catalytic activity/Vol] 28 U/L Normal <=37 [facility] Comment on above: Performed By: #### L 503.7505, L501.9520, L100.0100, L500.4050 #### [facility] [address] [place], [address] Bilirubin [Mass/Vol] 0.61 mg/dL Normal 0.00-1.30 [facility] Comment on above: Performed By: #### L 503.7505, L501.9520, L100.0100, L500.4050 #### [facility] [address] [place], [address] BUN/CRE 21.0 RATIO High 10-20 [facility] Comment on above: Performed By: #### L 503.7505, L501.9520, L100.0100, L500.4050 #### [facility] [address] [place], [address] Calcium [Mass/Vol] 9.6 mg/dL Normal 7.6-11.0 [facility] Comment on above: Performed By: #### L 503.7505, L501.9520, L100.0100, L500.4050 #### [facility] [address] [place], [address] Chloride [Moles/Vol] 106 mmol/L Normal 98-108 [facility] Comment on above: Performed By: #### L 503.7505, L501.9520, L100.0100, L500.4050 #### [facility] [address] [place], [address] CO2 [Moles/Vol] 22.0 mmol/L Normal 21.0-32.0 [facility] Comment on above: Performed By: #### L 503.7505, L501.9520, L100.0100, L500.4050 #### [facility] [address] [place], [address] Creatinine [Mass/Vol] 0.98 mg/dL Normal 0.70-1.20 [facility] Comment on above: Performed By: #### L 503.7505, L501.9520, L100.0100, L500.4050 #### [facility] [address] [place], [address] GAP 12 Normal 5-15 [facility] Comment on above: Performed By: #### L 503.7505, L501.9520, L100.0100, L500.4050 #### [facility] [address] [place], [address] GFR/1.73 sq M.predicted among non-blacks MDRD (S/P/Bld) [Vol rate/Area] 83 mL/min/{1.73_m2} Normal >60 [facility] Comment on above: Result Comment: mL/m in/1.73m2 CKD-EPI Creatinine Equation (2020) Performed By: #### L 503.7505, L501.9520, L100.0100, L500.4050 #### [facility] [address] [place], [address] Globulin (S) [Mass/Vol] 2.8 g/dL Normal 2.2-4.2 [facility] Comment on above: Performed By: #### L 503.7505, L501.9520, L100.0100, L500.4050 #### [facility] [address] [place], [address] Glucose [Mass/Vol] 107 mg/dL High 70-99 [facility] Comment on above: Performed By: #### L 503.7505, L501.9520, L100.0100, L500.4050 #### [facility] [address] [place], [address] Potassium [Moles/Vol] 4.4 mmol/L Normal 3.3-5.1 [facility] Comment on above: Performed By: #### L 503.7505, L501.9520, L100.0100, L500.4050 #### [facility] [address] [place], [address] Sodium [Moles/Vol] 140 mmol/L Normal 133-145 [facility] Comment on above: Performed By: #### L 503.7505, L501.9520, L100.0100, L500.4050 #### [facility] [address] [place], [address] T PROT 7.2 g/dL Normal 5.9-8.4 [facility] Comment on above: Performed By: #### L 503.7505, L501.9520, L100.0100, L500.4050 #### [facility] [address] [place], [address] Urea nitrogen [Mass/Vol] 21 mg/dL High 4-19 [facility] Comment on above: Performed By: #### L 503.7505, L501.9520, L100.0100, L500.4050 #### [facility] [address] [place], [address] Eosinophil percentageOrdered By: Alvaro Auguste 10-17-2024 Eosinophils/100 WBC (Bld) 2.6 % 0-5 [facility] Erythrocyte distribution wid th ratioOrdered By: [facility] on 10-17-2024 Erythrocyte distribution width (RBC) [Ratio] 13.4 % 11.6-14.6 [facility] Erythrocyte distribution wid th standard deviationOrdered By: Alvaro Molina 10-17-2024 Erythrocyte distribution width (RBC) [Ratio] 47.1 fl High 35.1-43.9 [facility] Glomerular filtration rate ( GFR) estimation/1.73 sq m using serum, plasma, or whole bOrdered By: Alvaro Auguste on 10-17-2024 GFR/1.73 sq M.predicted among non-blacks MDRD (S/P/Bld) [Vol rate/Area] 83 mL/min/{1.73_m2} >60 [facility] Comment on above: mL/min/1.73m2 CKD-EP I Creatinine Equation (2020) Hematocrit Auto (Bld) [Volum e fraction]Ordered By: Alvaro Auguste 10-17-2024 Hematocrit (Bld) [Volume fraction] 43.2 % 40-54 [facility] Hemoglobin measurementOrdere d By: Alvaro Auguste 10-17-2024 Hemoglobin (Bld) [Mass/Vol] 15.0 g/dL 13.0-16.5 [facility] Immature granulocytes/100 WB C Auto (Bld)Ordered By: Alvaro Auguste 10-17-2024 Immature granulocytes/100 WBC (Bld) 0.700 % 0.0-0.9 [facility] Comment on above: IG% - Immature Granu locytes (promyelocytes, myelocytes and metamyelocytes) > 1% indicates that a LEFT SHIFT is Present. Laboratory - Chemistry and C hemistry - challengeOrdered By: Alvaro Auguste 10-17-2024 AST [Catalytic activity/Vol] 28 U/L <38 [facility] MCV (mean corpuscular volume ) determinationOrdered By: Alvaro Auguste on 10-17-2024 MCV (RBC) [Entitic vol] 94.7 fL High 80-94 [facility] Mean corpuscular hemoglobin (MCH) determinationOrdered By: Alvaro Auguste on 10-17-2024 MCH (RBC) [Entitic mass] 32.9 pg High 27.0-32.0 [facility] Mean corpuscular hemoglobin concentration (MCHC) determinationOrdered By: Alvaro Auguste on 10-17-2024 MCHC (RBC) [Mass/Vol] 34.7 g/dL 32-36 [facility] Mean platelet volume determi nationOrdered By: Alvaro Auguste on 10-17-2024 Platelet mean volume (Bld) [Entitic vol] 10.5 fL 6.2-12.0 [facility] Monocyte percentageOrdered B y: Alvaro Auguste on 10-17-2024 Monocytes/100 WBC (Bld) 10.0 % 0-10 [facility] Neutrophil percentageOrdered By: Alvaro Auguste on 10-17-2024 Neutrophils/100 WBC (Bld) 71.3 % High 47-70 [facility] Nucleated red blood cell per centageOrdered By: Alvaro Auguste 10-17-2024 Nucleated RBC/100 WBC (Bld) [Ratio] 0 % 0-5 [facility] Platelet countOrdered By: Rubens Auguste on 10-17-2024 Platelets (Bld) [#/Vol] 177 10*3/uL 150-450 [facility] Potassium measurement (mass/ volume)Ordered By: Alvaro Auguste 10-17-2024 Potassium (Unsp spec) [Mass/Vol] 4.4 mmol/L 3.3-5.1 [facility] RBC Auto (Bld) [#/Vol]Ordere d By: Alvaro Auguste on 10-17-2024 RBC (Bld) [#/Vol] 4.56 10*6/uL Low 4.6-6.2 [facility] Serum creatinine measurement (mass/volume)Ordered By: Alvaro Auguste 10-17-2024 Creatinine [Mass/Vol] 0.98 mg/dL 0.70-1.20 [facility] Serum globulin measurementOr dered By: Alvaro Auguste on 10-17-2024 Globulin (S) [Mass/Vol] 2.8 g/dL 2.2-4.2 [facility] Serum glucose measurement (m ass/volume)Ordered By: Alvaro Auguste on 10-17-2024 Glucose [Mass/Vol] 107 mg/dL High 70-99 [facility] Serum or plasma alanine dominguez otransferase (ALT) measurementOrdered By: Alvaro Auguste on 10-17-2024 ALT [Catalytic activity/Vol] 27 U/L <47 [facility] Serum or plasma albumin jean urement (mass/volume)Ordered By: Alvaro Auguste on 10-17-2024 Albumin [Mass/Vol] 4.4 g/dL 3.4-4.8 [facility] Serum or plasma albumin/glob ulin mass ratioOrdered By: Alvaro Auguste 10-17-2024 Albumin/Globulin [Mass ratio] 1.6 {ratio} 0.9-2.4 [facility] Serum or plasma alkaline denzel sphatase measurementOrdered By: Alvaro Auguste 10-17-2024 ALP [Catalytic activity/Vol] 88 U/L 40-129 [facility] Serum or plasma calcium jean urement (mass/volume)Ordered By: Alvaro Auguste 10-17-2024 Calcium [Mass/Vol] 9.6 mg/dL 7.6-11.0 [facility] Serum or plasma urea nitroge n measurement (mass/volume)Ordered By: Alvaro Auguste 10-17-2024 Urea nitrogen [Mass/Vol] 21 mg/dL High 4-19 [facility] Serum or plasma uric acid me asurement (mass/volume)Ordered By: Alvaro Auguste on 10-17-2024 Urate [Mass/Vol] 6.7 mg/dL 3.5-7.2 [facility] Comment on above: The drugs N-Acetylcy steine and Metamizole may falsely depress this assay. Sodium levelOrdered By: Alvaro Auguste on 10-17-2024 Sodium [Moles/Vol] 140 mmol/L 133-145 [facility] TSH DL <= 0.005 mIU/L QnOrde red By: Alvaro Auguste on 10-17-2024 TSH Qn 0.651 uIU/mL 0.300-4.200 [facility] Thyroid Stim Hormone (TSH)on 10-17-2024 TSH 0.651 uIU/mL Normal 0.300-4.200 [facility] Comment on above: Performed By: #### L 501.9940 #### [facility] [address] [place], [place], [id number] Total proteinOrdered By: Alvaro Auguste on 10-17-2024 Protein [Mass/Vol] 7.2 g/dL 5.9-8.4 [facility] Uric Acidon 10-17-2024 URIC 6.7 mg/dL Normal 3.5-7.2 [facility] Comment on above: Result Comment: The drugs N-Acetylcysteine and Metamizole may falsely depress this assay. Performed By: #### L 501.9940 #### [facility] [address] [place], [place], [id number] Vitamin D,25 Hydroxyon 10-17 Vitamin D 25-OH 24.9 ng/mL Low 30-100 [facility] Comment on above: Result Comment: Nita min D Status Deficiency: <20 ng/mL (50nmol/L) Insufficiency: 20-30 ng/mL (50-75 nmol/L) Sufficiency: 30-100 ng/mL (75-250 nmol/L) Toxicity: >100 ng/mL (>250 nmol/L) Performed By: #### L 503.7505, L501.9520, L100.0100, L500.4050 #### [facility] [address] [place], [place], [address] White blood cell (WBC) count Ordered By: Alvaro Auguste on 10-17-2024 WBC (Bld) [#/Vol] 9.7 10*3/uL 4.4-11.0 [facility] 24 HR Urine Creatinineon UR.CREAT/24hr 1272.0 mg/24 hr Normal 1040.0-2350.0 [facility] Comment on above: Result Comment: AMENDED REPORT 10/04/24 1337 UR.CREAT/24hr previously reported as: 42.4 L mg/24 hr Performed By: #### L 503.7505, L501.9520, L100.0100, L500.4050 #### [facility] [address] [place], [address] 24 hour urine protein measur ementOrdered By: Alvaro Auguste on 10-04-2024 24 hour urine protein measurement 3000 mL [facility] 24 hour urine protein measur ement (mass/volume)Ordered By: Alvaro Auguste on 10-04-2024 Protein (24H U) [Mass/Vol] 8.2 mg/dL 0.0-11.8 [facility] 24 hour urine total protein measurement (mass/time)Ordered By: Alvaro Auguste on 10-04-2024 Protein (24H U) [Mass/Time] 246.0 mg/24HR High 0-151 [facility] - Specimen inform ationOrdered By: Alvaro Auguste on 10-04-2024 Collection duration (U) 24.0 HOURS 24.0-24.0 [facility] Protein, Urine 24HRon 2024 24hr UR PROTEIN 246.0 mg/24HR High <150 MG/24HR [facility] Comment on above: Performed By: #### L 503.7505, L501.9520, L100.0100, L500.4050 #### [facility] [address] [place], [address] Protein Ql (U) 8.2 mg/dL Normal <11.9 [facility] Comment on above: Performed By: #### L 503.7505, L501.9520, L100.0100, L500.4050 #### [facility] [address] [place], [address] UR COLLECT TIME 24.0 HOURS Normal 24.0 [facility] Comment on above: Performed By: #### L 503.7505, L501.9520, L100.0100, L500.4050 #### [facility] [address] [place], [place], [address] UR TOTAL VOLUME 3000 mL Normal [facility] Comment on above: Performed By: #### L 503.7505, L501.9520, L100.0100, L500.4050 #### [facility] [address] [place], [address] Total urine volume measureme ntOrdered By: Alvaro Auguste on 10-04-2024 Specimen volume (U) 3000.0 ML [facility] Urine creatinine measurement (mass/volume)Ordered By: Alvaro Auguste on 10-04-2024 Creatinine (U) [Mass/Vol] 42.40 mg/dL 39.00-259.00 [facility] L/S Spine Min 4 Viewson 09-05 L/S Spine Min 4 Views [facility] Imaging Services [address] [facility] [place] [address] L/S Spine Min 4 Views MR#: [id number] Acct: [id number] Name: DESI PANDEY Rep #: [id number] : 1955 M 69 From: Víctor Moe MD PCP: Dr. Alvaro Auguste MD Status: REG CLI Study: L/S Spine Min 4 Views Date of Exam: 10/02/24 Exam# [id number] Ordering Dr: Alvaro Auguste MD PROCEDURE: L/S [...] appearance of multilevel spondylosis/discogenic change. Reading Location: [id number] CC: Dr. Alvaro Auguste MD [employer] Machine Operator: Signed Normal [facility] CBC W/Diff, Automatedon 02-2 PATH REV Reviewed Normal [facility] Comment on above: Order Comment: CRITI SYLVIE VALUE CALLED TO CATHY ARMSTRONG07/02/24 1416 Carie Caraballo.RESULTS READ BACK BY SAME. Result Comment: Poly cythemia Clinical correlation necessary. Garrett Jaimes M.D. 07/04/24 Performed By: #### L 503.7505, L501.9520, L100.0100, L500.4050 #### [facility] [address] [place], [address] [employer] Decub and/or Erecton 07-02-2024 [employer] Decub and/or Erect [facility] Imaging Services [address] [place] [address] [employer] Decub and/or Erect MR#: [id number] Acct: [id number] Name: DESI PANDEY Rep #: [id number] : 1955 M 69 From: Raymond Ta i DO PCP: Dr. Alvaro Auguste MD Status: REG CLI Study: Abd Inc Decub and/or Erect Date of Exam: 07/02 Exam# [id number] Ordering Dr: Alvaro Auguste MD PROCEDURE: Abdominal [...] radiographs. No free intraperitoneal air. [facility] CC: Dr. Alvaro Auguste MD [employer] Operator: Signed Normal [facility] Abdomen/Pelvis without Conto n 07-02-2024 Abdomen/Pelvis without Cont [facility] Imaging Services [address] [place] [address] Abdomen/Pelvis without Cont MR#: [id number] Acct: [id number] Name: DESI PANDEY Rep #: [id number] : 1955 M 69 From: Kevan montero MD PCP: Dr. Alvaro Auguste MD Status: REG CLI Study: Abdomen/Pelvis without Cont Date of Exam: 06/08 10/29 Exam# [id number] Ordering Dr: Alvaro Auguste MD EXAM: ABDOMEN/PELVIS [...] of acute diverticulitis. Enlarged prostate. Reading Location: [facility] CC: Dr. Alvaro Auguste MD [employer] Machine Operator: Signed Normal [facility] Absolute lymphocyte countOrd ered By: Alvaro Auguste on 07-02-2024 Lymphocytes Auto (Unsp spec) [#/Vol] 0.91 10*3/uL 0.83-4.51 [facility] Absolute neutrophil countOrd ered By: Alvaro Auguste on 07-02-2024 Neutrophils (Bld) [#/Vol] 8.4 10*3/uL High 2.0-7.7 [facility] Automated lymphocyte count a s percentage of total leukocytesOrdered By: Alvaro Auguste on 07-02-2024 Lymphocytes/100 WBC Auto (Unsp spec) 8.6 % Low 19-41 [facility] BUN/creatinine ratioOrdered By: [facility] 07-02-2024 Urea nitrogen/Creatinine [Mass ratio] 16.6 mg/mg 10-20 [facility] Basophil percentageOrdered B y: Alvaro Auguste on 07-02-2024 Basophils/100 WBC (Bld) 0.9 % 0-1 [facility] Bilirubin, totalOrdered By: Alvaro Auguste on 07-02-2024 Bilirubin [Mass/Vol] 0.53 mg/dL 0.00-1.30 [facility] Carbon dioxide measurementOr dered By: Alvaro Kingok on 07-02-2024 CO2 [Moles/Vol] 25.5 mmol/L 22.0-29.0 [facility] Chloride measurementOrdered By: Alvaro Molina on 07-02-2024 Chloride [Moles/Vol] 104 mmol/L 96-108 [facility] Comprehensive Metabolic Prof ilon 07-02-2024 Albumin [Mass/Vol] 4.6 g/dL Normal 3.4-4.8 [facility] Comment on above: Performed By: #### L 503.7505, L501.9520, L100.0100, L500.4050 #### [facility] [address] [place], [place], [id number] Albumin/Globulin [Mass ratio] 1.6 {ratio} Normal 0.9-2.4 [facility] Comment on above: Performed By: #### L 503.7505, L501.9520, L100.0100, L500.4050 #### [facility] [address] [place], [address] ALK PHOS 87 U/L Normal 40-129 [facility] Comment on above: Performed By: #### L 503.7505, L501.9520, L100.0100, L500.4050 #### [facility] [address] [place], [address] ALT [Catalytic activity/Vol] 20 U/L Normal <=46 [facility] Comment on above: Performed By: #### L 503.7505, L501.9520, L100.0100, L500.4050 #### [facility] [address] [place], [address] Anion gap [Moles/Vol] 12 mmol/L Normal 5-15 [facility] Comment on above: Performed By: #### L 503.7505, L501.9520, L100.0100, L500.4050 #### [facility] [address] [place], [address] AST [Catalytic activity/Vol] 25 U/L Normal <=37 [facility] Comment on above: Performed By: #### L 503.7505, L501.9520, L100.0100, L500.4050 #### [facility] [address] [place], [address] Bilirubin [Mass/Vol] 0.53 mg/dL Normal 0.00-1.30 [facility] Comment on above: Performed By: #### L 503.7505, L501.9520, L100.0100, L500.4050 #### [facility] [address] [place], [address] BUN/CRE 16.6 RATIO Normal 10-20 [facility] Comment on above: Performed By: #### L 503.7505, L501.9520, L100.0100, L500.4050 #### [facility] [address] [place], [address] Calcium [Mass/Vol] 9.8 mg/dL Normal 7.6-11.0 [facility] Comment on above: Performed By: #### L 503.7505, L501.9520, L100.0100, L500.4050 #### [facility] [address] [place], [address] Chloride [Moles/Vol] 104 mmol/L Normal 96-108 [facility] Comment on above: Performed By: #### L 503.7505, L501.9520, L100.0100, L500.4050 #### [facility] [address] [place], [address] CO2 [Moles/Vol] 25.5 mmol/L Normal 22.0-29.0 [facility] Comment on above: Performed By: #### L 503.7505, L501.9520, L100.0100, L500.4050 #### [facility] [address] [place], [address] Creatinine [Mass/Vol] 1.1 mg/dL Normal 0.8-1.3 [facility] Comment on above: Performed By: #### L 503.7505, L501.9520, L100.0100, L500.4050 #### [facility] [address] [place], [address] GFR/1.73 sq M.predicted among non-blacks MDRD (S/P/Bld) [Vol rate/Area] 74 mL/min/{1.73_m2} Normal >60 [facility] Comment on above: Result Comment: mL/m in/1.73m2 CKD-EPI Creatinine Equation (2020) Performed By: #### L 503.7505, L501.9520, L100.0100, L500.4050 #### [facility] [address] [place], [address] Globulin (S) [Mass/Vol] 2.8 g/dL Normal 2.2-4.2 [facility] Comment on above: Performed By: #### L 503.7505, L501.9520, L100.0100, L500.4050 #### [facility] [address] [place], [address] Glucose [Mass/Vol] 100 mg/dL High 70-99 [facility] Comment on above: Performed By: #### L 503.7505, L501.9520, L100.0100, L500.4050 #### [facility] [address] [place], [address] Potassium [Moles/Vol] 3.9 mmol/L Normal 3.3-5.1 [facility] Comment on above: Result Comment: Hemo lysis present, Results??could be affected. ?? Performed By: #### L 503.7505, L501.9520, L100.0100, L500.4050 #### [facility] [address] [place], [address] Sodium [Moles/Vol] 141 mmol/L Normal 133-145 [facility] Comment on above: Performed By: #### L 503.7505, L501.9520, L100.0100, L500.4050 #### [facility] [address] [place], [address] T PROT 7.3 g/dL Normal 5.9-8.4 [facility] Comment on above: Performed By: #### L 503.7505, L501.9520, L100.0100, L500.4050 #### [facility] [address] [place], [address] Urea nitrogen [Mass/Vol] 18 mg/dL Normal 4-19 [facility] Comment on above: Performed By: #### L 503.7505, L501.9520, L100.0100, L500.4050 #### [facility] [place], [address] Creatinine [Moles/Vol]Ordere d By: Alvaro Auguste 07-02-2024 Creatinine [Mass/Vol] 1.1 mg/dL 0.8-1.3 [facility] Eosinophil percentageOrdered By: Alvaro Auguste 07-02-2024 Eosinophils/100 WBC (Bld) 0.8 % 0-5 [facility] Erythrocyte distribution wid th ratioOrdered By: Alvaro Auguste 07-02-2024 Erythrocyte distribution width (RBC) [Ratio] 14.9 % High 11.6-14.6 [facility] Erythrocyte distribution wid th standard deviationOrdered By: [facility] Molina 07-02-2024 Erythrocyte distribution width (RBC) [Entitic vol] 55.0 fL High 35.1-43.9 [facility] Erythrocyte distribution width (RBC) [Ratio] 55.0 fl High 35.1-43.9 [facility] GFR/1.73 sq M.predicted desiree g non-blacks MDRD (S/P/Bld) [Vol rate/Area]Ordered By: Alvaro Auguste 07-02-2024 Estimated GFR (MDRD) Non-Af Amer 74 >60 [facility] Comment on above: mL/min/1.73m2 CKD-EP I Creatinine Equation (2020) Glomerular filtration rate ( GFR) estimation/1.73 sq m using serum, plasma, or whole bOrdered By: Alvaro Auguste 07-02-2024 GFR/1.73 sq M.predicted among non-blacks MDRD (S/P/Bld) [Vol rate/Area] 74 mL/min/{1.73_m2} >60 [facility] Comment on above: mL/min/1.73m2 CKD-EP I Creatinine Equation (2020) Hematocrit Auto (Bld) [Volum e fraction]Ordered By: Alvaro Auguste 07-02-2024 Hematocrit (Bld) [Volume fraction] 56.7 % High 40-54 [facility] Hemoglobin measurementOrdere d By: Alvaro Auguste 07-02-2024 Hemoglobin (Bld) [Mass/Vol] 19.2 g/dL High 13.0-16.5 [facility] Immature granulocytes/100 WB C Auto (Bld)Ordered By: Alvaro Auguste on 07-02-2024 Immature granulocytes/100 WBC (Bld) 1.200 % High 0.0-0.9 [facility] Comment on above: IG% - Immature Granu locytes (promyelocytes, myelocytes and metamyelocytes) > 1% indicates that a LEFT SHIFT is Present. Laboratory - Chemistry and C hemistry - challengeOrdered By: Alvaro Auguste on 07-02-2024 AST [Catalytic activity/Vol] 25 U/L <38 [facility] Lymphocytes Auto (Unsp spec) [#/Vol]Ordered By: Alvaro Auguste on 07-02-2024 Lymphocytes (Bld) [#/Vol] 0.91 10*3/uL 0.83-4.51 [facility] Lymphocytes/100 WBC Auto (Un sp spec)Ordered By: Alvaro Auguste on 07-02-2024 Lymphocytes/100 WBC (Bld) 8.6 % Low 19-41 [facility] MCV (mean corpuscular volume ) determinationOrdered By: Alvaro Auguste 07-02-2024 MCV (RBC) [Entitic vol] 99.3 fL High 80-94 [facility] Mean corpuscular hemoglobin (MCH) determinationOrdered By: Alvaro Auguste 07-02-2024 MCH (RBC) [Entitic mass] 33.6 pg High 27.0-32.0 [facility] Mean corpuscular hemoglobin concentration (MCHC) determinationOrdered By: Alvaro Auguste 07-02-2024 MCHC (RBC) [Mass/Vol] 33.9 g/dL 32-36 [facility] Mean platelet volume determi nationOrdered By: Alvaro Auguste 07-02-2024 Platelet mean volume (Bld) [Entitic vol] 11.2 fL 6.2-12.0 [facility] Monocyte percentageOrdered B y: Alvaro Auguste on 07-02-2024 Monocytes/100 WBC (Bld) 8.3 % 0-10 [facility] Neutrophil percentageOrdered By: Alvaro Auguste on 07-02-2024 Neutrophils/100 WBC (Bld) 80.2 % High 47-70 [facility] Nucleated red blood cell per centageOrdered By: Alvaro Auguste on 07-02-2024 Nucleated RBC/100 WBC (Bld) [Ratio] 0 % 0-5 [facility] Pathologist review Jakub (Unsp spec) [Interp]Ordered By: Alvaro Auguste on 07-02-2024 Differential Pathologist's Review Reviewed [facility] Comment on above: PolycythemiaClinical correlation necessary.Garrett Jaimes M.D. 07/04/24 Platelet countOrdered By: Rubens Auguste on 07-02-2024 Platelets (Bld) [#/Vol] 178 10*3/uL 150-450 [facility] RBC Auto (Bld) [#/Vol]Ordere d By: Alvaro Auguste on 07-02-2024 RBC (Bld) [#/Vol] 5.71 10*6/uL 4.6-6.2 [facility] Review by pathologistOrdered By: Alvaro Auguste on 07-02-2024 Pathologist review Jakub (Unsp spec) [Interp] Reviewed [facility] Comment on above: PolycythemiaClinical correlation necessary.Garrett Jaimes M.D. 07/04/24 Serum globulin measurementOr dered By: Alvaro Auguste on 07-02-2024 Globulin (S) [Mass/Vol] 2.8 g/dL 2.2-4.2 [facility] Serum glucose measurement (m ass/volume)Ordered By: Alvaro Auguste on 07-02-2024 Glucose [Mass/Vol] 100 mg/dL High 70-99 [facility] Serum or plasma alanine dominguez otransferase (ALT) measurementOrdered By: Alvaro Auguste on 07-02-2024 ALT [Catalytic activity/Vol] 20 U/L <47 [facility] Serum or plasma albumin jean urement (mass/volume)Ordered By: Alvaro Auguste on 07-02-2024 Albumin [Mass/Vol] 4.6 g/dL 3.4-4.8 [facility] Serum or plasma albumin/glob ulin mass ratioOrdered By: Alvaro Auguste on 07-02-2024 Albumin/Globulin [Mass ratio] 1.6 {ratio} 0.9-2.4 [facility] Serum or plasma alkaline denzel sphatase measurementOrdered By: Alvaro Auguste 07-02-2024 ALP [Catalytic activity/Vol] 87 U/L 40-129 [facility] Serum or plasma anion gap de termination (moles/volume)Ordered By: Alvaro Auguste 07-02-2024 Anion gap [Moles/Vol] 12 mmol/L 5-15 [facility] Serum or plasma calcium jean urement (mass/volume)Ordered By: Alvaro Auguste 07-02-2024 Calcium [Mass/Vol] 9.8 mg/dL 7.6-11.0 [facility] Serum or plasma creatinine m easurement (moles/volume)Ordered By: Alvaro Auguste 07-02-2024 Creatinine [Moles/Vol] 1.1 mg/dL 0.8-1.[address] [facility] Serum or plasma potassium me asurementOrdered By: Alvaro Auguste 07-02-2024 Potassium [Moles/Vol] 3.9 mmol/L 3.3-5.1 [facility] Comment on above: Hemolysis present, R esults could be affected. Serum or plasma sodium measu rement (moles/volume)Ordered By: Alvaro Auguste 07-02-2024 Sodium [Moles/Vol] 141 mmol/L 133-145 [facility] Serum or plasma urea nitroge n measurement (mass/volume)Ordered By: Alvaro Auguste 07-02-2024 Urea nitrogen [Mass/Vol] 18 mg/dL 4-19 [facility] Total proteinOrdered By: Alvaro Auguste 07-02-2024 Protein [Mass/Vol] 7.3 g/dL 5.9-8.4 [facility] White blood cell (WBC) count Ordered By: Alvaro Auguste 07-02-2024 WBC (Bld) [#/Vol] 10.5 10*3/uL 4.4-11.0 [facility] Diagnostic total prostate sp ecific antigen (PSA) measurementOrdered By: Alvaro Auguste 06-11-2024 Prostate Specific Antigen Total 1.32 ng/mL 0.0-4.0 [facility] Comment on above: This test was perfor med using the TPSA assay method for [facility] system. Values obtained with differentassay methods cannot be used interchangably.When changing PSA assays in the course of monitoring apatient, additional sequential testing should be carriedout to confirm baseline values. PSA,Total- [employer] PSA, DIAGNOSTIC 1.32 ng/mL Normal 0.0-4.0 [facility] Comment on above: Result Comment: This test was performed using the TPSA assay method for the [employer] chemistry system. Values obtained with different assay methods cannot be used interchangably. When changing PSA assays in the course of monitoring a patient, additional sequential testing should be carried out to confirm baseline values. Performed By: #### L 501.9940 #### [facility] [address] [place], [place], [address] Extremity Lower without Cont raon 06-06-2024 Extremity Lower without Contra [facility] Imaging Services [address] [place], [place] [address] Extremity Lower without Contra MR#: [id number] Acct: [id number] Name: DESI PANDEY Rep #: [id number] : 1955 M 69 From: Tan Jc DO PCP: Dr. Alvaro Auguste MD Status: REG CLI Study: Extremity Lower without Contra Date of Exam: 0 06/06/24 Exam# [id number] Ordering Dr: Alvaro Auguste MD EXAM: Right [...] involving the L5 level on the right. Wxzn-kf-zshozqjc amounts of fecal retention. Vascular calcifications within the right iliac artery. Overlying soft tissues appear intact. No drainable fluid collections are identified. CT/Extremity Lower without Contra IMPRESSION: 1. Mild degenerative changes involving the right hip, as described 2. No acute fractures or dislocations are identified. 3. Additional findings, as detailed above [facility] CC: Dr. Alvaro Auguste MD [employer] Machine Operator: Signed Normal [facility] Pelvis without IV Contraston 06-06-2024 Pelvis without IV Contrast [facility] Imaging Services [address] [place], [place] [address] Pelvis without IV Contrast MR#: [id number] Acct: [id number] Name: DESI PANDEY Rep #: [id number] : 1955 M 69 From: Tan Jc DO PCP: Dr. Alvaro Auguste MD Status: REG CLI Study: Pelvis without IV Contrast Date of Exam: 06/06 Exam# [id number] Ordering Dr: Alvaro Auguste MD EXAM: PELVIS [...] No acute osseous abnormalities identified. Reading Location: [facility] CC: Dr. Alvaro Auguste MD [employer] Machine Operator: Signed Normal [facility] Hips B/L min 2 views w/ Pelv bozena 06-02-2024 Hips B/L min 2 views w/ Pelvis [facility] Imaging Services [address] [place], [place] [id number] Hips B/L min 2 views w/ Pelvis MR#: [id number] Acct: [id number] Name: DESI PANDEY Rep #: [id number] : 1955 M 69 From: Brayan Enciso MD PCP: Dr. Alvaro Auguste MD Status: REG CLI Study: Hips B/L min 2 views w/ Pelvis Date of Exam: 0 06/02/24 Exam# [id number] Ordering Dr: Alvaro Auguste [place] [id number] INDICATION: RIGHT HIP PAIN EXAMINATION/TECHNIQUE: X-RAY - [...] Signed: Brayan Enciso MD at 14:04 EST , CC: Dr. Alvaro Auguste MD [employer] Machine Operator: Signed [facility] L/S Spine Min 4 Views05-08 L/S Spine Min 4 Views [facility] Imaging Services [address] [place] [address] L/S Spine Min 4 Views MR#: [id number] Acct: [id number] Name: DESI PANDEY Rep #: [id number] : 1955 M 69 From: Beau Benz MD PCP: Dr. Alvaro Auguste MD Status: REG CLI Study: L/S Spine Min 4 Views Date of Exam: 06/02/24 Exam# [id number] Ordering Dr: Alvaro Auguste MD [id number] STUDY: X-RAY - LUMBAR SPINE REASON FOR [...] EST , CC: Dr. Alvaro Auguste MD [employer] Machine Operator: Signed [facility] 90-LR-Vlptmto DOrdered By: Nini Auguste on 04-16-2024 Vitamin D 25-Hydroxy 28.1 ng/mL [facility] Comment on above: Vitamin D 25(OH) Sta tus Range Deficiency <20 ng/mL (50nmol/L) Insufficiency 20 - 30 ng/mL (50 - 75 nmol/L) Sufficiency 30 - 100 ng/mL (75 - 250 nmol/L) Toxicity >100 ng/mL (>250 nmol/L) Absolute neutrophil countOrd ered By: Alvaro Auguste on 04-16-2024 Neutrophils (Bld) [#/Vol] 5.5 10*3/uL 2.0-7.7 [facility] Albumin to globulin ratioOrd ered By: Alvaro Auguste on 04-16-2024 Albumin/Globulin [Mass ratio] 1.1 {ratio} Normal 0.9-2.4 [facility] [facility] Comment on above: Performed By: #### L 503.7505, L501.9520, L100.0100, L500.4050 #### [facility] [address] [place], [place], [id number] Basophil percentageOrdered B y: Alvaro Auguste on 04-16-2024 Basophils/100 WBC (Bld) 0.9 % 0-1 [facility] Bilirubin, totalOrdered By: Alvaro Auguste on 04-16-2024 Bilirubin [Mass/Vol] 0.50 mg/dL Normal 0.20-1.00 [facility] Comment on above: For patients on eltr ombopag therapy, use of Dimension Sabinal TBIL is not recommended. Result Comment: For patients on eltrombopag therapy, use of Dimension Sabinal TBIL is not recommended. Performed By: #### L 503.7505, L501.9520, L100.0100, L500.4050 #### [facility] [address] [place], [address] Blood urea nitrogen (BUN)/cr eatinine ratioOrdered By: Alvaro Auguste on 04-16-2024 Urea nitrogen/Creatinine [Mass ratio] 15.4 mg/mg 10-20 [facility] CBC W/Diff, Automatedon 12- Absolute Lymph 1.42 X10 3/uL Normal 0.83-4.51 [facility] Comment on above: Performed By: #### L 503.7505, L501.9520, L100.0100, L500.4050 #### [facility] [address] [place], [address] Absolute Neut 5.5 X10 3/uL Normal 2.0-7.7 [facility] Comment on above: Performed By: #### L 503.7505, [id number], L100.0100, L500.4050 #### [facility] [address] [place], [address] Basophils/100 WBC (Bld) 0.9 % Normal 0-1 [facility] Comment on above: Performed By: #### L 503.7505, L501.9520, L100.0100, L500.4050 #### [facility] [address] [place], [address] Eosinophils/100 WBC (Bld) 5.0 % Normal 0-5 [facility] Comment on above: Performed By: #### L 503.7505, [id number], L100.0100, L500.4050 #### [facility] [address] [place], [address] Erythrocyte distribution width (RBC) [Ratio] 13.6 % Normal 11.6-14.6 [facility] Comment on above: Performed By: #### L 503.7505, [id number], L100.0100, L500.4050 #### [facility] [address] [place], [address] Hematocrit (Bld) [Volume fraction] 49.2 % Normal 40-54 [facility] Comment on above: Performed By: #### L 503.7505, [id number], L100.0100, L500.4050 #### [facility] [address] [place], [address] Hemoglobin (Bld) [Mass/Vol] 17.1 g/dL High 13.0-16.5 [facility] Comment on above: Performed By: #### L 503.7505, [id number], L100.0100, L500.4050 #### [facility] [address] [place], [address] IG% 0.300 Normal 0.0-0.9 [facility] Comment on above: Result Comment: IG% - Immature Granulocytes (promyelocytes, myelocytes and metamyelocytes) > 1% indicates that a LEFT SHIFT is Present. Performed By: #### L 503.7505, L501.9520, L100.0100, L500.4050 #### [facility] [address] [place], [address] Lymphocytes/100 WBC (Bld) 17.8 % Low 19-41 [facility] Comment on above: Performed By: #### L 503.7505, [id number], L100.0100, L500.4050 #### [facility] [address] [place], [address] MCH (RBC) [Entitic mass] 33.3 pg High 27.0-32.0 [facility] Comment on above: Performed By: #### L 503.7505, [id number], L100.0100, L500.4050 #### [facility] [address] [place], [address] MCHC (RBC) [Mass/Vol] 34.8 g/dL Normal 32-36 [facility] Comment on above: Performed By: #### L 503.7505, [id number], L100.0100, L500.4050 #### [facility] [address] [place], [address] MCV (RBC) [Entitic vol] 95.7 fL High 80-94 [facility] Comment on above: Performed By: #### L 503.7505, [id number], L100.0100, L500.4050 #### [facility] [address] [place], [address] Monocytes/100 WBC (Bld) 7.5 % Normal 0-10 [facility] Comment on above: Performed By: #### L 503.7505, [id number], L100.0100, L500.4050 #### [facility] [address] [place], [address] Neutrophils/100 WBC (Bld) 68.5 % Normal 47-70 [facility] Comment on above: Performed By: #### L 503.7505, [id number], L100.0100, L500.4050 #### [facility] [address] [place], [address] Nucleated RBC (Bld) [#/Vol] 0 10*3/uL Normal 0-5 [facility] Comment on above: Performed By: #### L 503.7505, [id number], L100.0100, L500.4050 #### [facility] [address] [place], [address] Platelet mean volume (Bld) [Entitic vol] 11.3 fL Normal 6.2-12.0 [facility] Comment on above: Performed By: #### L 503.7505, [id number], L100.0100, L500.4050 #### [facility] [address] [place], [address] Platelets (Bld) [#/Vol] 182 10*3/uL Normal 150-450 [facility] Comment on above: Performed By: #### L 503.7505, [id number], L100.0100, L500.4050 #### [facility] [address] [place], [address] RBC (Bld) [#/Vol] 5.14 10*6/uL Normal 4.6-6.2 [facility] Comment on above: Performed By: #### L 503.7505, [id number], L100.0100, L500.4050 #### [facility] [address] [place], [address] RDW SD 48.8 fl High 35.1-43.9 [facility] Comment on above: Performed By: #### L 503.7505, [id number], L100.0100, L500.4050 #### [facility] [address] [place], [address] WBC (Bld) [#/Vol] 8.0 10*3/uL Normal 4.4-11.0 [facility] Comment on above: Performed By: #### L 503.7505, [id number], L100.0100, L500.4050 #### [facility] [address] [place], [address] Carbon dioxide measurementOr dered By: Alvaro Auguste on 04-16-2024 CO2 [Moles/Vol] 26.0 mmol/L Normal 21.0-32.0 [facility] Comment on above: Performed By: #### L 503.7505, [id number], L100.0100, L500.4050 #### [facility] [address] [place], [address] Chloride measurementOrdered By: Alvaro Auguste on 04-16-2024 Chloride [Moles/Vol] 111 mmol/L High 98-107 [facility] Comment on above: Performed By: #### L 503.7505, [id number], L100.0100, L500.4050 #### [facility] [address] [place], [address] Comprehensive Metabolic Prof jarrell 04-16-2024 ALK P 84 U/L Normal 45-117 [facility] Comment on above: Performed By: #### L 503.7505, [id number], L100.0100, L500.4050 #### [facility] [address] [place], [address] BUN/CRE 15.4 RATIO Normal 10-20 [facility] Comment on above: Performed By: #### L 503.7505, [id number], L100.0100, L500.4050 #### [facility] [address] [place], [address] CA,Total 9.1 mg/dL Normal 8.5-10.1 [facility] Comment on above: Performed By: #### L 503.7505, [id number], L100.0100, L500.4050 #### [facility] [address] [place], [address] EST GFR - AA 91 mL/min Normal >60 [facility] Comment on above: Result Comment: Afri can Israeli GFR Calc Performed By: #### L 503.7505, [id number], L100.0100, L500.4050 #### [facility] [address] [place], [address] GAP 5 Normal 5-15 [facility] Comment on above: Performed By: #### L 503.7505, [id number], L100.0100, L500.4050 #### [facility] [address] [place], [address] GFR/1.73 sq M.predicted among non-blacks MDRD (S/P/Bld) [Vol rate/Area] 75 mL/min/{1.73_m2} Normal >60 [facility] Comment on above: Result Comment: Non- GFR Calc Performed By: #### L 503.7505, L501.9520, L100.0100, L500.4050 #### [facility] [address] [place], [address] T PROT 6.8 g/dL Normal 6.4-8.2 [facility] Comment on above: Performed By: #### L 503.7505, L501.9520, L100.0100, L500.4050 #### [facility] [address] [place], [address] Comprehensive Metabolic Prof ilOrdered By: Alvaro Auguste on 04-16-2024 AST [Catalytic activity/Vol] 17 U/L Normal 15-37 [facility] Comment on above: Slight Hemolysis, Re sult may be falsely increased. Result Comment: Slig ht Hemolysis, Result may be falsely increased. Performed By: #### L 503.7505, L501.9520, L100.0100, L500.4050 #### [facility] [address] [place], [address] Eosinophil percentageOrdered By: Alvaro Auguste on 04-16-2024 Eosinophils/100 WBC (Bld) 5.0 % 0-5 [facility] Erythrocyte distribution wid th ratioOrdered By: Alvaro Auguste on 04-16-2024 Erythrocyte distribution width (RBC) [Ratio] 13.6 % 11.6-14.6 [facility] Erythrocyte distribution wid th standard deviationOrdered By: Alvaro Auguste on 04-16-2024 Erythrocyte distribution width (RBC) [Entitic vol] 48.8 fL High 35.1-43.9 [facility] Estimated glomerular filtrat ion rate (GFR) AmericanOrdered By: Alvaro Auguste on 04-16-2024 Estimated GFR (MDRD) Amer 91 mL/min >60 [facility] Comment on above: GFR Calc Glomerular filtration rate ( GFR) estimationOrdered By: Alvaro Auguste on 04-16-2024 Estimated GFR (MDRD) Non-Af Amer 75 mL/min >60 [facility] Comment on above: Non- GFR Calc Glucose measurementOrdered B y: Alvaro Auguste on 04-16-2024 Glucose [Mass/Vol] 137 mg/dL High 74-106 [facility] Comment on above: Fasting Glucose resu lt greater than or equal to 126 mg/dL suggests DIABETES MELLITUS per A.D.A. criteria. Result Comment: Fast ing Glucose result greater than or equal to 126 mg/dL suggests DIABETES MELLITUS per A.D.A. criteria. Performed By: #### L 503.7505, L501.9520, L100.0100, L500.4050 #### [facility] [address] [place], [address] Hematocrit Auto (Bld) [Volum e fraction]Ordered By: Alvaro Auguste on 04-16-2024 Hematocrit (Bld) [Volume fraction] 49.2 % 40-54 [facility] Hemoglobin measurementOrdere d By: Alvaro Molina on 04-16-2024 Hemoglobin (Bld) [Mass/Vol] 17.1 g/dL High 13.0-16.5 [facility] Immature granulocytes/100 WB C Auto (Bld)Or[facility] Immature granulocytes/100 WBC (Bld) 0.300 % 0.0-0.9 [facility] Comment on above: IG% - Immature Granu locytes (promyelocytes, myelocytes and metamyelocytes) > 1% indicates that a LEFT SHIFT is Present. Lymphocytes Auto (Unsp spec) [#/Vol]Ordered By: Alvaro Molina on 04-16-2024 Lymphocytes (Bld) [#/Vol] 1.42 10*3/uL 0.83-4.51 [facility] Lymphocytes/100 WBC Auto (Un sp spec)Ordered By: Alvaro Molina on 04-16-2024 Lymphocytes/100 WBC (Bld) 17.8 % Low 19-41 [facility] MCV (mean corpuscular volume ) determinationOrdered By: Alvaro Molina on 04-16-2024 MCV (RBC) [Entitic vol] 95.7 fL High 80-94 [facility] Mean corpuscular hemoglobin (MCH) determinationOrdered By: Alvaro Auguste 04-16-2024 MCH (RBC) [Entitic mass] 33.3 pg High 27.0-32.0 [facility] Mean corpuscular hemoglobin concentration (MCHC) determinationOrdered By: Alvaro Auguste on 04-16-2024 MCHC (RBC) [Mass/Vol] 34.8 g/dL 32-36 [facility] Mean platelet volume determi nationOrdered By: Alvaro Auguste on 04-16-2024 Platelet mean volume (Bld) [Entitic vol] 11.3 fL 6.2-12.0 [facility] Monocyte percentageOrdered B y: Alvaro Auguste on 04-16-2024 Monocytes/100 WBC (Bld) 7.5 % 0-10 [facility] Neutrophil percentageOrdered By: Alvaro Auguste on 04-16-2024 Neutrophils/100 WBC (Bld) 68.5 % 47-70 [facility] Nucleated red blood cell per centageOrdered By: Alvaro Auguste on 04-16-2024 Nucleated RBC/100 WBC (Bld) [Ratio] 0 % 0-5 [facility] Platelet countOrdered By: Rubens Auguste on 04-16-2024 Platelets (Bld) [#/Vol] 182 10*3/uL 150-450 [facility] Potassium measurementOrdered By: Alvaro Auguste on 04-16-2024 Potassium [Moles/Vol] 4.1 mmol/L Normal 3.5-5.1 [facility] Comment on above: Slight Hemolysis, Re sult may be falsely increased. Result Comment: Slig ht Hemolysis, Result may be falsely increased. Performed By: #### L 503.7505, L501.9520, L100.0100, L500.4050 #### [facility] [address] [place], [address] RBC Auto (Bld) [#/Vol]Ordere d By: Alvaro Auguste on 04-16-2024 RBC (Bld) [#/Vol] 5.14 10*6/uL 4.6-6.2 [facility] Serum anion gap measurementO rdered By: Alvaro Auguste on 04-16-2024 Anion gap [Moles/Vol] 5 mmol/L 5-15 [facility] Serum globulin measurementOr dered By: Alvaro Auguste on 04-16-2024 Globulin (S) [Mass/Vol] 3.2 g/dL Normal 2.2-4.2 [facility] Comment on above: Performed By: #### L 503.7505, L501.9520, L100.0100, L500.4050 #### [facility] [address] [place], [address] Serum or plasma alanine dominguez otransferase (ALT) measurementOrdered By: Alvaro Auguste on 04-16-2024 ALT [Catalytic activity/Vol] 20 U/L Normal 16-61 [facility] Comment on above: Performed By: #### L 503.7505, L501.9520, L100.0100, L500.4050 #### [facility] [address] [place], [address] Serum or plasma albumin jean urement (mass/volume)Ordered By: Alvaro Auguste on 04-16-2024 Albumin [Mass/Vol] 3.6 g/dL Normal 3.2-5.0 [facility] Comment on above: Performed By: #### L 503.7505, L501.9520, L100.0100, L500.4050 #### [facility] [address] [facility] [place], [address] Serum or plasma alkaline denzel sphatase measurementOrdered By: Alvaro Auguste on 04-16-2024 ALP [Catalytic activity/Vol] 84 U/L 45-117 [facility] Serum or plasma calcium jean urement (mass/volume)Ordered By: Alvaro Auguste on 04-16-2024 Calcium [Mass/Vol] 9.1 mg/dL 8.5-10.1 [facility] Serum or plasma creatinine m easurement (mass/volume)Ordered By: Alvaro Auguste on 04-16-2024 Creatinine [Mass/Vol] 1.04 mg/dL Normal 0.70-1.30 [facility] Comment on above: The validity of the calculated GFR & GFRAA in patients over 70 years has not been determined. Clinical correlation is essential. Result Comment: The validity of the calculated GFR GFRAA in patients over 70 years has not been determined. Clinical correlation is essential. Performed By: #### L 503.7505, L501.9520, L100.0100, L500.4050 #### [facility] [address] [place], [address] Serum or plasma urea nitroge n measurement (mass/volume)Ordered By: Alvaro Auguste on 04-16-2024 Urea nitrogen [Mass/Vol] 16 mg/dL Normal 7-18 [facility] Comment on above: Performed By: #### L 503.7505, L501.9520, L100.0100, L500.4050 #### [facility] [address] [place], [address] Serum or plasma uric acid me asurement (mass/volume)Ordered By: Alvaro Auguste on 04-16-2024 Urate [Mass/Vol] 5.3 mg/dL 3.5-7.2 [facility] Comment on above: The drugs N-Acetylcy steine and Metamizole may falsely depress this assay. Sodium levelOrdered By: Alvaro Auguste on 04-16-2024 Sodium [Moles/Vol] 142 mmol/L Normal 136-145 [facility] Comment on above: Performed By: #### L 503.7505, L501.9520, L100.0100, L500.4050 #### [facility] [address] [place], [address] TSH QnOrdered By: Alvaro Auguste o n 04-16-2024 Thyroid Stimulating Hormone (TSH) 0.659 uIU/mL 0.358-3.740 [facility] Testosterone, Serum Totalon 04-16-2024 Testosterone [Mass/Vol] ng/dL Normal [facility] Comment on above: Result Comment: CENT RAL 90% REFERENCE RANGES MALE AGE <50 197.44 - 669.58 ng/dL MALE AGE > or = 50 187.72 - 684.19 ng/dL FEMALE AGE <50 8.38 - 35.01 ng/dL FEMALE AGE > or = 50 <7.00 - 35.92 ng/dL Effective as of 11/30/20 Performed By: #### L 503.7505, L501.9520, L100.0100, L500.4050 #### [facility] [address] [place], [place], [id number] Testosterone, totalOrdered B y: Alvaro Auguste on 04-16-2024 Testosterone [Mass/Vol] ng/dL [facility] Comment on above: CENTRAL 90% REFERENC E RANGES MALE AGE <50 197.44 - 669.58 ng/dL MALE AGE > or = 50 187.72 - 684.19 ng/dL FEMALE AGE <50 8.38 - 35.01 ng/dL FEMALE AGE > or = 50 <7.00 - 35.92 ng/dL Effective as of 11/30/20 Thyroid Stim Hormone (TSH)on 04-16-2024 TSH 0.659 uIU/mL Normal 0.358-3.740 [facility] Comment on above: Performed By: #### L 503.7505, L501.9520, L100.0100, L500.4050 #### [facility] [address] [place], [place], [address] Total proteinOrdered By: Alvaro Auguste on 04-16-2024 Protein [Mass/Vol] 6.8 g/dL 6.4-8.2 [facility] Uric Acidon 04-16-2024 URIC 5.3 mg/dL Normal 3.5-7.2 [facility] Comment on above: Result Comment: The drugs N-Acetylcysteine and Metamizole may falsely depress this assay. Performed By: #### L 503.7505, L501.9520, L100.0100, L500.4050 #### [facility] [address] [place], [place], [address] Vitamin D,25 Hydroxyon 04-16 Vitamin D 25-OH 28.1 ng/mL Normal [facility] Comment on above: Result Comment: Nita min D 25(OH) Status Range Deficiency <20 ng/mL (50nmol/L) Insufficiency 20 - 30 ng/mL (50 - 75 nmol/L) Sufficiency 30 - 100 ng/mL (75 - 250 nmol/L) Toxicity >100 ng/mL (>250 nmol/L) Performed By: #### L 503.7502, L501.9520, L100.0100, L500.4050 #### [facility] [address] [place], [address] White blood cell (WBC) count Ordered By: Avlaro Auguste on 04-16-2024 WBC (Bld) [#/Vol] 8.0 10*3/uL 4.4-11.0 [facility] Absolute lymphocyte countOrd ered By: Alvaro Auguste on 04-10-2023 Lymphocytes Auto (Unsp spec) [#/Vol] 1.51 10*3/uL 0.83-4.51 [facility] Basophil percentageOrdered B y: Alvaro Auguste on 04-10-2023 Basophils/100 WBC (Bld) 1.1 % 0-1 [facility] Bilirubin [Mass/Vol] 0.80 mg/dL 0.20-1.00 [facility] Comment on above: For patients on eltr ombopag therapy, use of Dimension Sabinal TBIL is not recommended. Chloride [Moles/Vol] 107 mmol/L 98-107 [facility] Eosinophils/100 WBC (Bld) 6.3 % 0-5 [facility] Glucose [Mass/Vol] 97 mg/dL 74-106 [facility] Neutrophils (Bld) [#/Vol] 4.7 10*3/uL 2.0-7.7 [facility] Neutrophils/100 WBC (Bld) 62.9 % 47-70 [facility] Potassium [Moles/Vol] 3.9 mmol/L 3.5-5.1 [facility] Protein [Mass/Vol] 7.6 g/dL 6.4-8.2 [facility] Sodium [Moles/Vol] 141 mmol/L 136-145 [facility] WBC (Bld) [#/Vol] 7.5 10*3/uL 4.4-11.0 [facility] Blood erythrocytes count (nu mber/volume)Ordered By: Alvaro Auguste on 04-10-2023 RBC (Bld) [#/Vol] 5.54 10*6/uL 4.6-6.2 [facility] Blood hemoglobin measurement (mass/volume)Ordered By: Alvaro Auguste on 04-10-2023 Hemoglobin (Bld) [Mass/Vol] 17.4 g/dL 13.0-16.5 [facility] Blood lymphocytes/100 leukoc ytesOrdered By: [facility] 04-10-[facility] Lymphocytes/100 WBC (Bld) 20.1 % 19-41 [facility] Blood monocytes/100 leukocyt esOrdered By: [facility] on 04-10-2023 Monocytes/100 WBC (Bld) 9.3 % 0-10 [facility] Blood platelet mean volumeOr dered By: Alvaro Auguste on 04-10-2023 Platelet mean volume (Bld) [Entitic vol] 11.3 fL 6.2-12.0 [facility] Determination of erythrocyte mean corpuscular volume (MCV)Ordered By: Alvaro Auguste on 04-10-2023 MCV (RBC) [Entitic vol] 95.3 fL 80-94 [facility] Hematocrit Auto (Bld) [Volum e fraction]Ordered By: [facility] 04-10-[facility]23 Hematocrit (Bld) [Volume fraction] 52.8 % 40-54 [facility] - Chemistry and C hemistry - challengeOrdered By: Alvaro Auguste 04-10-2023 ALP [Catalytic activity/Vol] 76 U/L 45-117 [facility] ALT [Catalytic activity/Vol] 23 U/L 16-61 [facility] CO2 [Moles/Vol] 26.0 mmol/L 21.0-32.0 [facility] Globulin (S) [Mass/Vol] 3.6 g/dL 2.2-4.2 [facility] Urea nitrogen/Creatinine [Mass ratio] 9.2 mg/mg 10-20 [facility] - Hematology and Cell countsOrdered By: Alvaro Auguste 04-10-2023 Erythrocyte distribution width (RBC) [Entitic vol] 49.1 fL 35.1-43.9 [facility] Erythrocyte distribution width (RBC) [Ratio] 13.9 % 11.6-14.6 [facility] Immature granulocytes/100 WBC (Bld) 0.300 % 0.0-0.9 [facility] Comment on above: IG% - Immature Granu locytes (promyelocytes, myelocytes and metamyelocytes) > 1% indicates that a LEFT SHIFT is Present. MCH (RBC) [Entitic mass] 31.4 pg 27.0-32.0 [facility] Nucleated RBC/100 WBC (Bld) [Ratio] 0 % 0-5 [facility] MCHC Auto (RBC) [Mass/Vol]Or dered By: Alvaro Auguste on 04-10-2023 MCHC (RBC) [Mass/Vol] 33.0 g/dL 32-36 [facility] No Panel InformationOrdered By: Alvaro Auguste on 04-10-2023 Estimated GFR (MDRD) Amer 77 mL/min >60 [facility] Comment on above: GFR Calc Estimated GFR (MDRD) Non-Af Amer 64 mL/min >60 [facility] Comment on above: Non- GFR Calc Prostate Specific Antigen Screen 0.93 ng/mL 0.00-4.00 [facility] Comment on above: This test was perfor med using the TPSA assay method [facility]. Values obtained with differentassay methods cannot be used interchangably.When changing PSA assays in the course of monitoring apatient, additional sequential testing should be carriedout to confirm baseline values. Thyroid Stimulating Hormone (TSH) 0.94 uIU/mL 0.358-3.74 [facility] Vitamin D 25-Hydroxy 25.9 ng/mL [facility] Comment on above: Vitamin D 25(OH) Sta tus Range Deficiency <20 ng/mL (50nmol/L) Insufficiency 20 - 30 ng/mL (50 - 75 nmol/L) Sufficiency 30 - 100 ng/mL (75 - 250 nmol/L) Toxicity >100 ng/mL (>250 nmol/L) Platelets bldOrdered By: Alvaro Auguste on 04-10-2023 Platelets (Bld) [#/Vol] 214 10*3/uL 150-450 [facility] Serum or plasma albumin jean urement (mass/volume)Ordered By: Alvaro Auguste on 04-10-2023 Albumin [Mass/Vol] 4.0 g/dL 3.2-5.0 [facility] Serum or plasma albumin/glob ulin mass ratioOrdered By: Alvaro Auguste on 04-10-2023 Albumin/Globulin [Mass ratio] 1.1 {ratio} 0.9-2.4 [facility] Serum or plasma calcium jean urement (mass/volume)Ordered By: Alvaro Auguste on 04-10-2023 Calcium [Mass/Vol] 9.1 mg/dL 8.5-10.1 [facility] Serum or plasma creatinine m easurement (mass/volume)Ordered By: Alvaro Auguste on 04-10-2023 Creatinine [Mass/Vol] 1.20 mg/dL 0.70-1.30 [facility] Comment on above: The validity of the calculated GFR & GFRAA in patients over 70 years has not been determined. Clinical correlation is essential. Serum or plasma urea nitroge n measurement (mass/volume)Ordered By: Alvaro Auguste on 04-10-2023 Urea nitrogen [Mass/Vol] 11 mg/dL 7-18 [facility] Serum or plasma uric acid me asurement (mass/volume)Ordered By: Alvaro Auguste on 04-10-2023 Urate [Mass/Vol] 6.2 mg/dL 3.5-7.2 [facility] Comment on above: The drugs N-Acetylcy steine and Metamizole may falsely depress this assay. Thin prep Papanicolaou smear with manual screeningOrdered By: Alvaro Auguste on 04-10-2023 Thin prep Papanicolaou smear with manual screening 18 U/L 15-37 [facility] Thin prep Papanicolaou smear with manual screening 8 5-15 [facility] Absolute lymphocyte countOrd ered By: Dr. Auguste on 10-05-2022 Lymphocytes Auto (Unsp spec) [#/Vol] 1.30 10*3/uL 0.83-4.51 [facility] Basophil percentageOrdered B y: Dr. Auguste on 10-05-2022 Basophils/100 WBC (Bld) 0.8 % 0-1 [facility] Bilirubin [Mass/Vol] 0.50 mg/dL 0.20-1.00 [facility] Comment on above: For patients on eltr ombopag therapy, use of Dimension Sabinal TBIL is not recommended. Chloride [Moles/Vol] 110 mmol/L 98-107 [facility] Eosinophils/100 WBC (Bld) 3.1 % 0-5 [facility] Glucose [Mass/Vol] 97 mg/dL 74-106 [facility] Neutrophils (Bld) [#/Vol] 6.2 10*3/uL 2.0-7.7 [facility] Neutrophils/100 WBC (Bld) 73.0 % 47-70 [facility] Potassium [Moles/Vol] 4.2 mmol/L 3.5-5.1 [facility] Comment on above: Slight Hemolysis, Re sult may be falsely increased. Protein [Mass/Vol] 7.8 g/dL 6.4-8.2 [facility] Sodium [Moles/Vol] 142 mmol/L 136-145 [facility] Testosterone [Mass/Vol] 595.13 ng/dL [facility] Comment on above: CENTRAL 90% REFERENC E RANGES MALE AGE <50 197.44 - 669.58 ng/dL MALE AGE > or = 50 187.72 - 684.19 ng/dL FEMALE AGE <50 8.38 - 35.01 ng/dL FEMALE AGE > or = 50 <7.00 - 35.92 ng/dL Effective as of 11/30/20 WBC (Bld) [#/Vol] 8.5 10*3/uL 4.4-11.0 [facility] Blood erythrocytes count (nu mber/volume)Ordered By: Dr. Auguste on 10-05-2022 RBC (Bld) [#/Vol] 5.37 10*6/uL 4.6-6.2 [facility] Blood hemoglobin measurement (mass/volume)Ordered By: Dr. Auguste on 10-05-2022 Hemoglobin (Bld) [Mass/Vol] 16.9 g/dL 13.0-16.5 [facility] Blood lymphocytes/100 leukoc ytesOrdered By: Dr. Auguste on 10-05-2022 Lymphocytes/100 WBC (Bld) 15.3 % 19-41 [facility] Blood monocytes/100 leukocyt esOrdered By: Dr. Auguste on 10-05-2022 Monocytes/100 WBC (Bld) 7.7 % 0-10 [facility] Blood platelet mean volumeOr dered By: Dr. Auguste on 10-05-2022 Platelet mean volume (Bld) [Entitic vol] 11.1 fL 6.2-12.0 [facility] Determination of erythrocyte mean corpuscular volume (MCV)Ordered By: Dr. Auguste on 10-05-2022 MCV (RBC) [Entitic vol] 92.7 fL 80-94 [facility] Hematocrit Auto (Bld) [Volum e fraction]Ordered By: Dr. Auguste on 10-05-2022 Hematocrit (Bld) [Volume fraction] 49.8 % 40-54 [facility] Laboratory - Chemistry and C hemistry - challengeOrdered By: Dr. Auguste on 10-05-2022 ALP [Catalytic activity/Vol] 86 U/L 45-117 [facility] ALT [Catalytic activity/Vol] 17 U/L 16-61 [facility] CO2 [Moles/Vol] 24.0 mmol/L 21.0-32.0 [facility] Globulin (S) [Mass/Vol] 4.0 g/dL 2.2-4.2 [facility] Urea nitrogen/Creatinine [Mass ratio] 12.5 mg/mg 10-20 [facility] Laboratory - Hematology and Cell countsOrdered By: Dr. Auguste on 10-05-2022 Erythrocyte distribution width (RBC) [Entitic vol] 48.0 fL 35.1-43.9 [facility] Erythrocyte distribution width (RBC) [Ratio] 14.0 % 11.6-14.6 [facility] Immature granulocytes/100 WBC (Bld) 0.100 % 0.0-0.9 [facility] Comment on above: IG% - Immature Granu locytes (promyelocytes, myelocytes and metamyelocytes) > 1% indicates that a LEFT SHIFT is Present. MCH (RBC) [Entitic mass] 31.5 pg 27.0-32.0 [facility] Nucleated RBC/100 WBC (Bld) [Ratio] 0 % 0-5 [facility] MCHC Auto (RBC) [Mass/Vol]Or dered By: Dr. Auguste on 10-05-2022 MCHC (RBC) [Mass/Vol] 33.9 g/dL 32-36 [facility] No Panel InformationOrdered By: Dr. Auguste on 10-05-2022 Estimated GFR (MDRD) Amer 91 mL/min >60 [facility] Comment on above: GFR Calc Estimated GFR (MDRD) Non-Af Amer 75 mL/min >60 [facility] Comment on above: Non- GFR Calc Thyroid Stimulating Hormone (TSH) 1.01 uIU/mL 0.358-3.74 [facility] Vitamin D 25-Hydroxy 38.5 ng/mL [facility] Comment on above: Vitamin D 25(OH) Sta tus Range Deficiency <20 ng/mL (50nmol/L) Insufficiency 20 - 30 ng/mL (50 - 75 nmol/L) Sufficiency 30 - 100 ng/mL (75 - 250 nmol/L) Toxicity >100 ng/mL (>250 nmol/L) Platelets bldOrdered By: Dr. Auguste on 10-05-2022 Platelets (Bld) [#/Vol] 226 10*3/uL 150-450 [facility] Serum or plasma albumin jean urement (mass/volume)Ordered By: Dr. Auguste on 10-05-2022 Albumin [Mass/Vol] 3.8 g/dL 3.2-5.0 [facility] Serum or plasma albumin/glob ulin mass ratioOrdered By: Dr. Auguste on 10-05-2022 Albumin/Globulin [Mass ratio] 1.0 {ratio} 0.9-2.4 [facility] Serum or plasma calcium jean urement (mass/volume)Ordered By: Dr. Auguste on 10-05-2022 Calcium [Mass/Vol] 9.5 mg/dL 8.5-10.1 [facility] Serum or plasma creatinine m easurement (mass/volume)Ordered By: Dr. Auguste on 10-05-2022 Creatinine [Mass/Vol] 1.04 mg/dL 0.70-1.30 [facility] Comment on above: The validity of the calculated GFR & GFRAA in patients over 70 years has not been determined. Clinical correlation is essential. Serum or plasma urea nitroge n measurement (mass/volume)Ordered By: Dr. Auguste on 10-05-2022 Urea nitrogen [Mass/Vol] 13 mg/dL 7-18 [facility] Serum or plasma uric acid me asurement (mass/volume)Ordered By: Dr. Auguste on 10-05-2022 Urate [Mass/Vol] 6.3 mg/dL 3.5-7.2 [facility] Comment on above: The drugs N-Acetylcy steine and Metamizole may falsely depress this assay. Thin prep Papanicolaou smear with manual screeningOrdered By: Dr. Auguste on 10-05-2022 Thin prep Papanicolaou smear with manual screening 18 U/L 15-37 [facility] Comment on above: Slight Hemolysis, Re sult may be falsely increased. Thin prep Papanicolaou smear with manual screening 8 5-15 [facility] Absolute lymphocyte counton 04-06-2022 Lymphocytes Auto (Unsp spec) [#/Vol] 0.93 10*3/uL 0.83-4.51 [facility] Work Phone: Basophil percentageon 2021 Basophils/100 WBC (Bld) 0.5 % 0-1 [facility] Work Phone: Bilirubin [Mass/Vol] 0.50 mg/dL 0.20-1.00 [facility] Work Phone: Comment on above: For patients on eltr ombopag therapy, use of Dimension Sabinal TBIL is not recommended. Chloride [Moles/Vol] 109 mmol/L 98-107 [facility] Work Phone: Eosinophils/100 WBC (Bld) 1.0 % 0-5 [facility] Work Phone: Glucose [Mass/Vol] 93 mg/dL 74-106 [facility] Work Phone: [phone] Neutrophils (Bld) [#/Vol] 10.6 10*3/uL 2.0-7.7 [facility] Work Phone: Neutrophils/100 WBC (Bld) 85.6 % 47-70 [facility] Work Phone: Potassium [Moles/Vol] 3.8 mmol/L 3.5-5.1 [facility] Work Phone: Protein [Mass/Vol] 6.9 g/dL 6.4-8.2 [facility] Work Phone: Sodium [Moles/Vol] 142 mmol/L 136-145 [facility] Work Phone: Testosterone [Mass/Vol] 169.54 ng/dL [facility] Work Phone: Comment on above: CENTRAL 90% REFERENC E RANGES MALE AGE <50 197.44 - 669.58 ng/dL MALE AGE > or = 50 187.72 - 684.19 ng/dL FEMALE AGE <50 8.38 - 35.01 ng/dL FEMALE AGE > or = 50 <7.00 - 35.92 ng/dL Effective as of 11/30/20 WBC (Bld) [#/Vol] 12.4 10*3/uL 4.4-11.0 [facility] Work Phone: Blood erythrocytes count (nu mber/volume)on 04-06-2022 RBC (Bld) [#/Vol] 5.04 10*6/uL 4.6-6.2 [facility] Work Phone: Blood hemoglobin measurement (mass/volume)on 04-06-2022 Hemoglobin (Bld) [Mass/Vol] 16.2 g/dL 13.0-16.5 [facility] Work Phone: Blood lymphocytes/100 leukoc yteson 04-06-2022 Lymphocytes/100 WBC (Bld) 7.5 % 19-41 [facility] Work Phone: Blood monocytes/100 leukocyt eson 04-06-2022 Monocytes/100 WBC (Bld) 4.9 % 0-10 [facility] Work Phone: Blood platelet mean volumeon 04-06-2022 Platelet mean volume (Bld) [Entitic vol] 11.8 fL 6.2-12.0 [facility] Work Phone: Determination of erythrocyte mean corpuscular volume (MCV)on 04-06-2022 MCV (RBC) [Entitic vol] 98.6 fL 80-94 [facility] Work Phone: Hematocrit Auto (Bld) [Volum e fraction]on 04-06-2022 Hematocrit (Bld) [Volume fraction] 49.7 % 40-54 [facility] Work Phone: Laboratory - Chemistry and C hemistry - challengeon 04-06-2022 ALP [Catalytic activity/Vol] 74 U/L 45-117 [facility] Work Phone: ALT [Catalytic activity/Vol] 23 U/L 16-61 [facility] Work Phone: CO2 [Moles/Vol] 22.0 mmol/L 21.0-32.0 [facility] Work Phone: Globulin (S) [Mass/Vol] 3.5 g/dL 2.2-4.2 [facility] Work Phone: Urea nitrogen/Creatinine [Mass ratio] 16.8 mg/mg 10-20 [facility] Work Phone: Laboratory - Hematology and Cell countson 04-06-2022 Erythrocyte distribution width (RBC) [Entitic vol] 50.3 fL 35.1-43.9 [facility] Work Phone: Erythrocyte distribution width (RBC) [Ratio] 13.8 % 11.6-14.6 [facility] Work Phone: Immature granulocytes/100 WBC (Bld) 0.500 % 0.0-0.9 [facility] Work Phone: Comment on above: IG% - Immature Granu locytes (promyelocytes, myelocytes and metamyelocytes) > 1% indicates that a LEFT SHIFT is Present. MCH (RBC) [Entitic mass] 32.1 pg 27.0-32.0 [facility] Work Phone: Nucleated RBC/100 WBC (Bld) [Ratio] 0 % 0-5 [facility] Work Phone: MCHC Auto (RBC) [Mass/Vol]on 04-06-2022 MCHC (RBC) [Mass/Vol] 32.6 g/dL 32-36 [facility] Work Phone: No Panel Informationon 04-06 Estimated GFR (MDRD) Amer 94 mL/min >60 [facility] Work Phone: Comment on above: GFR Calc Estimated GFR (MDRD) Non-Af Amer 78 mL/min >60 [facility] Work Phone: Comment on above: Non- GFR Calc Prostate Specific Antigen Screen 0.74 ng/mL 0.00-4.00 [facility] Work Phone: Comment on above: This test was perfor med using the TPSA assay method for [employer] chemistry system. Values obtained with differentassay methods cannot be used interchangably.When changing PSA assays in the course of monitoring apatient, additional sequential testing should be carriedout to confirm baseline values. Thyroid Stimulating Hormone (TSH) 0.51 uIU/mL 0.358-3.74 [facility] Work Phone: Vitamin D 25-Hydroxy 22.3 ng/mL [facility] Work Phone: Comment on above: Vitamin D 25(OH) Sta tus Range Deficiency <20 ng/mL (50nmol/L) Insufficiency 20 - 30 ng/mL (50 - 75 nmol/L) Sufficiency 30 - 100 ng/mL (75 - 250 nmol/L) Toxicity >100 ng/mL (>250 nmol/L) Platelets bldon 04-06-2022 Platelets (Bld) [#/Vol] 231 10*3/uL 150-450 [facility] Work Phone: Serum or plasma albumin jean urement (mass/volume)on 04-06-2022 Albumin [Mass/Vol] 3.4 g/dL 3.2-5.0 [facility] Work Phone: Serum or plasma albumin/glob ulin mass ratioon 04-06-2022 Albumin/Globulin [Mass ratio] 1.0 {ratio} 0.9-2.4 [facility] Work Phone: Serum or plasma calcium jean urement (mass/volume)on 04-06-2022 Calcium [Mass/Vol] 8.9 mg/dL 8.5-10.1 [facility] Work Phone: Serum or plasma creatinine m easurement (mass/volume)on 04-06-2022 Creatinine [Mass/Vol] 1.01 mg/dL 0.70-1.30 [facility] Work Phone: Comment on above: The validity of the calculated GFR & GFRAA in patients over 70 years has not been determined. Clinical correlation is essential. Serum or plasma urea nitroge n measurement (mass/volume)on 04-06-2022 Urea nitrogen [Mass/Vol] 17 mg/dL 7-18 [facility] Work Phone: Thin prep Papanicolaou smear with manual screeningon 04-06-2022 Thin prep Papanicolaou smear with manual screening 12 U/L 15-37 [facility] Work Phone: Thin prep Papanicolaou smear with manual screening 11 5-15 [facility] Work Phone: Absolute lymphocyte counton 03-20-2022 Lymphocytes Auto (Unsp spec) [#/Vol] 0.69 10*3/uL 0.83-4.51 [facility] Work Phone: Basophil percentageon 2021 Basophils/100 WBC (Bld) 0.4 % 0-1 [facility] Work Phone: Bilirubin [Mass/Vol] 0.40 mg/dL 0.20-1.00 [facility] Work Phone: Comment on above: For patients on eltr ombopag therapy, use of Dimension Sabinal TBIL is not recommended. Chloride [Moles/Vol] 105 mmol/L 98-107 [facility] Work Phone: Eosinophils/100 WBC (Bld) 0.1 % 0-5 [facility] Work Phone: Glucose [Mass/Vol] 100 mg/dL 74-106 [facility] Work Phone: Comment on above: Fasting Glucose resu lt from 100 to 125 mg/dL suggests IMPAIRED HOMEOSTASIS per A.D.A. criteria. Neutrophils (Bld) [#/Vol] 14.2 10*3/uL 2.0-7.7 [facility] Work Phone: Neutrophils/100 WBC (Bld) 90.4 % 47-70 [facility] Work Phone: Potassium [Moles/Vol] 4.0 mmol/L 3.5-5.1 [facility] Work Phone: [phone] Protein [Mass/Vol] 7.4 g/dL 6.4-8.2 [facility] Work Phone: Sodium [Moles/Vol] 138 mmol/L 136-145 [facility] Work Phone: WBC (Bld) [#/Vol] 15.7 10*3/uL 4.4-11.0 [facility] Work Phone: [phone] Blood erythrocytes count (nu mber/volume)on 03-20-2022 RBC (Bld) [#/Vol] 5.18 10*6/uL 4.6-6.2 [facility] Work Phone: RBC (Bld) [#/Vol] 5.17 10*6/uL 4.14-5.80 [facility] Work Phone: Blood hemoglobin measurement (mass/volume)on 03-20-2022 Hemoglobin (Bld) [Mass/Vol] 16.9 g/dL 13.0-16.5 [facility] Work Phone: Blood lymphocytes/100 leukoc yteson 03-20-2022 Lymphocytes/100 WBC (Bld) 4.4 % 19-41 [facility] Work Phone: Blood monocytes/100 leukocyt eson 03-20-2022 Monocytes/100 WBC (Bld) 3.8 % 0-10 [facility] Work Phone: Blood platelet mean volumeon 03-20-2022 Platelet mean volume (Bld) [Entitic vol] 11.1 fL 6.2-12.0 [facility] Work Phone: Cerebrospinal fluid Borrelia burgdorferi 18kd IgG antibody detection by immunobloton 03-20-2022 B. burgdorferi 18kD IgG IB Ql (CSF) Absent . [facility] Work Phone: Cerebrospinal fluid Borrelia burgdorferi 23kD IgG antibody detection by immunobloton 03-20-2022 B. burgdorferi 23kD IgG IB Ql (CSF) Absent . [facility] Work Phone: Cerebrospinal fluid Borrelia burgdorferi 23kD IgM antibody detection by immunobloton 03-20-2022 B. burgdorferi 23kD IgM IB Ql (CSF) Present . [facility] Work Phone: Cerebrospinal fluid Borrelia burgdorferi 28kD IgG antibody detection by immunobloton 03-20-2022 B. burgdorferi 28kD IgG IB Ql (CSF) Absent . [facility] Work Phone: Cerebrospinal fluid Borrelia burgdorferi 39kD IgG antibody detection by immunobloton 03-20-2022 B. burgdorferi 39kD IgG IB Ql (CSF) Absent . [facility] Work Phone: Cerebrospinal fluid Borrelia burgdorferi 39kD IgM antibody detection by immunobloton 03-20-2022 B. burgdorferi 39kD IgM IB Ql (CSF) Absent . [facility] Work Phone: Cerebrospinal fluid Borrelia burgdorferi 41kD IgM antibody detection by immunobloton 03-20-2022 B. burgdorferi 41kD IgM IB Ql (CSF) Absent . [facility] Work Phone: Determination of erythrocyte mean corpuscular volume (MCV)on 03-20-2022 MCV (RBC) [Entitic vol] 99.4 fL 80-94 [facility] Work Phone: Erythrocyte eiuaqqv-2-[id number] ate dehydrogenase (enzymatic activity/mass)on 03-20-2022 G6PD (RBC) [Catalytic activity/Mass] 342 127-427 [facility] Work Phone: Comment on above: Result [...] forseveral weeks following a hemolytic event.Performed at: [employer] [address] [id number] Director: Uziel Rees MD, Phone: [phone] at: [employer] [address] [id number] Director: Kulwant Thomas PhD, Phone: [phone] Hematocrit Auto (Bld) [Volum e fraction]on 03-20-2022 Hematocrit (Bld) [Volume fraction] 51.5 % 40-54 [facility] Work Phone: Laboratory - Chemistry and C hemistry - challengeon 03-20-2022 ALP [Catalytic activity/Vol] 69 U/L 45-117 [facility] Work Phone: ALT [Catalytic activity/Vol] 20 U/L 16-61 [facility] Work Phone: CO2 [Moles/Vol] 25.0 mmol/L 21.0-32.0 [facility] Work Phone: Globulin (S) [Mass/Vol] 3.8 g/dL 2.2-4.2 [facility] Work Phone: Urea nitrogen/Creatinine [Mass ratio] 15.9 mg/mg 10-20 [facility] Work Phone: Laboratory - Hematology and Cell countson 03-20-2022 Erythrocyte distribution width (RBC) [Entitic vol] 52.5 fL 35.1-43.9 [facility] Work Phone: Erythrocyte distribution width (RBC) [Ratio] 14.2 % 11.6-14.6 [facility] Work Phone: Immature granulocytes/100 WBC (Bld) 0.900 % 0.0-0.9 [facility] Work Phone: Comment on above: IG% - Immature Granu locytes (promyelocytes, myelocytes and metamyelocytes) > 1% indicates that a LEFT SHIFT is Present. MCH (RBC) [Entitic mass] 32.6 pg 27.0-32.0 [facility] Work Phone: Nucleated RBC/100 WBC (Bld) [Ratio] 0 % 0-5 [facility] Work Phone: MCHC Auto (RBC) [Mass/Vol]on 03-20-2022 MCHC (RBC) [Mass/Vol] 32.8 g/dL 32-36 [facility] Work Phone: No Panel Informationon 03-20 Estimated GFR (MDRD) Amer 110 mL/min >60 [facility] Work Phone: Comment on above: GFR Calc Estimated GFR (MDRD) Non-Af Amer 91 mL/min >60 [facility] Work Phone: Comment on above: Non- GFR Calc Lyme Disease IgG Ab 30 kDa Band Absent . [facility] Work Phone: Lyme Disease IgG Ab 93 kDa Band Absent . [facility] Work Phone: Lyme Disease IgG West Blot Interp Negative . [facility] Work Phone: Comment on above: Positive: 5 of the f ollowing Borrelia-specific bands: 18,23,28,30,39,41,45,58, 66, and 93. Negative: No bands or banding patterns which do not meet positive criteria. Lyme Disease IgM Ab (Western Blot) Negative . [facility] Work Phone: Comment on above: Note: [...] positivity are those recommended byCDC/ASTPHLD. p23=Osp C, w36=wywjbtfddBxvu:Sera from individuals with the following may cross [...] testingto improve the sensitivity and specificity of testing.[facility] offers test code 085780 Lyme Disease Serology withReflex to aid in the diagnosis of Lyme Disease. Platelets bldon 03-20-2022 Platelets (Bld) [#/Vol] 247 10*3/uL 150-450 [facility] Work Phone: Serum Borrelia burgdorferi 4 1kD IgG antibody detection by immunobloton 03-20-2022 B. burgdorferi 41kD IgG IB Ql (S) Absent . [facility] Work Phone: Serum Borrelia burgdorferi 6 6kD IgG antibody detection by immunobloton 03-20-2022 B. burgdorferi 66kD IgG IB Ql (S) Absent . [facility] Work Phone: Serum or plasma albumin jean urement (mass/volume)on 03-20-2022 Albumin [Mass/Vol] 3.6 g/dL 3.2-5.0 [facility] Work [facility]: Serum or plasma albumin/glob ulin mass ratioon 03-20-2022 Albumin/Globulin [Mass ratio] 0.9 {ratio} 0.9-2.4 [facility] Work Phone: Serum or plasma calcium jean urement (mass/volume)on 03-20-2022 Calcium [Mass/Vol] 9.3 mg/dL 8.5-10.1 [facility] Work Phone: Serum or plasma creatinine m easurement (mass/volume)on 03-20-2022 Creatinine [Mass/Vol] 0.88 mg/dL 0.70-1.30 [facility] Work Phone: Comment on above: The validity of the calculated GFR & GFRAA in patients over 70 years has not been determined. Clinical correlation is essential. Serum or plasma urea nitroge n measurement (mass/volume)on 03-20-2022 Urea nitrogen [Mass/Vol] 14 mg/dL 7-18 [facility] Work Phone: Synovial fluid Borrelia jarrod dorferi 45kD IgG antibody detection by immunobloton 03-20-2022 B. burgdorferi 45kD IgG IB Ql (Syn fld) Absent . [facility] Work Phone: Synovial fluid Borrelia jarrod dorferi 58kD IgG antibody detection by immunobloton 03-20-2022 B. burgdorferi 58kD IgG IB Ql (Syn fld) Present . [facility] Work Phone: Thin prep Papanicolaou smear with manual screeningon 03-20-2022 Thin prep Papanicolaou smear with manual screening 16 U/L 15-37 [facility] Work Phone: Thin prep Papanicolaou smear with manual screening 8 5-15 [facility] Work Phone: Absolute lymphocyte counton 02-01-2022 Lymphocytes Auto (Unsp spec) [#/Vol] 0.86 10*3/uL 0.83-4.51 [facility] Work Phone: Basophil percentageon 2021 Basophils/100 WBC (Bld) 0.2 % 0-1 [facility] Work Phone: Bilirubin [Mass/Vol] 0.70 mg/dL 0.20-1.00 [facility] Work Phone: Comment on above: For patients on eltr ombopag therapy, use of Dimension Sabinal TBIL is not recommended. Chloride [Moles/Vol] 109 mmol/L 98-107 [facility] Work Phone: Eosinophils/100 WBC (Bld) 0.4 % 0-5 [facility] Work Phone: [phone] Glucose [Mass/Vol] 87 mg/dL 74-106 [facility] Work Phone: Neutrophils (Bld) [#/Vol] 14.1 10*3/uL 2.0-7.7 [facility] Work Phone: Neutrophils/100 WBC (Bld) 87.8 % 47-70 [facility] Work Phone: Potassium [Moles/Vol] 3.7 mmol/L 3.5-5.1 [facility] Work Phone: Protein [Mass/Vol] 7.2 g/dL 6.4-8.2 [facility] Work Phone: Sodium [Moles/Vol] 142 mmol/L 136-145 [facility] Work Phone: WBC (Bld) [#/Vol] 16.0 10*3/uL 4.4-11.0 [facility] Work Phone: Blood erythrocytes count (nu mber/volume)on 02-01-2022 RBC (Bld) [#/Vol] 5.10 10*6/uL 4.6-6.2 [facility] Work Phone: Blood hemoglobin measurement (mass/volume)on 02-01-2022 Hemoglobin (Bld) [Mass/Vol] 16.6 g/dL 13.0-16.5 [facility] Work Phone: Blood lymphocytes/100 leukoc yteson 02-01-2022 Lymphocytes/100 WBC (Bld) 5.4 % 19-41 [facility] Work Phone: Blood monocytes/100 leukocyt eson 02-01-2022 Monocytes/100 WBC (Bld) 5.6 % 0-10 [facility] Work Phone: Blood platelet mean volumeon 02-01-2022 Platelet mean volume (Bld) [Entitic vol] 11.8 fL 6.2-12.0 [facility] Work Phone: Determination of erythrocyte mean corpuscular volume (MCV)on 02-01-2022 MCV (RBC) [Entitic vol] 99.2 fL 80-94 [facility] Work Phone: Hematocrit Auto (Bld) [Volum e fraction]on 02-01-2022 Hematocrit (Bld) [Volume fraction] 50.6 % 40-54 [facility] Work Phone: Laboratory - Chemistry and C hemistry - challengeon 02-01-2022 ALP [Catalytic activity/Vol] 67 U/L 45-117 [facility] Work Phone: ALT [Catalytic activity/Vol] 23 U/L 16-61 [facility] Work Phone: CO2 [Moles/Vol] 24.0 mmol/L 21.0-32.0 [facility] Work Phone: Globulin (S) [Mass/Vol] 3.7 g/dL 2.2-4.2 [facility] Work Phone: Urea nitrogen/Creatinine [Mass ratio] 15.2 mg/mg 10-20 [facility] Work Phone: Laboratory - Hematology and Cell countson 02-01-2022 Erythrocyte distribution width (RBC) [Entitic vol] 58.6 fL 35.1-43.9 [facility] Work Phone: Erythrocyte distribution width (RBC) [Ratio] 15.9 % 11.6-14.6 [facility] Work Phone: Immature granulocytes/100 WBC (Bld) 0.600 % 0.0-0.9 [facility] Work Phone: Comment on above: IG% - Immature Granu locytes (promyelocytes, myelocytes and metamyelocytes) > 1% indicates that a LEFT SHIFT is Present. MCH (RBC) [Entitic mass] 32.5 pg 27.0-32.0 [facility] Work Phone: Nucleated RBC/100 WBC (Bld) [Ratio] 0 % 0-5 [facility] Work Phone: MCHC Auto (RBC) [Mass/Vol]on 02-01-2022 MCHC (RBC) [Mass/Vol] 32.8 g/dL 32-36 [facility] Work Phone: No Panel Informationon 02-01 Anti-Nuclear Antibody Screen Negative Negative [facility] Work Phone: Comment on above: Performed at: [place] [id number] Director: Kulwant Thomas PhD, Phone: [phone] Estimated GFR (MDRD) Amer 115 mL/min >60 [facility] Work Phone: Comment on above: GFR Calc Estimated GFR (MDRD) Non-Af Amer 95 mL/min >60 [facility] Work Phone: Comment on above: Non- GFR Calc Hepatitis B Surface Antigen Non-Reactive Nonreactive [facility] Work Phone: Hepatitis C Antibody Non-Reactive Nonreactive [facility] Work Phone: Comment on above: Non Reactive: < 0.8 Equivocal: >/= 0.8 to < 1.0 Reactive: >/= 1.0The CDC recommends that a reactive/equivocal HCV antibody result be followed up by the HCV Nucleic Acid Amplificationtest (757518) Platelets bldon 02-01-2022 Platelets (Bld) [#/Vol] 226 10*3/uL 150-450 [facility] Work Phone: Serum cyclic citrullinated p eptide IgG antibody assay (units/volume)on 02-01-2022 Cyclic citrullinated peptide IgG Qn 3 units 0-19 [facility] Work Phone: Comment on above: Negative <20 Weak po sitive 20 - 39 Moderate positive 40 - 59 Strong positive >59Performed at: - [facility] [id number] Director: Uziel Rees MD, Phone: [phone] Serum hepatitis B virus [place] antibody IgG detectionon 02-01-2022 HBV surface IgG Ql (S) Non-Reactive [facility] Work Phone: Comment on above: Non Reactive: Incons istent with immunity less than <10 mIU/mL Reactive: Consistent with immunity greater than or equal to 10 mIU/mL Serum or plasma albumin jean urement (mass/volume)on 02-01-2022 Albumin [Mass/Vol] 3.5 g/dL 3.2-5.0 [facility] Work Phone: Serum or plasma albumin/glob ulin mass ratioon 02-01-2022 Albumin/Globulin [Mass ratio] 0.9 {ratio} 0.9-2.4 [facility] Work Phone: Serum or plasma calcium jean urement (mass/volume)on 02-01-2022 Calcium [Mass/Vol] 9.1 mg/dL 8.5-10.1 [facility] Work Phone: Serum or plasma creatinine m easurement (mass/volume)on 02-01-2022 Creatinine [Mass/Vol] 0.85 mg/dL 0.70-1.30 [facility] Work Phone: Comment on above: The validity of the calculated GFR & GFRAA in patients over 70 years has not been determined. Clinical correlation is essential. Serum or plasma urea nitroge n measurement (mass/volume)on 02-01-2022 Urea nitrogen [Mass/Vol] 13 mg/dL 7-18 [facility] Work Phone: Serum rheumatoid factor dete ctionon 02-01-2022 Rheumatoid factor Ql (S) < 10.0 IU/mL <15 [facility] Work Phone: Thin prep Papanicolaou smear with manual screeningon 02-01-2022 Thin prep Papanicolaou smear with manual screening 12 U/L 15-37 [facility] Work Phone: Thin prep Papanicolaou smear with manual screening 9 5-15 [facility] Work Phone: Absolute lymphocyte counton 01-16-2022 Lymphocytes Auto (Unsp spec) [#/Vol] 1.22 10*3/uL 0.83-4.51 [facility] Work Phone: [phone] Basophil percentageon 2021 Basophils/100 WBC (Bld) 0.5 % 0-1 [facility] Work Phone: Chloride [Moles/Vol] 110 mmol/L 98-107 [facility] Work Phone: Eosinophils/100 WBC (Bld) 1.5 % 0-5 [facility] Work Phone: [phone] Glucose [Mass/Vol] 112 mg/dL 74-106 [facility] Work Phone: Comment on above: Fasting Glucose resu lt from 100 to 125 mg/dL suggests IMPAIRED HOMEOSTASIS per A.D.A. criteria. Neutrophils (Bld) [#/Vol] 9.0 10*3/uL 2.0-7.7 [facility] Work Phone: Neutrophils/100 WBC (Bld) 80.1 % 47-70 [facility] Work Phone: Potassium [Moles/Vol] 4.3 mmol/L 3.5-5.1 [facility] Work Phone: Sodium [Moles/Vol] 141 mmol/L 136-145 [facility] Work Phone: WBC (Bld) [#/Vol] 11.2 10*3/uL 4.4-11.0 [facility] Work Phone: Blood erythrocytes count (nu mber/volume)on 01-16-2022 RBC (Bld) [#/Vol] 5.09 10*6/uL 4.6-6.2 [facility] Work Phone: Blood hemoglobin measurement (mass/volume)on 01-16-2022 Hemoglobin (Bld) [Mass/Vol] 16.6 g/dL 13.0-16.5 [facility] Work Phone: Blood lymphocytes/100 leukoc yteson 01-16-2022 Lymphocytes/100 WBC (Bld) 10.9 % 19-41 [facility] Work Phone: Blood monocytes/100 leukocyt eson 01-16-2022 Monocytes/100 WBC (Bld) 5.7 % 0-10 [facility] Work Phone: Blood platelet mean volumeon 01-16-2022 Platelet mean volume (Bld) [Entitic vol] 10.7 fL 6.2-12.0 [facility] Work Phone: Determination of erythrocyte mean corpuscular volume (MCV)on 01-16-2022 MCV (RBC) [Entitic vol] 96.3 fL 80-94 [facility] Work Phone: Erythrocyte sedimentation ra brenda 01-16-2022 ESR (Bld) [Velocity] 29 mm/h 0-20 [facility] Work Phone: Hematocrit Auto (Bld) [Volum e fraction]on 01-16-2022 Hematocrit (Bld) [Volume fraction] 49.0 % 40-54 [facility] Work Phone: Laboratory - Chemistry and C hemistry - challengeon 01-16-2022 CO2 [Moles/Vol] 26.0 mmol/L 21.0-32.0 [facility] Work Phone: Urea nitrogen/Creatinine [Mass ratio] 12.6 mg/mg 10-20 [facility] Work Phone: Laboratory - Hematology and Cell countson 01-16-2022 Erythrocyte distribution width (RBC) [Entitic vol] 53.4 fL 35.1-43.9 [facility] Work Phone: Erythrocyte distribution width (RBC) [Ratio] 14.8 % 11.6-14.6 [facility] Work Phone: Immature granulocytes/100 WBC (Bld) 1.300 % 0.0-0.9 [facility] Work Phone: Comment on above: IG% - Immature Granu locytes (promyelocytes, myelocytes and metamyelocytes) > 1% indicates that a LEFT SHIFT is Present. MCH (RBC) [Entitic mass] 32.6 pg 27.0-32.0 [facility] Work Phone: Nucleated RBC/100 WBC (Bld) [Ratio] 0 % 0-5 [facility] Work Phone: MCHC Auto (RBC) [Mass/Vol]on 01-16-2022 MCHC (RBC) [Mass/Vol] 33.9 g/dL 32-36 [facility] Work Phone: No Panel Informationon 01-16 Estimated GFR (MDRD) Amer 101 mL/min >60 [facility] Work Phone: Comment on above: GFR Calc Estimated GFR (MDRD) Non-Af Amer 83 mL/min >60 [facility] Work Phone: Comment on above: Non- GFR Calc Platelets bldon 01-16-2022 Platelets (Bld) [#/Vol] 261 10*3/uL 150-450 [facility] Work Phone: Serum or plasma C reactive p rotein measurement (mass/volume)on 01-16-2022 CRP [Mass/Vol] 14.30 mg/L 0.0-3.0 [facility] Work Phone: Comment on above: C-Reactive Protein ( CRP) provides useful information for thediagnosis, therapy and monitoring of inflammatory processesand associated diseases. For the evaluation of Relative Riskfor Cardiovascular Disease, a High Sensitivity CRP (HSCRP)should be ordered. Serum or plasma calcium jean urement (mass/volume)on 01-16-2022 Calcium [Mass/Vol] 9.7 mg/dL 8.5-10.1 [facility] Work Phone: Serum or plasma creatinine m easurement (mass/volume)on 01-16-2022 Creatinine [Mass/Vol] 0.95 mg/dL 0.70-1.30 [facility] Work Phone: Comment on above: The validity of the calculated GFR & GFRAA in patients over 70 years has not been determined. Clinical correlation is essential. Serum or plasma urea nitroge n measurement (mass/volume)on 01-16-2022 Urea nitrogen [Mass/Vol] 12 mg/dL 7-18 [facility] Work Phone: Serum or plasma uric acid me asurement (mass/volume)on 01-16-2022 Urate [Mass/Vol] 6.4 mg/dL 3.5-7.2 [facility] Work Phone: Comment on above: The drugs N-Acetylcy steine and Metamizole may falsely depress this assay. Thin prep Papanicolaou smear with manual screeningon 01-16-2022 Thin prep Papanicolaou smear with manual screening 5 5-15 [facility] Work Phone: Cerebrospinal fluid Borrelia burgdorferi 18kd IgG antibody detection by immunobloton 10-14-2021 B. burgdorferi 18kD IgG IB Ql (CSF) Absent . [facility] Work Phone: Cerebrospinal fluid Borrelia burgdorferi 23kD IgG antibody detection by immunobloton 10-14-2021 B. burgdorferi 23kD IgG IB Ql (CSF) Absent . [facility] Work Phone: Cerebrospinal fluid Borrelia burgdorferi 23kD IgM antibody detection by immunobloton 10-14-2021 B. burgdorferi 23kD IgM IB Ql (CSF) Present . [facility] Work Phone: Cerebrospinal fluid Borrelia burgdorferi 28kD IgG antibody detection by immunobloton 10-14-2021 B. burgdorferi 28kD IgG IB Ql (CSF) Absent . [facility] Work Phone: Cerebrospinal fluid Borrelia burgdorferi 39kD IgG antibody detection by immunobloton 10-14-2021 B. burgdorferi 39kD IgG IB Ql (CSF) Absent . [facility] Work Phone: Cerebrospinal fluid Borrelia burgdorferi 39kD IgM antibody detection by immunobloton 10-14-2021 B. burgdorferi 39kD IgM IB Ql (CSF) Absent . [facility] Work Phone: Cerebrospinal fluid Borrelia burgdorferi 41kD IgM antibody detection by immunobloton 10-14-2021 B. burgdorferi 41kD IgM IB Ql (CSF) Absent . [facility] Work Phone: No Panel Informationon 10-14 Lyme Disease IgG Ab 30 kDa Band Absent . [facility] Work Phone: Lyme Disease IgG Ab 93 kDa Band Absent . [facility] Work Phone: Lyme Disease IgG West Blot Interp Negative . [facility] Work Phone: Comment on above: Positive: 5 of the f ollowing Borrelia-specific bands: 18,23,28,30,39,41,45,58, 66, and 93. Negative: No bands or banding patterns which do not meet positive criteria.Specimen age exceeds our routine clinical stabilityparameters. Results should be correlated with clinicalpresentation. Lyme Disease IgM Ab (Western Blot) Negative . [facility] Work Phone: Comment on above: Note: [...] positivity are those recommended byCDC/ASTPHLD. p23=Osp C, a29=gebkpmowzXiut:Sera from individuals with the following may cross [...] testingto improve the sensitivity and specificity of testing.[facility] offers test code [id number] Lyme Disease Serology withReflex to aid in the diagnosis of Lyme Disease.Performed at: [address] [id number] Director: Uziel Rees MD, Phone: [phone] Serum Borrelia burgdorferi 4 1kD IgG antibody detection by immunobloton 10-14-2021 B. burgdorferi 41kD IgG IB Ql (S) Present . [facility] Work Phone: Serum Borrelia burgdorferi 6 6kD IgG antibody detection by immunobloton 10-14-2021 B. burgdorferi 66kD IgG IB Ql (S) Absent . [facility] Work Phone: Synovial fluid Borrelia jarrod dorferi 45kD IgG antibody detection by immunobloton 10-14-2021 B. burgdorferi 45kD IgG IB Ql (Syn fld) Absent . [facility] Work Phone: Synovial fluid Borrelia jarrod dorferi 58kD IgG antibody detection by immunobloton 10-14-2021 B. burgdorferi 58kD IgG IB Ql (Syn fld) Absent . [facility] Work Phone: Absolute lymphocyte counton 09-29-2021 Lymphocytes Auto (Unsp spec) [#/Vol] 1.23 10*3/uL 0.83-4.51 [facility] Work Phone: Basophil percentageon 2021 Basophils/100 WBC (Bld) 0.6 % 0-1 [facility] Work Phone: Bilirubin [Mass/Vol] 0.40 mg/dL 0.20-1.00 [facility] Work Phone: Comment on above: For patients on eltr ombopag therapy, use of Dimension [place] TBIL is not recommended. Chloride [Moles/Vol] 108 mmol/L 98-107 [facility] Work Phone: [phone] Eosinophils/100 WBC (Bld) 2.5 % 0-5 [facility] Work Phone: Glucose [Mass/Vol] 143 mg/dL 74-106 [facility] Work Phone: [phone] Comment on above: Fasting Glucose resu lt greater than or equal to 126 mg/dL suggests DIABETES MELLITUS per A.D.A. criteria. Neutrophils (Bld) [#/Vol] 7.8 10*3/uL 2.0-7.7 [facility] Work Phone: Neutrophils/100 WBC (Bld) 76.6 % 47-70 [facility] Work Phone: Potassium [Moles/Vol] 3.9 mmol/L 3.5-5.1 [facility] Work Phone: Protein [Mass/Vol] 7.5 g/dL 6.4-8.2 [facility] Work Phone: Sodium [Moles/Vol] 140 mmol/L 136-145 [facility] Work Phone: Testosterone [Mass/Vol] ng/dL [facility] Work Phone: Comment on above: CENTRAL 90% REFERENC E RANGES MALE AGE <50 197.44 - 669.58 ng/dL MALE AGE > or = 50 187.72 - 684.19 ng/dL FEMALE AGE <50 8.38 - 35.01 ng/dL FEMALE AGE > or = 50 <7.00 - 35.92 ng/dL Effective as of 11/30/20 WBC (Bld) [#/Vol] 10.2 10*3/uL 4.4-11.0 [facility] Work Phone: Blood erythrocytes count (nu mber/volume)on 09-29-2021 RBC (Bld) [#/Vol] 4.59 10*6/uL 4.6-6.2 [facility] Work Phone: Blood hemoglobin measurement (mass/volume)on 09-29-2021 Hemoglobin (Bld) [Mass/Vol] 15.1 g/dL 13.0-16.5 [facility] Work Phone: Blood lymphocytes/100 leukoc yteson 09-29-2021 Lymphocytes/100 WBC (Bld) 12.1 % 19-41 [facility] Work Phone: Blood monocytes/100 leukocyt eson 09-29-2021 Monocytes/100 WBC (Bld) 7.8 % 0-10 [facility] Work Phone: Blood platelet mean volumeon 09-29-2021 Platelet mean volume (Bld) [Entitic vol] 11.2 fL 6.2-12.0 [facility] Work Phone: Determination of erythrocyte mean corpuscular volume (MCV)on 09-29-2021 MCV (RBC) [Entitic vol] 96.5 fL 80-94 [facility] Work Phone: Hematocrit Auto (Bld) [Volum e fraction]on 09-29-2021 Hematocrit (Bld) [Volume fraction] 44.3 % 40-54 [facility] Work Phone: Laboratory - Chemistry and C hemistry - challengeon 09-29-2021 ALP [Catalytic activity/Vol] 90 U/L 45-117 [facility] Work Phone: ALT [Catalytic activity/Vol] 20 U/L 16-61 [facility] Work Phone: CO2 [Moles/Vol] 22.0 mmol/L 21.0-32.0 [facility] Work Phone: Globulin (S) [Mass/Vol] 4.0 g/dL 2.2-4.2 [facility] Work Phone: Urea nitrogen/Creatinine [Mass ratio] 16.9 mg/mg 10-20 [facility] Work Phone: Laboratory - Hematology and Cell countson 09-29-2021 Erythrocyte distribution width (RBC) [Entitic vol] 46.6 fL 35.1-43.9 [facility] Work Phone: Erythrocyte distribution width (RBC) [Ratio] 13.1 % 11.6-14.6 [facility] Work Phone: Immature granulocytes/100 WBC (Bld) 0.400 % 0.0-0.9 [facility] Work Phone: Comment on above: IG% - Immature Granu locytes (promyelocytes, myelocytes and metamyelocytes) > 1% indicates that a LEFT SHIFT is Present. MCH (RBC) [Entitic mass] 32.9 pg 27.0-32.0 [facility] Work Phone: Nucleated RBC/100 WBC (Bld) [Ratio] 0 % 0-5 [facility] Work Phone: MCHC Auto (RBC) [Mass/Vol]on 09-29-2021 MCHC (RBC) [Mass/Vol] 34.1 g/dL 32-36 [facility] Work Phone: No Panel Informationon 09-29 Estimated GFR (MDRD) Amer 74 mL/min >60 [facility] Work Phone: Comment on above: GFR Calc Estimated GFR (MDRD) Non-Af Amer 62 mL/min >60 [facility] Work Phone: Comment on above: Non- GFR Calc Thyroid Stimulating Hormone (TSH) 0.87 uIU/mL 0.358-3.74 [facility] Work Phone: Vitamin D 25-Hydroxy 27.8 ng/mL [facility] Work Phone: Comment on above: Vitamin D 25(OH) Sta tus Range Deficiency <20 ng/mL (50nmol/L) Insufficiency 20 - 30 ng/mL (50 - 75 nmol/L) Sufficiency 30 - 100 ng/mL (75 - 250 nmol/L) Toxicity >100 ng/mL (>250 nmol/L) Platelets bldon 09-29-2021 Platelets (Bld) [#/Vol] 242 10*3/uL 150-450 [facility] Work Phone: Serum or plasma albumin jean urement (mass/volume)on 09-29-2021 Albumin [Mass/Vol] 3.5 g/dL 3.2-5.0 [facility] Work Phone: Serum or plasma albumin/glob ulin mass ratioon 09-29-2021 Albumin/Globulin [Mass ratio] 0.9 {ratio} 0.9-2.4 [facility] Work Phone: Serum or plasma calcium jean urement (mass/volume)on 09-29-2021 Calcium [Mass/Vol] 8.9 mg/dL 8.5-10.1 [facility] Work Phone: Serum or plasma creatinine m easurement (mass/volume)on 09-29-2021 Creatinine [Mass/Vol] 1.24 mg/dL 0.70-1.30 [facility] Work Phone: Comment on above: The validity of the calculated GFR & GFRAA in patients over 70 years has not been determined. Clinical correlation is essential. Serum or plasma urea nitroge n measurement (mass/volume)on 09-29-2021 Urea nitrogen [Mass/Vol] 21 mg/dL 7-18 [facility] Work Phone: Serum or plasma uric acid me asurement (mass/volume)on 09-29-2021 Urate [Mass/Vol] 7.7 mg/dL 3.5-7.2 [facility] Work Phone: Comment on above: The drugs N-Acetylcy steine and Metamizole may falsely depress this assay. Thin prep Papanicolaou smear with manual screeningon 09-29-2021 Thin prep Papanicolaou smear with manual screening 19 U/L 15-37 [facility] Work Phone: Thin prep Papanicolaou smear with manual screening 10 5-15 [facility] Work Phone: [phone] Absolute lymphocyte counton 08-11-2021 Lymphocytes Auto (Unsp spec) [#/Vol] 1.53 10*3/uL 0.83-4.51 [facility] Work Phone: Basophil percentageon 2021 Basophils/100 WBC (Bld) 1.0 % 0-1 [facility] Work Phone: Eosinophils/100 WBC (Bld) 7.1 % 0-5 [facility] Work Phone: Neutrophils (Bld) [#/Vol] 5.0 10*3/uL 2.0-7.7 [facility] Work Phone: Neutrophils/100 WBC (Bld) 63.2 % 47-70 [facility] Work Phone: WBC (Bld) [#/Vol] 7.9 10*3/uL 4.4-11.0 [facility] Work Phone: Blood erythrocytes count (nu mber/volume)on 08-11-2021 RBC (Bld) [#/Vol] 4.77 10*6/uL 4.6-6.2 [facility] Work Phone: [phone] Blood hemoglobin measurement (mass/volume)on 08-11-2021 Hemoglobin (Bld) [Mass/Vol] 15.5 g/dL 13.0-16.5 [facility] Work Phone: Blood lymphocytes/100 leukoc yteson 08-11-2021 Lymphocytes/100 WBC (Bld) 19.5 % 19-41 [facility] Work Phone: Blood monocytes/100 leukocyt eson 08-11-2021 Monocytes/100 WBC (Bld) 8.8 % 0-10 [facility] Work Phone: Blood platelet mean volumeon 08-11-2021 Platelet mean volume (Bld) [Entitic vol] 12.0 fL 6.2-12.0 [facility] Work Phone: Determination of erythrocyte mean corpuscular volume (MCV)on 08-11-2021 MCV (RBC) [Entitic vol] 95.8 fL 80-94 [facility] Work Phone: Hematocrit Auto (Bld) [Volum e fraction]on 08-11-2021 Hematocrit (Bld) [Volume fraction] 45.7 % 40-54 [facility] Work Phone: Laboratory - Hematology and Cell countson 08-11-2021 Erythrocyte distribution width (RBC) [Entitic vol] 44.6 fL 35.1-43.9 [facility] Work Phone: Erythrocyte distribution width (RBC) [Ratio] 12.5 % 11.6-14.6 [facility] Work Phone: Immature granulocytes/100 WBC (Bld) 0.400 % 0.0-0.9 [facility] Work Phone: Comment on above: IG% - Immature Granu locytes (promyelocytes, myelocytes and metamyelocytes) > 1% indicates that a LEFT SHIFT is Present. MCH (RBC) [Entitic mass] 32.5 pg 27.0-32.0 [facility] Work Phone: Nucleated RBC/100 WBC (Bld) [Ratio] 0 % 0-5 [facility] Work Phone: MCHC Auto (RBC) [Mass/Vol]on 08-11-2021 MCHC (RBC) [Mass/Vol] 33.9 g/dL 32-36 [facility]: Platelets bldon 08-11-2021 Platelets (Bld) [#/Vol] 199 10*3/uL 150-450 [facility] Work Phone: Absolute lymphocyte counton 06-13-2021 Lymphocytes Auto (Unsp spec) [#/Vol] 1.52 10*3/uL 0.83-4.51 [facility] Work Phone: Basophil percentageon 2021 Basophils/100 WBC (Bld) 0.6 % 0-1 [facility] Work Phone: Eosinophils/100 WBC (Bld) 3.9 % 0-5 [facility] Work Phone: Neutrophils (Bld) [#/Vol] 4.2 10*3/uL 2.0-7.7 [facility] Work Phone: Neutrophils/100 WBC (Bld) 62.7 % 47-70 [facility] Work Phone: WBC (Bld) [#/Vol] 6.7 10*3/uL 4.4-11.0 [facility] Work Phone: Blood erythrocytes count (nu mber/volume)on 06-13-2021 RBC (Bld) [#/Vol] 4.85 10*6/uL 4.6-6.2 [facility]: Blood hemoglobin measurement (mass/volume)on 06-13-2021 Hemoglobin (Bld) [Mass/Vol] 16.0 g/dL 13.0-16.5 [facility] Work Phone: [phone] Blood lymphocytes/100 leukoc yteson 06-13-2021 Lymphocytes/100 WBC (Bld) 22.9 % 19-41 [facility] Work Phone: Blood monocytes/100 leukocyt eson 06-13-2021 Monocytes/100 WBC (Bld) 9.3 % 0-10 [facility] Work Phone: Blood platelet mean volumeon 06-13-2021 Platelet mean volume (Bld) [Entitic vol] 11.4 fL 6.2-12.0 [facility] Work Phone: Determination of erythrocyte mean corpuscular volume (MCV)on 06-13-2021 MCV (RBC) [Entitic vol] 93.6 fL 80-94 [facility] Work Phone: Hematocrit Auto (Bld) [Volum e fraction]on 06-13-2021 Hematocrit (Bld) [Volume fraction] 45.4 % 40-54 [facility] Work Phone: Laboratory - Hematology and Cell countson 06-13-2021 Erythrocyte distribution width (RBC) [Entitic vol] 43.8 fL 35.1-43.9 [facility] Work Phone: Erythrocyte distribution width (RBC) [Ratio] 12.6 % 11.6-14.6 [facility] Work Phone: Immature granulocytes/100 WBC (Bld) 0.600 % 0.0-0.9 [facility] Work Phone: Comment on above: IG% - Immature Granu locytes (promyelocytes, myelocytes and metamyelocytes) > 1% indicates that a LEFT SHIFT is Present. MCH (RBC) [Entitic mass] 33.0 pg 27.0-32.0 [facility] Work Phone: Nucleated RBC/100 WBC (Bld) [Ratio] 0 % 0-5 [facility] Work Phone: MCHC Auto (RBC) [Mass/Vol]on 06-13-2021 MCHC (RBC) [Mass/Vol] 35.2 g/dL 32-36 [facility] Work Phone: [phone] Platelets bldon 06-13-2021 Platelets (Bld) [#/Vol] 211 10*3/uL 150-450 [facility] Work Phone: Absolute lymphocyte counton 05-12-2021 Lymphocytes Auto (Unsp spec) [#/Vol] 2.09 10*3/uL 0.83-4.51 [facility] Work Phone: [phone] Basophil percentageon 2021 Basophils/100 WBC (Bld) 0.7 % 0-1 [facility] Work Phone: [phone] Eosinophils/100 WBC (Bld) 6.6 % 0-5 [facility] Work Phone: Neutrophils (Bld) [#/Vol] 4.3 10*3/uL 2.0-7.7 [facility] Work Phone: Neutrophils/100 WBC (Bld) 55.7 % 47-70 [facility] Work Phone: WBC (Bld) [#/Vol] 7.7 10*3/uL 4.4-11.0 [facility] Work [facility]: Blood erythrocytes count (nu mber/volume)on 05-12-2021 RBC (Bld) [#/Vol] 5.15 10*6/uL 4.6-6.2 [facility] Work [facility]: Blood hemoglobin measurement (mass/volume)on 05-12-2021 Hemoglobin (Bld) [Mass/Vol] 16.6 g/dL 13.0-16.5 [facility] Work Phone: Blood lymphocytes/100 leukoc yteson 05-12-2021 Lymphocytes/100 WBC (Bld) 27.2 % 19-41 [facility] Work Phone: Blood monocytes/100 leukocyt eson 05-12-2021 Monocytes/100 WBC (Bld) 9.4 % 0-10 [facility] Work Phone: Blood platelet mean volumeon 05-12-2021 Platelet mean volume (Bld) [Entitic vol] 11.8 fL 6.2-12.0 [facility] Work Phone: Determination of erythrocyte mean corpuscular volume (MCV)on 05-12-2021 MCV (RBC) [Entitic vol] 95.0 fL 80-94 [facility] Work Phone: Hematocrit Auto (Bld) [Volum e fraction]on 05-12-2021 Hematocrit (Bld) [Volume fraction] 48.9 % 40-54 [facility] Work Phone: Laboratory - Hematology and Cell countson 05-12-2021 Erythrocyte distribution width (RBC) [Entitic vol] 42.8 fL 35.1-43.9 [facility] Work [phone] Erythrocyte distribution width (RBC) [Ratio] 12.2 % 11.6-14.6 [facility] Work Phone: Immature granulocytes/100 WBC (Bld) 0.400 % 0.0-0.9 [facility] Work Phone: Comment on above: IG% - Immature Granu locytes (promyelocytes, myelocytes and metamyelocytes) > 1% indicates that a LEFT SHIFT is Present. MCH (RBC) [Entitic mass] 32.2 pg 27.0-32.0 [facility] Work Phone: Nucleated RBC/100 WBC (Bld) [Ratio] 0 % 0-5 [facility] Work Phone: MCHC Auto (RBC) [Mass/Vol]on 05-12-2021 MCHC (RBC) [Mass/Vol] 33.9 g/dL 32-36 [facility] Work Phone: Platelets bldon 05-12-2021 Platelets (Bld) [#/Vol] 208 10*3/uL 150-450 [facility] Work Phone: Clinical Summary: HMSPatient IDon 04-15-2020 [facility] Work Phone: Office Visit: New - 1st visi t with practice, Rm: 9on 04-15-2020 NEGATED: Highlighted rowTobacco smoking status NHIS Tobacco smoking status [facility] Work Phone: NEGATED: Highlighted rowxray history of the left hand on 03/13/2020 at [facility] Work Phone: Vital Signs Date Time Vital Sign Value Performing Clinician Facility 02-03-2025 08:30-0400 Body height 180.[address] Alvaro Auguste MD Work Phone: [facility] 02-03-2025 08:30-0400 Body mass index (BMI) [Ratio] 21.3 kg/m2 Dr. Alvaro Auguste MD Work Phone: [facility] 02-03-2025 08:30-0400 Body weight 69.[address] Alvaro Auguste MD Work Phone: [phone] [place] [address] 02-03-2025 08:30-0400 Diastolic blood pressure 73 mm[Hg] Dr. Alvaro Auguste MD Work Phone: [phone] [place] [address] 02-03-2025 08:30-0400 Heart rate 75 /min Dr. Alvaro Auguste MD Work Phone: [phone] [place] [address] 02-03-2025 08:30-0400 Respiratory rate 18 /min Dr. Alvaro Auguste MD Work Phone: [phone] [place] [address] 02-03-2025 08:30-0400 Systolic blood pressure 122 mm[Hg] Dr. Alvaro Auguste MD Work Phone: [phone] [place] [address] 05-15-2023 10:23-0500 Body temperature 97.9 [degF] Dr. Alvaro Auguste Work Phone: [phone] [place] [address] 05-15-2023 10:23-0500 Diastolic blood pressure 72 mm[Hg] Dr. Alvaro Auguste Work Phone: [phone] [place] [address] 05-15-2023 10:23-0500 Heart rate 69 /min Dr. Alvaro Auguste Work Phone: [phone] [place] [address] 05-15-2023 10:23-0500 Respiratory rate 16 /min Dr. Alvaro Auguste Work Phone: [phone] [place] [address] 05-15-2023 10:23-0500 SaO2% (BldA) [Mass fraction] 97 % Dr. Alvaro Auguste Work Phone: [phone] [place] [address] 05-15-2023 10:23-0500 Systolic blood pressure 106 mm[Hg] Dr. Alvaro Auguste Work Phone: [phone] [place] [address] 05-15-2023 08:45-0500 Body height 180.[address] Alvaro Auguste Work Phone: [phone] [place] [address] 05-15-2023 08:45-0500 Body mass index (BMI) [Ratio] 23.3 kg/m2 Dr. Alvaro Auguste Work Phone: [facility] 05-15-2023 08:45-0500 Body weight 75.[address] Alvaro Auguste Work Phone: [facility] 04-16-2023 15:29-0500 Body height 180.[address] Alvaro Auguste Work Phone: [facility] 04-16-2023 15:29-0500 Body mass index (BMI) [Ratio] 23.8 kg/m2 Dr. Alvaro Auguste Work Phone: [facility] 04-16-2023 15:29-0500 Body weight 77.[address] Alvaro Auguste Work Phone: [facility] NEGATED: Highlighted [id number] 13:03-0500 BMI (Body Mass Index) 27.12 kg/m2 Violette Hurst LPN [facility] Work Phone: NEGATED: Highlighted [id number] 13:03-0500 Body weight 84.82 kg Violette Hurst LPN [facility] Work Phone: NEGATED: Highlighted [id number] 13:03-0500 Body weight 85 kg Violette Hurst FOOD CASHIER [facility] Work Phone: NEGATED: Highlighted [id number] 13:03-0500 Height 177.16 cm Violette Hurst LPN [facility] Work Phone: NEGATED: Highlighted [id number] 13:03-0500 Height 177 cm Violette Hurst LPN [facility] Work Phone: Encounters Encounter Date Encounter Type Care Provider Facility Start: 03-19-2025 End: 03-19-2025 ambulatory Rosy Marcus Facility:[facility] Start: 03-11-2025 ambulatory Rosy Marcus Facility:[facility] Start: 03-11-2025 End: 03-12-2025 ambulatory Rosy Marcus Facility:[facility] Start: 02-27-2025 End: 02-27-2025 ambulatory Alvaro Chi Molina Facility:[facility] Start: 02-27-2025 End: 02-27-2025 ambulatory Alvaro Chi Molina Facility:[facility] Start: 02-23-2025 ambulatory Rosy Marcus Facility:[facility] Start: 02-23-2025 End: 02-23-2025 ambulatory Rosy Marcus Facility:[facility] Start: 02-04-[address] Rosy Velazquez MD -Laboratory Work Phone: Start: 02-03-2025 End: 02-03-[address] Rosy Velazquez MD -[facility] Work Phone: Start: 02-03-2025 End: 02-04-[address] Alvaro Auguste MD Work Phone: -[facility] Start: 01-19-2025 End: 01-19-[address] Alvaro Auguste MD Work Phone: -Laboratory Phy Office 3rd Flr Start: 01-19-2025 End: 01-19-[address] Alvaro Auguste MD -Laboratory Phy Office 3rd Flr Start: 01-19-2025 End: 01-19-2025 ambulatory Alvaro Auguste Facility:[facility] Start: 12-19-2024 Non-patient / Non-visit Dr. Kobe BASHIR -[facility] Start: 12-19-2024 End: 12-19-[address] Alvaro Auguste MD Work Phone: -Cardiovascular Services Start: 12-19-2024 End: 12-19-[address] Alvaro Auguste MD -Cardiovascular Services Work Phone: Start: 12-19-2024 End: 12-19-2024 ambulatory Alvaro Auguste Facility:[facility] Start: 12-15-2024 End: 12-15-[address] Alvaro Auguste MD Work Phone: -Radiology [facility] Start: 12-15-2024 End: 12-15-[address] Alvaro Auguste MD -Radiology [facility] Work Phone: Start: 12-15-2024 End: 12-15-2024 ambulatory Alvaro Richard Molina Facility:[facility] Start: 10-17-2024 End: 10-17-[address] Alvaro Auguste MD Work Phone: [facility] Work Phone: Start: 10-17-2024 End: 10-17-[address] Alvaro Auguste MD -Laboratory Work Phone: Start: 10-17-2024 End: 10-17-2024 ambulatory Alvaro Richard Molina Facility:[facility] Start: 10-04-2024 End: 10-04-[address] Alvaro Auguste MD Work Phone: [facility] Work Phone: Start: 10-04-2024 End: 10-04-[address] Alvaro Auguste MD -Laboratory Specimen Work Phone: Start: 10-04-2024 End: 10-04-2024 ambulatory Alvaro Richard Molina Facility:[facility] Start: 10-02-2024 End: 10-02-[address] Alvaro Auguste MD Work Phone: [facility] Work Phone: Start: 10-02-2024 End: 10-02-[address] Alvaro Auguste MD -Radiology [facility] Work Phone: Start: 10-02-2024 End: 10-02-2024 ambulatory Alvaro Richard Molina Facility:[facility] Start: 07-02-2024 End: 07-02-[address] Alvaro Auguste MD Work Phone: [facility] Work Phone: Start: 07-02-2024 End: 07-02-[address] Alvaro Auguste MD -Cat Scan, [facility] Work Phone: Start: 07-02-2024 End: 07-02-2024 ambulatory Alvaro Auguste Facility:[facility] Start: 06-11-2024 End: 06-11-[address] Alvaro Auguste MD -Laboratory, Phy Office 3rd Flr Start: 06-11-2024 End: 06-11-2024 ambulatory [facility] Molina Facility:[facility] Start: 06-06-2024 End: 06-06-[address] Alvaro Auguste MD -Cat Scan, [facility] Work Phone: Start: 06-06-2024 End: 06-06-2024 ambulatory [facility] Facility:[facility] Start: 06-02-2024 End: 06-02-[address] Alvaro Auguste MD -Radiology, [facility] Work Phone: Start: 06-02-2024 End: 06-02-2024 ambulatory Alvaro Auguste Facility:[facility] Start: 04-16-2024 End: 04-16-[address] Alvaro Auguste MD -Laboratory, Phy Office 3rd Flr Start: 04-16-2024 End: 04-16-2024 ambulatory Alvaro Auguste Facility:[facility] Start: 05-15-2023 Non-patient / Non-visit Dr. Rubens Auguste Work Phone: [facility] Start: 05-15-2023 End: 05-15-2023 Admission to same day surgery center Dr. Alvaro Auguste Work Phone: [facility]-Endoscopy Work Phone: Start: 05-15-2023 End: 05-15-[address] Alvaro Auguste Work Phone: [facility] Work Phone: Start: 04-19-2023 End: 04-23-[address] Alavro Auguste Work Phone: [facility] Work Phone: Start: 04-19-2023 End: 04-23-[address] Alvaro Auguste Work Phone: [facility]-Occupational Therapy Work Phone: Start: 04-16-2023 Non-patient / Non-visit Dr. Rubens Auguste Work Phone: [facility] Work Phone: Start: 04-12-2023 Registered Recurring [facility]-Occupational Therapy Work Phone: Start: 04-10-2023 End: 04-10-2023 ambulatory [facility] Work Phone: Start: 04-10-2023 End: 04-10-2023 Patient encounter procedure [facility]-Laboratory, y Office 3rd Flr Start: 10-05-2022 End: 10-05-2022 ambulatory [facility] Work Phone: Start: 10-05-2022 End: 10-05-2022 Discharged Recurring [facility]-Occupational Therapy Work Phone: Start: 10-05-2022 Registered Recurring [facility]-Occupational Therapy Start: 10-05-2022 End: 10-05-2022 ambulatory [facility] Work Phone: Start: 10-05-2022 End: 10-05-2022 Patient encounter procedure [facility]-Laboratory Start: 04-06-2022 End: 04-06-[address] Alvaro Auguste Work Phone: [facility] Work Phone: Start: 04-06-2022 End: 04-06-[address] [facility] Start: 03-20-2022 End: 03-20-[address] Alvaro Auguste Work Phone: [facility] Work Phone: Start: 03-20-2022 End: 03-20-[address] Alvaro Auguste Work Phone: [facility] Start: 02-01-2022 End: 02-01-[address] Alvaro Auguste Work Phone: [facility] Start: 01-16-2022 Non-patient / Non-visit Dr. Rubens Auguste Work Phone: [facility] Start: 01-16-2022 End: 01-16-[address] [facility] Start: 01-16-2022 End: 01-16-[address] Alvaro Auguste Work Phone: [facility] Work Phone: Start: 01-16-2022 End: 01-16-[address] [facility] Start: 12-21-2021 End: 12-21-[address] [facility] Start: 10-14-2021 End: 10-14-2021 [facility] Start: 09-29-2021 End: 09-29-2021 [facility] Start: 08-11-2021 End: 08-11-[address] [facility]var[facility] August[facility] Start: 06-13-2021 End: 06-13-[address] [facility]var[facility] August[facility] Start: 05-12-2021 End: 05-12-[address] Alvaro Auguste Work Phone: [facility]-Laboratory, Phy Office 3rd Flr Start: 04-25-2021 End: 04-25-[address] Alvaro Auguste Work Phone: [facility] Start: 04-15-2020 End: 04-17-2020 Patient encounter procedure Olivier Ward MD Work Phone: [facility] Work Phone: Procedures Date Procedure [...] med using the TPSA assay method for [employer] chemistry system. Values obtained with differentassay methods [...] of perfusion of myocardium under exercise stress [facility] Start: 02-03-2025 End: 02-03-2025 Patient encounter procedure (HFpEF) heart failure with preserved ejection fraction -[facility] Work Phone: Start: 02-03-2025 End: 02-03-2025 Evaluation of diagnostic study results [facility] Start: 05-15-2023 Patient discharge [facility] Start: 03-20-2022 Borrelia burgdorferi blot test [facility] Work Phone: Colonoscopy [facility] Comprehensive metabo lic 2000 panel - Serum or Plasma [facility] Hdanrih-3-Ofrfswict dehydrogenase [Enzymatic activity/volume] in Red Blood Cells [facility] Work Phone: Vsesvei-5-kmgjkebun dehydrogenase measurement, screen [facility] Work Phone: Laboratory data interpretation [facility] Work Phone: Lipid 1996 panel - S lily or Plasma [facility] Natriuretic peptide. B prohormone N-Terminal [Mass/volume] in Serum or Plasma [facility] Patient Education \cps-sql1\CPS_ PtEduca tion\quitting_smoking _[id number].pdf [facility] Work Phone: Patient referral [facility] Work Phone: Payers Date Payer Category Payer Self-pay [id number] 2023 Unknown [id number] 2016 Unknown [id number] Medicare [id number] Unknown [id number] Unknown [facility] PACKAGE PLAN [id number] Unknown [id number] 2.16.8 40.1.986223.3.579.2.462 Unknown [id number] 2.16.8 40.1.678121.3.579.2.462 Unknown [id number] 2.16.8 40.1.857442.3.579.2.462 Unknown [id number] 2.16.8 40.1.945990.3.579.2.462 Unknown [id number] 2.16.8 40.1.350274.3.579.2.462 Unknown [id number] 2.16.8 40.1.068686.3.579.2.462 Unknown [id number] 2.16.8 40.1.494062.3.579.2.462 Unknown [id number] 2.16.8 40.1.470398.3.579.2.462 Unknown [id number] 2.16.8 40.1.918343.3.579.2.462 Unknown [id number] 2.16.8 40.1.835351.3.579.2.462 Unknown [id number] 2.16.8 40.1.815580.3.579.2.462 Unknown [id number] 2.16.8 40.1.856268.3.579.2.462 Unknown [id number] 2.16.8 40.1.733441.3.579.2.462 Unknown [id number] 2.16.8 40.1.348526.3.579.2.462 Unknown [id number] 2.16.8 40.1.834764.3.579.2.462 Unknown [id number] 2.16.8 40.1.463119.3.579.2.462 Unknown [id number] 2.16.8 40.1.371710.3.579.2.462 Unknown [id number] 2.16.8 40.1.543394.3.579.2.462 Unknown [id number] 2.16.8 40.1.314974.3.579.2.462 Unknown [id number] 2.16.8 40.1.711032.3.579.2.462 Unknown [id number] 2.16.8 40.1.479091.3.579.2.462 Unknown [id number] 2.16.8 40.1.041225.3.579.2.462 Unknown [id number] 2.16.8 40.1.968482.3.579.2.462 Social History Date Type Detail Facility Start: 04-25-2021 End: 05-15-2023 Tobacco smoking status NHIS Unknown if ever smoked [facility] Start: 1955 Sex Assigned At Male [facility] Start: 05-15-2023 Tobacco smoking status NHIS Current some day smoker [facility] Start: 07-16-2024 Sex Male (finding) [facility] Sex Male [facility] NEGATED: Highlighted rowStart: 04-15-2020 End: 04-15-2020 Alcohol use Alcohol use [facility] Work Phone: NEGATED: Highlighted rowStart: 04-15-2020 End: 04-15-2020 Details of drug misuse behavior Details of drug misuse behavior [facility] Work Phone: NEGATED: Highlighted rowStart: 04-15-2020 End: 04-15-2020 Assertion Former smoker [facility] Work Phone: NEGATED: Highlighted rowStart: 04-15-2020 End: 04-15-2020 How many days of moderate to strenuous exercise, like a brisk walk, did you do in the last 7 days? How many days of moderate to strenuous exercise, like a brisk walk, did you do in the last 7 days? [facility] Work Phone: NEGATED: Highlighted rowStart: 04-15-2020 End: 04-15-2020 Tobacco use and exposure Tobacco use and exposure [facility] Work Phone: Goals Date Patient Goal Desired Activity /State Mental Status Date Assessment Result Facility 05-15-2023 Cognitive function Level Of Consciousness Sedated [facility] Work Phone: 05-15-2023 Cognitive function Voice/Name;Touch/Shaki ng [facility] Work Phone: Clinical Notes 04-19-2023 to 02-03-2025 Note Date & Type Note Facility 02-03-2025 Progress note [facility] 12-15-2024 Radiology Diagnostic study note [facility] Imaging Services [address] [place], [place] [address] Cerv Spine 2 or 3 Views MR#: [id number] Acct: [id number] Name: DESI PANDEY Rep #: [id number] : 1955 M 69 From: Jose Chow MD PCP: Dr. Alvaro Auguste MD Status: REG C LI Study:Cerv Spine 2 or 3 Views Date of Exam: 12/15/24 Exam# [id number] Ordering Dr: Alvaro Auguste MD PROCEDURE: CERV [...] 3 Views IMPRESSION: Spondylosis. Spondylolisthesis. Reading Location: [id number] CC: Dr. Alvaro Auguste MD ~ Berry Picker Machine Operator: Signed [facility] 10-03-2024 Radiology Diagnostic study note [facility] Imaging Services [address] [place] [address] L/S Spine Min 4 Views MR#: [id number] Acct: [id number] Name: DESI PANDEY Rep #: [id number] : 1955 M 69 From: Bandar Moe MD PCP: Dr. Alvaro Auguste MD Status: REG C TUAN Study:L/S Spine Min 4 Views Date of Exam: 10/02/24 Exam# [id number] Ordering Dr: Alvaro Auguste MD PROCEDURE: L/S [...] appearance of multilevel spondylosis/discogenic change. Reading Location: [id number] CC: Dr. Alvaro Auguste MD ~ Berry Picker Machine Operator: Signed [facility] 07-02-2024 Radiology Diagnostic study note [facility] Imaging Services [address] [facility] [place], [place] [address] [employer] Inc Decub and/or Erect MR#: [id number] Acct: [id number] Name: DESI PANDEY Rep #: [id number] : 1955 M 69 From: Leslie Yepez DO PCP: Dr. Alvaro Auguste MD Status: REG C TUAN Study:Abd Inc Decub and/or Erect Date of Exam : 07/02/24 Exam# [id number] Ordering Dr: Alvaro Auguste MD PROCEDURE: Abdominal [...] PATRICK CC: Dr. Alvaro Auguste MD ~ Berry Picker Machine Operator: Signed [facility] 07-02-2024 Radiology Diagnostic study note [facility] Imaging Services [address] [place], [place] [address] Abdomen/Pelvis without Cont MR#: [id number] Acct: [id number] Name: DESI PANDEY Rep #: [id number] : 1955 M 69 From: Genaro Sommer MD PCP: Dr. Alvaro Auguste MD Status: REG C TUAN Study:Abdomen/Pelvis without Cont Date of Exa m: 07/02/24 Exam# [id number] Ordering Dr: Alvaro Aguuste MD EXAM: ABDOMEN/PELVIS WITHOUT CONT CLINICAL HISTORY: [...] of acute diverticulitis. Enlarged prostate. Reading Location: [id number] CC: Dr. Alvaro Auguste MD ~ Berry Picker Machine Operator: Signed [facility] 05-15-2023 Procedure note [facility] 05-15-2023 Procedure note [facility] 04-19-2023 Discharge summary Note Date/Time April 19, 2023 11:54am [facility] Occupational Therapy [facility] [address] [place] [address] [address] [place] [address] / REHABILITATION SERVICES DISCHARGE SUMMARY MR#: [id number] Acct: [id number] Name: DESI PANDEY Rep #: [id number] : 1955 68 From: Stephanie Mcgee OTR/L, [...] pt will demo a increase in bilateral stonecutter strength by 5# to increase pt ind. [...] please fell free to call me at [phone]. Thank you for the referral of this patient. Sincerely, EMILIANO Muniz/Yoel, LISSETH <Electronically signed by Stephnaie Mcgee OTR/LISSETH Diallo> 04/19/23 1900 CC: Dr. Rosamaria Sadler MD; Dr. Alvaro Auguste MD ~ MK Signed [facility] Work Phone: Evaluation note* Diagnosis Onset Date Resolution Status Left lower quadrant abdominal pain acute [facility] Work Phone: Evaluation noteNo assessment information available [facility] Work Phone: Evaluation note* Diagnosis Onset Date Resolution Status History of colon polyps acut e [facility] Work Phone: Evaluation note* Diagnosis Onset Date Resolution Status Admit Date (HFpEF) heart failure with preserved ejection fraction chronic Sept ember 2024 8:27am History of hypogonadism chronic S eptember 2024 8:27am HTN (hypertension) chronic Septem jenae 2024 8:27am [facility] Work Phone: History and physical note Author Riccardo Cross [facility] May 15, 2023 9:34am Note Date/Time May 15, 2023 9: 34am [facility] Medical Records Department [address] [place] [address] History & Physical Exam 05/15/2333 MR#: [id number] Acct: [id number] Name: DESI PANDEY Rep #:[id number] : 1955 68 From: Riccardo morrow MD PCP: Dr. Alvaro Auguste MD Status:REG S [place] Location: [address] - General HPI Narrative DESI PANDEY, is a 68 M who presents for surveillance colonoscopy. Patient had a colonoscopy 5 years ago and had 3 polyps removed. He denies any abdominal pain or blood in the stool. He is not on any blood thinners. [facility] Medical History (Updated 05/15/23 @ 09:34 [...] 100 mg/mL intramuscular suspension 100 mg IM .[id number] 05/10/23 [History Last Taken Unknown] zinc gluconate [...] Rash Discharge Is Pt Admitted From a Long-Term, or a Retirement: No After D/C, Where Do you Plan to Go: Return Home From the PAT History Number of Risk Factors: 2 Vital [...] proceed with procedure. Riccardo Cross MD Pager: [facility] [address] [place] [address], [address] [place] [address] Office: Surgery Risks - Colonoscopy Risks Include but are not Limited To: Risks include but are not limited to: Bleeding, perforation requiring further surgery, inability to complete colonoscopy requiring barium enema. 05/15/23 0934 <Electronically signed by Riccardo Cross MD> Cosigner Signature (if applicable): CC: Dr. Riccardo Cross MD; Dr. Alvaro Auguste MD~ Signed [facility] Work Phone: Progress note Author Rosy Velazquez [facility] Note Date/Time February 03, 2025 9:14am [facility] [address] [place] [address] OFFICE VISIT Date of Service: 02/03/25 MR#: [id number] Acct: [id number] Name: DESI PANDEY Rep #: [id number] : 1955 Provider: Dr. Igor Velazquez MD Age/Sex: 69/M Location: [facility] Status: Signed HPI HPI History of Present Illness Details: This very pleasant gentleman has history of hypertension. Last month, he was engaged in physical labor at his home. According to the patient, it was very hot. Per him, over the weekend he drank a lot of energy drinks. He noticed that his ankles had swelled up. Also noticed swelling of the neck. No dysphagia. No shortness of breath. 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 Alvaro Auguste MD ~ [facility] Work Phone: Reason for referral (narrative)No reason for referral [facility] Work Phone: Chief Complaint Chief Complaint [...] November 05, 2017 2 :27pm Power of Metalizing Supervisor Yes November 05, 2017 2:27pm Advance Directive Response Recorded Date/ Time Living Will Yes November 05, 2017 1 :27pm Power of Metalizing Supervisor Yes November 05, 2017 1:27pm Advance Directive Response Recorded Date/ Time Living Will Yes April 11 1:47pm Power of Metalizing Supervisor Yes April 11, 2022 1:47pm Advance Directive Response Recorded Date/ Time Living Will Yes June 07 3:47pm Power of Metalizing Supervisor Yes June 07, 2022 3:47pm Advance Directive Response Recorded Date/ Time Living Will Yes June 07 2:47pm Power of Metalizing Supervisor Yes June 07, 2022 2:47pm Advance Directive Response Recorded Date/ Time Name of Medical Power of Metalizing Supervisor SPOUSE May 10, 2023 1:35pm Living Will Yes May 10 1:35pm Power of Metalizing Supervisor Yes May 10, 024 1:35pm Assessments There may be information [...] Active Member Role Status Dates Dr. Alvaro Aguuste MD Primary Care Provider Active Dr. Rosamaria Sadler MD Attending Provider, Referring Provider Active Team Status: Inactive Member Role Status Dates Dr. Alvaro Auguste MD Primary Care [facility], Attending Provider, Referring Provider Active Team Status: Inactive Member Role Status Dates Dr. Alvaro Auguste MD Primary Care Provider Active Dr. Rosamaria Sadler MD Attending Provider, Referring Provider Active Team Status: Inactive Member Role Status Dates Dr. Alvaro Auguste MD Primary Care Provider, Attending Provider Active Team Status: Active Member Role Status Dates Dr. Alvaro Auguste MD Primary Care Provider Active [facility] Attending Provider Active Team Status: Active Member [...] Inactive Member Role Status Dates Dr. Alvaro uAguste MD Primary Care Provider Active Start: July [...] Active Start: December 19, 2024 Dr. Yobani Berntsein MD Attending physician Active Start: December 19, [...] ized section and content) DATE CREATED AUTHOR 03/19/2025 [facility] FOR RECORDS PERTAINING TO PATIENTS WHO [...] BE BASED ON THE PRIMARY CLINICAL RECORDS. [facility] [employer], [facility]. provides no warranty or guarantee of the accuracy or completeness of information in this document.
[2025-04-23 21:01] LABS: Troponin T High Sens 2 HR 23 ng/L (<=22)
--- NOTE | 2025-04-23 21:10 | ECHOL_ITS ---
Reason For Study Reason For Study: Syncope Procedure This was a limited 2D transthoracic echocardiogram. Exam performed portable in patient room. Left Ventricle Normal size and thickness. The LV ejection fraction is 55 %. No regional wall motion abnormalities noted. Right Ventricle Normal size and thickness. Normal systolic function. Atria The left and right atria are normal. Mitral Valve The mitral valve is structurally normal. No prolapse or stenosis seen. No mitral valve insufficiency. Tricuspid Valve Normal tricuspid valve. Right ventricular systolic pressure estimated to be 15 mmHg. Aortic Valve Trisinus/trileaflet aortic valve. Normal aortic valve. There is no aortic stenosis. Pulmonic Valve The pulmonic valve is not well visualized. Great Vessels Normal inferior vena cava. Pericardium/Pleural No pericardial effusion. MMode/2D Measurements & Calculations LVIDd: 5.5 cm IVSd: 1.1 cm LVAd ap4: 32.0 cm2 LVIDs: 4.1 cm LVPWd: 1.0 cm LVLd ap4: 8.4 cm FS: 25.9 % EDV(MOD-sp4): 102.6 ml EDV(sp4-el): 103.5 ml LVAs ap4: 20.1 cm2 LVLs ap4: 7.1 cm ESV(MOD-sp4): 50.9 ml ESV(sp4-el): 48.2 ml EF(MOD-sp4): 50.4 % EF(sp4-el): 53.5 % SV(MOD-sp4): 51.8 ml SV(sp4-el): 55.4 ml SI(MOD-sp4): 27.9 ml/m2 Doppler Measurements & Calculations TR max светлана: 215.4 cm/sec TR max P.6 mmHg ECHO/Echo, Limited Study Interpretation Summary Normal size and thickness. Normal systolic function. Right ventricular systolic pressure estimated to be 15 mmHg. Normal aortic valve. No pericardial effusion. Overall unchanged compared to prior study Ordering Physician: Irma Rodriguez Referring Physician: Alvaro Auguste Chi Performed By: Mariela Aguilar RDCS, RVT
[2025-04-23 21:13] VITALS: BMI 21.2
[2025-04-23 21:14] VITALS: BP 123/70; PULSE 62; RESP 13; TEMP 36.6; O2SAT 100
[2025-04-23] MEDS: 0.9% Normal Saline (1000mL) 1,000 ML 50 ML IV (22:15)
[2025-04-24 02:25] VITALS: BP 105/62; PULSE 57; RESP 16; TEMP 37; O2SAT 98
[2025-04-24 05:10] VITALS: BMI 21.0
[2025-04-24 06:17] LABS: Hematocrit 35.4 % (40-54); Hemoglobin 12.3 g/dL (13.0-16.5); Immature Granulocytes Count 0.010 X10^3/uL (0.0-0.0); Mean Corp Hgb Conc 34.7 g/dL (32-36); Mean Corpuscular Volume 93.4 fL (80-94); Mean Platelet Vol. 11.9 fl (6.2-12.0); NRBC Flagged by Analyzer 0 % (0-5); Platelet Count 171 K/mm3 (150-450); RBC Distribution Width CV 13.3 % (11.6-14.6); RBC Distribution Width SD 45.7 fl (35.1-43.9); Red Blood Count 3.79 M/mm3 (4.6-6.2); White Blood Count 5.6 K/mm3 (4.4-11.0)
[2025-04-24 06:59] LABS: Anion Gap 11 (5-15); BUN 22 mg/dL (4-19); BUN/Creat Ratio 22.5 RATIO (10-20); Calcium,Total 9.1 mg/dL (7.6-11.0); Carbon Dioxide 20.9 mmol/L (21.0-32.0); Chloride 109 mmol/L (98-108); Estimated Creatinine Clearance 67.39 ml/min (50-250); Glucose 94 mg/dL (70-99); Magnesium 2.2 mg/dL (1.5-2.2); Potassium 3.9 mmol/L (3.3-5.1)
[2025-04-24] MEDS: Aspirin E.C. 81 MG Tablet PO (08:30)
[2025-04-24 08:50] VITALS: BP 102/70; BP 105/74; BP 116/62; PULSE 52; PULSE 57; PULSE 69
[2025-04-24 08:57] VITALS: TEMP 36.2; O2SAT 96
--- NOTE | 2025-04-24 10:33 | PN_ITS ---
Subjective Subjective Patient seen and examined with his nurse by his bedside. He had no active complaints. He was admitted with a complaint of syncope and was found to have orthostatic hypotension. He denied any lightheadedness, dizziness, palpitations, nausea vomiting or any other symptoms this morning. Review of systems otherwise negative. Objective Data Objective Data Vital Signs: Vital Signs Temp Pulse Resp BP Pulse Ox O2 Del Method 97.2 F L 52 L 16 116/62 96 Room Air 04/24/25 08:57 04/24/25 08:50 04/24/25 02:25 04/24/25 08:50 04/24/25 08:57 04/24/25 10:00 Oxygen Delivery Method Room Air Weight: 151 lb 0.266 oz Body Mass Index (BMI) 21.0 Intake & Output: Intake and Output for Last 24 Hours 04/22/25 04/23/25 04/24/25 23:59 23:59 23:59 Intake Total 0 / 0 Balance 0 / 0 Lab / Micro Data 04/24/25 05:38 04/24/25 05:38 Labs: Laboratory Results - last 24 hr 04/23/25 18:15: WBC 8.4, RBC 3.64 L, Hgb 11.8 L, Hct 35.0 L, MCV 96.2 H, MCH 32.4 H, MCHC 33.7, RDW Std Deviation 46.8 H, RDW Coeff of Yordy 13.2, Plt Count 165, MPV 11.8, Immature Gran % (Auto) 0.200, Neut % (Auto) 80.4 H, Lymph % (Auto) 10.5 L, [place] % (Auto) 8.1, Eos % (Auto) 0.2, Baso % (Auto) 0.6, Absolute Neuts (auto) 6.8, Absolute Lymphs (auto) 0.89, Nucleated RBC % 0, Sodium 138, Potassium 4.0, Chloride 105, Carbon Dioxide 20.2 L, Anion Gap 12, BUN 22 H, Creatinine 1.10, Estim Creat Clear Calc 61.30, Est GFR (MDRD) Non-Af 71, B UN/Creatinine Ratio 20.3 H, Glucose 91, Calcium 9.3, Troponin T High Sens 29 H 04/23/25 19:15: Troponin T Hi Sens 2 Hr 23 H 04/24/25 05:38: WBC 5.6, RBC 3.79 L, Hgb 12.3 L, Hct 35.4 L, MCV 93.4, MCH 32.5 H, MCHC 34.7, RDW Std Deviation 45.7 H, RDW Coeff of Yordy 13.3, Plt Count 171, MPV 11.9, Immature Gran % (Auto) 0.200, Neut % (Auto) 62.0, Lymph % (Auto) 20.5, [place] % (Auto) 12.6 H, Eos % (Auto) 3.8, Baso % (Auto) 0.9, Absolute Neuts (auto) 3.5, Absolute Lymphs (auto) 1.14, Nucleated RBC % 0, Sodium 141, Potassium 3.9, Chloride 109 H, Carbon Dioxide 20.9 L, Anion Gap 11, BUN 22 H, Creatinine 0.96, Estim Creat Clear Calc 67.39, Est GFR (MDRD) Non-Af 84, BUN/Creatinine Ratio 22.5 H, Glucose 94, Calcium 9.1, Magnesium 2.2 Radiography Diagnostic Testing: Radiology Impression Brain CT 04/23/25 18:08 IMPRESSION: No acute intracranial abnormality. Reading Location: [facility] Chest CTA 04/23/25 18:08 IMPRESSION: No evidence of acute pulmonary embolism. Right upper lobe solid pulmonary nodule measuring 9 mm. Per Fleischner Society guidelines for solid pulmonary nodules 6 to 8 mm and greater than 8 mm, recommend follow up chest CT at approximately 3 months, with consideration of PET CT based on patient risk factors. Left heart enlargement. Coronary artery calcifications. Mild thoracic aortic atherosclerosis. Reading Location: [facility] Physical Exam Const alert, oriented x3 and no apparent distress General Appearance: cooperative and well developed HEENT normocephalic, head/scalp atraumatic, moist oral mucous membranes and oropharynx normal Eyes EOMs intact bilaterally Neck supple and no JVD Lymph Lymphatic: no lymphedema noted Resp normal respiratory effort, normal air movement and clear to auscultation bilaterally Cardio regular rate, regular rhythm, S1 normal heart sound, S2 normal heart sound and no murmurs GI normal to inspection, nondistended, normoactive bowel sounds, soft to palpation and non-tender Extremity normal capillary refill, no clubbing, cyanosis or edema and no calf tenderness General Extremity: no tenderness to palpation of joints or extremities Skin General Skin Exam: no breakdown Neuro no focal motor deficits and no sensory deficits noted Motor Exam: general weakness Psych thought process normal, cooperative and affect normal Appearance: appropriate Assessment & Plan Assessment/Plan (1) Syncope: (2) Fatigue: (3) Orthostatic hypotension: PLAN: Plan #syncope due to orthostatic hypotension * Admitted with a complaint of syncope was out doing some yard work. He had felt dizzy and lightheaded before. He said he had not been eating or drinking well and felt he was thirsty and dehydrated. He was admitted to palpitations. * EKG showed normal sinus rhythm. Troponins were negative. CT brain showed no acute intracranial pathology. * Orthostatics were positive. * Continue gentle hydration with IV fluids. * Limited echo ordered and pending. * Fall precautions. Monitor orthostatics and continue hydration. * PT/OT on board #History of CAD s/p stent: Had stents placed in March. On aspirin and Plavix as well as high intensity statin #Hypertension: He was reportedly on lisinopril for many years but was taken off of it. On losartan, which he is not even sure he is taking. #Lung nodule * CT of the chest done on admission was positive for a right upper lobe solid pulmonary nodule measuring 9 mm. To have follow-up imaging as per PCP in 3 months to monitor the lesion. #BPH: on flomax. DVT prophylaxis: Lovenox. Charges/Coding Visit Charges Inpatient E&M: 05475 Subs Hosp L2
[2025-04-24 15:30] VITALS: BP 101/68; PULSE 60; RESP 17; TEMP 36.9; O2SAT 98
--- NOTE | 2025-04-24 16:17 | CASEMGMT ---
OWENS Met with patient to complete OWENS form. OWENS form and its content were verbally explained and patient's questions were answered to the best of my ability.? Patient voiced understanding and signed OWENS form.? Patient provided a copy of signed OWENS form and original placed in patient's chart.? Patient had no further questions. Amairani Vogt, Discharge Planning Asst
[2025-04-24 21:23] VITALS: BP 125/76; PULSE 61; RESP 18; TEMP 36.6; O2SAT 99
[2025-04-25] VITALS (8 sets, daily range): BP systolic 121–149; BP diastolic 66–95; PULSE 55–77; RESP 16–18; TEMP 36.4–36.6; O2SAT 95–99; BMI 21.5
[2025-04-25] MEDS: Aspirin E.C. 81 MG Tablet PO (07:48)
[2025-04-25 09:13] LABS: Hematocrit 37.8 % (40-54); Hemoglobin 13.1 g/dL (13.0-16.5); Immature Granulocytes Count 0.010 X10^3/uL (0.0-0.0); Mean Corp Hgb Conc 34.7 g/dL (32-36); Mean Corpuscular Volume 94.0 fL (80-94); Mean Platelet Vol. 11.6 fl (6.2-12.0); NRBC Flagged by Analyzer 0 % (0-5); Platelet Count 168 K/mm3 (150-450); RBC Distribution Width CV 13.2 % (11.6-14.6); RBC Distribution Width SD 45.7 fl (35.1-43.9); Red Blood Count 4.02 M/mm3 (4.6-6.2); White Blood Count 6.1 K/mm3 (4.4-11.0)
[2025-04-25 09:31] LABS: Anion Gap 11 (5-15); BUN 17 mg/dL (4-19); BUN/Creat Ratio 18.7 RATIO (10-20); Calcium,Total 9.2 mg/dL (7.6-11.0); Carbon Dioxide 20.3 mmol/L (21.0-32.0); Chloride 108 mmol/L (98-108); Estimated Creatinine Clearance 71.86 ml/min (50-250); Glucose 104 mg/dL (70-99); Potassium 4.1 mmol/L (3.3-5.1)
--- NOTE | 2025-04-25 12:28 | DCINST_ITS ---
Discharge Instructions DC O2, CPAP, BIPAP needs Home O2 Discharge instructions: No Dressing / Incision Discharge Activity: Return to Normal Activity Weight Bearing Status: Weight bearing as tolerated Dressing / Incision Call your doctor if you observe: Fever of 101 or Higher, Shortness of breath, Dizziness, Swelling in the ankles, Chest pain and Increased palpitations (irregular heartbeat) Follow Up Care Test Results: Test results from this visit will be discussed in further detail at your follow- up appointment, if applicable. Discharge Plan Admission Admit Date/Time: 04/23/25 20:45 Primary Reason for Your Visit: orthostatic hypotension Attending Provider: Yahaira Henley Primary Care Provider: Alvaro Auguste Chi Consulting Providers: Irma Rodriguez Instructions Patient Instructions: Orthostatic Hypotension Discharge Orders/Prescriptions Prescriptions: Continued tamsulosin 0.4 mg capsule 0.4 mg PO QDAY losartan 100 mg tablet 100 mg PO DAILY Patient Comments: not sure if taking rosuvastatin 40 mg tablet 40 mg PO QHS aspirin 81 mg Tablet,Delayed Release (Dr/Ec) 81 mg PO BREAKFAST Qty: 90 4RF clopidogrel 75 mg Tablet 75 mg PO DAILY Qty: 30 10RF Referrals / Follow Up: Alvaro Auguste Chi, MD [Primary Care Provider, Geriatrics] - Within 1 Week Disposition Disposition (needs filled in before D/C Order can be placed): Home, Self Care
--- NOTE | 2025-04-25 12:28 | DS.PCM_ITS ---
Providers Date of Admission: 04/23/25 Primary Care Physician: Dr. Alvaro Auguste MD Reason For Visit: syncope Diagnosis Discharge Diagnosis (1) Syncope: Status: Acute Code(s): R55 - Syncope and collapse (2) Fatigue: Status: Chronic Code(s): R53.83 - Other fatigue (3) Orthostatic hypotension: Status: Acute Code(s): I95.1 - Orthostatic hypotension Plan #syncope due to orthostatic hypotension * Admitted with a complaint of syncope was out doing some yard work. He had felt dizzy and lightheaded before. He said he had not been eating or drinking well and felt he was thirsty and dehydrated. He was admitted to palpitations. * EKG showed normal sinus rhythm. Troponins were negative. CT brain showed no acute intracranial pathology. * Orthostatics were positive. * Continue gentle hydration with IV fluids. * Limited echo ordered and pending. * Fall precautions. Monitor orthostatics and continue hydration. * PT/OT on board #History of CAD s/p stent: Had stents placed in March. On aspirin and Plavix as well as high intensity statin #Hypertension: He was reportedly on lisinopril for many years but was taken off of it. On losartan, which he is not even sure he is taking. #Lung nodule * CT of the chest done on admission was positive for a right upper lobe solid pulmonary nodule measuring 9 mm. To have follow-up imaging as per PCP in 3 months to monitor the lesion. #BPH: on flomax. DVT prophylaxis: Lovenox. Medications at Discharge Home Medications tamsulosin 0.4 mg capsule 0.4 mg PO QDAY 01/09/25 aspirin 81 mg tablet,delayed release 81 mg PO BREAKFAST #90 tabs 03/11/25 clopidogrel 75 mg tablet 75 mg PO DAILY #30 tabs 03/11/25 losartan 100 mg tablet 100 mg PO DAILY 04/23/25 rosuvastatin 40 mg tablet 40 mg PO QHS 04/23/25 Weight / BMI Weight Weight: 154 lb 5.177 oz Body Mass Index (BMI) 21.5 ABG / Lab / Microbiology Data 04/25/25 08:58 04/25/25 08:58 Laboratory: Laboratory Results - last 24 hr 04/25/25 08:58: WBC 6.1, RBC 4.02 L, Hgb 13.1, Hct 37.8 L, MCV 94.0, MCH 32.6 H, MCHC 34.7, RDW Std Deviation 45.7 H, RDW Coeff of Yordy 13.2, Plt Count 168, MPV 11.6, Immature Gran % (Auto) 0.200, Neut % (Auto) 63.5, Lymph % (Auto) 18.9 L, M dora % (Auto) 11.3 H, Eos % (Auto) 5.4 H, Baso % (Auto) 0.7, Absolute Neuts (auto) 3.9, Absolute Lymphs (auto) 1.16, Nucleated RBC % 0, Sodium 139, Potassium 4.1, Chloride 108, Carbon Dioxide 20.3 L, Anion Gap 11, BUN 17, Creatinine 0.92, Estim Creat Clear Calc 71.86, Est GFR (MDRD) Non-Af 89, BUN/Creatinine Ratio 18.7, Glucose 104 H, Calcium 9.2, Magnesium 1.8 D/C Instructions Weight Bearing Status: Weight bearing as tolerated Call your doctor if you observe: Fever of 101 or Higher, Shortness of breath, Dizziness, Swelling in the ankles, Chest pain and Increased palpitations (irregular heartbeat) DC O2, CPAP, BIPAP Needs Home O2 Discharge instructions: No Discharge Plan Admission Admit Date/Time: 04/23/25 20:45 Primary Reason for Your Visit: orthostatic hypotension Attending Provider: Yahaira Henley Primary Care Provider: Alvaro Auguste Chi Consulting Providers: Irma Rodriguez Instructions Patient Instructions: Orthostatic Hypotension Discharge Orders/Prescriptions Prescriptions: Continued tamsulosin 0.4 mg capsule 0.4 mg PO QDAY losartan 100 mg tablet 100 mg PO DAILY Patient Comments: not sure if taking rosuvastatin 40 mg tablet 40 mg PO QHS aspirin 81 mg Tablet,Delayed Release (Dr/Ec) 81 mg PO BREAKFAST Qty: 90 4RF clopidogrel 75 mg Tablet 75 mg PO DAILY Qty: 30 10RF Referrals / Follow Up: Alvaro Auguste Chi, MD [Primary Care Provider, Geriatrics] - Within 1 Week Disposition Disposition (needs filled in before D/C Order can be placed): Home, Self Care
--- NOTE | 2025-04-25 14:40 | NURSING ---
this rn performs discharge on patient and removes iv patient gets dressed and removes tele after this it is noted 7 beat run of vtach attending dr notified and states to hold on discharge. new 20 g iv inserted r forearm.
[2025-04-25 14:54] LABS: Magnesium 1.8 mg/dL (1.5-2.2)
--- NOTE | 2025-04-25 15:15 | PN_ITS ---
Subjective Subjective Patient seen and examined with his nurse by his bedside. He had no active complaints. Plan was to discharge today but patient had a short beat run of V. tach prior to discharge. Discharge therefore canceled. Potassium is 4.1 and magnesium is 2.2. Objective Data Objective Data Vital Signs: Vital Signs Temp Pulse Resp BP Pulse Ox O2 Del Method 98 F 58 L 18 149/81 H 98 Room Air 04/25/25 13:00 04/25/25 14:00 04/25/25 14:00 04/25/25 13:00 04/25/25 14:00 04/25/25 14:00 Oxygen Delivery Method Room Air Weight: 154 lb 5.177 oz Body Mass Index (BMI) 21.5 Intake & Output: Intake and Output for Last 24 Hours 04/23/25 04/24/25 04/25/25 23:59 23:59 23:59 Intake Total 0 / 0 1099.17 / 1099.17 Output Total 350 / 350 Balance 0 / 0 1099.17 / 1099.17 -350 / -350 Lab / Micro Data 04/25/25 08:58 04/25/25 08:58 Labs: Laboratory Results - last 24 hr 04/25/25 08:58: WBC 6.1, RBC 4.02 L, Hgb 13.1, Hct 37.8 L, MCV 94.0, MCH 32.6 H, MCHC 34.7, RDW Std Deviation 45.7 H, RDW Coeff of Yordy 13.2, Plt Count 168, MPV 11.6, Immature Gran % (Auto) 0.200, Neut % (Auto) 63.5, Lymph % (Auto) 18.9 L, M dora % (Auto) 11.3 H, Eos % (Auto) 5.4 H, Baso % (Auto) 0.7, Absolute Neuts (auto) 3.9, Absolute Lymphs (auto) 1.16, Nucleated RBC % 0, Sodium 139, Potassium 4.1, Chloride 108, Carbon Dioxide 20.3 L, Anion Gap 11, BUN 17, Creatinine 0.92, Estim Creat Clear Calc 71.86, Est GFR (MDRD) Non-Af 89, BUN/Creatinine Ratio 18.7, Glucose 104 H, Calcium 9.2, Magnesium 1.8 Physical Exam Const alert, oriented x3 and no apparent distress General Appearance: cooperative and well developed HEENT normocephalic, head/scalp atraumatic, moist oral mucous membranes and oropharynx normal Eyes EOMs intact bilaterally Neck supple and no JVD Lymph Lymphatic: no lymphedema noted Resp normal respiratory effort, normal air movement and clear to auscultation bilaterally Cardio regular rate, regular rhythm, S1 normal heart sound, S2 normal heart sound and no murmurs GI normal to inspection, nondistended, normoactive bowel sounds, soft to palpation and non-tender Extremity normal capillary refill, no clubbing, cyanosis or edema and no calf tenderness General Extremity: no tenderness to palpation of joints or extremities Skin General Skin Exam: no breakdown Neuro no focal motor deficits and no sensory deficits noted Motor Exam: general weakness Psych thought process normal, cooperative and affect normal Appearance: appropriate Assessment & Plan Assessment/Plan (1) Syncope: (2) Fatigue: (3) Orthostatic hypotension: PLAN: Plan #syncope due to orthostatic hypotension * Admitted with a complaint of syncope was out doing some yard work. He had felt dizzy and lightheaded before. He said he had not been eating or drinking well and felt he was thirsty and dehydrated. He was admitted to palpitations. * EKG showed normal sinus rhythm. Troponins were negative. CT brain showed no acute intracranial pathology. * Orthostatics were positive. * Continue gentle hydration with IV fluids. * Limited echo showed EF of 55% with no regional wall motion abnormalities, normal systolic function and RVSP of 50 mmHg. * Fall precautions. Monitor orthostatics and continue hydration. * PT/OT on board * #Asymptomatic V. tach * Patient had a very short 1 beat of V. tach this afternoon after discharge order was placed. Magnesium is 1.8 and potassium is 4.1. Will replace magnesium to keep it above 2. 2D echo as above. * Unable to start low-dose beta-carrie as patient has had intermittent bradycardia with heart rate going as low as 48 and mainly in the mid to high 50s. #History of CAD s/p stent: Had stents placed in March. On aspirin and Plavix as well as high intensity statin #Hypertension: He was reportedly on lisinopril for many years but was taken off of it. On losartan, which he is not even sure he is taking. #Lung nodule * CT of the chest done on admission was positive for a right upper lobe solid pulmonary nodule measuring 9 mm. To have follow-up imaging as per PCP in 3 months to monitor the lesion. #BPH: on flomax. DVT prophylaxis: Lovenox. Charges/Coding Visit Charges Inpatient E&M: 24800 Subs Hosp L2
[2025-04-25] MEDS: Magnesium Sulfate 2 GM in Dextrose 5%-Water (100mL Bag) 100 ML IV (16:09)
[2025-04-25] MEDS: 0.9% Normal Saline (250mL Bag) 250 ML 15 ML IV (16:09)
[2025-04-25] MEDS: 0.9% Saline Lock 10 ML Syringe IV (20:55)
[2025-04-26 02:00] VITALS: BP 138/75; PULSE 66; RESP 16; TEMP 36.6; O2SAT 100
[2025-04-26 04:54] VITALS: BMI 21.1
[2025-04-26 07:03] LABS: Hematocrit 37.0 % (40-54); Hemoglobin 12.5 g/dL (13.0-16.5); Immature Granulocytes Count 0.030 X10^3/uL (0.0-0.0); Mean Corp Hgb Conc 33.8 g/dL (32-36); Mean Corpuscular Volume 94.4 fL (80-94); Mean Platelet Vol. 12.3 fl (6.2-12.0); NRBC Flagged by Analyzer 0 % (0-5); Platelet Count 161 K/mm3 (150-450); RBC Distribution Width CV 13.2 % (11.6-14.6); RBC Distribution Width SD 45.6 fl (35.1-43.9); Red Blood Count 3.92 M/mm3 (4.6-6.2); White Blood Count 6.6 K/mm3 (4.4-11.0)
[2025-04-26 07:19] LABS: Anion Gap 11 (5-15); BUN 18 mg/dL (4-19); BUN/Creat Ratio 20.0 RATIO (10-20); Calcium,Total 9.1 mg/dL (7.6-11.0); Carbon Dioxide 21.3 mmol/L (21.0-32.0); Chloride 108 mmol/L (98-108); Estimated Creatinine Clearance 71.30 ml/min (50-250); Glucose 96 mg/dL (70-99); Potassium 4.1 mmol/L (3.3-5.1)
[2025-04-26 08:00] VITALS: BP 131/80; PULSE 65; RESP 16; TEMP 36.6; O2SAT 100
[2025-04-26 08:29] LABS: Magnesium 2.1 mg/dL (1.5-2.2)
[2025-04-26] MEDS: Aspirin E.C. 81 MG Tablet PO (09:58)
--- NOTE | 2025-04-26 10:41 | PCM.CONS.C ---
Assessment & Plan Assessment/Plan (1) Orthostatic hypotension: (2) Abrasion head: (3) Stented coronary artery: (4) CAD (coronary artery disease): (5) (HFpEF) heart failure with preserved ejection fraction: (6) Hyperlipidemia: PLAN: Plan -Continue ASA / Plavix -Continue home statin, lisinopril -Recommend 1 week Holter monitor and followup with cardiology within 2 weeks. -reviewed recent TTE, normal LVEf, normal filling pressures, no red flags -ok for discharge from CV standpoint HPI Consult Data Date of Consult: 04/26/25 HPI Narrative HPI Narrative: DESI FATIMA, is a 70 M past medical history notable for hypertension, hyperlipidemia, coronary artery disease status post PCI to the LAD 03/2025 presented to the hospital with syncopal episode. Reports he was hauling a lot of wood, was really exerting himself, sweating a lot. Was not drinking a lot of water. But sat down on a stool to then drink some water. [place] funny lightheaded and then woke up on the ground. No fecal or bladder incontinence. No chest pain preceding this. On arrival noted to have an ANNIE and positive orthostatic vital signs HsTrop unremarkable. Was given IV hydration and this improved. However noted to have 2 brief runs of NSVT approximately 6-8 beats. Blood pressure stable during this time. Patient without any symptoms during these runs. Discussed that patient's symptoms and presentation is different than what he had prior to getting his PCI. Discussed he is compliant all his medications. Advised hydration as well as modulation of physical exertion. [facility] Medical History Hyperlipidemia Lyme disease Bilateral carpal tunnel syndrome Localized swelling of both lower extremities GERD without esophagitis Hypokalemia Shortness of breath Wears glasses Wears dentures Anxiety Depression Arthritis Injury of back Migraine headache Chewing tobacco dependence Leg cramps History of colon polyps HTN (hypertension) Home Medications ?Medication ?Instructions ?Recorded ?Last Taken ?Type tamsulosin 0.4 mg capsule 0.4 mg PO QDAY 01/09/25 Unknown History aspirin 81 mg tablet,delayed 81 mg PO BREAKFAST #90 tabs 03/11/25 04/23/25 Rx release clopidogrel 75 mg tablet 75 mg PO DAILY #30 tabs 03/11/25 04/23/25 Rx losartan 100 mg tablet 100 mg PO DAILY 04/23/25 Unknown History rosuvastatin 40 mg tablet 40 mg PO QHS 04/23/25 04/22/25 History Allergy/AdvReac Type Severity Reaction Status Date / Time erythromycin base Allergy Rash Verified 04/23/25 16:44 (Erythromycin Base) Family History Mother CVA (cerebral vascular accident) Surgical History Stented coronary artery (03/11/25) History of surgery on wrist Hx of colonoscopy History of carpal tunnel surgery of right wrist History of carpal tunnel surgery of left wrist S/P right knee surgery S/P appendectomy Social History household members: spouse current occupational status: retired Smoking Status: Former smoker alcohol intake: current alcohol intake frequency: holidays/special occasions only details: 1-beer per month substance use type: marijuana Physical Exam Narrative General NAD AOX3 CV: RRR no murmurs Lungs: CTAB Abd: soft nontender skin: hydrated, normal turgor neck: no JVD Charges/Coding Visit Charges Inpatient E&M: 88241 Init Hosp L2 Objective Data Vital Signs: Vital Signs Temp Pulse Resp BP Pulse Ox O2 Del Method 97.8 F 65 16 131/80 H 100 Room Air 04/26/25 08:00 04/26/25 08:00 04/26/25 08:00 04/26/25 08:00 04/26/25 08:00 04/26/25 08:00 Oxygen Delivery Method Room Air Weight: 151 lb 7.321 oz Body Mass Index (BMI) 21.1 Intake & Output: Intake and Output for Last 24 Hours 04/24/25 04/25/25 04/26/25 23:59 23:59 23:59 Intake Total 1099.17 / 1099.17 254.25 / 454.25 200 / 200 Output Total 350 / 350 Balance 1099.17 / 1099.17 -95.75 / 104.25 200 / 200 Lab / Micro Data 04/26/25 06:21 04/26/25 06:21 Labs: Laboratory Results - last 24 hr 04/25/25 08:58: Magnesium 1.8 04/26/25 06:21: WBC 6.6, RBC 3.92 L, Hgb 12.5 L, Hct 37.0 L, MCV 94.4 H, MCH 31.9, MCHC 33.8, RDW Std Deviation 45.6 H, RDW Coeff of Yordy 13.2, Plt Count 161, MPV 12.3 H, Immature Gran % (Auto) 0.500, Neut % (Auto) 63.6, Lymph % (Auto) 16.9 L, [place] % (Auto) 11.1 H, Eos % (Auto) 7.0 H, Baso % (Auto) 0.9, Absolute Neuts (auto) 4.2, Absolute Lymphs (auto) 1.11, Nucleated RBC % 0, Sodium 140, Potassium 4.1, Chloride 108, Carbon Dioxide 21.3, Anion Gap 11, BUN 18, Creatinine 0.91, Estim Creat Clear Calc 71.30, Est GFR (MDRD) Non-Af 89, BUN/Creatinine Ratio 20.0, Glucose 96, Calcium 9.1, Magnesium 2.1 Cardiology Labs/Tests 04/25/25 08:58: Magnesium 1.8 04/26/25 06:21: WBC 6.6, RBC 3.92 L, Hgb 12.5 L, Hct 37.0 L, MCV 94.4 H, MCH 31.9, MCHC 33.8, Plt Count 161, MPV 12.3 H, Immature Gran % (Auto) 0.500, Neut % (Auto) 63.6, Lymph % (Auto) 16.9 L, [place] % (Auto) 11.1 H, Eos % (Auto) 7.0 H, Baso % (Auto) 0.9, Absolute Neuts (auto) 4.2, Nucleated RBC % 0, Sodium 140, Potassium 4.1, Chloride 108, Carbon Dioxide 21.3, Anion Gap 11, BUN 18, Creatinine 0.91, Est GFR (MDRD) Non-Af 89, BUN/Creatinine Ratio 20.0, Glucose 96, Calcium 9.1, Magnesium 2.1 Rhythm: EKG: ECHO: Stress Test: Cardiac Cath: PCI: CT Surgery: Holter monitor: EPS: PPM: CXR: Chest CT Scan: TAWANNA Risk Score for UA/STEMI Assesmment (YES = 1) Risk Stratification Applicable: Yes Age > or = 65: Yes > or = 3 CAD risk factors (HTN, Hypercholesterolemia, Diabetes, family hx, current smoker): Yes Known CAD (Stenosis > or = 50%): Yes ASA used in past 7 days: Yes Severe angina (> or = 2 episodes in 24 hrs): No EKG ST change > or = 0.5mm: No Positive cardiac markers: No Score TAWANNA Risk Score of mortality/ recurrent ischemic event over the next 14 days: 4 = 19.9% - Intermediate
--- NOTE | 2025-04-26 12:38 | DCINST_ITS ---
Discharge Instructions DC O2, CPAP, BIPAP needs Home O2 Discharge instructions: No Dressing / Incision Discharge Activity: Return to Normal Activity Weight Bearing Status: Weight bearing as tolerated Dressing / Incision Call your doctor if you observe: Fever of 101 or Higher, Shortness of breath, Dizziness, Swelling in the ankles, Chest pain and Increased palpitations (irregular heartbeat) Follow Up Care Test Results: Test results from this visit will be discussed in further detail at your follow- up appointment, if applicable. Discharge Plan Admission Admit Date/Time: 04/23/25 20:45 Primary Reason for Your Visit: orthostatic hypotension Attending Provider: Yahaira Henley Primary Care Provider: Alvaro Auguste Chi Consulting Providers: Irma Rodriguez; Damien Brady Instructions Patient Instructions: Orthostatic Hypotension Discharge Orders/Prescriptions Prescriptions: Continued tamsulosin 0.4 mg capsule 0.4 mg PO QDAY losartan 100 mg tablet 100 mg PO DAILY Patient Comments: not sure if taking rosuvastatin 40 mg tablet 40 mg PO QHS aspirin 81 mg Tablet,Delayed Release (Dr/Ec) 81 mg PO BREAKFAST Qty: 90 4RF clopidogrel 75 mg Tablet 75 mg PO DAILY Qty: 30 10RF Other Ambulatory Orders: 14 Day Event Recorder Preventi (Urgent) Timeframe: 1 Day Facility: [facility] - Location: Cardiovascular Services Ordered By: Dr. Yahaira Henley Referrals / Follow Up: Rosy Velazquez MD [Med Staff - Active Staff, Cardiology] - In 1 Day Referral Note: follow up with hvac service tech as scheduled on Sunday04/27/2025 Alvaro Auguste Chi, MD [Primary Care Provider, Geriatrics] - Within 1 Week Disposition Disposition (needs filled in before D/C Order can be placed): Home, Self Care
--- NOTE | 2025-04-26 12:38 | DS.PCM_ITS ---
Providers Date of Admission: 04/23/25 Date of Discharge: 04/26/25 Primary Care Physician: Dr. 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 Reason For Visit: syncope Diagnosis Discharge Diagnosis (1) Orthostatic hypotension: Status: Acute Code(s): I95.1 - Orthostatic hypotension (2) Abrasion head: Status: Acute Code(s): S00.91XA - Abrasion of unspecified part of head, initial encounter (3) Stented coronary artery: Status: Chronic Code(s): Z95.5 - Presence of coronary angioplasty implant and graft (4) CAD (coronary artery disease): Status: Chronic Code(s): I25.10 - Atherosclerotic heart disease of [place] coronary artery without angina pectoris (5) (HFpEF) heart failure with preserved ejection fraction: Status: Chronic Code(s): I50.30 - Unspecified diastolic (congestive) heart failure (6) Hyperlipidemia: Status: Acute Code(s): E78.5 - Hyperlipidemia, unspecified Plan #syncope due to orthostatic hypotension * Admitted with a complaint of syncope was out doing some yard work. He had felt dizzy and lightheaded before. He said he had not been eating or drinking well and felt he was thirsty and dehydrated. He was admitted to palpitations. * EKG showed normal sinus rhythm. Troponins were negative. CT brain showed no acute intracranial pathology. * Orthostatics were positive. * Continue gentle hydration with IV fluids. * Limited echo showed EF of 55% with no regional wall motion abnormalities, normal systolic function and RVSP of 50 mmHg. * Fall precautions. Monitor orthostatics and continue hydration. * PT/OT on board * #Asymptomatic V. tach * Patient had a very short 1 beat of V. tach this afternoon after discharge order was placed. Magnesium is 1.8 and potassium is 4.1. Will replace magnesium to keep it above 2. 2D echo as above. * Unable to start low-dose beta-carrie as patient has had intermittent bradycardia with heart rate going as low as 48 and mainly in the mid to high 50s. #History of CAD s/p stent: Had stents placed in March. On aspirin and Plavix as well as high intensity statin #Hypertension: He was reportedly on lisinopril for many years but was taken off of it. On losartan, which he is not even sure he is taking. #Lung nodule * CT of the chest done on admission was positive for a right upper lobe solid pulmonary nodule measuring 9 mm. To have follow-up imaging as per PCP in 3 months to monitor the lesion. #BPH: on flomax. DVT prophylaxis: Lovenox. Medications at Discharge Home Medications tamsulosin 0.4 mg capsule 0.4 mg PO QDAY prostate 01/09/25 aspirin 81 mg tablet,delayed release 81 mg PO BREAKFAST heart [employer] #90 tabs 03/11/25 clopidogrel 75 mg tablet 75 mg PO DAILY anti platelet #30 tabs 03/11/25 losartan 100 mg tablet 100 mg PO DAILY blood pressure 04/23/25 rosuvastatin 40 mg tablet 40 mg PO QHS cholesterol 04/23/25 Hospital Course Operations None Procedures 2-D Echocardiogram Summary of Care Provided Minutes Spent on Discharge: 45 Hospital Course: Patient is a 70-year-old male with a past medical history as outlined was admitted through the ED on 04/23/2025 with a complaint of syncope. He had been out working in his yard and said he started not feeling well. He went to his barn where he subsequently passed out and hit his head on the floor. When he woke up he was on the floor. Manage called his and he was brought to the ED. On admission labs were essentially unremarkable. EKG showed sinus rhythm with premature atrial complexes. CTA of the chest showed a right upper lobe solid pulmonary nodule measuring 9 mm with recommended follow-up in 3 months to evaluate the nodule. There was no PE. CT of the brain showed no acute intracranial pathology. Orthostatics were positive. Of note patient had recently had CAD with stents insertion. He denied any lightheadedness or dizziness before he passed out. Review of systems otherwise negative. He was admitted and managed for syncope thought to be due to orthostatic hypotension. Patient was hydrated with IV fluids and the orthostatic hypotension resolved. He had 2D echo which showed EF of 55% with no regional wall motion abnormalities. Hospital course was complicated by brief runs of V. tach. Patient cannot be placed on a beta-carrie because he was mildly bradycardic. Cardiology was consulted and reviewed patient. Cardiology recommended that patient could be discharged home on a 1 week Holter monitor. Patient did have a follow-up with his microsoft windows engineer on 04/27/2025 and he was advised to keep this appointment. His potassium and magnesium are within normal limits. Patient seen and examined prior to discharge. He had no active complaints. He was eager to be discharged home. Review of systems otherwise negative. Labs and vitals reviewed. Home medication reconciled. Of note and order for 2-week event monitor was ordered on discharge as there was no one week event monitor order available in the EMR. Physical Exam Const alert, oriented x3 and no apparent distress General Appearance: cooperative and well developed HEENT normocephalic, head/scalp atraumatic, moist oral mucous membranes and oropharynx normal Eyes EOMs intact bilaterally Neck supple and no JVD Lymph Lymphatic: no lymphedema noted Resp normal respiratory effort, normal air movement and clear to auscultation bilaterally Cardio regular rate, regular rhythm, S1 normal heart sound, S2 normal heart sound and no murmurs GI normal to inspection, nondistended, normoactive bowel sounds, soft to palpation and non-tender Extremity normal capillary refill, no clubbing, cyanosis or edema and no calf tenderness General Extremity: no tenderness to palpation of joints or extremities Skin no rashes or lesions noted General Skin Exam: no breakdown Neuro oriented x3, moves all extremities, no focal motor deficits and no sensory deficits noted Sensorium / Orientation: awake and alert Motor Exam: general weakness Psych thought process normal, cooperative and affect normal Appearance: appropriate Weight / BMI Weight Weight: 151 lb 7.321 oz Body Mass Index (BMI) 21.1 ABG / Lab / Microbiology Data 04/26/25 06:21 04/26/25 06:21 Laboratory: Laboratory Results - last 24 hr 04/25/25 08:58: Magnesium 1.8 04/26/25 06:21: WBC 6.6, RBC 3.92 L, Hgb 12.5 L, Hct 37.0 L, MCV 94.4 H, MCH 31.9, MCHC 33.8, RDW Std Deviation 45.6 H, RDW Coeff of [place] 13.2, Plt Count 161, MPV 12.3 H, Immature Gran % (Auto) 0.500, Neut % (Auto) 63.6, Lymph % (Auto) 16.9 L, [place] % (Auto) 11.1 H, Eos % (Auto) 7.0 H, Baso % (Auto) 0.9, Absolute Neuts (auto) 4.2, Absolute Lymphs (auto) 1.11, Nucleated RBC % 0, Sodium 140, Potassium 4.1, Chloride 108, Carbon Dioxide 21.3, Anion Gap 11, BUN 18, Creatinine 0.91, Estim Creat Clear Calc 71.30, Est GFR (MDRD) Non-Af 89, BUN/Creatinine Ratio 20.0, Glucose 96, Calcium 9.1, Magnesium 2.1 D/C Instructions Discharge Activity: Return to Normal Activity Weight Bearing Status: Weight bearing as tolerated Call your doctor if you observe: Fever of 101 or Higher, Shortness of breath, Dizziness, Swelling in the ankles, Chest pain and Increased palpitations (irregular heartbeat) DC O2, CPAP, BIPAP Needs Home O2 Discharge instructions: No DC home with Oxygen: No Patient's Goals Of Care - F/U Goals Reviewed Goals of care reviewed with patient: Yes - No change Meaningful Use Info Meaningful Use Meaningful Use Diagnoses (Choose all that apply): None applicable Discharge Plan Admission Admit Date/Time: 04/23/25 20:45 Primary Reason for Your Visit: orthostatic hypotension Attending Provider: Yahaira Henley Primary Care Provider: Alvaro Auguste Chi Consulting Providers: Irma Rodriguez; Damien Brady Instructions Patient Instructions: Orthostatic Hypotension Discharge Orders/Prescriptions Prescriptions: Continued tamsulosin 0.4 mg capsule 0.4 mg PO QDAY losartan 100 mg tablet 100 mg PO DAILY Patient Comments: not sure if taking rosuvastatin 40 mg tablet 40 mg PO QHS aspirin 81 mg Tablet,Delayed Release (Dr/Ec) 81 mg PO BREAKFAST Qty: 90 4RF clopidogrel 75 mg Tablet 75 mg PO DAILY Qty: 30 10RF Other Ambulatory Orders: 14 Day Event Recorder Preventi (Urgent) Timeframe: 1 Day Facility: [facility] - Location: Cardiovascular Services Ordered By: Dr. Yahaira Henley Referrals / Follow Up: Rosy Velazquez MD [Med Staff - Active Staff, Cardiology] - In 1 Day Referral Note: follow up with microsoft windows engineer as scheduled on Sunday04/27/2025 Alvaro Auguste Chi, MD [Primary Care Provider, Geriatrics] - Within 1 Week Disposition Disposition (needs filled in before D/C Order can be placed): Home, Self Care Charges/Coding Visit Charges Inpatient E&M: 50573 Disch Hosp >30min
--- NOTE | 2025-04-26 13:36 | PCM.DC ---
Discharge Instructions DC O2, CPAP, BIPAP needs Home O2 Discharge instructions: No Dressing / Incision Discharge Activity: Return to Normal Activity Weight Bearing Status: Weight bearing as tolerated Dressing / Incision Call your doctor if you observe: Fever of 101 or Higher, Shortness of breath, Dizziness, Swelling in the ankles, Chest pain and Increased palpitations (irregular heartbeat) Follow Up Care Test Results: Test results from this visit will be discussed in further detail at your follow-up appointment, if applicable. Discharge Plan Admission Admit Date/Time: 04/23/25 20:45 Primary Reason for Your Visit: orthostatic hypotension Attending Provider: Yahaira Henley Primary Care Provider: Alvaro Auguste Chi Consulting Providers: Irma Rodriguez; Damien Brady Instructions Patient Instructions: Orthostatic Hypotension Discharge Orders/Prescriptions Prescriptions: Continued tamsulosin 0.4 mg capsule 0.4 mg PO QDAY losartan 100 mg tablet 100 mg PO DAILY Patient Comments: not sure if taking rosuvastatin 40 mg tablet 40 mg PO QHS aspirin 81 mg Tablet,Delayed Release (Dr/Ec) 81 mg PO BREAKFAST Qty: 90 4RF clopidogrel 75 mg Tablet 75 mg PO DAILY Qty: 30 10RF Other Ambulatory Orders: 14 Day Event Recorder Preventi (Urgent) Timeframe: 1 Day Facility: [facility] - Location: Cardiovascular Services Ordered By: Dr. Yahaira Henley Referrals / Follow Up: Rosy Velazquez MD [Med Staff - Active Staff, Cardiology] - In 1 Day Referral Note: follow up with fur nailer as scheduled on Sunday04/27/2025 Alvaro Auguste Chi, MD [Primary Care Provider, Geriatrics] - Within 1 Week Disposition Disposition (needs filled in before D/C Order can be placed): Home, Self Care
== END 2025-04-26 12:37 | disposition home or self-care (01) ==
LOC: ED 20:16 → PCU 20:50
PROVIDERS: Admitting Provider Internal Medicine; Emergency Provider Emergency Medicine; PCP Family Medicine Geriatric Medicine; Visit Provider Student in an Organized Health Care Education/Training Program
DX: I95.1 Orthostatic hypotension (principal); I11.0 Hypertensive heart disease with heart failure; I50.32 Chronic diastolic (congestive) heart failure; I47.20 Ventricular tachycardia, unspecified; Z79.02 Long term (current) use of antithrombotics/antiplatelets; R00.1 Bradycardia, unspecified; E78.5 Hyperlipidemia, unspecified; N17.9 Acute kidney failure, unspecified; Z95.5 Presence of coronary angioplasty implant and graft; R91.1 Solitary pulmonary nodule; Z79.82 Long term (current) use of aspirin; Z87.891 Personal history of nicotine dependence; I25.10 Atherosclerotic heart disease of native coronary artery without angina pectoris; Z79.899 Other long term (current) drug therapy; H53.8 Other visual disturbances; K21.9 Gastro-esophageal reflux disease without esophagitis; N40.0 Benign prostatic hyperplasia without lower urinary tract symptoms
CPT/HCPCS: 36415; 70450; 71275; 80048; 83735; 84484; 85025; 93005; 93308; 96365; 96366; 96372; 97802; 99221; 99285; 99406; Q9967; A4216; G0378

== ENCOUNTER → 2025-05-04 | Outpatient (CLI) | payer MEDICARE, SELFPAY ==
[2025-04-21 09:41] VITALS: BMI 22.4
[2025-05-04 12:02] LABS: Hematocrit 38.0 % (40-54); Hemoglobin 13.1 g/dL (13.0-16.5); Immature Granulocytes Count 0.040 X10^3/uL (0.0-0.0); Mean Corp Hgb Conc 34.5 g/dL (32-36); Mean Corpuscular Volume 95.0 fL (80-94); Mean Platelet Vol. 12.0 fl (6.2-12.0); NRBC Flagged by Analyzer 0 % (0-5); Platelet Count 181 K/mm3 (150-450); RBC Distribution Width CV 12.8 % (11.6-14.6); RBC Distribution Width SD 44.6 fl (35.1-43.9); Red Blood Count 4.00 M/mm3 (4.6-6.2); White Blood Count 9.3 K/mm3 (4.4-11.0)
[2025-05-04 12:41] LABS: Anion Gap 12 (7-18); BUN 15 mg/dL (4-19); BUN/Creat Ratio 17.2 RATIO (10-20); Calcium,Total 9.8 mg/dL (7.6-11.0); Carbon Dioxide 22.0 mmol/L (20.0-29.0); Chloride 109 mmol/L (96-106); Glucose 104 mg/dL (70-99); Magnesium 2.1 mg/dL (1.5-2.2); Potassium 4.0 mmol/L (3.5-5.1)
[2025-05-04 19:45] LABS: Xtra Tube Kwok EXTRA TUBE
== END | disposition home or self-care (01) ==
LOC: POLAB3 11:44
PROVIDERS: PCP Family Medicine Geriatric Medicine; Visit Provider Family Medicine Geriatric Medicine
DX: I10 Essential (primary) hypertension (principal); E83.42 Hypomagnesemia
CPT/HCPCS: 36415; 80048; 83735; 85025

== ENCOUNTER 2025-05-06 09:15 | Outpatient (RCR) | payer MEDICARE, SELFPAY ==
[2025-03-25 09:05] VITALS: BMI 22.2
--- NOTE | 2025-04-21 09:31 | PCM.CR.ITP ---
Exercise - Initial Assessment Visit Session #:: 10 Physician Prescribed Exercise Modalities: Treadmill, SciFit Stepper and SciFit Lateral Bonding Machine Setter Nutrition - Initial Assessment Weight Mgt (Other Care) Height: 5 ft 10 in Weight:: 156 lb BMI: 22.4 Core - Initial Assessment Tobacco Use Years Smokin Psychosocial - Initial Assess Referral to Behavioral Health PS - Interventions: Yes: Attend Stress Management Classes Exercise - 30-day Assessment Visit Date of Eval: 04/21/25 Session #:: 10 Physician Prescribed Exercise Modalities: Treadmill, SciFit Stepper and SciFit Lateral Bonding Machine Setter Frequency: 3x/week for 12 weeks [36 sessions] Intensity: 60-80% of age predicted maximum heart rate reserve Duration: 30 - 45 minutes Current METSs:: 4.1 Target Heart Rate:: 89-111 Current RPE:: 12-13 Maximum Excercise HR:: 119 Resting Blood Pressure: 128/62 Maximum Exercise Blood Pressure: 132/72 EKG Type: NSR to ST w/rare to occas pac's, occas to freq pvc's, one vent couplet Outcomes & Goals Goals:: Verbalizes understanding of THR, RPE & goal METS by session 6, Documents in home exercise log/reports 30 min aerobic 5 day/wk by DC, Demonstrates accurate pulse taking by DC and Other additional outcome/goals: see below Intervention & Plan Exercise Program Goals: Instruct on personal THR & RPE, Instruct on MET level & personal MET goal, Show patient to take own pulse /validate performance until accurate, Instruct on home exercise and Other additional plan/int Physical Activity Home Exercise Physical Activity - Home Exercise: Safe Exercise, Warm-up, Self-monitoring, Cool-Down, Home Exercise > 30 min Daily and Sitting Time <3 hours/daily Outcomes & Goals Outcomes/Goals: Demonstrates correct Warm-up/exercise Cool-Down (S3) if = 2.5 METs, Verbalizes symptoms of exercise intolerance by Session 3 (S3), Demonstrate safe equipment use (S3) & follows exercise prescrition (6) and Other: See below Intervention & Plan Plan/Intervention: Instruct warm-up & cool-down if exercising at > 2 METs, Instruct on symptoms of exercise intolerance & actions to take, Instruct & monitor on saf, Assess intial functional capacity & safety risk and Other See below 30-day Reassessments 30 day Reassessments:: Progressing Reassessment Notes & Comments:: Pt oriented to equipment. RPE explained to pt. Pt demonstrates understanding in his daily sessions. Exercise - 60-day Assessment Physician Prescribed Exercise Modalities: Treadmill, SciFit Stepper and SciFit Lateral Bonding Machine Setter Exercise - 90-day Assessment Physician Prescribed Exercise Modalities: Treadmill, SciFit Stepper and SciFit Lateral Bonding Machine Setter Exercise - Final/Discharge Physician Prescribed Exercise Modalities: Treadmill, SciFit Stepper and SciFit Lateral Bonding Machine Setter Nutrition - 30-Day Assessment Program Goals Nutrition Program Goals Patient has diagnosis of Hyperlipidemia (ICD E78)?: Yes Visit Date of Eval: 04/21/25 Session #:: 10 (Nutrition survey score of 3) Cholesterol/Lipids (Other Core Measures) Determine presence & major risk factors that modify LDL goal: Cigarette smoking, Hypertension or hypertensive medication, Low HDL cholesterol <40 mg/dL*, Family history of premature CHD in Male < 55 years: female <65 yearsFa and Age men > 45 years; women >/= 55 years Outcomes/Goals: Pt IDs own risk factors & lifestyle modifications by Session 10, Verbalizes symptoms of angina & response by session 3., Pt independently manages and Other Additional Outcomes/Goals: Intervention/Plan: Advocate for lipid panel cholesterol medication if applicable, Instruct on personal lipid levels & lipid goals/NCEP guidelines, Instruct on cholesterol and Other additional plan/int Diabetes (Other Core Measures) Diabetes Type: Not Applicable Weight Mgt (Other Care) Height: 5 ft 10 in Weight:: 156 lb BMI: 22.4 Diagnosis Overweight/Obesity BMI> 30% ICD-10 E66: No Diagnosis High BMI/Morbid Obesity BMI> 35% ICD-10 Z68: No Outcomes/Goals: Pt sets, maintains & shows weight loss goal & trend during rehab and Other additional outcomes/goals Intervention/Plan: Instruct on ideal BMI & set weight loss goal w/patient, Assist pt to ID & incorporate diet changes for weight loss by S9, Refer to Structured Weight Loss program as appropriate, Encourage goal of using 250-300dcal per session for weight loss and Other additional plan/interventions Healthy Eating Habits Will attend diet classes:: Yes Outcomes/Goals:: Consume diet rich in vegs,fruits,whole grain/high fiber,fish,lean meat, Limit sat/trans fats,cholesterol & added salts & sugars and Other additional outcome/goals: Intervention/Plan:: Assess current eating habits and Other Additional plan/interventions 30-day Reassessments:: Progressing Reassessment Notes & Comments:: Pt is at a healthy weight. 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 Heart healthy low sodium diet encouraged. Education Gave educational materials for:: Signs & symptoms of hypoglycemia, Signs & symptoms of hyperglycemia, Relate diabetes to coronary artery disease and Healthy eating Nutrition - 60-Day Assessment Weight Mgt (Other Care) Height: 5 ft 10 in Weight:: 156 lb BMI: 22.4 Core - 30-Day Assessment Visit Date of Eval: 04/21/25 Session #:: 10 Medication Compliance Preventative Medication(s):: Aspirin, Clopidogrel/P2Y12 inhibit and Statin/lipid H/O mental health issues: depression, anxiety, or addiction?: No Doesn?t believe in the benefits of treatment?: No Believes medications are unnecessary or harmful?: No Has a concern about medication side effects?: No Expresses concern over the cost of medications?: No Outcomes/Goals: Verbalizes medications,desired effect & common side effects @ DC, Pt self-reports following medication regimen, Keeps card in wallet w/medications listed by DC and Other additional outcome/goals: Interventions/plans: Instruct on medication effects & side effects, Review medication list w/patient every two weeks, Instruct importance of taking meds as ordered & assist problem solving and Other additional 30-day Reassessments:: Progressing Reassessment Notes & Comments:: Pt taken off of Lisinopril and started on Rosuvastatin 04/20. Tobacco Use Tobacco Use: Non-smoker How long ago did you quit using tobacco products?: Greater than or equal to 6 months ago (stopped in 2002) How many cigarettes do you smoke per day?: 20 Years Smokin Do you use smokeless tobacco?: No Outcomes/Goals: Smoking cessation achieved or maintained by discharge, Identify aids/strategies for achieving smoking cessation by session 6 and Other additional outcome/goals Interventions/plan: Instruct on effects of smoking & provide smoking cessation resource, Assist pt to set quit date & provide encouragement, Assist pt to develop strategies to achieve/maintain quit date, Assist pt w/nicotine replacement & medication for cessation success and Other additional plan/interventions Hypertension Hypertension Diagnosis:: Hypertension ICD-10 I10 Resting Blood Pressure:: 128/62 [place] [employer] Hypertension Guidelines Peak Exercise Blood Pressure:: 132/72 Outcomes/Goals: Able to verbalize/achieve optimal blood pressure <130/80, Incorporates diet changes & exercise for blood pressure control by DC and Other additional outcomes/goals Interventions/plan: Instruct on optimal blood pressure, hypertension & medications, Instruct on effects of sodium, alcohol, stress, exercise &hypertension and Other additional plan/interventions 30 day Reassessments:: Progressing Reassessment Notes & Comments:: Pt's BP's are within AHA normal limits on some days. Will continue to monitor and report to pt's physician if necessary. Tobacco Cessation Referral Smoking Cessation Referral:: No Individual Education/Counseling:: No Education Schedule Given:: Yes Psychosocial - 30-Day Assess VIsit Date of Eval: 04/21/25 Session #:: 10 History of previous Mental disease:: No Psychosocial Test Tool Used:: [employer] QOL Cardiac and PHQ-9 Questionnaire phq-9 Severity See PHQ-9 Score: 7 Referral to Behavioral Health PS - Interventions: Yes: Attend Stress Management Classes Outcomes/Goals: See list Psychosocial Outcomes/Goals:: ID's personal stressors & 2 strategies to manage stress by discharge and Other Additional outcome/goals: Intervention/Plan: See List Interventions/Plan:: Assess stressors,coping strategies & signs of derpression on admission, Instruct/assist pt to develop coping & personal stress Mgt strategies, Refer to Behavioral Health if appropriate, Refer to Physician if appropriate, Instruct patient to recognize signs & symptoms of depression, Instruct patient to recog and Other additional plan/intervention 30-day Reassessments: 30 day Reassessments:: Progressing Reassessment Notes & Comments:: Pt denies any psychosocial issues at this time. Pt to attend stress management classes. Will reassess every 30 days. Psychosocial - 60-Day Assess Referral to Behavioral Health PS - Interventions: Yes: Attend Stress Management Classes Outcomes/Goals: See list Psychosocial Outcomes/Goals:: ID's personal stressors & 2 strategies to manage stress by discharge and Other Additional outcome/goals: Psychosocial - 90-Day Assess Referral to Behavioral Health PS - Interventions: Yes: Attend Stress Management Classes Psychosocial - Final Assessmen Referral to Behavioral Health PS - Interventions: Yes: Attend Stress Management Classes Nutrition - 90-Day Assessment Weight Mgt (Other Care) Height: 5 ft 10 in Weight:: 156 lb BMI: 22.4 Nutrition - Final Assessment Weight Mgt (Other Care) Height: 5 ft 10 in Weight:: 156 lb BMI: 22.4
[2025-04-21 09:41] VITALS: BP 128/62; BMI 22.4
== END 2025-05-06 23:59 ==
LOC: CR 09:15
PROVIDERS: PCP Family Medicine Geriatric Medicine; Referring Provider Internal Medicine Cardiovascular Disease; Visit Provider Internal Medicine Cardiovascular Disease
DX: Z95.5 Presence of coronary angioplasty implant and graft (principal); I25.10 Atherosclerotic heart disease of native coronary artery without angina pectoris; I50.30 Unspecified diastolic (congestive) heart failure; R94.39 Abnormal result of other cardiovascular function study; I11.0 Hypertensive heart disease with heart failure; E78.5 Hyperlipidemia, unspecified
CPT/HCPCS: 93798